=== PATIENT | male | born 1955 | race Caucasian/White ===

== ENCOUNTER 2023-04-10 07:26 | Day surgery (SDC) | payer MEDICARE, MEDICAID, SELFPAY ==
--- NOTE | 2023-04-05 14:19 | HO.ANESPROP2 ---
Documented by User: Bonny Gonzalez NP 04/06/23 10:58 HPI - Anesthesia Eval Consult details Narrative: 67yo M for Colonoscopy Follows cardiology - Dr Verma - CAD Stents 2010, 2013), CHF. Last eval 07/2022 for preop femoral endarterectomy. Nuc Stress done preop without evidence of ischemia. Pt optimized at that time. Follows [facility] - s/p bilateral femoral endartarectomy, bilateral iliac stents 08/2022 - Clopidogrel/ASA PMFSH Past Medical History Medical History CAD (coronary artery disease) CHF (congestive heart failure) GERD (gastroesophageal reflux disease) HLD (hyperlipidemia) HTN (hypertension) Increased BMI MARIANO (obstructive sleep apnea) Osteoarthritis PVD (peripheral vascular disease) Surgical History Surgical History H/O colonoscopy H/O esophagogastroduodenoscopy H/O heart artery stent History of endarterectomy (~2021) S/P insertion of iliac artery stent Social History Social History Patient Tobacco Use Status: Never used Tobacco Meds Allergies Allergy/AdvReac Type Severity Reaction Status Date / Time No Known Allergies Allergy Verified 04/05/23 13:42 Home Medications Medication Instructions Recorded Confirmed Last Taken Type aspirin 81 mg tablet,delayed 81 mg PO DAILY 04/06/23 04/06/23 Unknown History release clopidogrel 75 mg tablet 75 mg PO DAILY 04/06/23 04/06/23 Unknown History diclofenac sodium 75 mg 75 mg PO BID 04/06/23 04/06/23 Unknown History tablet,delayed release docusate sodium 100 mg capsule 100 mg PO BID 04/06/23 04/06/23 Unknown History furosemide 80 mg tablet 80 mg PO DAILY 04/06/23 04/06/23 Unknown History gabapentin 300 mg capsule 600 mg PO TID 04/06/23 04/06/23 Unknown History losartan 100 mg tablet 100 mg PO DAILY 04/06/23 04/06/23 Unknown History metoprolol succinate 50 mg 50 mg PO DAILY 04/06/23 04/06/23 Unknown History tablet,extended release 24 hr pantoprazole 40 mg tablet,delayed 40 mg PO DAILY 04/06/23 04/06/23 Unknown History release potassium chloride 20 mEq 60 meq PO BID 04/06/23 04/06/23 Unknown History tablet,extended release rosuvastatin 20 mg tablet 20 mg PO DAILY 04/06/23 04/06/23 Unknown History semaglutide 1 mg/dose (4 mg/3 mL) 1 mg subcut QWEEK 04/06/23 04/06/23 Unknown History subcutaneous pen injector (Ozempic) Exam Exam Date and Time: April 05, 2023 1419 Narrative Narrative: EKG 07/2022 NSR @ 69 Assessment and Plan Assessment Anesthesia Assessment: Chart Reviewed Documented by User: Keely Hannah MD 04/10/23 08:21 [facility] Active Problems Active Problems: MARIANO. Not using CPAP. Unable to tolerate CAD/PVD. Stopped blood thinners 1 week ago. Denies chest pain Past Medical History Medical History CAD (coronary artery disease) CHF (congestive heart failure) GERD (gastroesophageal reflux disease) HLD (hyperlipidemia) HTN (hypertension) Increased BMI MARIANO (obstructive sleep apnea) Osteoarthritis PVD (peripheral vascular disease) Family History Family history of problems with anesthesia: No Surgical History Surgical History H/O colonoscopy H/O esophagogastroduodenoscopy H/O heart artery stent History of endarterectomy (~2021) S/P insertion of iliac artery stent History of Problems with Anesthesia: No Social History Social History Patient Tobacco Use Status: Never used Tobacco Meds Allergies Allergy/AdvReac Type Severity Reaction Status Date / Time No Known Allergies Allergy Verified 04/05/23 13:42 Home Medications Medication Instructions Recorded Confirmed Last Taken Type aspirin 81 mg tablet,delayed 81 mg PO DAILY 04/06/23 04/06/23 Unknown History release clopidogrel 75 mg tablet 75 mg PO DAILY 04/06/23 04/06/23 Unknown History diclofenac sodium 75 mg 75 mg PO BID 04/06/23 04/06/23 Unknown History tablet,delayed release docusate sodium 100 mg capsule 100 mg PO BID 04/06/23 04/06/23 Unknown History furosemide 80 mg tablet 80 mg PO DAILY 04/06/23 04/06/23 Unknown History gabapentin 300 mg capsule 600 mg PO TID 04/06/23 04/06/23 Unknown History losartan 100 mg tablet 100 mg PO DAILY 04/06/23 04/06/23 Unknown History metoprolol succinate 50 mg 50 mg PO DAILY 04/06/23 04/06/23 Unknown History tablet,extended release 24 hr pantoprazole 40 mg tablet,delayed 40 mg PO DAILY 04/06/23 04/06/23 Unknown History release potassium chloride 20 mEq 60 meq PO BID 04/06/23 04/06/23 Unknown History tablet,extended release rosuvastatin 20 mg tablet 20 mg PO DAILY 04/06/23 04/06/23 Unknown History semaglutide 1 mg/dose (4 mg/3 mL) 1 mg subcut QWEEK 04/06/23 04/06/23 Unknown History subcutaneous pen injector (Ozempic) Exam Height,Weight and Vital Signs: Height 6 ft 1 in Weight 156.489 kg Vital Signs Temp Pulse Resp BP Pulse Ox O2 Del Method 04/10/23 08:10 97.0 F 69 16 148/95 H 96 Room Air Airway Mallampati Class: III TM Dist: >3cm Neck ROM: Full Denture: Upper and Lower Loose/Missing/Broken Teeth: Yes Heart: RRR Lungs: CTAB Assessment and Plan Assessment Anesthesia Assessment: Anesthesia Plan Discussed Final Anesthetic Review Family History of Problems with Anesthesia: No History of Problems with Anesthesia: No NPO: Yes ASA Class: III Final Preanesthetic Review: No Changes in Pt Med Stat, Meds/Allgs Chart Reviewed, Consent Obtained/Reviewed and Anes Risks/Benef Reviewed Patient Risk: Intermediate Procedure Risk: Low Assessment/Block/Sedation in SS: Assess/Block/Sedation-SS Anesthetic Plan Anesthetic Plan: MAC: Disposition: Standard PACU
--- OUTSIDE RECORDS SUMMARY | 2023-04-10 07:29 | XMS_ITS | Continuity of Care Document ---
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 Role Phone Cori Ugalde DO Primary Care Physician [facility]): [facility] - 09/18/21 [facility] [address] [place] [id number]- Attending Physician: Murtaza Raya Admitting Physician: AdmMurtaza sparks Referring Physician: AdmtrMurtaza Allergies, Adverse Reactions, Alerts Substance Reaction Severity Status NKA Active Immunizations Given and Recorded Vaccine Date Status Refusal Reason influenza virus vaccine, inactivated 10/07/19 Give n influenza virus vaccine, inactivated 10/08/14 Colton rded Miscellaneous Vaccine 1 11/21/18 Given zoster vaccine, inactivated 10/26/18 Recorded Zoster Vaccine Live 03/13/17 Recorded Zoster Vaccine Live 2 03/18/12 Recorded tetanus/diphtheria/pertussis, acel(Tdap) 06/21/16 Recorded 1Result Comment: [11/21/2018] pt was given immunization at [address] [facility] VIAL KIT 2Location History: [facility] Medications Meena-Cambria Plus Cold and Cough By Mouth, Every 4 hours, PRN Other, 0 Refills, Maintenance, 11/23/20 8:31:00 EST, Partial fill uponpatient request if the prescription is for a schedule II opioid drug. Start Date: 11/23/20 Status: Ordered aspirin buffered 81 mg oral tablet 1 tablet = 81 mg, By Mouth, Daily, # 30 tablet, 0 Refills, Maintenance, 09/16/14 6:28:58, Tablet Start Date: 09/16/14 Status: Ordered Compression Stockings See Instructions, # 2 pair, Maintenance, surgical, knee length 20-30 mm Hg Dx:I73.9, 07/09/19 16:36:14 EDT, Compound Start Date: 07/09/19 Status: Ordered Depakote ER 500 mg oral tablet, extended release 6 tablet = 3,000 mg, By Mouth, Daily, # 30 tablet, 0 Refills, Maintenance, 07/22/20 17:54:00 EDT, ER Tablet Start Date: 07/22/20 Status: Ordered gabapentin 300 mg oral capsule 600 mg, 2, capsule, By Mouth, 3 times a day, take 1-2 capsules, three times a day, can increase to 2 capsules 3 times a day if tolerable, # 540 capsule, Refills 3, Tot. Refills 3, Maintenance, 07/14/21 13:49:00 EDT, Route to Pharmacy Electronically, [facility]... Start Date: 07/14/21 Stop Date: 07/09/22 Status: Ordered KlonoPIN 0.5 mg oral tablet 1 tablet = 0.5 mg, By Mouth, 3 times a day, 0 Refills, Maintenance, 07/22/20 17:55:00 EDT, Tablet Start Date: 07/22/20 Status: Ordered Klor-Con M20 20 mEq oral tablet, extended release 3 tablets, By Mouth, 2 times a day, Take 3 tablet in am and 3 tablets in pm do not crush or chew, #90 tablet, 5 Refills, Maintenance, 10/01/20 7:33:00 EST, ER Tablet, [facility] #[id number], 185, cm, 07/22/20 22:18:00 EDT, Height, 180, kg, 07/13... Start Date: 10/01/20 Stop Date: 03/30/21 Status: Ordered Lasix 80 mg oral tablet 80 mg, 1, tablet, By Mouth, 2 times a day, # 30 tablet, Refills 0, Maintenance, 12/20/16 17:07:10 Start Date: 12/20/16 Status: Ordered losartan 100 mg oral tablet 1 tablet = 100 mg, By Mouth, Daily, D/C combo HCTZ-Losartan Rx, # 90 tablet, 3 Refills, Maintenance, 12/24/20 10:15:00 EST, Tablet, [facility] #[id number], 185, cm, 12/24/20 9:35:00 EST, Height,183.3, kg, 11/23/20 8:36:00 EST, Dry Weight Start Date: 12/24/20 Stop Date: 12/19/21 Status: Ordered metoprolol 50 mg oral tablet 50 mg, 1, tablet, By Mouth, 2 times a day, Refills 0, Maintenance, 12/20/16 10:41:14 Start Date: 12/20/16 Status: Ordered pantoprazole 40 mg oral delayed release tablet 1 tablet = 40 mg, By Mouth, Daily, # 90 tablet, 4 Refills, Soft Stop, 12/24/20 10:16:00 EST, 185, cm, 12/24/20 9:35:00 EST, Height, 183.3, kg, 11/23/20 8:36:00 EST, Dry Weight Start Date: 12/24/20 Stop Date: 03/19/22 Status: Ordered Plavix 75 mg oral tablet 75 mg, 1, tablet, By Mouth, Daily, # 30 tablet, Refills 0, Maintenance, 05/22/17 10:57:57 Start Date: 05/22/17 Stop Date: 06/21/17 Status: Ordered rosuvastatin 20 mg oral tablet 1 tablet = 20 mg, By Mouth, Daily, Please D/C atorvastatin, # 90 tablet, 3 Refills, Maintenance, 12/24/20 10:16:00 EST, Tablet, [facility] #[id number], Partial fill upon patient request, 185, cm, 12/24/20 9:35:00 EST, Height, 183.3, kg, 11/23/20... Start Date: 12/24/20 Stop Date: 12/19/21 Status: Ordered semaglutide 2 mg/1.5 mL (0.25 mg or 0.5 mg dose) subcutaneous solution = 0.5 mg, Subcutaneous Infusion, Every Sunday, rotate injection sites, # 1 each, 2 Refills, Maintenance, 07/28/21 10:46:00 EDT, Partial fill upon patient request if the prescription is for a schedule II opioid drug., 0.5 mg Subcutaneous Infusion Ever... Start Date: 07/28/21 Stop Date: 10/26/21 Status: Ordered Shower Bench See Instructions, # 1 each, Refills 0, Tot. Refills 0, Maintenance, Dx: Sandi Peters, 12/20/1709:53:07, Compound Start Date: 12/20/16 Status: Ordered Ventolin HFA 108 mcg/inh inhalation aerosol with adapter 1 puffs, Inhalation, 4 times a day, PRN for wheezing, # 1 each, 5 Refills, Maintenance, 01/17/21 9:47:00 EST, Aerosol, [facility] #[id number], 185, cm, 12/24/20 9:35:00 EST, Height, 183.3, kg, 11/23/20 8:36:00 EST, Dry Weight Start Date: 01/17/21 Stop Date: 07/16/21 Status: Ordered Wellbutrin 100 mg oral tablet 2 tablet, By Mouth, Daily, # 60 tablet, 0 Refills, Maintenance, 11/23/20 8:29:00 EST, Tablet, Partial fill upon patient request if the prescription is for a schedule II opioid drug. Start Date: 11/23/20 Status: Ordered Problem List Condition Effective Dates Status Health Status Inform ant Binge eating disorder, mild, in partial remission(Confirmed) Active Chronic back pain(Confirmed) Active CAD (coronary artery disease)(Confirmed) Active GERD (gastroesophageal reflu x disease)(Confirmed) Active COVID-19 vaccine series completed(Confirmed) 1 Active Hypercholesterolemia(Confirmed) Active Hyperlipidemia(Confirmed) Active Hypertension(Confirmed) Active Onychauxis(Confirmed) Active Sleep-related hypoxia(Confirmed) Active Prediabetes(Confirmed) Active Injury of ankle, left(Confirmed) 07/05/21 Active Lateral epicondylitis(Confirmed) Active Nasal vestibulitis(Confirmed) Active MARIANO (obstructive sleep apnea)(Confirmed) Active Fungal infection of nail(Confirmed) Active Osteoarthritis of knee(Confirmed) Active Osteoporosis(Confirmed) 2 Active Paronychia of toe(Confirmed) Active PVD (peripheral vascular disease)(Confirmed) Active Rotator cuff tendonitis(Confirmed) Active Diastolic CHF with preserved left ventricular function, NYHA class 2(Confirmed) Active Treatment-emergent central s leep apnea(Confirmed) Active 1Patient stated he recieved both vaccines at the [facility] on 01/05/21 and 02/02/21 2Dexa 08/2020 Social History Social History Type Response Smoking Status Former smoker; Type: Cigarettes; Tobacco use times per day: 1-2 ppd for 30 years; Number of years: 28; Started at age: 20; Stopped at age: 48; entered on: 05/22/17 Sex Male
--- OUTSIDE RECORDS SUMMARY | 2023-04-10 07:29 | XMS_ITS | Continuity of Care Document ---
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 Name Role Phone Cori Ugalde DO Primary Care Physician [facility]): 10/26/22 - 12/29/22 [facility] [address] [place] [id number]- Attending Physician: Not on Staff, Attending MD Allergies, Adverse Reactions, Alerts No Known Allergies Immunizations Given and Recorded Vaccine Date Status Refusal Reason SARS-CoV-2 (COVID-19) mRNA-1273 vaccine 04/03/22 R ecorded SARS-CoV-2 (COVID-19) mRNA-1273 vaccine 09/24/21 R ecorded SARS-CoV-2 (COVID-19) mRNA-1273 vaccine 02/02/21 R ecorded SARS-CoV-2 (COVID-19) mRNA-1273 vaccine 01/05/21 R ecorded influenza virus vaccine, inactivated 09/24/21 Colton rded influenza virus vaccine, inactivated 10/07/19 Give n influenza virus vaccine, inactivated 10/08/14 Colton rded Influenza Virus Vaccine (oldterm) 1 10/07/19 Recor ded Influenza Virus Vaccine (oldterm) 10/08/14 Recorde d Miscellaneous Vaccine 2 11/21/18 Given Zoster Vaccine Live 10/26/18 Recorded Zoster Vaccine Live 03/13/17 Recorded Zoster Vaccine Live 03/13/17 Recorded Zoster Vaccine Live 03/18/12 Recorded Zoster Vaccine Live 3 03/18/12 Recorded zoster vaccine, inactivated 10/26/18 Recorded tetanus/diphtheria/pertussis, acel(Tdap) 4 06/21/16 Recorded tetanus/diphtheria/pertussis, acel(Tdap) 8/10/16 Recorded 1Result Comment: Unit: Unknown 2Result Comment: [11/21/2018] pt was given immunization at [address] [facility]RIX VIAL KIT 3Location History: [facility] 4Result Comment: Unit: Unknown Medications acetaminophen 325 mg oral tablet Refills 0, Maintenance, 09/26/22 11:34:00 EST, Partial fill upon patient request if the prescription is for a schedule II opioid drug. Start Date: 09/26/22 Status: Ordered aspirin buffered 81 mg oral tablet 1 tablet = 81 mg, By Mouth, Daily, # 30 tablet, 0 Refills, Maintenance, 09/16/14 6:28:58, Tablet Start Date: 09/16/14 Status: Ordered Colace sodium 100 mg oral capsule 100 mg, 1, capsule, By Mouth, 2 times a day, # 60 capsule, Refills 5, Tot. Refills 5, Maintenance, 11/27/22 15:22:00 EST, Route to Pharmacy Electronically, [facility] #[id number], Partial fill upon patient request if the prescription is for a estela... Start Date: 11/27/22 Status: Ordered Compression Stockings See Instructions, # 2 pair, Maintenance, surgical, knee length 20-30 mm Hg Dx:I73.9, 07/09/19 16:36:14 EDT, Compound Start Date: 07/09/19 Status: Ordered CPAP Machine See Instructions, # 1 each, Maintenance, AutoCPAP 13-20 cm H20, use Daily when sleeping, 12/15/22 14:52:00 EST, Supply Start Date: 12/15/22 Status: Ordered Depakote ER 500 mg oral tablet, extended release 6 tablet = 3,000 mg, By Mouth, Daily, # 30 tablet, 0 Refills, Maintenance, 07/22/20 17:54:00 EDT, ER Tablet Start Date: 07/22/20 Status: Ordered diclofenac sodium 75 mg oral delayed release tablet 1 tablet = 75 mg, By Mouth, 2 times a day, with food, # 180 tablet, 0 Refills, Maintenance, 12/04/22 9:17:00 EST, EC Tablet, [facility] #[id number], 185.5, cm, 11/24/22 11:51:00 EST, Height, 154.4, kg, 09/09/22 15:50:00 EDT, Dry Weight Start Date: 12/04/22 Stop Date: 03/04/23 Status: Ordered gabapentin 300 mg oral capsule [...] mg, By Mouth, 3 times a day, PRN Anxiety, 0 Refills, Maintenance, 07/22/20 17:55:00 EDT, Tablet Start Date: 07/22/20 Status: Ordered Klor-Con M20 20 mEq oral tablet, extended release 3 tablets, By Mouth, Daily, Take 3 tablets in am do not crush or chew, # 90 tablet, 3 Refills, Maintenance, 04/03/22 13:28:00 EDT, ER Tablet, [facility] #[id number], 186, cm, 02/02/22 13:39:00 EDT, Height, 160, kg, 01/19/22 12:45:00 EST, Dry We... Start Date: 04/03/22 Stop Date: 08/01/22 Status: Ordered Lasix 80 mg oral tablet 80 mg, 1, tablet, By Mouth, Daily, # 30 tablet, Refills 3, Tot. Refills 3, Maintenance, 04/03/22 13:27:00 EDT, Route to Pharmacy Electronically, [facility] #[id number], Partial fill upon patientrequest if the prescription is for a schedule II op... Start Date: 04/03/22 Status: Ordered losartan 100 mg oral tablet 1 tablet, By Mouth, Daily, DISCONTINUE COMBO HCTZ-LOSARTAN PRESCRIPTION, # 90 tablet, 4 Refills, [facility] #[id number], 186, cm, 02/02/22 13:39:00 EDT, Height, 160, kg, 01/19/22 12:45:00 EST, Dry Weight Start Date: 04/13/22 Status: Ordered metoprolol 50 mg oral tablet 50 mg, 1, tablet, By Mouth, 2 times a day, Refills 0, Maintenance, 12/20/16 10:41:14 Start Date: 12/20/16 Status: Ordered metoprolol 50 mg oral tablet, extended release 50 mg, 1, tablet, By Mouth, Daily, # 30 tablet, Refills 0, Maintenance, 09/28/22 11:18:00 EST, Partial fill upon patient request if the prescription is for a schedule II opioid drug. Start Date: 09/28/22 Status: Ordered nystatin topical [id number] u/gm powder 1 application, Topically, 2 times a day, apply to irritated skin/rash of both groins/pubic areas, #60 Gm, 0 Refills, Maintenance, 10/25/22 11:36:00 EST, Powder, [facility] #[id number], Partial fill upon patient request if the prescription is for... Start Date: 10/25/22 Status: Ordered oxyCODONE 5 mg oral tablet Refills 0, Tot. Refills 0, Maintenance, 09/26/22 11:34:00 EST, Partial fill upon patient request ifthe prescription is for a schedule II opioid drug. Start Date: 09/26/22 Status: Ordered Ozempic (1 mg dose) 4 mg/3 mL subcutaneous solution = 1 mg, Subcutaneous Infusion, Every Sunday, # 3 mL, 2 Refills, Maintenance, 10/14/22 12:35:00 EST, [facility] #[id number], Partial fill upon patient request if the prescription is for a schedule II opioid drug., 185.5, cm, 09/28/22 10:37:00 EST... Start Date: 10/14/22 Status: Ordered pantoprazole 40 mg oral delayed release tablet 1 tablet, By Mouth, Daily, # 90 tablet, 3 Refills, 186, cm, 02/02/22 13:39:00 EDT, Height, 160, kg,01/19/22 12:45:00 EST, Dry Weight Start Date: 05/19/22 Status: Ordered Plavix 75 mg oral tablet 75 mg, 1, tablet, By Mouth, Daily, # 30 tablet, Refills 0, Maintenance, 05/22/17 10:57:57 Start Date: 05/22/17 Stop Date: 06/21/17 Status: Ordered rosuvastatin 20 mg oral tablet 1 tablet = 20 mg, By Mouth, Daily, Please D/C atorvastatin, # 90 tablet, 1 Refills, Maintenance, 07/17/22 10:04:00 EDT, Tablet, [facility] #[id number], Partial fill upon patient request, 186, cm, 05/24/22 15:33:00 EDT, Height, 160, kg, 01/19/22 1... Start Date: 07/17/22 Stop Date: 01/13/23 Status: Ordered Shower Bench See Instructions, # 1 each, Refills 0, Tot. Refills 0, Maintenance, Dx: Sandi Peters, 12/20/1709:53:07, Compound Start Date: 12/20/16 Status: Ordered Ventolin HFA 108 mcg/inh inhalation aerosol with adapter 1 puffs, Inhalation, 4 times a day, PRN for wheezing, # 1 each, 5 Refills, Maintenance, 10/06/22 13:01:00 EST, Aerosol, [facility] #[id number], 185.5, cm, 09/28/22 10:37:00 EST, Height, 154.4, kg, 09/09/22 15:50:00 EDT, Dry Weight Start Date: 10/06/22 Stop Date: 04/04/23 Status: Ordered Vitamin D3 1000 intl units oral tablet 1 tablet = 25 mcg, By Mouth, Daily, # 30 tablet, 0 Refills, Maintenance, 01/17/22 10:07:00 EST, Tablet, Partial fill upon patient request if the prescription is for a schedule II opioid drug. Start Date: 01/17/22 Status: Ordered Wellbutrin 100 mg oral tablet 2 tablet, By Mouth, Daily, # 60 tablet, 0 Refills, Maintenance, 11/23/20 8:29:00 EST, Tablet, Partial fill upon patient request if the prescription is for a schedule II opioid drug. Start Date: 11/23/20 Status: Ordered Problem List Condition Confirmation Course Effective Dates Status Health Status Informant Binge eating disorder, mild, in partial remission Confirmed Active Chronic back pain Confirmed Active CAD (coronary artery disease) Confirmed Active GERD (gastroesophageal reflux disease) Confirmed Active COVID-19 vaccine series completed 1 Confirmed Active Hypercholesterolemia Confirmed Active Hyperlipidemia Confirmed Active Hypertension Confirmed Active Onychauxis Confirmed Active Sleep-related hypoxia Confirmed Active Prediabetes Confirmed Active Injury of ankle, left Confirmed 07/05/21 Active Lateral epicondylitis Confirmed Active Nasal vestibulitis Confirmed Active MARIANO (obstructive sleep apnea) Confirmed Active Fungal infection of nail Confirmed Active Osteoarthritis of knee Confirmed Active Osteoporosis 2 Confirmed Active Paronychia of toe Confirmed Active PVD (peripheral vascular disease) Confirmed Active Severe obesity Confirmed Active Rotator cuff tendonitis Confirmed Active Diastolic CHF with preserved left ventricular function, NYHA class 2 Confirmed Active Treatment-emergent central sleep apnea Confirmed Active 1Patient stated he recieved both vaccines at the [facility] on 01/05/21 and 02/02/21 2Dexa 08/2020 Social History Social History Type Response Smoking Status Former smoker, quit more than 30 days ago entered on: 08/21/22 Sex Patient Care team information Care Team Personnel Name: Pam Killian RN Position: [facility] RN Member Role: Primary Care Nurse Name: Cori Ugalde DO Position: [facility] Primary Care Physician Member Role: PCP Address: Address: [address] [place] [id number] Name: Mila Omer RN Position: [facility] RN Member Role: Primary Care Nurse Care Team Related Persons Name: CANDY PRETTY Name: DEVAN PRETTY Address: home [address] [place] [id number] Name: SHERWIN PRETTY Address: [place] [address] Name: ISRAEL ALEGRIA
--- OUTSIDE RECORDS SUMMARY | 2023-04-10 07:29 | XMS_ITS | Continuity of Care Document ---
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 Role Phone Cori Ugalde DO Primary Care Physician Encounter [facility] Date(s): 03/01/20 - 03/08/20 [facility] [address] [place] [address]- [facility] Attending Physician: Manuel Reyes MD Admitting Physician: Manuel Reyes MD Allergies, Adverse Reactions, Alerts Substance Reaction Severity Status NKA Active Immunizations Given and Recorded Vaccine Date Status Refusal Reason influenza virus vaccine, inactivated 10/07/19 Give n influenza virus vaccine, inactivated 10/08/14 Colton rded Miscellaneous Vaccine 1 11/21/18 Given Zoster Vaccine Live 03/13/17 Recorded Zoster Vaccine Live 2 03/18/12 Recorded tetanus/diphtheria/pertussis, acel(Tdap) 06/21/16 Recorded 1Result Comment: [11/21/2018] pt was given immunization at [address] [facility] 2Location History: [facility] Medications aspirin buffered 81 mg oral tablet 1 tablet = 81 mg, By Mouth, Daily, # 30 tablet, 0 Refills, Maintenance, 09/16/14 6:28:58, Tablet Start Date: 09/16/14 Status: Ordered atorvastatin 40 mg oral tablet 1 tablet = 40 mg, By Mouth, Daily, # 90 tablet, 0 Refills, Maintenance, 01/19/20 9:21:00 EDT, Tablet Start Date: 01/19/20 Stop Date: 02/18/20 Status: Ordered Compression Stockings See Instructions, # 2 pair, Maintenance, surgical, knee length 20-30 mm Hg Dx:I73.9, 07/09/19 16:36:14 EDT, Compound Start Date: 07/09/19 Status: Ordered diclofenac 1% topical gel = 2 Gm, Topically, 4 times a day, # 100 Gm, 5 Refills, Maintenance, 01/06/20 10:56:00 EST, Gel, [facility] #[id number], 186, cm, 10/07/19 9:17:00 EST, Height Start Date: 01/06/20 Stop Date: 07/04/20 Status: Ordered gabapentin 300 mg oral capsule 300 mg, 1, capsule, By Mouth, 3 times a day, # 90 capsule, Refills 5, Tot. Refills 5, Maintenance, 10/07/19 9:24:32 EST, Route to Pharmacy Electronically, NCPDP_ID-[id number], [facility] [address] Start Date: 10/07/19 Stop Date: 04/04/20 Status: Ordered Klor-Con M20 20 mEq oral tablet, extended release 3 tablets, By Mouth, 2 times a day, Take 3 tablet in am and 3 tablets in pm do not crush or chew, #90 tablet, 5 Refills, Maintenance, 01/02/17 9:14:28, ER Tablet Start Date: 01/02/17 Stop Date: 07/01/17 Status: Ordered Lasix 80 mg oral tablet 80 mg, 1, tablet, By Mouth, 2 times a day, # 30 tablet, Refills 0, Maintenance, 12/20/16 17:07:10 Start Date: 12/20/16 Status: Ordered losartan 100 mg oral tablet 1 tablet = 100 mg, By Mouth, Daily, D/C combo HCTZ-Losartan Rx, # 90 tablet, 3 Refills, Maintenance, 01/19/20 9:18:00 EDT, Tablet, [facility] #[id number], 186, cm, 01/19/20 9:14:00 EDT, Height Start Date: 01/19/20 Status: Ordered metoprolol 50 mg oral tablet 50 mg, 1, tablet, By Mouth, 2 times a day, Refills 0, Maintenance, 12/20/16 10:41:14 Start Date: 12/20/16 Status: Ordered Nitrostat 0.4 mg sublingual tablet 1 tablet = 0.4 mg, Sublingual, Every 5 minutes, PRN for chest pain, # 100 tablet, 0 Refills, Maintenance, 09/16/14 6:28:29, Tablet Start Date: 09/16/14 Status: Ordered Plavix 75 mg oral tablet 75 mg, 1, tablet, By Mouth, Daily, # 30 tablet, Refills 0, Maintenance, 05/22/17 10:57:57 Start Date: 05/22/17 Stop Date: 06/21/17 Status: Ordered ProAir HFA 90 mcg/inh inhalation aerosol with adapter INHALE 1 TO 2 PUFFS EVERY 4 TO 6 HOURS NEEDED., 02/03/15 0:00:00 Start Date: 02/03/15 Status: Ordered Shower Bench See Instructions, # 1 each, Refills 0, Tot. Refills 0, Maintenance, Dx: Sandi Peters, 12/20/1709:53:07, Compound Start Date: 12/20/16 Status: Ordered sildenafil 1 mg/mL (compounded) mg, By Mouth, Compound a concentration of 1 mg/mL susp; crush 1 of 100 mg tablets, levigate with 5 mL Purified Water, 50 mL Ora-Plus, 4 mL Irizarry Syrup, Ora-Sweet;QSAD to final volume of 60 mL, # 60 mL, 0 Refills, Maintenance, 07/31/18 9:34:15 EDT Start Date: 07/31/18 Status: Ordered Ventolin HFA 108 mcg/inh inhalation aerosol with adapter 1 puffs, Inhalation, 4 times a day, PRN for wheezing, # 1 each, 5 Refills, Maintenance, 12/25/19 13:42:00 EST, Aerosol, [facility] #[id number], 186, cm, 10/07/19 9:17:00 EST, Height Start Date: 12/25/19 Stop Date: 06/22/20 Status: Ordered Zofran 4 mg oral tablet 1 tablet = 4 mg, By Mouth, Every 8 hours, PRN Nausea & Vomiting, # 10 tablet, 0 Refills, Maintenance, 12/24/17 13:49:51, Tablet Start Date: 12/24/17 Status: Ordered Problem List Condition Effective Dates Status Health Status Inform ant Acute sinusitis(Confirmed) Active Anginal pain(Confirmed) Active CAD (coronary artery disease)(Confirmed) Active Coronary artery disease(Confirmed) Active Right foot pain(Confirmed) Active GERD (gastroesophageal reflu x disease)(Confirmed) Active Hypercholesterolemia(Confirmed) Active Hyperlipidemia(Confirmed) Active Hypertension(Confirmed) Active Onychauxis(Confirmed) Active Cerumen impaction(Confirmed) Active Prediabetes(Confirmed) Active Lateral epicondylitis(Confirmed) Active Nasal vestibulitis(Confirmed) Active MARIANO (obstructive sleep apnea)(Confirmed) Active Fungal infection of nail(Confirmed) Active Osteoarthritis(Confirmed) Active Osteoarthritis of knee(Confirmed) Active Paronychia of toe(Confirmed) Active PVD (peripheral vascular disease)(Confirmed) Active Peripheral artery disease(Confirmed) Active Rotator cuff tendonitis(Confirmed) Active Skin lesion(Confirmed) Active Diastolic CHF with preserved left ventricular function, NYHA class 2(Confirmed) Active Social History Social History Type Response Smoking Status Former smoker; Type: Cigarettes; Tobacco use times per day: 1-2 ppd for 30 years; Number of years: 28; Started at age: 20; Stopped at age: 48; entered on: 05/22/17 Sex Male
--- OUTSIDE RECORDS SUMMARY | 2023-04-10 07:29 | XMS_ITS | Continuity of Care Document ---
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 [facility] VIAL KIT 2Location History: [facility] Medications aspirin buffered 81 mg oral tablet [...] 5 Refills, Maintenance, 01/06/20 10:56:00 EST, Gel, [facility] #[id number], 186, cm, 10/07/19 9:17:00 EST, Height Start Date: 01/06/20 Stop Date: 07/04/20 Status: Ordered diclofenac sodium 75 mg oral delayed release tablet 1 tablet = 75 mg, By Mouth, 2 times a day, with food, # 60 tablet, 3 Refills, Maintenance, 209:21:00 EDT, EC Tablet, [facility] #[id number], 186, cm, 01/19/20 9:14:00 EDT, Height Start Date: 04/06/20 Stop Date: 08/04/20 Status: Ordered gabapentin 300 mg oral capsule 300 mg, 1, capsule, By Mouth, 3 times a day, # 90 capsule, Refills 5, Tot. Refills 5, Maintenance, 10/07/19 9:24:32 EST, Route to Pharmacy Electronically, NCPDP_[id number], [facility] [address] Start Date: 10/07/19 Stop Date: 04/04/20 Status: [...] 3 Refills, Maintenance, 01/19/20 9:18:00 EDT, Tablet, [facility] #[id number], 186, cm, 01/19/20 9:14:00 EDT, Height Start [...] 5 Refills, Maintenance, 12/25/19 13:42:00 EST, Aerosol, [facility] #[id number], 186, cm, 10/07/19 9:17:00 EST, Height Start [...]
--- OUTSIDE RECORDS SUMMARY | 2023-04-10 07:29 | XMS_ITS | Continuity of Care Document ---
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 [facility]X VIAL KIT 2Location History: [facility] Medications Meena-Lynn Plus Cold and Cough By Mouth, Every [...] Refills, Maintenance, 10/01/20 7:33:00 EST, ER Tablet, [facility] #[id number], 185, cm, 07/22/20 22:18:00 EDT, Height, 180, [...] 3 Refills, Maintenance, 12/24/20 10:15:00 EST, Tablet, [facility] #[id number], 185, cm, 12/24/20 9:35:00 EST, Height,183.3, kg, [...] 3 Refills, Maintenance, 12/24/20 10:16:00 EST, Tablet, [facility] #[id number], Partial fill upon patient request, 185, cm, [...] 5 Refills, Maintenance, 01/17/21 9:47:00 EST, Aerosol, [facility] #[id number], 185, cm, 12/24/20 9:35:00 EST, Height, 183.3, [...] stated he recieved both vaccines at [facility] [place] [facility] on 01/05/21 and 02/02/21 2Dexa 08/2020 Social History Social History Type Response Smoking Status Former smoker; Type: Cigarettes; Tobacco use times per day: 1-2 ppd for 30 years; Number of years: 28; Started at age: 20; Stopped at age: 48; entered on: 05/22/17 Sex Male
--- OUTSIDE RECORDS SUMMARY | 2023-04-10 07:29 | XMS_ITS | Continuity of Care Document ---
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 [facility] VIAL KIT 2Location History: [facility] Medications acetaminophen 325 mg oral tablet Refills [...] times a day, # 60 capsule, Refills 1, Tot. Refills 1, Maintenance, 09/28/22 11:07:00 EST, Route to Pharmacy Electronically, [facility] #[id number], Partial fill upon patient request if the prescription is for a estela... Start Date: 09/28/22 Status: Ordered Compression Stockings See Instructions, # 2 pair, Maintenance, surgical, knee length 20-30 mm Hg Dx:I73.9, 07/09/19 16:36:14 EDT, Compound Start Date: 07/09/19 Status: Ordered CPAP Machine See Instructions, # 1 each, Maintenance, AutoCPAP 13-20 cm H20, use Daily when sleeping, 07/21/22 17:58:00 EDT, Supply Start Date: 07/21/22 Status: Ordered Depakote ER 500 mg oral tablet, extended release 6 tablet = 3,000 mg, By Mouth, Daily, # 30 tablet, 0 Refills, Maintenance, 07/22/20 17:54:00 EDT, ER Tablet Start Date: 07/22/20 Status: Ordered diclofenac sodium 75 mg oral delayed release tablet 1 tablet = 75 mg, By Mouth, 2 times a day, with food, # 180 tablet, 1 Refills, Maintenance, 07/17/22 11:58:00 EDT, EC Tablet, [facility] #[id number], 186, cm, 05/24/22 15:33:00 EDT, Height, 160,kg, 01/19/22 12:45:00 EST, Dry Weight Start Date: 07/17/22 Stop Date: 01/13/23 Status: Ordered gabapentin 300 mg oral capsule [...] Refills, Maintenance, 04/03/22 13:28:00 EDT, ER Tablet, [facility] #[id number], 186, cm, 02/02/22 13:39:00 EDT, Height, 160, kg, 01/19/22 12:45:00 EST, Dry We... Start Date: 04/03/22 Stop Date: 08/01/22 Status: Ordered Lasix 80 mg oral tablet 80 mg, 1, tablet, By Mouth, Daily, # 30 tablet, Refills 3, Tot. Refills 3, Maintenance, 04/03/22 13:27:00 EDT, Route to Pharmacy Electronically, [facility] #[id number], Partial fill upon patientrequest if the prescription is for a schedule II op... Start Date: 04/03/22 Status: Ordered losartan 100 mg oral tablet 1 tablet, By Mouth, Daily, DISCONTINUE COMBO HCTZ-LOSARTAN PRESCRIPTION, # 90 tablet, 4 Refills, [facility] #[id number], 186, cm, 02/02/22 13:39:00 EDT, Height, 160, [...] opioid drug. Start Date: 09/28/22 Status: Ordered oxyCODONE 5 mg oral tablet Refills 0, Tot. Refills 0, Maintenance, 09/26/22 11:34:00 EST, Partial fill upon patient request ifthe prescription is for a schedule II opioid drug. Start Date: 09/26/22 Status: Ordered Ozempic (1 mg dose) 4 mg/3 mL subcutaneous solution = 1 mg, Subcutaneous Infusion, Every Sunday, # 3 mL, 3 Refills, Maintenance, 05/25/22 15:50:00 EDT, [facility] #[id number], Partial fill upon patient request if the prescription is for a schedule II opioid drug., 186, cm, 05/24/22 15:33:00 EDT,... Start Date: 05/25/22 Status: Ordered pantoprazole 40 mg oral delayed [...] 1 Refills, Maintenance, 07/17/22 10:04:00 EDT, Tablet, [facility] #[id number], Partial fill upon patient request, 186, cm, [...] 5 Refills, Maintenance, 01/17/21 9:47:00 EST, Aerosol, [facility] #[id number], 185, cm, 12/24/20 9:35:00 EST, Height, 183.3, kg, 11/23/20 8:36:00 EST, Dry Weight Start Date: 01/17/21 Stop Date: 07/16/21 Status: Ordered Vitamin D3 1000 intl units [...] stated he recieved both vaccines at [facility] [place] [facility] on 01/05/21 and 02/02/21 2Dexa 08/2020 Vital Signs Most recent to oldest [Reference Range]: 1 Height 185.5 cm (09/26/22 11:20 AM) Weight 155.45 kg (09/26/22 11:20 AM) Oxygen Saturation [94-100 %] 98 % (09/26/22 11:20 AM) Pulse Rate [55-90 bpm] 80 bpm (09/26/22 11:20 AM) Body Mass Index [18.5-24.99 kg/m2] 45.18 kg/m2 *>HHI* (09/26/22 11:20 AM) Mode of Delivery (Oxygen) Room air (09/26/22 11:20 AM) Blood pressure sites Arm, left (09/26/22 11:20 AM) Weight Obtained Via Patient/family state d (09/26/22 11:20 AM) Social History Social History Type Response Smoking Status Former smoker, quit more than 30 days ago entered on: 08/21/22 Sex Note * Bruce Green: PERFORM, SIGN, VERIFY Event Display: Patient Education/Instruction Authored Date: [id number] [facility] [address] Clinical Summary Name ANDRES PRETTY Age 67 Years 1955 PCP Cori Ugalde DO PCP Visit Date 09/26/2022 11:08:00 Additional Instructions: Scheduled Appointments?? Future Appointments ?*[facility] [address] ?[place],??[place],??[address] ?Phone:??--?Fax:??-- ?Appt. Date:??09/28/2022?10:20 AM ?Scheduled Provider:??Mitzi Kumar MD ?*[facility] ?[address] ?[place],??[place],??[address] ?Phone:??--?Fax:??-- ?Appt. Date:??12/15/2022?1:00 PM ?Scheduled Provider:??Isaac GOTTI, Juanita Alonzo Follow-Up Instructions ?? Diagnosis Medications: Please continue your medications until treatment is completed or stopped by your provider. Discuss any questions related to medications with your provider. Medications to Continue with No Changes These medications were not printed or sent to your pharmacy Acetaminophen (acetaminophen 325 mg oral tablet) Next Dose: Albuterol (Ventolin HFA 108 mcg/inh inhalation aerosol with adapter) 1 puff(s) Inhalation 4 times aday as needed for wheezing for 30 Days. Refills: 5. Next Dose: Aspirin (aspirin buffered 81 mg oral tablet) 1 tab(s) Oral Daily. Next Dose: BuPROpion (Wellbutrin 100 mg oral tablet) 2 tab(s) Oral Daily. Next Dose: Cholecalciferol (Vitamin D3 1000 intl units oral tablet) 1 tab(s) Oral Daily. Next Dose: Clonazepam (KlonoPIN 0.5 mg oral tablet) 1 tab(s) Oral 3 times a day as needed Anxiety. Next Dose: Clopidogrel (Plavix 75 mg oral tablet) 1 tab(s) Oral Daily for 30 Days. Next Dose: Diclofenac (diclofenac sodium 75 mg oral delayed release tablet) 1 tab(s) Oral twice a day for 90 Days. with food. Refills: 1. Next Dose: Divalproex Sodium (Depakote ER 500 mg oral tablet, extended release) 6 tab(s) Oral Daily. Next Dose: Docusate (Colace sodium 100 mg oral capsule) 1 capsule Oral twice a day. Refills: 0. Next Dose: Durable Medical Equipment (Compression Stockings) surgical, knee length 20-30 mm Hg Dx:I73.9. Refills: 0. Next Dose: Durable Medical Equipment (CPAP Machine) AutoCPAP 13-20 cm H20, use Daily when sleeping. Refills: 0. Next Dose: Durable Medical Equipment (Shower Bench) Dx: Weakness Lifelone. Refills: 0. Next Dose: Furosemide (Lasix 80 mg oral tablet) 1 tab(s) Oral Daily. Refills: 3. Next Dose: Gabapentin (gabapentin 300 mg oral capsule) 2 capsule Oral 3 times a day for 90 Days. take 1-2 capsules, three times a day, can increase to 2 capsules 3 times a day if tolerable. Refills: 3. Next Dose: Hydromorphone (HYDROmorphone 2 mg oral tablet) Next Dose: Losartan (losartan 100 mg oral tablet) 1 tab(s) Oral Daily. DISCONTINUE COMBO HCTZ-LOSARTAN PRESCRIPTION. Refills: 4. Next Dose: Metoprolol (metoprolol 50 mg oral tablet) 1 tab(s) Oral twice a day. Next Dose: Oxycodone (oxyCODONE 5 mg oral tablet) Next Dose: Pantoprazole (pantoprazole 40 mg oral delayed release tablet) 1 tab(s) Oral Daily. Refills: 3. Next Dose: Potassium Chloride (Klor-Con M20 20 mEq oral tablet, extended release) 3 tablets Oral Daily for 30 Days. Take 3 tablets in am do not crush or chew. Refills: 3. Next Dose: Rosuvastatin (rosuvastatin 20 mg oral tablet) 1 tab(s) Oral Daily for 90 Days. Please D/C atorvastatin. Refills: 1. Next Dose: semaglutide (Ozempic (1 mg dose) 4 mg/3 mL subcutaneous solution) 1 Milligram Subcutaneous Infusionevery Sunday. Refills: 3. Next Dose: Allergy Info:?? NKA Medications Given This Visit Future Orders ?No future orders Vital Signs Height 185.5 cm Weight 155.45 kg BMI 45.18 kg/m2 Blood Pressure / Temperature Pulse Rate 80 bpm Respiratory Rate 02 Sat Mode of Delivery 98 %/Room air You can now view a summary of your hospital visit from the comfort of your home through a free online portal called [facility]. [facility] is a website that allows you to securely view your medical information including discharge summary, medications and follow-up visits. ??You can alsosend a secure electronic message to your doctor???s office to request appointments, renew medications or just ask a question. You can enroll at [email or web address] or register during your next office visit. Disclaimer:?? The information provided is of a general nature and is intended to be used in conjunction with the recommendations and advice of your health care practitioner. ??Every effort has been made to ensure that the information provided is accurate and complete at the time it is provided to you however, as your needs change, or, as new ??information becomes available, different or additional instructions may be required. If you have questions, please consult with your primary care provider or pharmacist, as appropriate. ??This information is not intended to serve as substitution for assessment and evaluation by a qualified health care provider. If you do not have a primary care provider, you may find a [facility] provider by calling [facility] at [phone]. For information about the plan of care including goals and instructions for your diagnosis, please see the patient education orders section of this document. Patient Education Materials?? The content of this educational material or handout may have been modified, supplemented, or adapted from its original content and format to support your individualized medical care. Patient Care team information Care Team Personnel Name: Pam Killian RN Position: S RN Member Role: Primary Care Nurse Name: Cori Ugalde DO Position: [facility] Primary Care Physician Member Role: PCP Address: Address: [address] [place] [id number] Name: Mila Omer RN Position: S RN Member Role: Primary Care Nurse Care Team Related Persons Name: CANDY PRETTY Name: DEVAN PRETTY Address: home [address] [place] [id number] Name: MARIA DE JESUS SHERWIN Address: [place] [address] Name: ISRAEL ALEGRIA
--- OUTSIDE RECORDS SUMMARY | 2023-04-10 07:30 | XMS_ITS | Continuity of Care Document ---
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 [facility]RIX VIAL KIT 2Location History: [facility] Medications Meena-Del Valle Plus Cold and Cough By Mouth, Every [...] a day, with food, # 180 tablet, 3 Refills, Maintenance, 12/24/20 10:15:00 EST, EC Tablet, [facility] #[id number], 185, cm, 12/24/20 9:35:00 EST, Height, 183.3, kg, 11/23/20 8:36:00 EST, Dry Weight Start Date: 12/24/20 Stop Date: 12/19/21 Status: Ordered gabapentin 300 mg oral capsule 300 mg, 1, capsule, By Mouth, 3 times a day, # 270 capsule, Refills 3, Tot. Refills 3, Maintenance,12/24/20 10:15:00 EST, Route to Pharmacy Electronically, [facility] #[id number], 185, cm, 12/24/20 9:35:00 EST, Height, 183.3, kg, 11/23/20 8:36:0... Start Date: 12/24/20 Stop Date: 12/19/21 Status: Ordered KlonoPIN 0.5 mg oral tablet [...] Refills, Maintenance, 10/01/20 7:33:00 EST, ER Tablet, [facility] #[id number], 185, cm, 07/22/20 22:18:00 EDT, Height, 180, [...] 3 Refills, Maintenance, 12/24/20 10:15:00 EST, Tablet, [facility] #[id number], 185, cm, 12/24/20 9:35:00 EST, Height,183.3, kg, [...] 3 Refills, Maintenance, 12/24/20 10:16:00 EST, Tablet, [facility] #[id number], Partial fill upon patient request, 185, cm, 12/24/20 9:35:00 EST, Height, 183.3, kg, 11/23/20... Start Date: 12/24/20 Stop Date: 12/19/21 Status: Ordered Shower Bench See Instructions, # 1 each, Refills 0, Tot. Refills 0, Maintenance, Dx: Sandi Peters, 12/20/1709:53:07, Compound Start Date: 12/20/16 Status: Ordered Ventolin HFA 108 mcg/inh inhalation aerosol with adapter 1 puffs, Inhalation, 4 times a day, PRN for wheezing, # 1 each, 5 Refills, Maintenance, 01/17/21 9:47:00 EST, Aerosol, [facility] #[id number], 185, cm, 12/24/20 9:35:00 EST, Height, 183.3, [...] Effective Dates Status Health Status Inform ant Chronic back pain(Confirmed) Active CAD (coronary artery disease)(Confirmed) Active GERD (gastroesophageal reflu x disease)(Confirmed) Active COVID-19 vaccine series completed(Confirmed) 1 Active Hypercholesterolemia(Confirmed) Active Hyperlipidemia(Confirmed) Active Hypertension(Confirmed) Active Onychauxis(Confirmed) Active Prediabetes(Confirmed) Active Lateral epicondylitis(Confirmed) Active Nasal vestibulitis(Confirmed) Active MARIANO (obstructive sleep apnea)(Confirmed) Active Fungal infection of nail(Confirmed) Active Osteoarthritis of knee(Confirmed) Active Osteoporosis(Confirmed) 2 Active Paronychia of toe(Confirmed) Active PVD (peripheral vascular disease)(Confirmed) Active Rotator cuff tendonitis(Confirmed) Active Diastolic CHF with preserved left ventricular function, NYHA class 2(Confirmed) Active 1Patient stated he rec[facility] [place] [facility] [place] and 02/02/21 2Dexa 08/2020 Social History Social History Type Response Smoking Status Former smoker; Type: Cigarettes; Tobacco use times per day: 1-2 ppd for 30 years; Number of years: 28; Started at age: 20; Stopped at age: 48; entered on: 05/22/17 Sex Male
--- OUTSIDE RECORDS SUMMARY | 2023-04-10 07:30 | XMS_ITS | Continuity of Care Document ---
Author Name Unknown Organization [facility] Address [address] [place] [address]- Care Team Providers Care Ct Scan Tech Name Role Phone Cori Ugalde DO Primary Care Physician [facility]counter [facility] Date(s): 03/18/21 - 04/17/21 [facility] [address] [place] [phone]- Allergies, Adverse Reactions, Alerts Substance Reaction Severity Status NKA Active Immunizations Given and Recorded Vaccine Date Status Refusal Reason influenza virus vaccine, inactivated 10/07/19 Give n influenza virus vaccine, inactivated 10/08/14 Colton rded Miscellaneous Vaccine 1 11/21/18 Given Zoster Vaccine Live 03/13/17 Recorded Zoster Vaccine Live 2 03/18/12 Recorded tetanus/diphtheria/pertussis, acel(Tdap) 06/21/16 Recorded 1Result Comment: [11/21/2018] pt was given immunization at [address] SHINGRIX VIAL KIT 2Location History: [facility] Medications Meena-[place] Plus Cold and Cough By Mouth, Every [...] Refills, Maintenance, 12/24/20 10:15:00 EST, EC Tablet, [facility] #[id number], 185, cm, 12/24/20 9:35:00 EST, Height, 183.3, kg, 11/23/20 8:36:00 EST, Dry Weight Start Date: 12/24/20 Stop Date: 12/19/21 Status: Ordered gabapentin 300 mg oral capsule 300 mg, 1, capsule, By Mouth, 3 times a day, # 270 capsule, Refills 3, Tot. Refills 3, Maintenance,12/24/20 10:15:00 EST, Route to Pharmacy Electronically, [facility] #[id number], 185, cm, 12/24/20 9:35:00 EST, Height, 183.3, [...] Refills, Maintenance, 10/01/20 7:33:00 EST, ER Tablet, [facility] #[id number], 185, cm, 07/22/20 22:18:00 EDT, Height, 180, [...] 3 Refills, Maintenance, 12/24/20 10:15:00 EST, Tablet, [facility] #[id number], 185, cm, 12/24/20 9:35:00 EST, Height,183.3, kg, [...] 3 Refills, Maintenance, 12/24/20 10:16:00 EST, Tablet, [facility] #[id number], Partial fill upon patient request, 185, cm, [...] 5 Refills, Maintenance, 01/17/21 9:47:00 EST, Aerosol, [facility] #[id number], 185, cm, 12/24/20 9:35:00 EST, Height, 183.3, [...] stated he [facility] and 02/02/21 2Dexa 08/2020 Social History Social History Type Response Smoking Status Former smoker; Type: Cigarettes; Tobacco use times per day: 1-2 ppd for 30 years; Number of years: 28; Started at age: 20; Stopped at age: 48; entered on: 05/22/17 Sex Male
--- OUTSIDE RECORDS SUMMARY | 2023-04-10 07:30 | XMS_ITS | Continuity of Care Document ---
Author Name Unknown Organization [facility] Address [address] [place] [address]- Care Team Providers Care Histology Supervisor Name Role Phone Cori Ugalde DO Primary Care Physician [id number] Date[facility] 03[facility]25/21 - 07/23/21 [facility] [address] [place] [address]- Attending Physician: Irineo GOTTI, Naty Xavier Admitting Physician: Irineo GOTTI, Naty Xavier Referring Physician: Cori Ugalde DO Allergies, Adverse Reactions, Alerts Substance Reaction Severity [...] [11/21/2018] pt was given immunization at [address] SHINGRIX VIAL KIT 2Location History: [facility] Medications Meena-Keller Plus Cold and Cough By Mouth, Every [...] Refills, Maintenance, 10/01/20 7:33:00 EST, ER Tablet, [facility] #[id number], 185, cm, 07/22/20 22:18:00 EDT, Height, 180, [...] 3 Refills, Maintenance, 12/24/20 10:15:00 EST, Tablet, [facility] #[id number], 185, cm, 12/24/20 9:35:00 EST, Height,183.3, kg, [...] 3 Refills, Maintenance, 12/24/20 10:16:00 EST, Tablet, [facility] #[id number], Partial fill upon patient request, 185, cm, 12/24/20 9:35:00 EST, Height, 183.3, kg, 11/23/20... Start Date: 12/24/20 Stop Date: 12/19/21 Status: Ordered semaglutide 2 mg/1.5 mL (0.25 mg or 0.5 mg dose) subcutaneous solution = 0.25 mg, Subcutaneous Infusion, Every Sunday, rotate injection sites, # 1 each, 1 Refills, Maintenance, 06/13/21 11:00:00 EDT, [facility] #[id number], Partial fill upon patient request if theprescription is for a schedule II opioid drug., 0.2... Start Date: 06/13/21 Stop Date: 08/12/21 Status: Ordered Shower Bench See Instructions, # 1 each, Refills 0, Tot. Refills 0, Maintenance, Dx: Sandi Peters, 12/20/1709:53:07, Compound Start Date: 12/20/16 Status: Ordered Ventolin HFA 108 mcg/inh inhalation aerosol with adapter 1 puffs, Inhalation, 4 times a day, PRN for wheezing, # 1 each, 5 Refills, Maintenance, 01/17/21 9:47:00 EST, Aerosol, [facility] #[id number], 185, cm, 12/24/20 9:35:00 EST, Height, 183.3, [...] stated he recieved both vaccines at the [facility] on 01/05/21 and 02/02/21 2Dexa 08/2020 Social History Social History Type Response Smoking Status Former smoker; Type: Cigarettes; Tobacco use times per day: 1-2 ppd for 30 years; Number of years: 28; Started at age: 20; Stopped at age: 48; entered on: 05/22/17 Sex Male
--- OUTSIDE RECORDS SUMMARY | 2023-04-10 07:30 | XMS_ITS | Continuity of Care Document ---
Author Name Unknown Organization [facility] Address [address] [place] [address]- Care Team Providers Care Vegetable Harvest Worker Name Role Phone Cori Ugalde DO Primary Care Physician Encounter [facility] Date(s): 08/15/22 - 09/14/22 [facility] [address] [place] [address]- Allergies, Adverse Reactions, Alerts No Known Allergies [...] Comment: [11/21/2018] pt was given immunization at [address] SHINGRIX VIAL KIT 2Location History: [facility] Medications acetaminophen 325 mg oral tablet 975 mg, 3, tablet, By Mouth, Every 6 hours, for 10 days, # 120 tablet, Refills 0, Tot. Refills 0, Acute 09/16/22 10:24:00 EDT, 09/06/22 10:24:00 EDT, Route to Pharmacy Electronically, [facility] #[id number], Partial fill upon patient request if t... Start Date: 09/06/22 Stop Date: 09/16/22 Status: Ordered aspirin buffered 81 mg oral tablet 1 tablet = 81 mg, By Mouth, Daily, # 30 tablet, 0 Refills, Maintenance, 09/16/14 6:28:58, Tablet Start Date: 09/16/14 Status: Ordered Colace sodium 100 mg oral capsule 100 mg, 1, capsule, By Mouth, 2 times a day, # 20 capsule, Refills 0, Tot. Refills 0, Maintenance, 09/06/22 10:25:00 EDT, Route to Pharmacy Electronically, [facility] #[id number], Partial fill upon patient request if the prescription is for a estela... Start Date: 09/06/22 Status: Ordered Compression Stockings See Instructions, # [...] Refills, Maintenance, 07/17/22 11:58:00 EDT, EC Tablet, [facility] #[id number], 186, cm, 05/24/22 15:33:00 EDT, Height, 160,kg, 01/19/22 12:45:00 EST, Dry Weight Start Date: 07/17/22 Stop Date: 01/13/23 Status: Ordered Dilaudid 2 mg oral tablet 1 tablet = 2 mg, By Mouth, Every Sunday, Sunday and Sunday, PRN Pain , Severe, for 7 days, during wound vacuum change, # 7 tablet, 0 Refills, Acute 09/19/22 11:06:00 EST, 09/12/22 11:06:00 EDT, Tablet, [facility] #[id number], Partial fill upon... Start Date: 09/12/22 Stop Date: 09/19/22 Status: Ordered gabapentin 300 mg oral capsule [...] Refills, Maintenance, 04/03/22 13:28:00 EDT, ER Tablet, [facility] #[id number], 186, cm, 02/02/22 13:39:00 EDT, Height, 160, kg, 01/19/22 12:45:00 EST, Dry We... Start Date: 04/03/22 Stop Date: 08/01/22 Status: Ordered Lasix 80 mg oral tablet 80 mg, 1, tablet, By Mouth, Daily, # 30 tablet, Refills 3, Tot. Refills 3, Maintenance, 04/03/22 13:27:00 EDT, Route to Pharmacy Electronically, [facility] #[id number], Partial fill upon patientrequest if the prescription is for a schedule II op... Start Date: 04/03/22 Status: Ordered linezolid 600 mg oral tablet 1 tablet = 600 mg, By Mouth, Every 12 hours, for 14 days, # 28 tablet, 0 Refills, Acute 09/20/22 10:24:00 EST, 09/06/22 10:24:00 EDT, Tablet, [facility] #[id number], Partial fill upon patient request if the prescription is for a schedule II opioi... Start Date: 09/06/22 Stop Date: 09/20/22 Status: Ordered losartan 100 mg oral tablet 1 tablet, By Mouth, Daily, DISCONTINUE COMBO HCTZ-LOSARTAN PRESCRIPTION, # 90 tablet, 4 Refills, [facility] #[id number], 186, cm, 02/02/22 13:39:00 EDT, Height, 160, kg, 01/19/22 12:45:00 EST, Dry Weight Start Date: 04/13/22 Status: Ordered metoprolol 50 mg oral tablet 50 mg, 1, tablet, By Mouth, 2 times a day, Refills 0, Maintenance, 12/20/16 10:41:14 Start Date: 12/20/16 Status: Ordered oxyCODONE 5 mg oral tablet 5 mg, 1, tablet, By Mouth, Every 6 hours, PRN, for 3 days, # 12 tablet, Refills 0, Tot. Refills 0, Acute 09/18/22 11:05:00 EST, as needed for pain, 09/15/22 11:05:00 EDT, Route to Pharmacy Electronically, [facility] #[id number], Partial fill upon... Start Date: 09/15/22 Stop Date: 09/18/22 Status: Ordered Ozempic (1 mg dose) 4 mg/3 mL subcutaneous solution = 1 mg, Subcutaneous Infusion, Every Sunday, # 3 mL, 3 Refills, Maintenance, 05/25/22 15:50:00 EDT, [facility] #[id number], Partial fill upon patient request if the [...] 1 Refills, Maintenance, 07/17/22 10:04:00 EDT, Tablet, [facility] #[id number], Partial fill upon patient request, 186, cm, 05/24/22 15:33:00 EDT, Height, 160, kg, 01/19/22 1... Start Date: 07/17/22 Stop Date: 01/13/23 Status: Ordered Shower Bench See Instructions, # 1 each, Refills 0, Tot. Refills 0, Maintenance, Dx: Sandi Fran, 12/20/1709:53:07, Compound Start Date: 12/20/16 Status: Ordered Ventolin HFA 108 mcg/inh inhalation aerosol with adapter 1 puffs, Inhalation, 4 times a day, PRN for wheezing, # 1 each, 5 Refills, Maintenance, 01/17/21 9:47:00 EST, Aerosol, [facility] #[id number], 185, cm, 12/24/20 9:35:00 EST, Height, 183.3, [...] stated he recieved both vaccines at the [facility] on 01/05/21 and 02/02/21 2Dexa 08/2020 Social History Social History Type Response Smoking Status Former smoker, quit more than 30 days ago entered on: 08/21/22 Sex Patient Care team information Personnel Name: Cori Ugalde DO Address: Address: [address] [place] [address]
--- OUTSIDE RECORDS SUMMARY | 2023-04-10 07:30 | XMS_ITS | Continuity of Care Document ---
Author Name Unknown Organization [facility] Address [address] [place] [address]- Care Team Providers Care Cruller Maker Machine Name Role Phone Cori Ugalde DO Primary Care Physician [facility] Date[facility]s): 12/13/20 - 01/12/21 [facility] [address] [place] [id number] Allergies, Adverse Reactions, Alerts Substance Reaction Severity Status NKA Active Immunizations Given and Recorded Vaccine Date Status Refusal Reason influenza virus vaccine, inactivated 10/07/19 Give n influenza virus vaccine, inactivated 10/08/14 Colton rded Miscellaneous Vaccine 1 11/21/18 Given Zoster Vaccine Live 03/13/17 Recorded Zoster Vaccine Live 2 03/18/12 Recorded tetanus/diphtheria/pertussis, acel(Tdap) 06/21/16 Recorded 1Result Comment: [11/21/2018] pt was given immunization at [address] SHINGRIX VIAL KIT 2Location History: [facility] Medications Meean-[place] Plus Cold and Cough By Mouth, Every [...] Refills, Maintenance, 12/24/20 10:15:00 EST, EC Tablet, [facility] #[id number], 185, cm, 12/24/20 9:35:00 EST, Height, 183.3, kg, 11/23/20 8:36:00 EST, Dry Weight Start Date: 12/24/20 Stop Date: 12/19/21 Status: Ordered gabapentin 300 mg oral capsule 300 mg, 1, capsule, By Mouth, 3 times a day, # 270 capsule, Refills 3, Tot. Refills 3, Maintenance,12/24/20 10:15:00 EST, Route to Pharmacy Electronically, [facility] #[id number], 185, cm, 12/24/20 9:35:00 EST, Height, 183.3, [...] Refills, Maintenance, 10/01/20 7:33:00 EST, ER Tablet, [facility] #[id number], 185, cm, 07/22/20 22:18:00 EDT, Height, 180, [...] 3 Refills, Maintenance, 12/24/20 10:15:00 EST, Tablet, [facility] #[id number], 185, cm, 12/24/20 9:35:00 EST, Height,183.3, kg, [...] 3 Refills, Maintenance, 12/24/20 10:16:00 EST, Tablet, [facility] #[id number], Partial fill upon patient request, 185, cm, [...] 5 Refills, Maintenance, 12/25/19 13:42:00 EST, Aerosol, [facility] #[id number], 186, cm, 10/07/19 9:17:00 EST, Height Start Date: 12/25/19 Stop Date: 06/22/20 Status: Ordered Wellbutrin 100 mg oral tablet 1 tablet, By Mouth, Daily, # 60 tablet, [...] Active Osteoarthritis(Confirmed) Active Osteoarthritis of knee(Confirmed) Active Osteoporosis(Confirmed) 1 Active Paronychia of toe(Confirmed) Active PVD (peripheral vascular disease)(Confirmed) Active Peripheral artery disease(Confirmed) Active Rotator cuff tendonitis(Confirmed) Active Skin lesion(Confirmed) Active Diastolic CHF with preserved left ventricular function, NYHA class 2(Confirmed) Active 1Dexa 08/2020 Social History Social History Type Response Smoking Status Former smoker; Type: Cigarettes; Tobacco use times per day: 1-2 ppd for 30 years; Number of years: 28; Started at age: 20; Stopped at age: 48; entered on: 05/22/17 Sex Male
--- OUTSIDE RECORDS SUMMARY | 2023-04-10 07:30 | XMS_ITS | Continuity of Care Document ---
Author Name Unknown Organization [facility] Address [address] [place] [address]- Care Team Providers Care Community Service Director Name Role Phone Cori Ugalde DO Primary Care Physician Encounter [facility] Date(s): 01/19/20 - 03/24/20 [facility] [address] [place] [address]- Yeso States Attending Physician: Cori Ugalde DO Admitting Physician: Cori Ugalde DO Allergies, Adverse Reactions, [...] Comment: [11/21/2018] pt was given immunization at [address] SHINGRIX VIAL KIT 2Location History: [facility] Medications aspirin buffered 81 mg oral tablet [...] 5 Refills, Maintenance, 01/06/20 10:56:00 EST, Gel, [facility] #[id number], 186, cm, 10/07/19 9:17:00 EST, Height Start Date: 01/06/20 Stop Date: 07/04/20 Status: Ordered gabapentin 300 mg oral capsule 300 mg, 1, capsule, By Mouth, 3 times a day, # 90 capsule, Refills 5, Tot. Refills 5, Maintenance, 10/07/19 9:24:32 EST, Route to Pharmacy Electronically, [id number] [address] Start Date: 10/07/19 [...] 3 Refills, Maintenance, 01/19/20 9:18:00 EDT, Tablet, [facility] #[id number], 186, cm, 01/19/20 9:14:00 EDT, Height Start [...] 5 Refills, Maintenance, 12/25/19 13:42:00 EST, Aerosol, [facility] #[id number], 186, cm, 10/07/19 9:17:00 EST, Height Start [...]
--- OUTSIDE RECORDS SUMMARY | 2023-04-10 07:30 | XMS_ITS | Continuity of Care Document ---
Author Name Unknown Organization [facility] Address [address] [place] [address]- Care Team Providers Care Clinical Rehab Liaison Name Role Phone Cori Ugalde DO Primary Care Physician [facility] Date(s): 11/27/22 - 12/27/22 [facility] [address] [place] [id number]- Allergies, Adverse Reactions, Alerts No Known Allergies [...] tetanus/diphtheria/pertussis, acel(Tdap) 4 06/21/16 Recorded tetanus/diphtheria/pertussis, acel(Tdap) 06/21/16 Recorded 1Result Comment: Unit: Unknown 2Result Comment: [11/21/2018] pt was given immunization at [address] SHINGRIX VIAL KIT 3Location History: [facility] [...] 11/27/22 15:22:00 EST, Route to Pharmacy Electronically, [facility] #[id number], Partial fill upon patient request if the [...] Refills, Maintenance, 12/04/22 9:17:00 EST, EC Tablet, [facility] #[id number], 185.5, cm, 11/24/22 11:51:00 EST, Height, 154.4, [...] Refills, Maintenance, 04/03/22 13:28:00 EDT, ER Tablet, [facility] #[id number], 186, cm, 02/02/22 13:39:00 EDT, Height, 160, kg, 01/19/22 12:45:00 EST, Dry We... Start Date: 04/03/22 Stop Date: 08/01/22 Status: Ordered Lasix 80 mg oral tablet 80 mg, 1, tablet, By Mouth, Daily, # 30 tablet, Refills 3, Tot. Refills 3, Maintenance, 04/03/22 13:27:00 EDT, Route to Pharmacy Electronically, [facility] #[id number], Partial fill upon patientrequest if the prescription is for a schedule II op... Start Date: 04/03/22 Status: Ordered losartan 100 mg oral tablet 1 tablet, By Mouth, Daily, DISCONTINUE COMBO HCTZ-LOSARTAN PRESCRIPTION, # 90 tablet, 4 Refills, [facility] #[id number], 186, cm, 02/02/22 13:39:00 EDT, Height, 160, [...] Start Date: 09/28/22 Status: Ordered nystatin topical 460152 u/gm powder 1 application, Topically, 2 times a day, apply to irritated skin/rash of both groins/pubic areas, #60 Gm, 0 Refills, Maintenance, 10/25/22 11:36:00 EST, Powder, [facility] #[id number], Partial fill upon patient request if the [...] mL, 2 Refills, Maintenance, 10/14/22 12:35:00 EST, [facility] #[id number], Partial fill upon patient request if the [...] 1 Refills, Maintenance, 07/17/22 10:04:00 EDT, Tablet, [facility] #[id number], Partial fill upon patient request, 186, cm, [...] 5 Refills, Maintenance, 10/06/22 13:01:00 EST, Aerosol, [facility] #[id number], 185.5, cm, 09/28/22 10:37:00 EST, Height, 154.4, [...] stated he recieved both vaccines at [facility] on 01/05/21 and 02/02/21 2Dexa 08/2020 Social History Social History Type Response Smoking Status Former smoker, quit more than 30 days ago entered on: 08/21/22 Sex Patient Care team information Care Team Personnel Name: Pam Killian RN Position: [facility] RN Member Role: Primary Care Nurse Name: Cori Ugalde DO Position: [facility] Primary Care Physician Member Role: PCP Address: Address: [address] [place] [id number] Name: Mila Omer RN Position: [facility] RN Member Role: Primary Care Nurse Care Team Related Persons Name: CANDY PRETTY Name: DEVAN PRETTY Address: [address] [address] Name: SHERWIN PRETTY Address: [place] [address] Name: ISRAEL ALEGRIA
--- OUTSIDE RECORDS SUMMARY | 2023-04-10 07:30 | XMS_ITS | Continuity of Care Document ---
Author Name Unknown Organization [facility] Address [address] [place] [address]- Care Team Providers Care Pharmacy Affairs Assistant Name Role Phone Cori Ugalde DO Primary Care Physician [facility] Date[facility]s): 02/27/23 - 03/29/23 [facility] [address] [place] [address]- Allergies, Adverse Reactions, Alerts No Known Allergies [...] [11/21/2018] pt was given immunization at [address] SHINGRIX VIAL KIT 3Location History: [facility] [...] 11/27/22 15:22:00 EST, Route to Pharmacy Electronically, [facility] #[id number], Partial fill upon patient request if the [...] food, # 180 tablet, 0 Refills, Maintenance, 03/15/23 9:21:00 EDT, EC Tablet, [facility] #[id number], 185.5, cm, 02/22/23 10:34:00 EDT, Height, 154.4, kg, 09/09/22 15:50:00 EDT, Dry Weight Start Date: 03/15/23 Stop Date: 06/13/23 Status: Ordered gabapentin 300 mg oral capsule 600 mg, 2, capsule, By Mouth, 3 times a day, # 540 capsule, Refills 3, Tot. Refills 3, Maintenance,01/10/23 15:46:00 EST, Route to Pharmacy Electronically, [facility] #[id number], 185.5, cm, 11/24/22 11:51:00 EST, Height, 154.4, kg, 09/09/22 15:... Start Date: 01/10/23 Stop Date: 01/05/24 Status: Ordered KlonoPIN 0.5 mg oral tablet [...] Refills, Maintenance, 04/03/22 13:28:00 EDT, ER Tablet, [facility] #[id number], 186, cm, 02/02/22 13:39:00 EDT, Height, 160, kg, 01/19/22 12:45:00 EST, Dry We... Start Date: 04/03/22 Stop Date: 08/01/22 Status: Ordered Lasix 80 mg oral tablet 80 mg, 1, tablet, By Mouth, Daily, # 30 tablet, Refills 3, Tot. Refills 3, Maintenance, 03/14/23 11:25:00 EDT, Route to Pharmacy Electronically, [facility] #[id number], Partial fill upon patientrequest if the prescription is for a schedule II op... Start Date: 03/14/23 Status: Ordered losartan 100 mg oral tablet 1 tablet, By Mouth, Daily, DISCONTINUE COMBO HCTZ-LOSARTAN PRESCRIPTION, # 90 tablet, 4 Refills, [facility] #[id number], 186, cm, 02/02/22 13:39:00 EDT, Height, 160, kg, 01/19/22 12:45:00 EST, Dry Weight Start Date: 04/13/22 Status: Ordered metoprolol 50 mg oral tablet, extended release 50 mg, 1, tablet, By Mouth, Daily, # 30 tablet, Refills 0, Maintenance, 09/28/22 11:18:00 EST, Partial fill upon patient request if the prescription is for a schedule II opioid drug. Start Date: 09/28/22 Status: Ordered nystatin topical 146035 u/gm powder 1 application, Topically, 2 times a day, apply to irritated skin/rash of both groins/pubic areas, #60 Gm, 0 Refills, Maintenance, 10/25/22 11:36:00 EST, Powder, [facility] #[id number], Partial fill upon patient request if the prescription is for... Start Date: 10/25/22 Status: Ordered Ozempic (1 mg dose) 4 mg/3 mL subcutaneous solution = 1 mg, Subcutaneous Infusion, Every Sunday, # 3 mL, 2 Refills, Maintenance, 03/27/23 17:03:00 EDT, [facility] #[id number], Partial fill upon patient request if the prescription is for a schedule II opioid drug., 185.5, cm, 02/22/23 10:34:00 EDT... Start Date: 03/27/23 Status: Ordered pantoprazole 40 mg oral delayed release tablet 1 tablet, By Mouth, Daily, # 90 tablet, 3 Refills, 01/26/23 11:37:00 EDT, 185.5, cm, 11/24/22 11:51:00 EST, Height, 154.4, kg, 09/09/22 15:50:00 EDT, Dry Weight Start Date: 01/26/23 Status: Ordered Plavix 75 mg oral tablet 75 mg, 1, tablet, By Mouth, Daily, # 30 tablet, Refills 0, Maintenance, 05/22/17 10:57:57 Start Date: 05/22/17 Stop Date: 06/21/17 Status: Ordered rosuvastatin 20 mg oral tablet 1 tablet = 20 mg, By Mouth, Daily, # 90 tablet, 1 Refills, Maintenance, 02/27/23 13:17:00 EDT, Tablet, [facility] #[id number], Partial fill upon patient request, 185.5, cm, 02/22/23 10:34:00 EDT, Height, 154.4, kg, 09/09/22 15:50:00 EDT, Dry Weight Start Date: 02/27/23 Stop Date: 08/26/23 Status: Ordered Shower Bench See Instructions, # 1 each, Refills 0, Tot. Refills 0, Maintenance, Dx: Sandi Peters, 12/20/1709:53:07, Compound Start Date: 12/20/16 Status: Ordered Ventolin HFA 108 mcg/inh inhalation aerosol with adapter 1 puffs, Inhalation, 4 times a day, PRN for wheezing, # 1 each, 5 Refills, Maintenance, 10/06/22 13:01:00 EST, [facility][id number], 185.5, cm, 09/28/22 10:37:00 EST, Height, 154.4, [...] stated he recieved both vaccines at the [facility] on 01/05/21 and 02/02/21 2Dexa 08/2020 Social History Social History Type Response Smoking Status Former smoker, quit more than 30 days ago entered on: 08/21/22 Sex Patient Care team information Care Team Personnel Name: Pam Killian RN Position: [facility] RN Member Role: Primary Care Nurse Name: Cori Ugalde DO Position: [facility] Primary Care Physician Member Role: PCP Address: Address: [address] [place] [id number] Name: Mila Omer RN Position: [facility] RN Member Role: Primary Care Nurse Care Team Related Persons Name: CANDY PRETTY Name: DEVAN PRETTY Address: [address] [address] Name: SHERWIN PRETTY Address: [place] [address] Name: ISRAEL ALEGRIA
--- OUTSIDE RECORDS SUMMARY | 2023-04-10 07:30 | XMS_ITS | Continuity of Care Document ---
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 Role Phone Cori Ugalde DO Primary Care Physician Encounter [facility] Date(s): 07/29/20 - 09/05/[address] [address]- [facility] Attending Physician: Keyon GOTTI, Delia Smith Admitting Physician: Keyon GOTTI, Delia Smith Referring Physician: Delia Ta NP Allergies, Adverse Reactions, Alerts Substance Reaction Severity Status NKA Active Immunizations Given and Recorded Vaccine Date Status Refusal Reason influenza virus vaccine, inactivated 10/07/19 Give n influenza virus vaccine, inactivated 10/08/14 Colton rded Miscellaneous Vaccine 1 11/21/18 Given Zoster Vaccine Live 03/13/17 Recorded Zoster Vaccine Live 2 03/18/12 Recorded tetanus/diphtheria/pertussis, acel(Tdap) 06/21/16 Recorded 1Result Comment: [11/21/2018] pt was given immunization at [address] SHINGRIX VIAL KIT 2Location History: [facility] Medications aspirin buffered 81 mg oral tablet [...] ER 500 mg oral tablet, extended release 5 tablet = 2,500 mg, By Mouth, Daily, # 30 tablet, 0 Refills, Maintenance, 07/22/20 17:54:00 EDT, ER Tablet Start Date: 07/22/20 Status: Ordered diclofenac sodium 75 mg oral delayed release tablet 1 tablet = 75 mg, By Mouth, 2 times a day, with food, # 60 tablet, 3 Refills, Maintenance, 208:11:00 EDT, EC Tablet, [facility] #[id number], 185, cm, 07/22/20 22:18:00 EDT, Height, 180, kg, 07/22/20 22:18:00 EDT, Dry Weight Start Date: 08/17/20 Stop Date: 12/15/20 Status: Ordered gabapentin 300 mg oral capsule 300 mg, 1, capsule, By Mouth, 3 times a day, # 90 capsule, Refills 5, Tot. Refills 5, Maintenance, 04/20/20 17:38:00 EDT, Route to Pharmacy Electronically, [facility] #[id number], 186, cm, 01/19/20 9:14:00 EDT, Height Start Date: 04/20/20 Stop Date: 10/17/20 Status: Ordered KlonoPIN 0.5 mg oral tablet 0.5 tablet = 0.25 mg, By Mouth, 3 times a day, 0 Refills, Maintenance, 07/22/20 17:55:00 EDT, Tablet Start Date: 07/22/20 Status: Ordered Klor-Con M20 20 mEq oral tablet, extended release 3 tablets, By Mouth, 2 times a day, Take 3 tablet in am and 3 tablets in pm do not crush or chew, #90 tablet, 5 Refills, Maintenance, 05/31/20 17:51:00 EDT, ER Tablet, [facility] #[id number], 186, cm, 01/19/20 9:14:00 EDT, Height Start Date: 05/31/20 Stop Date: 11/27/20 Status: Ordered Lasix 80 mg oral tablet 80 mg, 1, tablet, By Mouth, 2 times a day, # 30 tablet, Refills 0, Maintenance, 12/20/16 17:07:10 Start Date: 12/20/16 Status: Ordered losartan 100 mg oral tablet 1 tablet = 100 mg, By Mouth, Daily, D/C combo HCTZ-Losartan Rx, # 90 tablet, 3 Refills, Maintenance, 01/19/20 9:18:00 EDT, Tablet, [facility] #[id number], 186, cm, 01/19/20 9:14:00 EDT, Height Start [...] 6:28:29, Tablet Start Date: 09/16/14 Status: Ordered pantoprazole 40 mg oral delayed release tablet 1 tablet = 40 mg, By Mouth, Daily, # 90 tablet, 4 Refills, Soft Stop, 05/27/20 10:09:00 EDT, 186, cm, 01/19/20 9:14:00 EDT, Height Start Date: 05/27/20 Stop Date: 08/20/21 Status: Ordered Plavix 75 mg oral tablet 75 mg, 1, tablet, By Mouth, Daily, # 30 tablet, Refills 0, Maintenance, 05/22/17 10:57:57 Start Date: 05/22/17 Stop Date: 06/21/17 Status: Ordered Shower Bench See Instructions, # 1 each, Refills 0, Tot. Refills 0, Maintenance, Dx: Sandi Peters, 12/20/1709:53:07, Compound Start Date: 12/20/16 Status: Ordered tiZANidine 2 mg oral tablet 2 mg, 1, tablet, By Mouth, Every 8 hours, # 9 tablet, Refills 0, Tot. Refills 0, Maintenance, 07/29/20 12:29:00 EDT, Route to Pharmacy Electronically, [facility] #[id number], 185, cm, 07/22/20 22:18:00 EDT, Height, 180, kg, 07/22/20 22:18:00 EDT,... Start Date: 07/29/20 Stop Date: 08/01/20 Status: Ordered Ventolin HFA 108 mcg/inh inhalation aerosol with adapter 1 puffs, Inhalation, 4 times a day, PRN for wheezing, # 1 each, 5 Refills, Maintenance, 12/25/19 13:42:00 EST, Aerosol, [facility] #[id number], 186, cm, 10/07/19 9:17:00 EST, Height Start Date: 12/25/19 Stop Date: 06/22/20 Status: Ordered Problem List Condition Effective Dates [...]
--- OUTSIDE RECORDS SUMMARY | 2023-04-10 07:30 | XMS_ITS | Continuity of Care Document ---
Author Name Unknown Organization [facility] Address [address] [place] [address]- Care Team Providers Care Strip Winder Name Role Phone Cori Ugalde DO Primary Care Physician [place] [facility] [place] 11/10/21 - 12/23/21 [facility] [address] [place] [address]- Attending Physician: Cori Ugalde DO Admitting Physician: Cori Ugalde DO Allergies, Adverse Reactions, Alerts No Known Allergies Immunizations Given and Recorded Vaccine Date Status Refusal Reason influenza virus vaccine, inactivated 10/07/19 Give n influenza virus vaccine, inactivated 10/08/14 Colton rded Miscellaneous Vaccine 1 11/21/18 Given zoster vaccine, inactivated 10/26/18 Recorded Zoster Vaccine Live 03/13/17 Recorded Zoster Vaccine Live 2 03/18/12 Recorded tetanus/diphtheria/pertussis, acel(Tdap) 06/21/16 Recorded 1Result Comment: [11/21/2018] pt was given immunization at [address] [facility] VIAL KIT 2Location History: [facility] Medications Meena-[place] Plus Cold and Cough By Mouth, Every [...] Refills, Maintenance, 10/01/20 7:33:00 EST, ER Tablet, [facility] #[id number], 185, cm, 07/22/20 22:18:00 EDT, Height, 180, [...] 3 Refills, Maintenance, 12/24/20 10:15:00 EST, Tablet, [facility] #[id number], 185, cm, 12/24/20 9:35:00 EST, Height,183.3, kg, [...] 3 Refills, Maintenance, 12/24/20 10:16:00 EST, Tablet, [facility] #[id number], Partial fill upon patient request, 185, cm, 12/24/20 9:35:00 EST, Height, 183.3, kg, 11/23/20... Start Date: 12/24/20 Stop Date: 12/19/21 Status: Ordered semaglutide 2 mg/1.5 mL (0.25 mg or 0.5 mg dose) subcutaneous solution = 0.5 mg, Subcutaneous Infusion, Every Sunday, rotate injection sites, # 1 each, 5 Refills, Maintenance, 11/10/21 9:24:00 EST, [facility] #[id number], Partial fill upon patient request if the prescription is for a schedule II opioid drug., 0.5 m... Start Date: 11/10/21 Stop Date: 05/09/22 Status: Ordered Shower Bench See Instructions, # 1 each, Refills 0, Tot. Refills 0, Maintenance, Dx: Sandi Peters, 12/20/1709:53:07, Compound Start Date: 12/20/16 Status: Ordered Ventolin HFA 108 mcg/inh inhalation aerosol with adapter 1 puffs, Inhalation, 4 times a day, PRN for wheezing, # 1 each, 5 Refills, Maintenance, 01/17/21 9:47:00 EST, Aerosol, [facility] #[id number], 185, cm, 12/24/20 9:35:00 EST, Height, 183.3, [...] stated he recieved both vaccines at the [facility] on 01/05/21 and 02/02/21 2Dexa 08/2020 Social History Social History Type Response Smoking Status Former smoker; Type: Cigarettes; Tobacco use times per day: 1-2 ppd for 30 years; Number of years: 28; Started at age: 20; Stopped at age: 48; entered on: 05/22/17 Sex Male
--- OUTSIDE RECORDS SUMMARY | 2023-04-10 07:30 | XMS_ITS | Continuity of Care Document ---
Author Name Unknown Organization [facility] Address [address] [place] [address] [address] [place] [address]- Care Team Providers Care Fence Installer Name Role Phone Cori Ugalde DO Primary Care Physician [place] [facility] [place] Date(s): 05/11/21 - 05/18/21 [facility] [address] [place] [address] Attending Physician: Knee RD, Maia Allergies, Adverse Reactions, Alerts Substance Reaction Severity Status NKA Active Immunizations Given and Recorded Vaccine Date Status Refusal Reason influenza virus vaccine, inactivated 10/07/19 Give n influenza virus vaccine, inactivated 10/08/14 Colton rded Miscellaneous Vaccine 1 11/21/18 Given Zoster Vaccine Live 03/13/17 Recorded Zoster Vaccine Live 2 03/18/12 Recorded tetanus/diphtheria/pertussis, acel(Tdap) 06/21/16 Recorded 1Result Comment: [11/21/2018] pt was given immunization at [address] [facility]RI[facility] VIAL KIT 2Location History: [facility] Medications Meena-[place] Plus Cold and Cough By Mouth, Every [...] Refills, Maintenance, 12/24/20 10:15:00 EST, EC Tablet, [facility] #[id number], 185, cm, 12/24/20 9:35:00 EST, Height, 183.3, kg, 11/23/20 8:36:00 EST, Dry Weight Start Date: 12/24/20 Stop Date: 12/19/21 Status: Ordered gabapentin 300 mg oral capsule 300 mg, 1, capsule, By Mouth, 3 times a day, # 270 capsule, Refills 3, Tot. Refills 3, Maintenance,12/24/20 10:15:00 EST, Route to Pharmacy Electronically, [facility] #[id number], 185, cm, 12/24/20 9:35:00 EST, Height, 183.3, [...] Refills, Maintenance, 10/01/20 7:33:00 EST, ER Tablet, [facility] #[id number], 185, cm, 07/22/20 22:18:00 EDT, Height, 180, [...] 3 Refills, Maintenance, 12/24/20 10:15:00 EST, Tablet, [facility] #[id number], 185, cm, 12/24/20 9:35:00 EST, Height,183.3, kg, [...] 3 Refills, Maintenance, 12/24/20 10:16:00 EST, Tablet, [facility] #[id number], Partial fill upon patient request, 185, cm, [...] 5 Refills, Maintenance, 01/17/21 9:47:00 EST, Aerosol, [facility] #[id number], 185, cm, 12/24/20 9:35:00 EST, Height, 183.3, [...] recent to oldest [Reference Range]: 1 Height 186.05 cm (05/11/21 8:13 AM) Weight 173 kg (05/11/21 8:13 AM) Body Mass Index [18.5-24.99] 49.98 *>HHI* (05/11/21 8:13 AM) Social History Social History Type Response Smoking Status Former smoker; Type: Cigarettes; Tobacco use times per day: 1-2 ppd for 30 years; Number of years: 28; Started at age: 20; Stopped at age: 48; entered on: 05/22/17 Sex Male
--- OUTSIDE RECORDS SUMMARY | 2023-04-10 07:30 | XMS_ITS | Continuity of Care Document ---
Author Name Unknown Organization [facility] Address [address] [place] [address]- Care Team Providers Care Change Release Manager Name Role Phone Cori Ugalde DO Primary Care Physician En[place] [facility] [place] Date(s): 03/22/22 - 04/21/[address] [address]- Allergies, Adverse Reactions, Alerts No Known Allergies Immunizations Given and Recorded Vaccine Date Status Refusal Reason influenza virus vaccine, inactivated 10/07/19 Give n influenza virus vaccine, inactivated 10/08/14 Colton rded Miscellaneous Vaccine 1 11/21/18 Given zoster vaccine, inactivated 10/26/18 Recorded Zoster Vaccine Live 03/13/17 Recorded Zoster Vaccine Live 2 03/18/12 Recorded tetanus/diphtheria/pertussis, acel(Tdap) 06/21/16 Recorded 1Result Comment: [11/21/2018] pt was given immunization at [address] [facility]RIX VIAL KIT 2Location History: [facility] Medications Meena-[place] Plus Cold and Cough By Mouth, Every [...] 13-20 cm H20, use Daily when sleeping, 03/28/22 10:03:00 EDT, Supply Start Date: 03/28/22 Status: Ordered Depakote ER 500 mg oral tablet, extended release 6 tablet = 3,000 mg, By Mouth, Daily, # 30 tablet, 0 Refills, Maintenance, 07/22/20 17:54:00 EDT, ER Tablet Start Date: 07/22/20 Status: Ordered diclofenac sodium 75 mg oral delayed release tablet 1 tablet = 75 mg, By Mouth, 2 times a day, with food, # 180 tablet, 1 Refills, Maintenance, 01/05/22 14:08:00 EST, EC Tablet, [facility] #[id number], 185.42, cm, 12/29/21 15:01:00 EST, Height, 166, kg, 07/13/21 0:54:00 EDT, Dry Weight Start Date: 01/05/22 Stop Date: 07/04/22 Status: Ordered gabapentin 300 mg oral capsule [...] Refills, Maintenance, 04/03/22 13:28:00 EDT, ER Tablet, [facility] #[id number], 186, cm, 02/02/22 13:39:00 EDT, Height, 160, kg, 01/19/22 12:45:00 EST, Dry We... Start Date: 04/03/22 Stop Date: 08/01/22 Status: Ordered Lasix 80 mg oral tablet 80 mg, 1, tablet, By Mouth, Daily, # 30 tablet, Refills 3, Tot. Refills 3, Maintenance, 04/03/22 13:27:00 EDT, Route to Pharmacy Electronically, [facility] #[id number], Partial fill upon patientrequest if the prescription is for a schedule II op... Start Date: 04/03/22 Status: Ordered losartan 100 mg oral tablet 1 tablet, By Mouth, Daily, DISCONTINUE COMBO HCTZ-LOSARTAN PRESCRIPTION, # 90 tablet, 4 Refills, [facility] #[id number], 186, cm, 02/02/22 13:39:00 EDT, Height, 160, kg, 01/19/22 12:45:00 EST, Dry Weight Start Date: 04/13/22 Status: Ordered metoprolol 50 mg oral tablet 50 mg, 1, tablet, By Mouth, 2 times a day, Refills 0, Maintenance, 12/20/16 10:41:14 Start Date: 12/20/16 Status: Ordered oxyCODONE 5 mg oral tablet 5 mg, 1, tablet, By Mouth, Every 4 hours, PRN, Refills 0, Tot. Refills 0, Maintenance, as needed for pain, 01/19/22 14:50:00 EST, Partial fill upon patient request if the prescription is for a schedule II opioid drug. Start Date: 01/19/22 Status: Ordered Ozempic (1 mg dose) 4 mg/3 mL subcutaneous solution = 1 mg, Subcutaneous Infusion, Every Sunday, # 3 mL, 2 Refills, Maintenance, 01/19/22 19:25:00 EST, [facility] #[id number], Partial fill upon patient request if the prescription is for a schedule II opioid drug., 186, cm, 01/19/22 18:10:00 EST,... Start Date: 01/19/22 Status: Ordered pantoprazole 40 mg oral delayed release tablet 1 tablet = 40 mg, By Mouth, Daily, # 90 tablet, 0 Refills, Soft Stop, 02/15/22 15:49:00 EDT, 186, cm, 02/02/22 13:39:00 EDT, Height, 160, kg, 01/19/22 12:45:00 EST, Dry Weight Start Date: 02/15/22 Stop Date: 05/16/22 Status: Ordered Plavix 75 mg oral tablet 75 mg, 1, tablet, By Mouth, Daily, # 30 tablet, Refills 0, Maintenance, 05/22/17 10:57:57 Start Date: 05/22/17 Stop Date: 06/21/17 Status: Ordered rosuvastatin 20 mg oral tablet 1 tablet = 20 mg, By Mouth, Daily, Please D/C atorvastatin, # 90 tablet, 1 Refills, Maintenance, 01/05/22 12:30:00 EST, Tablet, [facility] #[id number], Partial fill upon patient request, 185.42,cm, 12/29/21 15:01:00 EST, Height, 166, kg, ... Start Date: 01/05/22 Stop Date: 07/04/22 Status: Ordered Shower Bench See Instructions, # 1 each, Refills 0, Tot. Refills 0, Maintenance, Dx: Sandi Delunalone, 12/20/1709:53:07, Compound Start Date: 12/20/16 Status: Ordered Ventolin HFA 108 mcg/inh inhalation aerosol with adapter 1 puffs, Inhalation, 4 times a day, PRN for wheezing, # 1 each, 5 Refills, Maintenance, 01/17/21 9:47:00 EST, Aerosol, [facility] #[id number], 185, cm, 12/24/20 9:35:00 EST, Height, 183.3, [...] toe(Confirmed) Active PVD (peripheral vascular disease)(Confirmed) Active Severe obesity(Confirmed) Active Rotator cuff tendonitis(Confirmed) Active Diastolic CHF with preserved left ventricular function, NYHA class 2(Confirmed) Active Treatment-emergent central s leep apnea(Confirmed) Active 1Patient stated he recieved both vaccines at the [place] [facility] on 01/05/21 and 02/02/21 2Dexa 08/2020 Social History Social History Type Response Smoking Status Former smoker; Type: Cigarettes; Tobacco use times per day: 1-2 ppd for 30 years; Number of years: 28; Started at age: 20; Stopped at age: 48; entered on: 05/22/17 Sex Male
--- OUTSIDE RECORDS SUMMARY | 2023-04-10 07:30 | XMS_ITS | Continuity of Care Document ---
Author Name Unknown Organization [facility] Address [address] [place] [address] [address] [place] [address]- Care Team Providers Care Warehouse Coordinator Name Role Phone Cori Ugalde DO Primary Care Physician Encounter [facility] [place] Date(s): 02/14/21 - 03/16/21 [facility] [address] [place] [address]- Allergies, Adverse Reactions, Alerts Substance Reaction Severity Status NKA Active Immunizations Given and Recorded Vaccine Date Status Refusal Reason influenza virus vaccine, inactivated 10/07/19 Give n influenza virus vaccine, inactivated 10/08/14 Colton rded Miscellaneous Vaccine 1 11/21/18 Given Zoster Vaccine Live 03/13/17 Recorded Zoster Vaccine Live 2 03/18/12 Recorded tetanus/diphtheria/pertussis, acel(Tdap) 06/21/16 Recorded 1Result Comment: [11/21/2018] pt was given immunization at [address] SHINGRIX VIAL KIT 2Location History: [facility] Medications Meena-[place] Plus Cold and Cough By Mouth, Every [...] Refills, Maintenance, 12/24/20 10:15:00 EST, EC Tablet, [facility] #[id number], 185, cm, 12/24/20 9:35:00 EST, Height, 183.3, kg, 11/23/20 8:36:00 EST, Dry Weight Start Date: 12/24/20 Stop Date: 12/19/21 Status: Ordered gabapentin 300 mg oral capsule 300 mg, 1, capsule, By Mouth, 3 times a day, # 270 capsule, Refills 3, Tot. Refills 3, Maintenance,12/24/20 10:15:00 EST, Route to Pharmacy Electronically, [facility] #[id number], 185, cm, 12/24/20 9:35:00 EST, Height, 183.3, [...] Refills, Maintenance, 10/01/20 7:33:00 EST, ER Tablet, [facility] #[id number], 185, cm, 07/22/20 22:18:00 EDT, Height, 180, [...] 3 Refills, Maintenance, 12/24/20 10:15:00 EST, Tablet, [facility] #[id number], 185, cm, 12/24/20 9:35:00 EST, Height,183.3, kg, [...] 3 Refills, Maintenance, 12/24/20 10:16:00 EST, Tablet, [facility] #[id number], Partial fill upon patient request, 185, cm, [...] 5 Refills, Maintenance, 01/17/21 9:47:00 EST, Aerosol, [facility] #[id number], 185, cm, 12/24/20 9:35:00 EST, Height, 183.3, [...] stated he recieved both vaccines at the [facility] on 01/05/21 and 02/02/21 2Dexa 08/2020 Social History Social History Type Response Smoking Status Former smoker; Type: Cigarettes; Tobacco use times per day: 1-2 ppd for 30 years; Number of years: 28; Started at age: 20; Stopped at age: 48; entered on: 05/22/17 Sex Male
--- OUTSIDE RECORDS SUMMARY | 2023-04-10 07:30 | XMS_ITS | Continuity of Care Document ---
Author Name Unknown Organization [facility] Address [address] [place] [address]- Care Team Providers Care Patient Account Analyst Name Role Phone Cori Ugalde DO Primary Care Physician [place] [facility] [id number] Date(s): 11/17/21 - 12/23/21 [facility] [address] [place] [address]- Attending Physician: Not on Staff, Attending MD [...] Comment: [11/21/2018] pt was given immunization at [address] SHINGRIX VIAL KIT 2Location History: [facility] Meena-[place] Plus Cold and Cough By Mouth, Every [...] Refills, Maintenance, 10/01/20 7:33:00 EST, ER Tablet, [facility] #[id number], 185, cm, 07/22/20 22:18:00 EDT, Height, 180, [...] 3 Refills, Maintenance, 12/24/20 10:15:00 EST, Tablet, [facility] #[id number], 185, cm, 12/24/20 9:35:00 EST, Height,183.3, kg, [...] 3 Refills, Maintenance, 12/24/20 10:16:00 EST, Tablet, [facility] #[id number], Partial fill upon patient request, 185, cm, 12/24/20 9:35:00 EST, Height, 183.3, kg, 11/23/20... Start Date: 12/24/20 Stop Date: 12/19/21 Status: Ordered semaglutide 2 mg/1.5 mL (0.25 mg or 0.5 mg dose) subcutaneous solution = 0.5 mg, Subcutaneous Infusion, Every Sunday, rotate injection sites, # 1 each, 5 Refills, Maintenance, 11/10/21 9:24:00 EST, [facility] #[id number], Partial fill upon patient request if the [...] 5 Refills, Maintenance, 01/17/21 9:47:00 EST, Aerosol, [facility] #[id number], 185, cm, 12/24/20 9:35:00 EST, Height, 183.3, [...] stated he recieved both vaccines at the [place] [facility] on 01/05/21 and 02/02/21 2Dexa 08/2020 Social History Social History Type Response Smoking Status Former smoker; Type: Cigarettes; Tobacco use times per day: 1-2 ppd for 30 years; Number of years: 28; Started at age: 20; Stopped at age: 48; entered on: 05/22/17 Sex Male
--- OUTSIDE RECORDS SUMMARY | 2023-04-10 07:30 | XMS_ITS | Continuity of Care Document ---
Author Name Unknown Organization [facility] Address [address] [place] [address] [address] [place] [address]- Care Team Providers Care Metal Control Worker Name Role Phone Cori Ugalde DO Primary Care Physician [place] [facility] [place] 04/06/[place] - 04/13/[address] [place] [address]- Attending Physician: Maia López RD Referring Physician: Cori Ugalde DO Allergies, Adverse [...] Comment: [11/21/2018] pt was given immunization at [address] SHINGRIX VIAL KIT 2Location History: [facility] Medications Meena-[place] Plus Cold and Cough By Mouth, Every [...] Refills, Maintenance, 12/24/20 10:15:00 EST, EC Tablet, [facility] #[id number], 185, cm, 12/24/20 9:35:00 EST, Height, 183.3, kg, 11/23/20 8:36:00 EST, Dry Weight Start Date: 12/24/20 Stop Date: 12/19/21 Status: Ordered gabapentin 300 mg oral capsule 300 mg, 1, capsule, By Mouth, 3 times a day, # 270 capsule, Refills 3, Tot. Refills 3, Maintenance,12/24/20 10:15:00 EST, Route to Pharmacy Electronically, [facility] #[id number], 185, cm, 12/24/20 9:35:00 EST, Height, 183.3, [...] Refills, Maintenance, 10/01/20 7:33:00 EST, ER Tablet, [facility] #[id number], 185, cm, 07/22/20 22:18:00 EDT, Height, 180, [...] 3 Refills, Maintenance, 12/24/20 10:15:00 EST, Tablet, [facility] #[id number], 185, cm, 12/24/20 9:35:00 EST, Height,183.3, kg, [...] 3 Refills, Maintenance, 12/24/20 10:16:00 EST, Tablet, [facility] #[id number], Partial fill upon patient request, 185, cm, [...] 5 Refills, Maintenance, 01/17/21 9:47:00 EST, Aerosol, [facility] #[id number], 185, cm, 12/24/20 9:35:00 EST, Height, 183.3, [...] stated he recieved both vaccines at the [place] [facility] on 01/05/21 and 02/02/21 2Dexa 08/2020 Vital Signs Most recent to oldest [Reference Range]: 1 Height 186.05 cm (04/06/21 2:01 PM) Weight 181.5 kg (04/06/21 2:01 PM) Body Mass Index [18.5-24.99] 52.43 *>HHI* (04/06/21 2:01 PM) Social History Social History Type Response Smoking Status Former smoker; Type: Cigarettes; Tobacco use times per day: 1-2 ppd for 30 years; Number of years: 28; Started at age: 20; Stopped at age: 48; entered on: 05/22/17 Sex Male
--- OUTSIDE RECORDS SUMMARY | 2023-04-10 07:30 | XMS_ITS | Continuity of Care Document ---
Author Name Unknown Organization [facility] Address [address] [place] [address]- Care Team Providers Care Can Maker Name Role Phone Cori Ugalde DO Primary Care Physician Encounter 09/08/22 - 11/20/22 [facility] [address] [place] [address]- Discharge Disposition: CLIENT NO LONGER REQUIRES SKILLED CARE Allergies, Adverse Reactions, Alerts No Known Allergies [...] Comment: [11/21/2018] pt was given immunization at [address] SHINGRIX VIAL KIT 2Location History: [facility] Medications acetaminophen 325 mg oral tablet Refills [...] 09/28/22 11:07:00 EST, Route to Pharmacy Electronically, [facility] #[id number], Partial fill upon patient request if the [...] Refills, Maintenance, 07/17/22 11:58:00 EDT, EC Tablet, [facility] #[id number], 186, cm, 05/24/22 15:33:00 EDT, Height, 160,kg, [...] Refills, Maintenance, 04/03/22 13:28:00 EDT, ER Tablet, [facility] #[id number], 186, cm, 02/02/22 13:39:00 EDT, Height, 160, kg, 01/19/22 12:45:00 EST, Dry We... Start Date: 04/03/22 Stop Date: 08/01/22 Status: Ordered Lasix 80 mg oral tablet 80 mg, 1, tablet, By Mouth, Daily, # 30 tablet, Refills 3, Tot. Refills 3, Maintenance, 04/03/22 13:27:00 EDT, Route to Pharmacy Electronically, [facility] #[id number], Partial fill upon patientrequest if the prescription is for a schedule II op... Start Date: 04/03/22 Status: Ordered losartan 100 mg oral tablet 1 tablet, By Mouth, Daily, DISCONTINUE COMBO HCTZ-LOSARTAN PRESCRIPTION, # 90 tablet, 4 Refills, [facility] #[id number], 186, cm, 02/02/22 13:39:00 EDT, Height, 160, [...] Start Date: 09/28/22 Status: Ordered nystatin topical 515218 u/gm powder 1 application, Topically, 2 times a day, apply to irritated skin/rash of both groins/pubic areas, #60 Gm, 0 Refills, Maintenance, 10/25/22 11:36:00 EST, Powder, [facility] #[id number], Partial fill upon patient request if the [...] mL, 2 Refills, Maintenance, 10/14/22 12:35:00 EST, [facility] #[id number], Partial fill upon patient request if the [...] 1 Refills, Maintenance, 07/17/22 10:04:00 EDT, Tablet, [facility] #[id number], Partial fill upon patient request, 186, cm, [...] 5 Refills, Maintenance, 10/06/22 13:01:00 EST, Aerosol, [facility] #[id number], 185.5, cm, 09/28/22 10:37:00 EST, Height, 154.4, [...] stated he recieved both vaccines at the [facility] on 01/05/21 and 02/02/21 2Dexa 08/2020 Social History Social History Type Response Smoking Status Former smoker, quit more than 30 days ago entered on: 08/21/22 Sex Patient Care team information Care Team Personnel Name: Pam Killian RN Position: [facility] RN Member Role: Primary Care Nurse Name: Cori Ugalde DO Position: [facility] Primary Care Physician Member Role: PCP Address: Address: [address] [place] [id number] Name: Mila Omer RN Position: [facility] RN Member Role: Primary Care Nurse Care Team Related Persons Name: CANDY PRETTY Name: DEVAN PRETTY Address: [address] [address] Name: SHERWIN PRETTY Address: [place] [address] Name: ISRAEL ALEGRIA
--- OUTSIDE RECORDS SUMMARY | 2023-04-10 07:30 | XMS_ITS | Continuity of Care Document ---
Author Name Unknown Organization [facility] Address [address] [place] [address]- Care Team Providers Care Land Leveler Name Role Phone Cori Ugalde DO Primary Care Physician Encounter [facility] Date(s): 02/02/20 - 02/12/20 [facility] [address] [address]- [facility] Attending Physician: Murtaza Raya Admitting Physician: Murtaza [...] Comment: [11/21/2018] pt was given immunization at [address] SHINGRIX VIAL KIT 2Location History: [facility] Medications aspirin buffered 81 mg oral tablet [...] 5 Refills, Maintenance, 01/06/20 10:56:00 EST, Gel, [facility] #[id number], 186, cm, 10/07/19 9:17:00 EST, Height Start Date: 01/06/20 Stop Date: 07/04/20 Status: Ordered gabapentin 300 mg oral capsule 300 mg, 1, capsule, By Mouth, 3 times a day, # 90 capsule, Refills 5, Tot. Refills 5, Maintenance, 10/07/19 9:24:32 EST, Route to Pharmacy Electronically, NCPDP_[id number], [facility] [id number] Start Date: 10/07/19 Stop Date: 04/04/20 Status: [...] 3 Refills, Maintenance, 01/19/20 9:18:00 EDT, Tablet, [facility] #[id number], 186, cm, 01/19/20 9:14:00 EDT, Height Start [...] 9:34:15 EDT Start Date: 07/31/18 Status: Ordered triamcinolone 0.1% topical cream 1 application, Topically, 2 times a day, for 14 days, apply a thin film to affected area, # 60 Gm, 1 Refills, Acute 02/16/20 9:23:00 EDT, 01/19/20 9:23:00 EDT, Cream, [facility] #[id number], 1 application Topically 2 times a day,x14 days,Instr:a... Start Date: 01/19/20 Stop Date: 02/16/20 Status: Ordered Ventolin HFA 108 mcg/inh inhalation aerosol with adapter 1 puffs, Inhalation, 4 times a day, PRN for wheezing, # 1 each, 5 Refills, Maintenance, 12/25/19 13:42:00 EST, Aerosol, [facility] #[id number], 186, cm, 11/26/19 9:17:00 EST, Height Start Date: 12/25/19 Stop [...]
--- OUTSIDE RECORDS SUMMARY | 2023-04-10 07:30 | XMS_ITS | Continuity of Care Document ---
Author Name Unknown Organization [facility] Address [address] [place] [address]- Care Team Providers Care Salesperson Women'S Dresses Name Role Phone Cori Ugalde DO Primary Care Physician Encounter [facility] Date(s): 02/06/20 - 02/16/20 [facility] [address] [place] [address]- [facility] Attending Physician: AdmMurtaza sparks Admitting Physician: AdmMurtaza sparks Referring Physician: AdmtrMuratza Allergies, Adverse Reactions, Alerts Substance Reaction Severity Status NKA Active Immunizations Given and Recorded Vaccine Date Status Refusal Reason influenza virus vaccine, inactivated 10/07/19 Give n influenza virus vaccine, inactivated 10/08/14 Colton rded Miscellaneous Vaccine 1 11/21/18 Given Zoster Vaccine Live 03/13/17 Recorded Zoster Vaccine Live 2 03/18/12 Recorded tetanus/diphtheria/pertussis, acel(Tdap) 06/21/16 Recorded 1Result Comment: [11/21/2018] pt was given immunization at [address] SHINGRIX VIAL KIT 2Location History: [facility] Medications aspirin buffered 81 mg oral tablet [...] 5 Refills, Maintenance, 01/06/20 10:56:00 EST, Gel, [facility] #[id number], 186, cm, 10/07/19 9:17:00 EST, Height Start Date: 01/06/20 Stop Date: 07/04/20 Status: Ordered gabapentin 300 mg oral capsule 300 mg, 1, capsule, By Mouth, 3 times a day, # 90 capsule, Refills 5, Tot. Refills 5, Maintenance, 10/07/19 9:24:32 EST, Route to Pharmacy Electronically, NCPDP_[id number], [facility] [id number] Start Date: 10/07/19 Stop Date: 04/04/20 Status: [...] 3 Refills, Maintenance, 01/19/20 9:18:00 EDT, Tablet, [facility] #88858, 186, cm, 01/19/20 9:14:00 EDT, Height Start [...] 5 Refills, Maintenance, 12/25/19 13:42:00 EST, Aerosol, [facility] #[id number], 186, cm, 10/07/19 9:17:00 EST, Height Start [...]
--- OUTSIDE RECORDS SUMMARY | 2023-04-10 07:30 | XMS_ITS | Continuity of Care Document ---
Author Name Unknown Organization [facility] Address [address] [place] [address]- Care Team Providers Care Teaching Pastor Name Role Phone Cori Ugalde DO Primary Care Physician Encounter [facility] Date(s): 01/17/21 - 02/16/21 [facility] [address] [place] [address]- Allergies, Adverse Reactions, Alerts Substance Reaction Severity Status NKA Active Immunizations Given and Recorded Vaccine Date Status Refusal Reason influenza virus vaccine, inactivated 10/07/19 Give n influenza virus vaccine, inactivated 10/08/14 Colton rded Miscellaneous Vaccine 1 11/21/18 Given Zoster Vaccine Live 03/13/17 Recorded Zoster Vaccine Live 2 03/18/12 Recorded tetanus/diphtheria/pertussis, acel(Tdap) 06/21/16 Recorded 1Result Comment: [11/21/2018] pt was given immunization at [address] SHINGRIX VIAL KIT 2Location History: [facility] Medications Meena-[place] Plus Cold and Cough By Mouth, Every [...] Refills, Maintenance, 12/24/20 10:15:00 EST, EC Tablet, [facility] #[id number], 185, cm, 12/24/20 9:35:00 EST, Height, 183.3, kg, 11/23/20 8:36:00 EST, Dry Weight Start Date: 12/24/20 Stop Date: 12/19/21 Status: Ordered gabapentin 300 mg oral capsule 300 mg, 1, capsule, By Mouth, 3 times a day, # 270 capsule, Refills 3, Tot. Refills 3, Maintenance,12/24/20 10:15:00 EST, Route to Pharmacy Electronically, [facility] #[id number], 185, cm, 12/24/20 9:35:00 EST, Height, 183.3, [...] Refills, Maintenance, 10/01/20 7:33:00 EST, ER Tablet, [facility] #[id number], 185, cm, 07/22/20 22:18:00 EDT, Height, 180, [...] 3 Refills, Maintenance, 12/24/20 10:15:00 EST, Tablet, [facility] #[id number], 185, cm, 12/24/20 9:35:00 EST, Height,183.3, kg, [...] 3 Refills, Maintenance, 12/24/20 10:16:00 EST, Tablet, [facility] #[id number], Partial fill upon patient request, 185, cm, [...] 5 Refills, Maintenance, 01/17/21 9:47:00 EST, Aerosol, [facility] #69644, 185, cm, 12/24/20 9:35:00 EST, Height, 183.3, [...]
--- OUTSIDE RECORDS SUMMARY | 2023-04-10 07:30 | XMS_ITS | Continuity of Care Document ---
Author Name Unknown Organization [facility] Address [address] [place] [address]- Care Team Providers Care Bilingual Executive Assistant Name Role Phone Cori Ugalde DO Primary Care Physician Encounter [facility] Date(s): 11/24/22 - 12/24/22 [facility] [address] [place] [address]- Attending Physician: Murtaza Raya Admitting Physician: Murtaza Raya Referring Physician: AdmtrMurtaza Allergies, Adverse Reactions, Alerts No Known Allergies [...] vaccine, inactivated 10/26/18 Recorded tetanus/diphtheria/pertussis, acel(Tdap) 4 8/10/16 Recorded tetanus/diphtheria/pertussis, acel(Tdap) 06/21/16 Recorded 1Result Comment: Unit: Unknown 2Result Comment: [11/21/2018] pt was given immunization at [address] SHINGRIX VIAL KIT 3Location History: [facility] [...] 11/27/22 15:22:00 EST, Route to Pharmacy Electronically, [facility] #[id number], Partial fill upon patient request if the [...] Refills, Maintenance, 12/04/22 9:17:00 EST, EC Tablet, [facility] #[id number], 185.5, cm, 11/24/22 11:51:00 EST, Height, 154.4, [...] Refills, Maintenance, 04/03/22 13:28:00 EDT, ER Tablet, [facility] #[id number], 186, cm, 02/02/22 13:39:00 EDT, Height, 160, kg, 01/19/22 12:45:00 EST, Dry We... Start Date: 04/03/22 Stop Date: 08/01/22 Status: Ordered Lasix 80 mg oral tablet 80 mg, 1, tablet, By Mouth, Daily, # 30 tablet, Refills 3, Tot. Refills 3, Maintenance, 04/03/22 13:27:00 EDT, Route to Pharmacy Electronically, [facility] #[id number], Partial fill upon patientrequest if the prescription is for a schedule II op... Start Date: 04/03/22 Status: Ordered losartan 100 mg oral tablet 1 tablet, By Mouth, Daily, DISCONTINUE COMBO HCTZ-LOSARTAN PRESCRIPTION, # 90 tablet, 4 Refills, [facility] #[id number], 186, cm, 02/02/22 13:39:00 EDT, Height, 160, [...] Start Date: 09/28/22 Status: Ordered nystatin topical 189182 u/gm powder 1 application, Topically, 2 times a day, apply to irritated skin/rash of both groins/pubic areas, #60 Gm, 0 Refills, Maintenance, 10/25/22 11:36:00 EST, Powder, [facility] #[id number], Partial fill upon patient request if the [...] mL, 2 Refills, Maintenance, 10/14/22 12:35:00 EST, [facility] #[id number], Partial fill upon patient request if the [...] 1 Refills, Maintenance, 07/17/22 10:04:00 EDT, Tablet, [facility] #[id number], Partial fill upon patient request, 186, cm, [...] 5 Refills, Maintenance, 10/06/22 13:01:00 EST, Aerosol, [facility] #[id number], 185.5, cm, 09/28/22 10:37:00 EST, Height, 154.4, [...] stated he recieved both vaccines at [facility] on 01/05/21 and 02/02/21 2Dexa 08/2020 Social History Social History Type Response Smoking Status Former smoker, quit more than 30 days ago entered on: 08/21/22 Sex Note * Event Display: Laboratory Result Scanned Authored Date: * Event Display: Cardiology Office Note, Non- Authored Date: * Event Display: Cardiology Office Note, Non- Authored Date: * Event Display: Cardiology Office Note, Non- Authored Date: Patient Care team information Care Team Personnel Name: Pam Killian RN Position: [facility] RN Member Role: Primary Care Nurse Name: Cori Ugalde DO Position: [facility] Member Role: PCP Address: Address: [address] [place] [address]- Name: Mila Omer RN Position: [facility] RN Member Role: Primary Care Nurse Care Team Related Persons Name: CANDY PRETTY Name: DEVAN PRETTY Address: home [address] [place] [address] Name: SHERWIN PRETTY Address: [place] [address] Name: ISRAEL ALEGRIA
--- OUTSIDE RECORDS SUMMARY | 2023-04-10 07:31 | XMS_ITS | Continuity of Care Document ---
Author Name Unknown Organization [facility] Address [address] [place] [address] [address] [place] [address]- Care Team Providers Care Grinder Set Up Operator Universal Name Role Phone Cori Ugalde DO Primary Care Physician Encounter [facility] Date(s): 01/28/21 - 02/27/21 [facility] [address] [place] [address]- Allergies, Adverse Reactions, Alerts Substance Reaction Severity Status NKA Active Immunizations Given and Recorded Vaccine Date Status Refusal Reason influenza virus vaccine, inactivated 10/07/19 Give n influenza virus vaccine, inactivated 10/08/14 Colton rded Miscellaneous Vaccine 1 11/21/18 Given Zoster Vaccine Live 03/13/17 Recorded Zoster Vaccine Live 2 03/18/12 Recorded tetanus/diphtheria/pertussis, acel(Tdap) 06/21/16 Recorded 1Result Comment: [11/21/2018] pt was given immunization at [address] SHINGRIX VIAL KIT 2Location History: [facility] Medications Meena-[place] Plus Cold and Cough By Mouth, Every [...] Refills, Maintenance, 12/24/20 10:15:00 EST, EC Tablet, [facility] #[id number], 185, cm, 12/24/20 9:35:00 EST, Height, 183.3, kg, 11/23/20 8:36:00 EST, Dry Weight Start Date: 12/24/20 Stop Date: 12/19/21 Status: Ordered gabapentin 300 mg oral capsule 300 mg, 1, capsule, By Mouth, 3 times a day, # 270 capsule, Refills 3, Tot. Refills 3, Maintenance,12/24/20 10:15:00 EST, Route to Pharmacy Electronically, [facility] #[id number], 185, cm, 12/24/20 9:35:00 EST, Height, 183.3, [...] Refills, Maintenance, 10/01/20 7:33:00 EST, ER Tablet, [facility] #[id number], 185, cm, 07/22/20 22:18:00 EDT, Height, 180, [...] 3 Refills, Maintenance, 12/24/20 10:15:00 EST, Tablet, [facility] #[id number], 185, cm, 12/24/20 9:35:00 EST, Height,183.3, kg, [...] 3 Refills, Maintenance, 12/24/20 10:16:00 EST, Tablet, [facility] #[id number], Partial fill upon patient request, 185, cm, [...] 5 Refills, Maintenance, 01/17/21 9:47:00 EST, Aerosol, [facility] #[id number], 185, cm, 12/24/20 9:35:00 EST, Height, 183.3, [...] Osteoarthritis(Confirmed) Active Osteoarthritis of knee(Confirmed) Active Osteoporosis(Confirmed) 2 Active Paronychia of toe(Confirmed) Active PVD (peripheral vascular disease)(Confirmed) Active Peripheral artery disease(Confirmed) Active Rotator cuff tendonitis(Confirmed) Active Skin lesion(Confirmed) Active Diastolic CHF with preserved left ventricular function, NYHA class 2(Confirmed) Active 1Patient stated he recieved both vaccines at the [facility] on 01/05/21 and 02/02/21 2Dexa 08/2020 Social History Social History Type Response Smoking Status Former smoker; Type: Cigarettes; Tobacco use times per day: 1-2 ppd for 30 years; Number of years: 28; Started at age: 20; Stopped at age: 48; entered on: 05/22/17 Sex Male
--- OUTSIDE RECORDS SUMMARY | 2023-04-10 07:31 | XMS_ITS | Continuity of Care Document ---
Author Name Unknown Organization [facility] Address [address] [address] 2nd Floor [address] [place] [address]- Care Team Providers Care Solar Electric/Photovoltaic Installer Name Role Phone Cori Ugalde DO Primary Care Physician [place] [facility] [place] 12/03[place]20 - 01/12/21 [facility] [address] [address] [place] [address]- Attending Physician: Manuel Reyes MD Admitting Physician: Manuel Reyes MD Referring Physician: Manuel Reyes MD Allergies, Adverse Reactions, [...] [11/21/2018] pt was given immunization at [address] SHINGRIX VIAL KIT 2Location History: [facility] Medications Meena-[place] Plus Cold and Cough By Mouth, Every [...] Refills, Maintenance, 12/24/20 10:15:00 EST, EC Tablet, [facility] #[id number], 185, cm, 12/24/20 9:35:00 EST, Height, 183.3, kg, 11/23/20 8:36:00 EST, Dry Weight Start Date: 12/24/20 Stop Date: 12/19/21 Status: Ordered gabapentin 300 mg oral capsule 300 mg, 1, capsule, By Mouth, 3 times a day, # 270 capsule, Refills 3, Tot. Refills 3, Maintenance,12/24/20 10:15:00 EST, Route to Pharmacy Electronically, [facility] #[id number], 185, cm, 12/24/20 9:35:00 EST, Height, 183.3, [...] Refills, Maintenance, 10/01/20 7:33:00 EST, ER Tablet, [facility] #[id number], 185, cm, 07/22/20 22:18:00 EDT, Height, 180, [...] 3 Refills, Maintenance, 12/24/20 10:15:00 EST, Tablet, [facility] #54807, 185, cm, 12/24/20 9:35:00 EST, Height,183.3, kg, [...] 3 Refills, Maintenance, 12/24/20 10:16:00 EST, Tablet, [facility] #[id number], Partial fill upon patient request, 185, cm, [...] 5 Refills, Maintenance, 12/25/19 13:42:00 EST, Aerosol, [facility] #[id number], 186, cm, 10/07/19 9:17:00 EST, Height Start [...]
--- OUTSIDE RECORDS SUMMARY | 2023-04-10 07:31 | XMS_ITS | Continuity of Care Document ---
Author Name Unknown Organization [facility] Address [address] [place] [address]- Care Team Providers Care Four Slide Machine Setter Name Role Phone Cori Ugalde DO Primary Care Physician Encounter [facility] Date(s): 10/14/22 - 11/13/22 [facility] [address] [place] [address]- Allergies, Adverse Reactions, Alerts No Known Allergies [...] [11/21/2018] pt was given immunization at [address] SHINGRIX VIAL KIT 2Location History: [facility] Medications acetaminophen 325 mg oral tablet Refills [...] 09/28/22 11:07:00 EST, Route to Pharmacy Electronically, [facility] #[id number], Partial fill upon patient request if the [...] Refills, Maintenance, 07/17/22 11:58:00 EDT, EC Tablet, [facility] #[id number], 186, cm, 05/24/22 15:33:00 EDT, Height, 160,kg, [...] Refills, Maintenance, 04/03/22 13:28:00 EDT, ER Tablet, [facility] #[id number], 186, cm, 02/02/22 13:39:00 EDT, Height, 160, kg, 01/19/22 12:45:00 EST, Dry We... Start Date: 04/03/22 Stop Date: 08/01/22 Status: Ordered Lasix 80 mg oral tablet 80 mg, 1, tablet, By Mouth, Daily, # 30 tablet, Refills 3, Tot. Refills 3, Maintenance, 04/03/22 13:27:00 EDT, Route to Pharmacy Electronically, [facility] #[id number], Partial fill upon patientrequest if the prescription is for a schedule II op... Start Date: 04/03/22 Status: Ordered losartan 100 mg oral tablet 1 tablet, By Mouth, Daily, DISCONTINUE COMBO HCTZ-LOSARTAN PRESCRIPTION, # 90 tablet, 4 Refills, [facility] #[id number], 186, cm, 02/02/22 13:39:00 EDT, Height, 160, [...] Start Date: 09/28/22 Status: Ordered nystatin topical 231882 u/gm powder 1 application, Topically, 2 times a day, apply to irritated skin/rash of both groins/pubic areas, #60 Gm, 0 Refills, Maintenance, 10/25/22 11:36:00 EST, Powder, [facility] #[id number], Partial fill upon patient request if the [...] mL, 2 Refills, Maintenance, 10/14/22 12:35:00 EST, [facility] #[id number], Partial fill upon patient request if the [...] 1 Refills, Maintenance, 07/17/22 10:04:00 EDT, Tablet, [facility] #37329, Partial fill upon patient request, 186, cm, [...] 5 Refills, Maintenance, 10/06/22 13:01:00 EST, Aerosol, [facility] #[id number], 185.5, cm, 09/28/22 10:37:00 EST, Height, 154.4, [...] stated [facility] and 02/02/21 2Dexa 08/2020 Social History Social History Type Response Smoking Status Former smoker, quit more than 30 days ago entered on: 08/21/22 Sex Patient Care team information Care Team Personnel Name: Pam Killian RN Position: [facility] RN Member Role: Primary Care Nurse Name: Cori Ugalde DO Position: [facility] Primary Care Physician Member Role: PCP Address: Address: [address] [place] [address] Name: Mila Omer RN Position: [facility] RN Member Role: Primary Care Nurse Care Team Related Persons Name: CANDY PRETTY Name: DEVAN PRETTY Address: home [address] [place] [address] Name: SHERWIN PRETTY Address: [place] [address] Name: ISRAEL ALEGRIA
--- OUTSIDE RECORDS SUMMARY | 2023-04-10 07:31 | XMS_ITS | Continuity of Care Document ---
Author Name Unknown Organization [facility] Address [address] [place] [address]- Care Team Providers Care Club Room Attendant Name Role Phone Cori Ugalde DO Primary Care Physician Encounter [facility] Date(s): 02/04/20 - 02/11/20 [facility] [address] [place] [address]- [facility] Attending Physician: Cori Ugalde DO Allergies, Adverse Reactions, [...] Comment: [11/21/2018] pt was given immunization at [address] SHINGRIX VIAL KIT 2Location History: [facility] Medications aspirin buffered 81 mg oral tablet [...] 5 Refills, Maintenance, 01/06/20 10:56:00 EST, Gel, [facility] #[id number], 186, cm, 10/07/19 9:17:00 EST, Height Start Date: 01/06/20 Stop Date: 07/04/20 Status: Ordered gabapentin 300 mg oral capsule 300 mg, 1, capsule, By Mouth, 3 times a day, # 90 capsule, Refills 5, Tot. Refills 5, Maintenance, 10/07/19 9:24:32 EST, Route to Pharmacy Electronically, [id number], [facility] Start Date: 10/07/19 Stop Date: 04/04/20 Status: [...] 3 Refills, Maintenance, 01/19/20 9:18:00 EDT, Tablet, [facility] #[id number], 186, cm, 01/19/20 9:14:00 EDT, Height Start [...] 02/16/20 9:23:00 EDT, 01/19/20 9:23:00 EDT, Cream, [facility] #[id number], 1 application Topically 2 times a day,x14 days,Instr:a... Start Date: 01/19/20 Stop Date: 02/16/20 Status: Ordered Ventolin HFA 108 mcg/inh inhalation aerosol with adapter 1 puffs, Inhalation, 4 times a day, PRN for wheezing, # 1 each, 5 Refills, Maintenance, 12/25/19 13:42:00 EST, Aerosol, [facility] #[id number], 186, cm, 10/07/19 9:17:00 EST, Height Start [...]
--- OUTSIDE RECORDS SUMMARY | 2023-04-10 07:31 | XMS_ITS | Continuity of Care Document ---
Author Name Unknown Organization [facility] Address [address] [place] [address]- Care Team Providers Care Farm Tractor Operator Name Role Phone Cori Ugalde DO Primary Care Physician Encounter [facility] Date(s): 01/10/21 - 02/09/21 [facility] [address] [place] [address]- Allergies, Adverse Reactions, Alerts Substance Reaction Severity Status NKA Active Immunizations Given and Recorded Vaccine Date Status Refusal Reason influenza virus vaccine, inactivated 10/07/19 Give n influenza virus vaccine, inactivated 10/08/14 Colton rded Miscellaneous Vaccine 1 11/21/18 Given Zoster Vaccine Live 03/13/17 Recorded Zoster Vaccine Live 2 03/18/12 Recorded tetanus/diphtheria/pertussis, acel(Tdap) 06/21/16 Recorded 1Result Comment: [11/21/2018] pt was given immunization at [address] [facility] VIAL KIT 2Location History: [employer] Content [employer] (RCDb)TECH Medications Meena-[place] Plus Cold and Cough By Mouth, Every [...] Refills, Maintenance, 12/24/20 10:15:00 EST, EC Tablet, [facility] #[id number], 185, cm, 12/24/20 9:35:00 EST, Height, 183.3, kg, 11/23/20 8:36:00 EST, Dry Weight Start Date: 12/24/20 Stop Date: 12/19/21 Status: Ordered gabapentin 300 mg oral capsule 300 mg, 1, capsule, By Mouth, 3 times a day, # 270 capsule, Refills 3, Tot. Refills 3, Maintenance,12/24/20 10:15:00 EST, Route to Pharmacy Electronically, [facility] #[id number], 185, cm, 12/24/20 9:35:00 EST, Height, 183.3, [...] Refills, Maintenance, 10/01/20 7:33:00 EST, ER Tablet, [facility] #[id number], 185, cm, 07/22/20 22:18:00 EDT, Height, 180, [...] 3 Refills, Maintenance, 12/24/20 10:15:00 EST, Tablet, [facility] #[id number], 185, cm, 12/24/20 9:35:00 EST, Height,183.3, kg, [...] 3 Refills, Maintenance, 12/24/20 10:16:00 EST, Tablet, [facility] #[id number], Partial fill upon patient request, 185, cm, [...] 5 Refills, Maintenance, 01/17/21 9:47:00 EST, Aerosol, [facility] #[id number], 185, cm, 12/24/20 9:35:00 EST, Height, 183.3, [...]
--- OUTSIDE RECORDS SUMMARY | 2023-04-10 07:31 | XMS_ITS | Continuity of Care Document ---
Author Name Unknown Organization [facility] Address [address] [place] [address]- Care Team Providers Care Scraper Burrer Name Role Phone Cori Ugalde DO Primary Care Physician Encounter [facility] Date(s): 08/17/22 - 10/06/22 [facility] [address] [place] [address]- Attending Physician: Theodora Velasco NP Admitting Physician: Theodora Velasco NP Referring Physician: Cori Ugalde DO Allergies, Adverse [...] Comment: [11/21/2018] pt was given immunization at [address] [facility] VIAL KIT 2Location History: [facility]CH Medications acetaminophen 325 mg oral tablet Refills [...] 09/28/22 11:07:00 EST, Route to Pharmacy Electronically, [facility] #[id number], Partial fill upon patient request if the [...] Refills, Maintenance, 07/17/22 11:58:00 EDT, EC Tablet, [facility] #[id number], 186, cm, 05/24/22 15:33:00 EDT, Height, 160,kg, [...] Refills, Maintenance, 04/03/22 13:28:00 EDT, ER Tablet, [facility] #[id number], 186, cm, 02/02/22 13:39:00 EDT, Height, 160, kg, 01/19/22 12:45:00 EST, Dry We... Start Date: 04/03/22 Stop Date: 08/01/22 Status: Ordered Lasix 80 mg oral tablet 80 mg, 1, tablet, By Mouth, Daily, # 30 tablet, Refills 3, Tot. Refills 3, Maintenance, 04/03/22 13:27:00 EDT, Route to Pharmacy Electronically, [facility] #[id number], Partial fill upon patientrequest if the prescription is for a schedule II op... Start Date: 04/03/22 Status: Ordered losartan 100 mg oral tablet 1 tablet, By Mouth, Daily, DISCONTINUE COMBO HCTZ-LOSARTAN PRESCRIPTION, # 90 tablet, 4 Refills, [facility] #[id number], 186, cm, 02/02/22 13:39:00 EDT, Height, 160, [...] mL, 3 Refills, Maintenance, 05/25/22 15:50:00 EDT, [facility] #[id number], Partial fill upon patient request if the [...] 1 Refills, Maintenance, 07/17/22 10:04:00 EDT, Tablet, [facility] #[id number], Partial fill upon patient request, 186, cm, 05/24/22 15:33:00 EDT, Height, 160, kg, 01/19/22 1... Start Date: 07/17/22 Stop Date: 01/13/23 Status: Ordered Shower Bench See Instructions, # 1 each, Refills 0, Tot. Refills 0, Maintenance, Dx: Weakness Lifelone, 12/20/1709:53:07, Compound Start Date: 12/20/16 Status: Ordered Ventolin HFA 108 mcg/inh inhalation aerosol with adapter 1 puffs, Inhalation, 4 times a day, PRN for wheezing, # 1 each, 5 Refills, Maintenance, 10/06/22 13:01:00 EST, Aerosol, [facility] #[id number], 185.5, cm, 09/28/22 10:37:00 EST, Height, 154.4, [...] stated he recieved both vaccines at the [facility] on 01/05/21 and 02/02/21 2Dexa 08/2020 Social History Social History Type Response Smoking Status Former smoker, quit more than 30 days ago entered on: 08/21/22 Sex Patient Care team information Care Team Personnel Name: Pam Killian RN Position: [facility] RN Member Role: Primary Care Nurse Name: Cori Ugalde DO Position: [facility] Primary Care Physician Member Role: PCP Address: Address: [address] [place] [id number] Name: Mila Omer RN Position: [facility] RN Member Role: Primary Care Nurse Care Team Related Persons Name: CANDY PRETTY Name: DEVAN PRETTY Address: home [address] [place] [id number] Name: SHERWIN PRETTY Address: [place] [address] Name: ISRAEL ALEGRIA
--- OUTSIDE RECORDS SUMMARY | 2023-04-10 07:31 | XMS_ITS | Continuity of Care Document ---
Author Name Unknown Organization [facility] Address [address] [place] [address]- Care Team Providers Care Plumbing Contractor Name Role Phone Cori Ugalde DO Primary Care Physician Encounter [facility] Date(s): 05/19/22 - 06/18/22 [facility] [address] [place], [place] [address] Attending Physician: AdmMurtaza sparks Admitting Physician: AdmtrMurtaza Referring Physician: Admtr, Ar8 Allergies, Adverse Reactions, Alerts No Known Allergies Immunizations Given and Recorded Vaccine Date Status Refusal Reason influenza virus vaccine, inactivated 10/07/19 Give n influenza virus vaccine, inactivated 10/08/14 Colton rded Miscellaneous Vaccine 1 11/21/18 Given zoster vaccine, inactivated 10/26/18 Recorded Zoster Vaccine Live 03/13/17 Recorded Zoster Vaccine Live 2 03/18/12 Recorded tetanus/diphtheria/pertussis, acel(Tdap) 06/21/16 Recorded 1Result Comment: [11/21/2018] pt was given immunization at [address] [facility] VIAL KIT 2Location History: [employer] Medications Meena-[place] Plus Cold and Cough By Mouth, Every [...] Refills, Maintenance, 01/05/22 14:08:00 EST, EC Tablet, [facility] #[id number], 185.42, cm, 12/29/21 15:01:00 EST, Height, 166, [...] Refills, Maintenance, 04/03/22 13:28:00 EDT, ER Tablet, [facility] #[id number], 186, cm, 02/02/22 13:39:00 EDT, Height, 160, kg, 01/19/22 12:45:00 EST, Dry We... Start Date: 04/03/22 Stop Date: 08/01/22 Status: Ordered Lasix 80 mg oral tablet 80 mg, 1, tablet, By Mouth, Daily, # 30 tablet, Refills 3, Tot. Refills 3, Maintenance, 04/03/22 13:27:00 EDT, Route to Pharmacy Electronically, [facility] #[id number], Partial fill upon patientrequest if the prescription is for a schedule II op... Start Date: 04/03/22 Status: Ordered losartan 100 mg oral tablet 1 tablet, By Mouth, Daily, DISCONTINUE COMBO HCTZ-LOSARTAN PRESCRIPTION, # 90 tablet, 4 Refills, [facility] #[id number], 186, cm, 02/02/22 13:39:00 EDT, Height, 160, [...] mL, 3 Refills, Maintenance, 05/25/22 15:50:00 EDT, [facility] #[id number], Partial fill upon patient request if the [...] 1 Refills, Maintenance, 01/05/22 12:30:00 EST, Tablet, [facility] #[id number], Partial fill upon patient request, 185.42,cm, 12/29/21 [...] 5 Refills, Maintenance, 01/17/21 9:47:00 EST, Aerosol, [facility] #[id number], 185, cm, 12/24/20 9:35:00 EST, Height, 183.3, [...] stated he recieved both vaccines at [facility] on 01/05/21 and 02/02/21 2Dexa 08/2020 Social History Social History Type Response Smoking Status Former smoker; Type: Cigarettes; Tobacco use times per day: 1-2 ppd for 30 years; Number of years: 28; Started at age: 20; Stopped at age: 48; entered on: 05/22/17 Sex Male
--- OUTSIDE RECORDS SUMMARY | 2023-04-10 07:31 | XMS_ITS | Continuity of Care Document ---
Author Name Unknown Organization [facility] Address [address] [place] [address]- Care Team Providers Care Rayon Winder Name Role Phone Cori Ugalde DO Primary Care Physician Encounter [facility] Date(s): 10/04/22 - 11/03/22 [facility] [address] [place], [place] [address] Allergies, Adverse Reactions, Alerts No Known Allergies [...] Comment: [11/21/2018] pt was given immunization at [address] [facility] VIAL KIT 2Location History: [employer] Medications acetaminophen 325 mg oral tablet Refills [...] 09/28/22 11:07:00 EST, Route to Pharmacy Electronically, [facility] #[id number], Partial fill upon patient request if the [...] Refills, Maintenance, 07/17/22 11:58:00 EDT, EC Tablet, [facility] #[id number], 186, cm, 05/24/22 15:33:00 EDT, Height, 160,kg, [...] Refills, Maintenance, 04/03/22 13:28:00 EDT, ER Tablet, [facility] #[id number], 186, cm, 02/02/22 13:39:00 EDT, Height, 160, kg, 01/19/22 12:45:00 EST, Dry We... Start Date: 04/03/22 Stop Date: 08/01/22 Status: Ordered Lasix 80 mg oral tablet 80 mg, 1, tablet, By Mouth, Daily, # 30 tablet, Refills 3, Tot. Refills 3, Maintenance, 04/03/22 13:27:00 EDT, Route to Pharmacy Electronically, [facility] #[id number], Partial fill upon patientrequest if the prescription is for a schedule II op... Start Date: 04/03/22 Status: Ordered losartan 100 mg oral tablet 1 tablet, By Mouth, Daily, DISCONTINUE COMBO HCTZ-LOSARTAN PRESCRIPTION, # 90 tablet, 4 Refills, [facility] #[id number], 186, cm, 02/02/22 13:39:00 EDT, Height, 160, [...] Start Date: 09/28/22 Status: Ordered nystatin topical 738096 u/gm powder 1 application, Topically, 2 times a day, apply to irritated skin/rash of both groins/pubic areas, #60 Gm, 0 Refills, Maintenance, 10/25/22 11:36:00 EST, Powder, [facility] #[id number], Partial fill upon patient request if the [...] mL, 2 Refills, Maintenance, 10/14/22 12:35:00 EST, [facility] #[id number], Partial fill upon patient request if the [...] 1 Refills, Maintenance, 07/17/22 10:04:00 EDT, Tablet, [facility] #[id number], Partial fill upon patient request, 186, cm, [...] 5 Refills, Maintenance, 10/06/22 13:01:00 EST, Aerosol, [facility] #[id number], 185.5, cm, 09/28/22 10:37:00 EST, Height, 154.4, [...] stated he recieved both vaccines at the [facility] on 01/05/21 and 02/02/21 2Dexa 08/2020 Social History Social History Type Response Smoking Status Former smoker, quit more than 30 days ago entered on: 08/21/22 Sex Patient Care team information Care Team Personnel Name: Pam Killian RN Position: [facility] RN Member Role: Primary Care Nurse Name: Cori Ugalde DO Position: [facility] Primary Care Physician Member Role: PCP Address: Address: [address] [place] [id number] Name: Mila Omer RN Position: [facility] RN Member Role: Primary Care Nurse Care Team Related Persons Name: CANDY PRETTY Name: DEVAN PRETTY Address: [address] [address] Name: SHERWIN PRETTY Address: [place] [address] Name: ISRAEL ALEGRIA
--- OUTSIDE RECORDS SUMMARY | 2023-04-10 07:31 | XMS_ITS | Continuity of Care Document ---
Author Name Unknown Organization [facility] Address [address] [place] [address]- Care Team Providers Care District Engineer Name Role Phone Cori Ugalde DO Primary Care Physician Encounter [facility] Date(s): 10/04/22 - 11/03/22 [facility] [address] [place], [place] [address] Allergies, Adverse Reactions, Alerts No Known [...] [11/21/2018] pt was given immunization at [address] [facility] VIAL KIT 2Location History: [facility] Medications acetaminophen 325 mg oral tablet [...] 09/28/22 11:07:00 EST, Route to Pharmacy Electronically, [facility] #[id number], Partial fill upon patient request if the [...] Refills, Maintenance, 07/17/22 11:58:00 EDT, EC Tablet, [facility] #[id number], 186, cm, 05/24/22 15:33:00 EDT, Height, 160,kg, [...] Refills, Maintenance, 04/03/22 13:28:00 EDT, ER Tablet, [facility] #[id number], 186, cm, 02/02/22 13:39:00 EDT, Height, 160, kg, 01/19/22 12:45:00 EST, Dry We... Start Date: 04/03/22 Stop Date: 08/01/22 Status: Ordered Lasix 80 mg oral tablet 80 mg, 1, tablet, By Mouth, Daily, # 30 tablet, Refills 3, Tot. Refills 3, Maintenance, 04/03/22 13:27:00 EDT, Route to Pharmacy Electronically, [facility] #[id number], Partial fill upon patientrequest if the prescription is for a schedule II op... Start Date: 04/03/22 Status: Ordered losartan 100 mg oral tablet 1 tablet, By Mouth, Daily, DISCONTINUE COMBO HCTZ-LOSARTAN PRESCRIPTION, # 90 tablet, 4 Refills, [facility] #[id number], 186, cm, 02/02/22 13:39:00 EDT, Height, 160, [...] Start Date: 09/28/22 Status: Ordered nystatin topical [id number] u/gm powder 1 application, Topically, 2 times a day, apply to irritated skin/rash of both groins/pubic areas, #60 Gm, 0 Refills, Maintenance, 10/25/22 11:36:00 EST, Powder, [facility] #[id number], Partial fill upon patient request if the [...] mL, 2 Refills, Maintenance, 10/14/22 12:35:00 EST, [facility] #[id number], Partial fill upon patient request if the [...] 1 Refills, Maintenance, 07/17/22 10:04:00 EDT, Tablet, [facility] #[id number], Partial fill upon patient request, 186, cm, [...] 5 Refills, Maintenance, 10/06/22 13:01:00 EST, Aerosol, [facility] #[id number], 185.5, cm, 09/28/22 10:37:00 EST, Height, 154.4, [...] stated he recieved both vaccines at the [facility] on 01/05/21 and 02/02/21 2Dexa 08/2020 Social History Social History Type Response Smoking Status Former smoker, quit more than 30 days ago entered on: 08/21/22 Sex Patient Care team information Care Team Personnel Name: Pam Killian RN Position: [facility] RN Member Role: Primary Care Nurse Name: Cori Ugalde DO Position: [facility] Primary Care Physician Member Role: PCP Address: Address: [address] [place] [id number] Name: Mila Omer RN Position: [facility] RN Member Role: Primary Care Nurse Care Team Related Persons Name: CANDY PRETTY Name: DEVAN PRETTY Address: [address] [address] Name: SHERWIN PRETTY Address: [place] [address] Name: ISRAEL ALEGRIA
--- OUTSIDE RECORDS SUMMARY | 2023-04-10 07:31 | XMS_ITS | Continuity of Care Document ---
Author Name Unknown Organization [facility] Address [address] [place] [address]- Care Team Providers Care Mathematician Name Role Phone Cori Ugalde DO Primary Care Physician Encounter [facility] Date(s): 03/23/21 - 07/21/21 [facility] [address] [place] [address]- Attending Physician: Manuel Reyes MD Admitting Physician: [...] Comment: [11/21/2018] pt was given immunization at [address] [facility] VIAL KIT 2Location History: [employer] Medications Meena-[place] Plus Cold and Cough By Mouth, Every [...] Refills, Maintenance, 10/01/20 7:33:00 EST, ER Tablet, [facility] #[id number], 185, cm, 07/22/20 22:18:00 EDT, Height, 180, [...] 3 Refills, Maintenance, 12/24/20 10:15:00 EST, Tablet, [facility] #[id number], 185, cm, 12/24/20 9:35:00 EST, Height,183.3, kg, [...] 3 Refills, Maintenance, 12/24/20 10:16:00 EST, Tablet, [facility] #[id number], Partial fill upon patient request, 185, cm, 12/24/20 9:35:00 EST, Height, 183.3, kg, 11/23/20... Start Date: 12/24/20 Stop Date: 12/19/21 Status: Ordered semaglutide 2 mg/1.5 mL (0.25 mg or 0.5 mg dose) subcutaneous solution = 0.25 mg, Subcutaneous Infusion, Every Sunday, rotate injection sites, # 1 each, 1 Refills, Maintenance, 06/13/21 11:00:00 EDT, [facility] #[id number], Partial fill upon patient request if theprescription [...] 5 Refills, Maintenance, 01/17/21 9:47:00 EST, Aerosol, [facility] #[id number], 185, cm, 12/24/20 9:35:00 EST, Height, 183.3, [...]
--- OUTSIDE RECORDS SUMMARY | 2023-04-10 07:31 | XMS_ITS | Continuity of Care Document ---
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 [facility] VIAL KIT 2Location History: [facility] Medications Meena-[place] Plus Cold and Cough By Mouth, Every [...] Refills, Maintenance, 07/17/22 11:58:00 EDT, EC Tablet, [facility] #[id number], 186, cm, 05/24/22 15:33:00 EDT, Height, 160,kg, [...] Refills, Maintenance, 04/03/22 13:28:00 EDT, ER Tablet, [facility] #[id number], 186, cm, 02/02/22 13:39:00 EDT, Height, 160, kg, 01/19/22 12:45:00 EST, Dry We... Start Date: 04/03/22 Stop Date: 08/01/22 Status: Ordered Lasix 80 mg oral tablet 80 mg, 1, tablet, By Mouth, Daily, # 30 tablet, Refills 3, Tot. Refills 3, Maintenance, 04/03/22 13:27:00 EDT, Route to Pharmacy Electronically, [facility] #[id number], Partial fill upon patientrequest if the prescription is for a schedule II op... Start Date: 04/03/22 Status: Ordered losartan 100 mg oral tablet 1 tablet, By Mouth, Daily, DISCONTINUE COMBO HCTZ-LOSARTAN PRESCRIPTION, # 90 tablet, 4 Refills, [facility] #[id number], 186, cm, 02/02/22 13:39:00 EDT, Height, 160, kg, 01/19/22 12:45:00 EST, Dry Weight Start Date: 04/13/22 Status: Ordered metoprolol 50 mg oral tablet 50 mg, 1, tablet, By Mouth, 2 times a day, Refills 0, Maintenance, 12/20/16 10:41:14 Start Date: 12/20/16 Status: Ordered metoprolol 50 mg oral tablet 50 mg, Tablet, By Mouth, 08/24/22 9:00:00 EDT Start Date: 08/24/22 Stop Date: 08/24/22 Status: Completed oxyCODONE 5 mg oral tablet 2.5 mg, 0.5, tablet, By Mouth, Every 6 hours, PRN, for 3 days, # 6 tablet, Refills 0, Tot. Refills 0, Acute 08/27/22 15:15:00 EDT, as needed for pain, 08/24/22 15:15:00 EDT, Print Re[facility], Partial fill upon patient request if the prescription is f... Start Date: 08/24/22 Stop Date: 08/27/22 Status: Ordered oxyCODONE 5 mg oral tablet 2.5 mg, Tablet, By Mouth, Every 6 hours, PRN for Pain , Moderate, Routine, 08/21/22 15:58:00 EDT Start Date: 08/21/22 Stop Date: 08/25/22 Status: Discontinued Ozempic (1 mg dose) 4 mg/3 mL subcutaneous solution = 1 mg, Subcutaneous Infusion, Every Sunday, # 3 mL, 3 Refills, Maintenance, 05/25/22 15:50:00 EDT, [facility] #[id number], Partial fill upon patient request if the [...] 1 Refills, Maintenance, 07/17/22 10:04:00 EDT, Tablet, [facility] #[id number], Partial fill upon patient request, 186, cm, [...] 5 Refills, Maintenance, 01/17/21 9:47:00 EST, Aerosol, [facility] #[id number], 185, cm, 12/24/20 9:35:00 EST, Height, 183.3, [...] stated he recieved both vaccines at the [facility] on 01/05/21 and 02/02/21 2Dexa 08/2020 Procedures Procedure Date Related Diagnosis Body Site Status Bilateral common femoral pro breonna femoris endarterectomy w/bovine patch angioplasty. Aortogram & pelvic arteriogram. Bilateral common iliac stenting. Bilateral external iliac stenting. Balloon angioplasty distal left common iliac artery 08/21/22 Complet ed Vital Signs Most recent to oldest [Reference Range]: 1 2 3 Height 185.4 cm (08/24/22 4:29 PM) 185.4 cm (08/24/22 11:56 AM) 185.4 cm (08/24/22 8:07 AM) Weight 155.4 kg (08/21/22 9:11 PM) 155.4 kg (08/21/22 5:56 PM) 158 kg (08/21/22 7:51 AM) Oxygen Saturation [94-100 %] 92 % *L* (08/24/22 4:29 PM) 93 % *L* (08/24/22 11:56 AM) 96 % (08/24/22 8:07 AM) Pulse Rate [55-90 bpm] 83 bpm (08/24/22 4:29 PM) 72 bpm (08/24/22 11:56 AM) 76 bpm (08/24/22 8:44 AM) Body Mass Index [18.5-24.99 kg/m2] 45.21 kg/m2 *>HHI* (08/21/22 9:11 PM) 45.97 kg/m2 *>HHI* (08/21/22 7:51 AM) Blood Pressure [90-138/55-84 mm Hg] 104/65mm Hg (08/24/22 4:29 PM) 102/61mm Hg (08/24/22 11:56 AM) 107/56mm Hg (08/24/22 8:44 AM) Respiratory Rate [16-30 br/min] 20 br/min (08/24/22 4:29 PM) 18 br/min (08/24/22 12:14 PM) 18 br/min (08/24/22 11:56 AM) Temperature [96.8-100.4 DegF] 98.2 DegF (08/24/22 4:29 PM) 98.4 DegF (08/24/22 11:56 AM) 97.3 DegF (08/24/22 8:07 AM) Liters per Minute 2 L/min (08/24/22 8:07 AM) 2 L/min (08/24/22 4:32 AM) 2 L/min (08/23/22 11:56 PM) Mode of Delivery (Oxygen) Room air (08/24/22 4:29 PM) Room air (08/24/22 11:56 AM) Nasal cannula (08/24/22 8:07 AM) Blood pressure sites Arm, left (08/24/22 4:29 PM) Arm, right (08/24/22 11:56 AM) Arm, left (08/24/22 8:07 AM) Temperature Route Oral (08/24/22 4:29 PM) Oral (08/24/22 11:56 AM) Oral (08/24/22 8:07 AM) Dry Weight 155.4 kg (08/21/22 9:11 PM) 158 kg (08/21/22 7:51 AM) Weight Obtained Via Bed scale (08/21/22 9:11 PM) Bed scale (08/21/22 5:56 PM) Standing scale (08/21/22 7:51 AM) Dry Weight Obtained Via Bed scale (08/21/22 9:11 PM) Standing scale (08/21/22 7:51 AM) Social History Social History Type Response Smoking Status Former smoker, quit more than 30 days ago entered on: 08/21/22 Sex Male Patient Care team information Personnel Name: Cori Ugalde DO Address: Address: [address] [place] [address]
--- OUTSIDE RECORDS SUMMARY | 2023-04-10 07:31 | XMS_ITS | Continuity of Care Document ---
Author Name Unknown Organization [facility] Address [address] [place] [address]- Care Team Providers Care Primary Counselor Name Role Phone Cori Ugalde DO Primary Care Physician [facility] Date[facility]): 02/23/22 - 03/25/22 [facility] [address] [place] [address]- Attending Physician: Murtaza Raya Admitting Physician: Murtaza Raya Referring Physician: Murtaza Raya Allergies, Adverse Reactions, Alerts No Known Allergies Immunizations Given and Recorded Vaccine Date Status Refusal Reason influenza virus vaccine, inactivated 10/07/19 Give n influenza virus vaccine, inactivated 10/08/14 Colton rded Miscellaneous Vaccine 1 11/21/18 Given zoster vaccine, inactivated 10/26/18 Recorded Zoster Vaccine Live 03/13/17 Recorded Zoster Vaccine Live 2 03/18/12 Recorded tetanus/diphtheria/pertussis, acel(Tdap) 06/21/16 Recorded 1Result Comment: [11/21/2018] pt was given immunization at [address] SHINGRIX VIAL KIT 2Location History: [facility] Medications Meena-[place] Plus Cold and Cough By Mouth, Every [...] Refills, Maintenance, 01/05/22 14:08:00 EST, EC Tablet, [facility] #[id number], 185.42, cm, 12/29/21 15:01:00 EST, Height, 166, [...] Refills, Maintenance, 10/01/20 7:33:00 EST, ER Tablet, [facility] #[id number], 185, cm, 07/22/20 22:18:00 EDT, Height, 180, kg, 07/13... Start Date: 10/01/20 Stop Date: 03/30/21 Status: Ordered Lasix 80 mg oral tablet 80 mg, 1, tablet, By Mouth, 2 times a day, # 30 tablet, Refills 0, Maintenance, 12/20/16 17:07:10 Start Date: 12/20/16 Status: Ordered losartan 100 mg oral tablet 1 tablet = 100 mg, By Mouth, Daily, D/C combo HCTZ-Losartan Rx, # 30 tablet, 1 Refills, Maintenance, 02/15/22 15:52:00 EDT, Tablet, [facility] #[id number], 186, cm, 02/02/22 13:39:00 EDT, Height, 160, kg, 01/19/22 12:45:00 EST, Dry Weight Start Date: 02/15/22 Stop Date: 04/16/22 Status: Ordered metoprolol 50 mg oral tablet [...] mL, 2 Refills, Maintenance, 01/19/22 19:25:00 EST, [facility] #[id number], Partial fill upon patient request if the [...] 1 Refills, Maintenance, 01/05/22 12:30:00 EST, Tablet, [facility] #[id number], Partial fill upon patient request, 185.42,cm, 12/29/21 [...] 5 Refills, Maintenance, 01/17/21 9:47:00 EST, Aerosol, [facility] #[id number], 185, cm, 12/24/20 9:35:00 EST, Height, 183.3, [...] stated he recieved both vaccines at the [facility] on 01/05/21 and 02/02/21 2Dexa 08/2020 Social History Social History Type Response Smoking Status Former smoker; Type: Cigarettes; Tobacco use times per day: 1-2 ppd for 30 years; Number of years: 28; Started at age: 20; Stopped at age: 48; entered on: 05/22/17 Sex Male
--- OUTSIDE RECORDS SUMMARY | 2023-04-10 07:31 | XMS_ITS | Continuity of Care Document ---
Author Name Unknown Organization [facility] Address [address] [place] [address]- Care Team Providers Care Compensation Administrator Name Role Phone Cori Ugalde DO Primary Care Physician [facility]s): 09[facility]/22 - 10/01/22 [facility] [address] [place], [place] [address] Allergies, Adverse Reactions, Alerts No Known Allergies [...] Comment: [11/21/2018] pt was given immunization at [address] SHINGRIX VIAL KIT 2Location History: [facility] Medications acetaminophen 325 mg oral tablet [...] 09/28/22 11:07:00 EST, Route to Pharmacy Electronically, [facility] #[id number], Partial fill upon patient request if the [...] Refills, Maintenance, 07/17/22 11:58:00 EDT, EC Tablet, [facility] #[id number], 186, cm, 05/24/22 15:33:00 EDT, Height, 160,kg, [...] Date: 07/14/21 Stop Date: 07/09/22 Status: Ordered HYDROmorphone 2 mg oral tablet 1 tablet = 2 mg, By Mouth, Every 8 hours, PRN Pain , Severe, # 42 tablet, 0 Refills, Acute 10/02/2213:15:00 EST, 09/26/22 11:52:00 EST, Tablet, [facility] #[id number], Partial fill upon patientrequest if the prescription is for a schedule II op... Start Date: 09/26/22 Stop Date: 10/02/22 Status: Ordered KlonoPIN 0.5 mg oral tablet [...] Refills, Maintenance, 04/03/22 13:28:00 EDT, ER Tablet, [facility] #[id number], 186, cm, 02/02/22 13:39:00 EDT, Height, 160, kg, 01/19/22 12:45:00 EST, Dry We... Start Date: 04/03/22 Stop Date: 08/01/22 Status: Ordered Lasix 80 mg oral tablet 80 mg, 1, tablet, By Mouth, Daily, # 30 tablet, Refills 3, Tot. Refills 3, Maintenance, 04/03/22 13:27:00 EDT, Route to Pharmacy Electronically, [facility] #[id number], Partial fill upon patientrequest if the prescription is for a schedule II op... Start Date: 04/03/22 Status: Ordered losartan 100 mg oral tablet 1 tablet, By Mouth, Daily, DISCONTINUE COMBO HCTZ-LOSARTAN PRESCRIPTION, # 90 tablet, 4 Refills, [facility] #[id number], 186, cm, 02/02/22 13:39:00 EDT, Height, 160, [...] mL, 3 Refills, Maintenance, 05/25/22 15:50:00 EDT, [facility] #[id number], Partial fill upon patient request if the [...] 1 Refills, Maintenance, 07/17/22 10:04:00 EDT, Tablet, [facility] #[id number], Partial fill upon patient request, 186, cm, [...] 5 Refills, Maintenance, 01/17/21 9:47:00 EST, Aerosol, [facility] #[id number], 185, cm, 12/24/20 9:35:00 EST, Height, 183.3, [...] stated he recieved both vaccines at the [place] [facility] on 01/05/21 and 02/02/21 2Dexa 08/2020 Social History Social History Type Response Smoking Status Former smoker, quit more than 30 days ago entered on: 08/21/22 Sex Patient Care team information Care Team Personnel Name: Pam Killian RN Position: [facility] RN Member Role: Primary Care Nurse Name: Cori Ugalde DO Position: [facility] Primary Care Physician Member Role: PCP Address: Address: [address] [place] [address]- Name: Mila Omer RN Position: [facility] RN Member Role: Primary Care Nurse Care Team Related Persons Name: CANDY PRETTY Name: DEVAN PRETTY Address: [address] [address] Name: SHERWIN PRETTY Address: [place] [address] Name: ISRAEL ALEGRIA
--- OUTSIDE RECORDS SUMMARY | 2023-04-10 07:31 | XMS_ITS | Continuity of Care Document ---
Author Name Unknown Organization [facility] Address [address] [place] [address]- Care Team Providers Care Personal Care Attendant Name Role Phone Cori Ugalde DO Primary Care Physician [facility] Date[facility]): 07/27/20 - 08/26/20 [facility] [address] [place] [address] [facility] Allergies, Adverse Reactions, Alerts Substance Reaction Severity Status NKA Active Immunizations Given and Recorded Vaccine Date Status Refusal Reason influenza virus vaccine, inactivated 10/07/19 Give n influenza virus vaccine, inactivated 10/08/14 Colton rded Miscellaneous Vaccine 1 11/21/18 Given Zoster Vaccine Live 03/13/17 Recorded Zoster Vaccine Live 2 03/18/12 Recorded tetanus/diphtheria/pertussis, acel(Tdap) 06/21/16 Recorded 1Result Comment: [11/21/2018] pt was given immunization at [address] SHINGRIX VIAL KIT 2Location History: [facility] Medications aspirin buffered 81 mg oral tablet [...] food, # 60 tablet, 3 Refills, Maintenance, :11:00 EDT, EC Tablet, [facility] #[id number], 185, cm, 07/22/20 22:18:00 EDT, Height, 180, kg, 07/22/20 22:18:00 EDT, Dry Weight Start Date: 08/17/20 Stop Date: 12/15/20 Status: Ordered gabapentin 300 mg oral capsule 300 mg, 1, capsule, By Mouth, 3 times a day, # 90 capsule, Refills 5, Tot. Refills 5, Maintenance, 04/20/20 17:38:00 EDT, Route to Pharmacy Electronically, [facility] #[id number], 186, cm, 01/19/20 9:14:00 EDT, Height Start [...] Refills, Maintenance, 05/31/20 17:51:00 EDT, ER Tablet, [facility] #[id number], 186, cm, 01/19/20 9:14:00 EDT, Height Start [...] Maintenance, 01/19/20 9:18:00 EDT, Tablet, [facility] #[id number], 186, cm, 01/19/20 9:14:00 EDT, Height Start [...] 07/29/20 12:29:00 EDT, Route to Pharmacy Electronically, [facility] #[id number], 185, cm, 07/22/20 22:18:00 EDT, Height, 180, kg, 07/22/20 22:18:00 EDT,... Start Date: 07/29/20 Stop Date: 08/01/20 Status: Ordered Ventolin HFA 108 mcg/inh inhalation aerosol with adapter 1 puffs, Inhalation, 4 times a day, PRN for wheezing, # 1 each, 5 Refills, Maintenance, 12/25/19 13:42:00 EST, Aerosol, [facility] #[id number], 186, cm, 10/07/19 9:17:00 EST, Height Start [...]
--- OUTSIDE RECORDS SUMMARY | 2023-04-10 07:31 | XMS_ITS | Continuity of Care Document ---
Author Name Unknown Organization [facility] Address [address] [place] [address]- Care Team Providers Care Forensics Team Director Name Role Phone Cori Ugalde DO Primary Care Physician Encounter [facility] Date(s): 11/22/22 - 11/29/22 [facility] [address] [place], [place] [address] Attending Physician: Estrada Lopez MD Admitting Physician: Estrada Lopez MD Allergies, Adverse Reactions, [...] Comment: [11/21/2018] pt was given immunization at [address] SHINGRIX VIAL KIT 3Location History: [facility] [...] 11/27/22 15:22:00 EST, Route to Pharmacy Electronically, [facility] #[id number], Partial fill upon patient request if the [...] Refills, Maintenance, 07/17/22 11:58:00 EDT, EC Tablet, [facility] #[id number], 186, cm, 07/13/22 15:33:00 EDT, Height, 160,kg, 01/19/22 12:45:00 EST, [...] Refills, Maintenance, 04/03/22 13:28:00 EDT, ER Tablet, [facility] #[id number], 186, cm, 02/02/22 13:39:00 EDT, Height, 160, kg, 01/19/22 12:45:00 EST, Dry We... Start Date: 04/03/22 Stop Date: 08/01/22 Status: Ordered Lasix 80 mg oral tablet 80 mg, 1, tablet, By Mouth, Daily, # 30 tablet, Refills 3, Tot. Refills 3, Maintenance, 04/03/22 13:27:00 EDT, Route to Pharmacy Electronically, [facility] #[id number], Partial fill upon patientrequest if the prescription is for a schedule II op... Start Date: 04/03/22 Status: Ordered losartan 100 mg oral tablet 1 tablet, By Mouth, Daily, DISCONTINUE COMBO HCTZ-LOSARTAN PRESCRIPTION, # 90 tablet, 4 Refills, [facility] #[id number], 186, cm, 02/02/22 13:39:00 EDT, Height, 160, [...] Start Date: 09/28/22 Status: Ordered nystatin topical 110753 u/gm powder 1 application, Topically, 2 times a day, apply to irritated skin/rash of both groins/pubic areas, #60 Gm, 0 Refills, Maintenance, 10/25/22 11:36:00 EST, Powder, [facility] #[id number], Partial fill upon patient request if the [...] mL, 2 Refills, Maintenance, 10/14/22 12:35:00 EST, [facility] #[id number], Partial fill upon patient request if the [...] 1 Refills, Maintenance, 07/17/22 10:04:00 EDT, Tablet, [facility] #65069, Partial fill upon patient request, 186, cm, [...] 5 Refills, Maintenance, 10/06/22 13:01:00 EST, Aerosol, [facility] #56388, 185.5, cm, 09/28/22 10:37:00 EST, Height, 154.4, [...] stated he recieved both vaccines at the [place] [facility] on 01/05/21 and 02/02/21 2Dexa 08/2020 Vital Signs Most recent to oldest [Reference Range]: 1 Height 185.5 cm (11/22/22 8:07 AM) Weight 153.63 kg (11/22/22 8:07 AM) Oxygen Saturation [94-100 %] 95 % (11/22/22 8:07 AM) Pulse Rate [55-90 bpm] 72 bpm (11/22/22 8:07 AM) Body Mass Index [18.5-24.99 kg/m2] 44.65 kg/m2 *>HHI* (11/22/22 8:07 AM) Blood Pressure [90-138/55-84 mm Hg] 160/ 88mm Hg *H* (11/22/22 8:07 AM) Mode of Delivery (Oxygen) Room air (11/22/22 8:07 AM) Blood pressure sites Arm, left (11/22/22 8:07 AM) Weight Obtained Via Patient/family state d (11/22/22 8:07 AM) Social History Social History Type Response Smoking Status Former smoker, quit more than 30 days ago entered on: 08/21/22 Sex Note * Bruce Green: SIGN, VERIFY, PERFORM Event Display: Patient Education/Instruction Authored Date: [id number] [facility] *[facility] [address] Clinical Summary Name ANDRES PRETTY Age 67 Years 1955 PCP Cori Ugalde DO PCP Visit Date 11/22/2022 07:40:00 Additional Instructions: Scheduled Appointments?? Future Appointments ?*[facility] [address] ?[place],??[place],??[address] ?Phone:??--?Fax:??-- ?Appt. Date:??11/29/2022?11:30 AM ?Scheduled Provider:??Saad Palacios ?*[facility] ?[address] ?[place],??[place],??[address] ?Phone:??--?Fax:??-- ?Appt. Date:??12/15/2022?1:00 PM ?Scheduled Provider:??Isaac GOTTI, [...] 1 capsule Oral twice a day. Refills: 1. Next Dose: Durable Medical Equipment (Compression Stockings) surgical, knee length 20-30 mm Hg Dx:I73.9. Refills: 0. Next Dose: Durable Medical Equipment (CPAP Machine) AutoCPAP 13-20 cm H20, use Daily when sleeping. Refills: 0. Next Dose: Durable Medical Equipment (Shower Bench) Dx: Sandi Lifelone. Refills: 0. Next Dose: Furosemide (Lasix 80 mg oral tablet) 1 tab(s) Oral Daily. Refills: 3. Next Dose: Gabapentin (gabapentin 300 mg oral capsule) 2 capsule Oral 3 times a day for 90 Days. take 1-2 capsules, three times a day, can increase to 2 capsules 3 times a day if tolerable. Refills: 3. Next Dose: Losartan (losartan 100 mg oral tablet) 1 tab(s) Oral Daily. DISCONTINUE COMBO HCTZ-LOSARTAN PRESCRIPTION. Refills: 4. Next Dose: Metoprolol (metoprolol 50 mg oral tablet) 1 tab(s) Oral twice a day. Next Dose: Metoprolol (metoprolol 50 mg oral tablet, extended release) 1 tab(s) Oral Daily. Next Dose: Nystatin Topical (nystatin topical 997139 u/gm powder) 1 max Topically twice a day. apply to irritated skin/rash of both groins/pubic areas. Refills: 0. Next Dose: Oxycodone (oxyCODONE 5 mg oral [...] solution) 1 Milligram Subcutaneous Infusionevery Sunday. Refills: 2. Next Dose: Allergy Info:?? NKA Medications Given This Visit Future Orders ?No future orders Vital Signs Height 185.5 cm Weight 153.63 kg BMI 44.65 kg/m2 Blood Pressure 160 mm Hg/88 mm Hg Temperature Pulse Rate 72 bpm Respiratory Rate 02 Sat Mode of Delivery 95 %/Room air You can now view a summary of your hospital visit from the comfort of your home through a free online portal called [employer]. [employer] is a website that allows you to securely view your medical information including discharge summary, medications and follow-up visits. ??You can alsosend a secure electronic message to your doctor???s office to request appointments, renew medications or just ask a question. You can enroll at [email or web address] or register during your next office [...] primary care provider, you may find a [facility] provider by calling [facility] at [phone]. For information about the plan of care [...] Name: Pam Killian RN Position: [facility] RN Member Role: Primary Care Nurse Name: Cori Ugalde DO Position: [facility] Primary Care Physician Member Role: PCP Address: Address: [address] [place] [address] Name: Mila Omer RN Position: [facility] RN Member Role: Primary Care Nurse Care Team Related Persons Name: CANDY PRETTY Name: DEVAN PRETTY Address: [address] [address] Name: SHERWIN PRETTY Address: [place] [address] Name: ISRAEL ALEGRIA
--- OUTSIDE RECORDS SUMMARY | 2023-04-10 07:31 | XMS_ITS | Continuity of Care Document ---
Author Name Unknown Organization [facility] Address [address] [place] [address]- Care Team Providers Care Stripping Shovel Oiler Name Role Phone Cori Ugalde DO Primary Care Physician Encounter [facility] Date(s): 01/04/21 - 02/03/21 [facility] [address] [place] [address]- Allergies, Adverse Reactions, Alerts Substance Reaction Severity Status NKA Active Immunizations Given and Recorded Vaccine Date Status Refusal Reason influenza virus vaccine, inactivated 10/07/19 Give n influenza virus vaccine, inactivated 10/08/14 Colton rded Miscellaneous Vaccine 1 11/21/18 Given Zoster Vaccine Live 03/13/17 Recorded Zoster Vaccine Live 2 03/18/12 Recorded tetanus/diphtheria/pertussis, acel(Tdap) 06/21/16 Recorded 1Result Comment: [11/21/2018] pt was given immunization at [address] SHINGRIX VIAL KIT 2Location History: [facility] Medications Meena-[place] Plus Cold and Cough By Mouth, Every [...] Refills, Maintenance, 12/24/20 10:15:00 EST, EC Tablet, [facility] #[id number], 185, cm, 12/24/20 9:35:00 EST, Height, 183.3, kg, 11/23/20 8:36:00 EST, Dry Weight Start Date: 12/24/20 Stop Date: 12/19/21 Status: Ordered gabapentin 300 mg oral capsule 300 mg, 1, capsule, By Mouth, 3 times a day, # 270 capsule, Refills 3, Tot. Refills 3, Maintenance,12/24/20 10:15:00 EST, Route to Pharmacy Electronically, [facility] #[id number], 185, cm, 12/24/20 9:35:00 EST, Height, 183.3, [...] Refills, Maintenance, 10/01/20 7:33:00 EST, ER Tablet, [facility] #59104, 185, cm, 07/22/20 22:18:00 EDT, Height, 180, [...] 3 Refills, Maintenance, 12/24/20 10:15:00 EST, Tablet, [facility] #[id number], 185, cm, 12/24/20 9:35:00 EST, Height,183.3, kg, [...] 3 Refills, Maintenance, 12/24/20 10:16:00 EST, Tablet, [facility] #[id number], Partial fill upon patient request, 185, cm, [...] 5 Refills, Maintenance, 01/17/21 9:47:00 EST, Aerosol, [facility] #[id number], 185, cm, 12/24/20 9:35:00 EST, Height, 183.3, [...]
--- OUTSIDE RECORDS SUMMARY | 2023-04-10 07:31 | XMS_ITS | Continuity of Care Document ---
Author Name Unknown Organization [facility] Address [address] [place] [address] [address] [place] [address]- Care Team Providers Care Membership Solicitor Name Role Phone Cori Ugalde DO Primary Care Physician [facility] [facility] Date(s): 03/22/21 - 03/29/[address] [place] [address]- Attending Physician: Aristeo Urbina MD Referring Physician: Cori Ugalde DO Allergies, Adverse [...] [11/21/2018] pt was given immunization at [address] SHINGRIX VIAL KIT 2Location History: [facility] Medications Meena-[place] Plus Cold and Cough By Mouth, Every [...] Refills, Maintenance, 12/24/20 10:15:00 EST, EC Tablet, [facility] #[id number], 185, cm, 12/24/20 9:35:00 EST, Height, 183.3, kg, 11/23/20 8:36:00 EST, Dry Weight Start Date: 12/24/20 Stop Date: 12/19/21 Status: Ordered gabapentin 300 mg oral capsule 300 mg, 1, capsule, By Mouth, 3 times a day, # 270 capsule, Refills 3, Tot. Refills 3, Maintenance,12/24/20 10:15:00 EST, Route to Pharmacy Electronically, [facility] #[id number], 185, cm, 12/24/20 9:35:00 EST, Height, 183.3, [...] Refills, Maintenance, 10/01/20 7:33:00 EST, ER Tablet, [facility] #[id number], 185, cm, 07/22/20 22:18:00 EDT, Height, 180, [...] 3 Refills, Maintenance, 12/24/20 10:15:00 EST, Tablet, [facility] #[id number], 185, cm, 12/24/20 9:35:00 EST, Height,183.3, kg, [...] 3 Refills, Maintenance, 12/24/20 10:16:00 EST, Tablet, [facility] #[id number], Partial fill upon patient request, 185, cm, [...] 5 Refills, Maintenance, 01/17/21 9:47:00 EST, Aerosol, [facility] #[id number], 185, cm, 12/24/20 9:35:00 EST, Height, 183.3, [...] stated he recieved both vaccines at the [facility] on 01/05/21 and 02/02/21 2Dexa 08/2020 Vital Signs Most recent to oldest [Reference Range]: 1 Height 186.05 cm (03/22/21 3:08 PM) Weight 182.1 kg (03/22/21 3:08 PM) Pulse Rate [55-90 bpm] 77 bpm (03/22/21 3:08 PM) Body Mass Index [18.5-24.99] 52.61 *>HHI* (03/22/21 3:08 PM) Blood Pressure [90-138/55-84 mm Hg] 152/ 73mm Hg *H* (03/22/21 3:08 PM) Respiratory Rate [16-30 br/min] 16 br/mi n (03/22/21 3:08 PM) Temperature [96.8-100.4 DegF] 96.8 DegF (03/22/21 3:08 PM) Blood pressure sites Arm, right (03/22/21 3:08 PM) Temperature Route Temporal (03/22/21 3:08 PM) Weight Obtained Via Standing scale (03/22/21 3:08 PM) Social History Social History Type Response Smoking Status Former smoker; Type: Cigarettes; Tobacco use times per day: 1-2 ppd for 30 years; Number of years: 28; Started at age: 20; Stopped at age: 48; entered on: 05/22/17 Sex Male
--- OUTSIDE RECORDS SUMMARY | 2023-04-10 07:31 | XMS_ITS | Continuity of Care Document ---
Author Name Unknown Organization [facility] Address [address] [place] [address] [address] [place] [address]- Care Team Providers Care Permit Technician Name Role Phone Cori Ugalde DO Primary Care Physician Encounter [facility] [place] [facility] Date(s): 02/13/23 - 02/20/23 [facility] [address] [place] [address]- Attending Physician: Carlos Myers MD Referring Physician: Cori Ugalde DO Allergies, [...] [11/21/2018] pt was given immunization at [address] SHINGRIX VIAL KIT 3Location History: [facility] [...] 11/27/22 15:22:00 EST, Route to Pharmacy Electronically, [facility] #[id number], Partial fill upon patient request if the [...] Refills, Maintenance, 12/04/22 9:17:00 EST, EC Tablet, [facility] #[id number], 185.5, cm, 11/24/22 11:51:00 EST, Height, 154.4, kg, 09/09/22 15:50:00 EDT, Dry Weight Start Date: 12/04/22 Stop Date: 03/04/23 Status: Ordered gabapentin 300 mg oral capsule 600 mg, 2, capsule, By Mouth, 3 times a day, # 540 capsule, Refills 3, Tot. Refills 3, Maintenance,01/10/23 15:46:00 EST, Route to Pharmacy Electronically, [facility] #[id number], 185.5, cm, 11/24/22 11:51:00 EST, Height, 154.4, [...] Refills, Maintenance, 04/03/22 13:28:00 EDT, ER Tablet, [facility] #[id number], 186, cm, 02/02/22 13:39:00 EDT, Height, 160, kg, 01/19/22 12:45:00 EST, Dry We... Start Date: 04/03/22 Stop Date: 08/01/22 Status: Ordered Lasix 80 mg oral tablet 80 mg, 1, tablet, By Mouth, Daily, # 30 tablet, Refills 3, Tot. Refills 3, Maintenance, 04/03/22 13:27:00 EDT, Route to Pharmacy Electronically, [facility] #[id number], Partial fill upon patientrequest if the prescription is for a schedule II op... Start Date: 04/03/22 Status: Ordered losartan 100 mg oral tablet 1 tablet, By Mouth, Daily, DISCONTINUE COMBO HCTZ-LOSARTAN PRESCRIPTION, # 90 tablet, 4 Refills, [facility] #[id number], 186, cm, 02/02/22 13:39:00 EDT, Height, 160, [...] Start Date: 09/28/22 Status: Ordered nystatin topical 702441 u/gm powder 1 application, Topically, 2 times a day, apply to irritated skin/rash of both groins/pubic areas, #60 Gm, 0 Refills, Maintenance, 10/25/22 11:36:00 EST, Powder, [facility] #[id number], Partial fill upon patient request if the [...] Sunday, # 3 mL, 2 Refills, Maintenance, 01/22/23 16:38:00 EDT, [facility] #[id number], Partial fill upon patient request if the prescription is for a schedule II opioid drug., 185.5, cm, 11/24/22 11:51:00 EST... Start Date: 01/22/23 Status: Ordered pantoprazole 40 mg oral delayed [...] 1 Refills, Maintenance, 07/17/22 10:04:00 EDT, Tablet, [facility] #[id number], Partial fill upon patient request, 186, cm, [...] 5 Refills, Maintenance, 10/06/22 13:01:00 EST, Aerosol, [facility] #[id number], 185.5, cm, 09/28/22 10:37:00 EST, Height, 154.4, [...] oldest [Reference Range]: 1 Height 185.5 cm (02/13/23 11:13 AM) Weight 154 kg (02/13/23 11:13 AM) Body Mass Index [18.5-24.99 kg/m2] 44.75 kg/m2 *>HHI* (02/13/23 11:13 AM) Weight Obtained Via Standing scale (02/13/23 11:13 AM) Social History Social History Type Response Smoking Status Former smoker, quit more than 30 days ago entered on: 08/21/22 Sex Patient Care team information Care Team Personnel Name: Pam Killian RN Position: [facility] RN Member Role: Primary Care Nurse Name: Cori Ugalde DO Position: [facility] Primary Care Physician Member Role: PCP Address: Address: [address] [place] [address]- Name: Mila Omer RN Position: [facility] RN Member Role: Primary Care Nurse Care Team Related Persons Name: CANDY PRETTY Name: DEVAN PRETTY Address: home [address] [place] [id number] Name: SHERWIN PRETTY Address: [place] [address] Name: ISRAEL ALEGRIA
--- OUTSIDE RECORDS SUMMARY | 2023-04-10 07:32 | XMS_ITS | Continuity of Care Document ---
Author Name Unknown Organization [facility] Address [address] [place] [id number]- Care Team Providers Care Bilingual Research Interviewer Name Role Phone Cori Ugalde DO Primary Care Physician Encounter [facility] Date(s): 03/10/21 - 04/09/[address] [address]- Attending Physician: Murtaza Raya Admitting Physician: Murtaza [...] Comment: [11/21/2018] pt was given immunization at [address] SHINGRIX VIAL KIT 2Location History: [facility] Medications Meena-[place] Plus Cold and Cough By Mouth, Every [...] Refills, Maintenance, 12/24/20 10:15:00 EST, EC Tablet, [facility] #[id number], 185, cm, 12/24/20 9:35:00 EST, Height, 183.3, kg, 11/23/20 8:36:00 EST, Dry Weight Start Date: 12/24/20 Stop Date: 12/19/21 Status: Ordered gabapentin 300 mg oral capsule 300 mg, 1, capsule, By Mouth, 3 times a day, # 270 capsule, Refills 3, Tot. Refills 3, Maintenance,12/24/20 10:15:00 EST, Route to Pharmacy Electronically, [facility] #[id number], 185, cm, 12/24/20 9:35:00 EST, Height, 183.3, [...] Refills, Maintenance, 10/01/20 7:33:00 EST, ER Tablet, [facility] #[id number], 185, cm, 07/22/20 22:18:00 EDT, Height, 180, [...] 3 Refills, Maintenance, 12/24/20 10:15:00 EST, Tablet, [facility] #[id number], 185, cm, 12/24/20 9:35:00 EST, Height,183.3, kg, [...] 3 Refills, Maintenance, 12/24/20 10:16:00 EST, Tablet, [facility] #[id number], Partial fill upon patient request, 185, cm, 12/24/20 9:35:00 EST, Height, 183.3, kg, 01/12/21... Start Date: 12/24/20 Stop Date: 12/19/21 Status: Ordered Shower Bench See Instructions, # 1 each, Refills 0, Tot. Refills 0, Maintenance, Dx: Sandi Peters, 12/20/1709:53:07, Compound Start Date: 12/20/16 Status: Ordered Ventolin HFA 108 mcg/inh inhalation aerosol with adapter 1 puffs, Inhalation, 4 times a day, PRN for wheezing, # 1 each, 5 Refills, Maintenance, 01/17/21 9:47:00 EST, Aerosol, [facility] #[id number], 185, cm, 12/24/20 9:35:00 EST, Height, 183.3, [...] stated he recieved both vaccines at the [facility] on 01/05/21 and 02/02/21 2Dexa 08/2020 Social History Social History Type Response Smoking Status Former smoker; Type: Cigarettes; Tobacco use times per day: 1-2 ppd for 30 years; Number of years: 28; Started at age: 20; Stopped at age: 48; entered on: 05/22/17 Sex Male
--- OUTSIDE RECORDS SUMMARY | 2023-04-10 07:32 | XMS_ITS | Continuity of Care Document ---
Author Name Unknown Organization [facility] Address [address] [place] [address]- Care Team Providers Care Rn Field Case Manager Name Role Phone Cori Ugalde DO Primary Care Physician [facility] 01[facility]10[facility]23 - 02/09/23 [facility] [address] [place] [address]- Allergies, Adverse Reactions, Alerts No Known Allergies [...] [11/21/2018] pt was given immunization at [address] SHINGRIX VIAL KIT 3Location History: MEDITECH [...] 11/27/22 15:22:00 EST, Route to Pharmacy Electronically, [facility] #[id number], Partial fill upon patient request if the [...] Refills, Maintenance, 12/04/22 9:17:00 EST, EC Tablet, [facility] #[id number], 185.5, cm, 11/24/22 11:51:00 EST, Height, 154.4, kg, 10/29/22 15:50:00 EDT, Dry Weight Start Date: 12/04/22 Stop Date: 03/04/23 Status: Ordered gabapentin 300 mg oral capsule 600 mg, 2, capsule, By Mouth, 3 times a day, # 540 capsule, Refills 3, Tot. Refills 3, Maintenance,01/10/23 15:46:00 EST, Route to Pharmacy Electronically, [facility] #[id number], 185.5, cm, 11/24/22 11:51:00 EST, Height, 154.4, [...] Refills, Maintenance, 04/03/22 13:28:00 EDT, ER Tablet, [facility] #[id number], 186, cm, 02/02/22 13:39:00 EDT, Height, 160, kg, 01/19/22 12:45:00 EST, Dry We... Start Date: 04/03/22 Stop Date: 08/01/22 Status: Ordered Lasix 80 mg oral tablet 80 mg, 1, tablet, By Mouth, Daily, # 30 tablet, Refills 3, Tot. Refills 3, Maintenance, 04/03/22 13:27:00 EDT, Route to Pharmacy Electronically, [facility] #[id number], Partial fill upon patientrequest if the prescription is for a schedule II op... Start Date: 04/03/22 Status: Ordered losartan 100 mg oral tablet 1 tablet, By Mouth, Daily, DISCONTINUE COMBO HCTZ-LOSARTAN PRESCRIPTION, # 90 tablet, 4 Refills, [facility] #[id number], 186, cm, 02/02/22 13:39:00 EDT, Height, 160, [...] Start Date: 09/28/22 Status: Ordered nystatin topical 617246 u/gm powder 1 application, Topically, 2 times a day, apply to irritated skin/rash of both groins/pubic areas, #60 Gm, 0 Refills, Maintenance, 10/25/22 11:36:00 EST, Powder, [facility] #[id number], Partial fill upon patient request if the [...] mL, 2 Refills, Maintenance, 01/22/23 16:38:00 EDT, [facility] #[id number], Partial fill upon patient request if the [...] 1 Refills, Maintenance, 07/17/22 10:04:00 EDT, Tablet, [facility] #55639, Partial fill upon patient request, 186, cm, [...] 5 Refills, Maintenance, 10/06/22 13:01:00 EST, Aerosol, [facility] #[id number], 185.5, cm, 09/28/22 10:37:00 EST, Height, 154.4, [...] Team Personnel Name: Pam Killian RN Position: [facility] RN Member Role: Primary Care Nurse Name: Cori Ugalde DO Position: [facility] Primary Care Physician Member Role: PCP Address: Address: [address] [place] [address]- Name: Mila Omer RN Position: [facility] RN Member Role: Primary Care Nurse Care Team Related Persons Name: CANDY PRETTY Name: DEVAN PRETTY Address: [address] [address] Name: SHERWIN PRETTY Address: [place] [address] Name: ISRAEL ALEGRIA
--- OUTSIDE RECORDS SUMMARY | 2023-04-10 07:32 | XMS_ITS | Continuity of Care Document ---
Author Name Unknown Organization [facility] Address [address] [place] [address]- Care Team Providers Care Law Instructor Name Role Phone Cori gUalde DO Primary Care Physician [facility]23 - 04/05/23 [facility] [address] [place] [id number]- Allergies, Adverse Reactions, Alerts No Known Allergies [...] Comment: [11/21/2018] pt was given immunization at [address] SHINGRIX VIAL KIT 3Location History: MEDITECH [...] 11/27/22 15:22:00 EST, Route to Pharmacy Electronically, [facility] #[id number], Partial fill upon patient request if the [...] Refills, Maintenance, 03/15/23 9:21:00 EDT, EC Tablet, [facility] #[id number], 185.5, cm, 02/22/23 10:34:00 EDT, Height, 154.4, kg, 09/09/22 15:50:00 EDT, Dry Weight Start Date: 03/15/23 Stop Date: 06/13/23 Status: Ordered gabapentin 300 mg oral capsule 600 mg, 2, capsule, By Mouth, 3 times a day, # 540 capsule, Refills 3, Tot. Refills 3, Maintenance,01/10/23 15:46:00 EST, Route to Pharmacy Electronically, [facility] #[id number], 185.5, cm, 11/24/22 11:51:00 EST, Height, 154.4, [...] Refills, Maintenance, 04/03/22 13:28:00 EDT, ER Tablet, [facility] #[id number], 186, cm, 02/02/22 13:39:00 EDT, Height, 160, kg, 01/19/22 12:45:00 EST, Dry We... Start Date: 04/03/22 Stop Date: 08/01/22 Status: Ordered Lasix 80 mg oral tablet 80 mg, 1, tablet, By Mouth, Daily, # 30 tablet, Refills 3, Tot. Refills 3, Maintenance, 03/14/23 11:25:00 EDT, Route to Pharmacy Electronically, [facility] #[id number], Partial fill upon patientrequest if the prescription is for a schedule II op... Start Date: 03/14/23 Status: Ordered losartan 100 mg oral tablet 1 tablet, By Mouth, Daily, DISCONTINUE COMBO HCTZ-LOSARTAN PRESCRIPTION, # 90 tablet, 4 Refills, [facility] #[id number], 186, cm, 02/02/22 13:39:00 EDT, Height, 160, kg, 01/19/22 12:45:00 EST, Dry Weight Start Date: 04/13/22 Status: Ordered metoprolol 50 mg oral tablet, extended release 50 mg, 1, tablet, By Mouth, Daily, # 30 tablet, Refills 0, Maintenance, 09/28/22 11:18:00 EST, Partial fill upon patient request if the prescription is for a schedule II opioid drug. Start Date: 09/28/22 Status: Ordered nystatin topical 943926 u/gm powder 1 application, Topically, 2 times a day, apply to irritated skin/rash of both groins/pubic areas, #60 Gm, 0 Refills, Maintenance, 10/25/22 11:36:00 EST, Powder, [facility] #[id number], Partial fill upon patient request if the prescription is for... Start Date: 10/25/22 Status: Ordered Ozempic (1 mg dose) 4 mg/3 mL subcutaneous solution = 1 mg, Subcutaneous Infusion, Every Sunday, # 3 mL, 2 Refills, Maintenance, 03/27/23 17:03:00 EDT, [facility] #[id number], Partial fill upon patient request if the [...] 1 Refills, Maintenance, 02/27/23 13:17:00 EDT, Tablet, [facility] #[id number], Partial fill upon patient request, 185.5, cm, [...] 5 Refills, Maintenance, 10/06/22 13:01:00 EST, [facility][id number], 185.5, cm, 09/28/22 10:37:00 EST, Height, 154.4, [...] Care Nurse Name: Cori Ugalde DO Position: S Physician - Primary Care Member Role: PCP Address: Address: [address] [place] [id number] Name: Mila Omer RN Position: [facility] RN Member Role: Primary Care Nurse Care Team Related Persons Name: CANDY PRETTY Name: DEVAN PRETTY Address: [address] [address] Name: SHERWIN PRETTY Address: [place] [address] Name: ISRAEL ALEGRIA
--- OUTSIDE RECORDS SUMMARY | 2023-04-10 07:32 | XMS_ITS | Continuity of Care Document ---
Author Name Unknown Organization [facility] Address [address] [place] [address]- Care Team Providers Care Marketing Communication Manager Name Role Phone Cori Ugalde DO Primary Care Physician [facility]): 11[facility]20 - 12/02/20 [facility] [address] [place] [id number] Allergies, Adverse Reactions, Alerts Substance Reaction Severity Status NKA Active Immunizations Given and Recorded Vaccine Date Status Refusal Reason influenza virus vaccine, inactivated 10/07/19 Give n influenza virus vaccine, inactivated 10/08/14 Colton rded Miscellaneous Vaccine 1 11/21/18 Given Zoster Vaccine Live 03/13/17 Recorded Zoster Vaccine Live 2 03/18/12 Recorded tetanus/diphtheria/pertussis, acel(Tdap) 06/21/16 Recorded 1Result Comment: [11/21/2018] pt was given immunization at [address] SHINGRIX VIAL KIT 2Location History: [facility] Medications Meena-[place] Plus Cold and Cough By Mouth, Every [...] 3 Refills, Maintenance, 208:11:00 EDT, EC Tablet, [facility] #[id number], 185, cm, 07/22/20 22:18:00 EDT, Height, 180, kg, 07/22/20 22:18:00 EDT, Dry Weight Start Date: 08/17/20 Stop Date: 12/15/20 Status: Ordered gabapentin 300 mg oral capsule 300 mg, 1, capsule, By Mouth, 3 times a day, # 90 capsule, Refills 2, Tot. Refills 2, Maintenance, 11/02/20 17:35:00 EST, Route to Pharmacy Electronically, [facility] #[id number], 185, cm, 07/22/20 22:18:00 EDT, Height, 180, kg, 07/22/20 22:18:00... Start Date: 11/02/20 Stop Date: 01/31/21 Status: Ordered KlonoPIN 0.5 mg oral tablet [...] Refills, Maintenance, 10/01/20 7:33:00 EST, ER Tablet, [facility] #[id number], 185, cm, 07/22/20 22:18:00 EDT, Height, 180, [...] 3 Refills, Maintenance, 01/19/20 9:18:00 EDT, Tablet, [facility] #[id number], 186, cm, 01/19/20 9:14:00 EDT, Height Start [...] atorvastatin, # 90 tablet, 3 Refills, Maintenance, 10/04/20 10:57:00 EST, Tablet, [facility] #[id number], Partial fill upon patient request, 185, cm, 07/22/20 22:18:00 EDT, Height, 180, kg, 07/22/20 2... Start Date: 10/04/20 Stop Date: 09/29/21 Status: Ordered Shower Bench See Instructions, # 1 each, Refills 0, Tot. Refills 0, Maintenance, Dx: Sandi Gabyivis, 12/20/1709:53:07, Compound Start Date: 12/20/16 Status: Ordered Ventolin HFA 108 mcg/inh inhalation aerosol with adapter 1 puffs, Inhalation, 4 times a day, PRN for wheezing, # 1 each, 5 Refills, Maintenance, 12/25/19 13:42:00 EST, Aerosol, [facility] #[id number], 186, cm, 10/07/19 9:17:00 EST, Height Start [...]
--- OUTSIDE RECORDS SUMMARY | 2023-04-10 07:32 | XMS_ITS | Continuity of Care Document ---
Author Name Unknown Organization [facility] Address [address] [place] [address]- Care Team Providers Care Aquatic Physiotherapist Name Role Phone Cori Ugalde DO Primary Care Physician [facility]): 07[facility]17[facility]22 - 08/16/22 [facility] [address] [place] [id number] Allergies, Adverse Reactions, Alerts No Known Allergies Immunizations Given and Recorded Vaccine Date Status Refusal Reason influenza virus vaccine, inactivated 10/07/19 Give n influenza virus vaccine, inactivated 10/08/14 Colton rded Miscellaneous Vaccine 1 11/21/18 Given zoster vaccine, inactivated 10/26/18 Recorded Zoster Vaccine Live 03/13/17 Recorded Zoster Vaccine Live 2 03/18/12 Recorded tetanus/diphtheria/pertussis, acel(Tdap) 06/21/16 Recorded 1Result Comment: [11/21/2018] pt was given immunization at [address] SHINGRIX VIAL KIT 2Location History: [facility] Medic[facility] Meena-[place] Plus Cold and Cough By Mouth, Every [...] Refills, Maintenance, 07/17/22 11:58:00 EDT, EC Tablet, [facility] #[id number], 186, cm, 05/24/22 15:33:00 EDT, Height, 160,kg, [...] Refills, Maintenance, 04/03/22 13:28:00 EDT, ER Tablet, [facility] #[id number], 186, cm, 02/02/22 13:39:00 EDT, Height, 160, kg, 01/19/22 12:45:00 EST, Dry We... Start Date: 04/03/22 Stop Date: 08/01/22 Status: Ordered Lasix 80 mg oral tablet 80 mg, 1, tablet, By Mouth, Daily, # 30 tablet, Refills 3, Tot. Refills 3, Maintenance, 04/03/22 13:27:00 EDT, Route to Pharmacy Electronically, [facility] #[id number], Partial fill upon patientrequest if the prescription is for a schedule II op... Start Date: 04/03/22 Status: Ordered losartan 100 mg oral tablet 1 tablet, By Mouth, Daily, DISCONTINUE COMBO HCTZ-LOSARTAN PRESCRIPTION, # 90 tablet, 4 Refills, [facility] #[id number], 186, cm, 02/02/22 13:39:00 EDT, Height, 160, [...] mL, 3 Refills, Maintenance, 05/25/22 15:50:00 EDT, [facility] #[id number], Partial fill upon patient request if the [...] 1 Refills, Maintenance, 07/17/22 10:04:00 EDT, Tablet, [facility] #48011, Partial fill upon patient request, 186, cm, [...] 5 Refills, Maintenance, 01/17/21 9:47:00 EST, Aerosol, [facility] #[id number], 185, cm, 12/24/20 9:35:00 EST, Height, 183.3, [...] stated he recieved both vaccines at the [facility] on 01/05/21 and 02/02/21 2Dexa 08/2020 Social History Social History Type Response Smoking Status Former smoker; Type: Cigarettes; Tobacco use times per day: 1-2 ppd for 30 years; Number of years: 28; Started at age: 20; Stopped at age: 48; entered on: 05/22/17 Sex Male Patient Care team information Personnel Name: Cori Ugalde DO Address: Address: [address] [place] [id number]
--- OUTSIDE RECORDS SUMMARY | 2023-04-10 07:32 | XMS_ITS | Continuity of Care Document ---
Author Name Unknown Organization [facility] Address [address] [place] [address]- Care Team Providers Care Baggage Agent Supervisor Name Role Phone Cori Ugalde DO Primary Care Physician [facility] 01[facility]22 - 02/04/22 [facility] [address] [place] [id number] Allergies, Adverse Reactions, Alerts No Known Allergies [...] [11/21/2018] pt was given immunization at [address] SHINGRIX VIAL KIT 2Location History: [facility] Medications Meena-[place] Plus Cold and Cough By Mouth, Every [...] Refills, Maintenance, 01/05/22 14:08:00 EST, EC Tablet, [facility] #40503, 185.42, cm, 12/29/21 15:01:00 EST, Height, 166, [...] Refills, Maintenance, 10/01/20 7:33:00 EST, ER Tablet, [facility] #85969, 185, cm, 07/22/20 22:18:00 EDT, Height, 180, [...] 3 Refills, Maintenance, 12/24/20 10:15:00 EST, Tablet, [facility] #[id number], 185, cm, 12/24/20 9:35:00 EST, Height,183.3, kg, [...] mL, 2 Refills, Maintenance, 01/19/22 19:25:00 EST, [facility] #[id number], Partial fill upon patient request if the [...] 1 Refills, Maintenance, 01/05/22 12:30:00 EST, Tablet, [facility] #[id number], Partial fill upon patient request, 185.42,cm, 12/29/21 [...] 5 Refills, Maintenance, 01/17/21 9:47:00 EST, Aerosol, [facility] #[id number], 185, cm, 12/24/20 9:35:00 EST, Height, 183.3, [...] stated he recieved both vaccines at [facility] on 01/05/21 and 02/02/21 2Dexa 08/2020 Social History Social History Type Response Smoking Status Former smoker; Type: Cigarettes; Tobacco use times per day: 1-2 ppd for 30 years; Number of years: 28; Started at age: 20; Stopped at age: 48; entered on: 05/22/17 Sex Male
--- OUTSIDE RECORDS SUMMARY | 2023-04-10 07:32 | XMS_ITS | Continuity of Care Document ---
Author Name Unknown Organization [facility] Address [address] [place] [id number]- Care Team Providers Care Endless Steamer Tender Name Role Phone Cori Ugalde DO Primary Care Physician [facility] 12/29[facility]22 - 01/28/23 [facility] [address] [place], [place] [address] Allergies, Adverse Reactions, Alerts No Known [...] Comment: [11/21/2018] pt was given immunization at [address] SHINGRIX VIAL KIT 3Location History: MEDITECH [...] 11/27/22 15:22:00 EST, Route to Pharmacy Electronically, [facility] #[id number], Partial fill upon patient request if the [...] Refills, Maintenance, 12/04/22 9:17:00 EST, EC Tablet, [facility] #[id number], 185.5, cm, 11/24/22 11:51:00 EST, Height, 154.4, kg, 09/09/22 15:50:00 EDT, Dry Weight Start Date: 12/04/22 Stop Date: 03/04/23 Status: Ordered gabapentin 300 mg oral capsule 600 mg, 2, capsule, By Mouth, 3 times a day, # 540 capsule, Refills 3, Tot. Refills 3, Maintenance,01/10/23 15:46:00 EST, Route to Pharmacy Electronically, [facility] #[id number], 185.5, cm, 11/24/22 11:51:00 EST, Height, 154.4, [...] Refills, Maintenance, 04/03/22 13:28:00 EDT, ER Tablet, [facility] #[id number], 186, cm, 02/02/22 13:39:00 EDT, Height, 160, kg, 01/19/22 12:45:00 EST, Dry We... Start Date: 04/03/22 Stop Date: 08/01/22 Status: Ordered Lasix 80 mg oral tablet 80 mg, 1, tablet, By Mouth, Daily, # 30 tablet, Refills 3, Tot. Refills 3, Maintenance, 04/03/22 13:27:00 EDT, Route to Pharmacy Electronically, [facility] #[id number], Partial fill upon patientrequest if the prescription is for a schedule II op... Start Date: 04/03/22 Status: Ordered losartan 100 mg oral tablet 1 tablet, By Mouth, Daily, DISCONTINUE COMBO HCTZ-LOSARTAN PRESCRIPTION, # 90 tablet, 4 Refills, [facility] #[id number], 186, cm, 02/02/22 13:39:00 EDT, Height, 160, [...] Start Date: 09/28/22 Status: Ordered nystatin topical 489657 u/gm powder 1 application, Topically, 2 times a day, apply to irritated skin/rash of both groins/pubic areas, #60 Gm, 0 Refills, Maintenance, 10/25/22 11:36:00 EST, Powder, [facility] #[id number], Partial fill upon patient request if the [...] mL, 2 Refills, Maintenance, 01/22/23 16:38:00 EDT, [facility] #07435, Partial fill upon patient request if the [...] 1 Refills, Maintenance, 07/17/22 10:04:00 EDT, Tablet, [facility] #67301, Partial fill upon patient request, 186, cm, [...] 5 Refills, Maintenance, 10/06/22 13:01:00 EST, Aerosol, [facility] #[id number], 185.5, cm, 09/28/22 10:37:00 EST, Height, 154.4, [...] Team Personnel Name: Pam Killian RN Position: [facility] RN Member Role: Primary Care Nurse Name: Cori Ugalde DO Position: [facility] Primary Care Physician Member Role: PCP Address: Address: [address] [place] [address]- Name: Mila Omer RN Position: [facility] RN Member Role: Primary Care Nurse Care Team Related Persons Name: CANDY PRETTY Name: DEVAN PRETTY Address: [address] [address] Name: SHERWIN PRETTY Address: [place] [address] Name: ISRAEL ALEGRIA
--- OUTSIDE RECORDS SUMMARY | 2023-04-10 07:32 | XMS_ITS | Continuity of Care Document ---
Author Name Unknown Organization [facility] Address [address] [place] [address]- Care Team Providers Care Dynamometer Repairer Name Role Phone Cori Ugalde DO Primary Care Physician [facility] - 11/17/20 [facility] [address] [place] [id number] Allergies, Adverse Reactions, Alerts Substance Reaction Severity Status NKA Active Immunizations Given and Recorded Vaccine Date Status Refusal Reason influenza virus vaccine, inactivated 10/07/19 Give n influenza virus vaccine, inactivated 10/08/14 Colton rded Miscellaneous Vaccine 1 11/21/18 Given Zoster Vaccine Live 03/13/17 Recorded Zoster Vaccine Live 2 03/18/12 Recorded tetanus/diphtheria/pertussis, acel(Tdap) 06/21/16 Recorded 1Result Comment: [11/21/2018] pt was given immunization at [address] SHINGRIX VIAL KIT 2Location History: [facility] aspirin buffered 81 mg oral tablet [...] 3 Refills, Maintenance, :11:00 EDT, EC Tablet, [facility] #[id number], 185, cm, 07/22/20 22:18:00 EDT, Height, 180, kg, 07/22/20 22:18:00 EDT, Dry Weight Start Date: 08/17/20 Stop Date: 12/15/20 Status: Ordered gabapentin 300 mg oral capsule 300 mg, 1, capsule, By Mouth, 3 times a day, # 90 capsule, Refills 2, Tot. Refills 2, Maintenance, 11/02/20 17:35:00 EST, Route to Pharmacy Electronically, [facility] #[id number], 185, cm, 07/22/20 22:18:00 EDT, Height, 180, [...] Refills, Maintenance, 10/01/20 7:33:00 EST, ER Tablet, [facility] #[id number], 185, cm, 07/22/20 22:18:00 EDT, Height, 180, [...] 3 Refills, Maintenance, 01/19/20 9:18:00 EDT, Tablet, [facility] #54725, 186, cm, 01/19/20 9:14:00 EDT, Height Start [...] 3 Refills, Maintenance, 10/04/20 10:57:00 EST, Tablet, [facility] #[id number], Partial fill upon patient request, 185, cm, [...] 07/29/20 12:29:00 EDT, Route to Pharmacy Electronically, [facility] #[id number], 185, cm, 07/22/20 22:18:00 EDT, Height, 180, kg, 07/22/20 22:18:00 EDT,... Start Date: 07/29/20 Stop Date: 08/01/20 Status: Ordered Ventolin HFA 108 mcg/inh inhalation aerosol with adapter 1 puffs, Inhalation, 4 times a day, PRN for wheezing, # 1 each, 5 Refills, Maintenance, 12/25/19 13:42:00 EST, Aerosol, [facility] #[id number], 186, cm, 10/07/19 9:17:00 EST, Height Start [...]
--- OUTSIDE RECORDS SUMMARY | 2023-04-10 07:32 | XMS_ITS | Continuity of Care Document ---
Author Name Unknown Organization [facility] Address [address] [place] [address]- Care Team Providers Care Mold Stamper And Repairer Name Role Phone Cori Ugalde DO Primary Care Physician Encounter [facility] [place] Date(s): 10/13/20 - 10/20/20 [facility] [address] [place] [address]- Attending Physician: Not on Staff, Attending MD Admitting Physician: Amy GOMEZ, Manuel Referring Physician: Poppy Gardiner MD Allergies, Adverse Reactions, Alerts Substance Reaction Severity Status NKA Active Immunizations Given and Recorded Vaccine Date Status Refusal Reason influenza virus vaccine, inactivated 10/07/19 Give n influenza virus vaccine, inactivated 10/08/14 Colton rded Miscellaneous Vaccine 1 11/21/18 Given Zoster Vaccine Live 03/13/17 Recorded Zoster Vaccine Live 2 03/18/12 Recorded tetanus/diphtheria/pertussis, acel(Tdap) 06/21/16 Recorded 1Result Comment: [11/21/2018] pt was given immunization at [address] [facility]X VIAL KIT 2Location History: [facility] Medications aspirin buffered 81 mg oral tablet [...] 3 Refills, Maintenance, :11:00 EDT, EC Tablet, [facility] #[id number], 185, cm, 07/22/20 22:18:00 EDT, Height, 180, kg, 07/22/20 22:18:00 EDT, Dry Weight Start Date: 08/17/20 Stop Date: 12/15/20 Status: Ordered gabapentin 300 mg oral capsule 300 mg, 1, capsule, By Mouth, 3 times a day, # 90 capsule, Refills 5, Tot. Refills 5, Maintenance, 04/20/20 17:38:00 EDT, Route to Pharmacy Electronically, [facility] #[id number], 186, cm, 01/19/20 9:14:00 EDT, Height Start [...] Refills, Maintenance, 10/01/20 7:33:00 EST, ER Tablet, [facility] #[id number], 185, cm, 07/22/20 22:18:00 EDT, Height, 180, [...] 3 Refills, Maintenance, 01/19/20 9:18:00 EDT, Tablet, [facility] #[id number], 186, cm, 01/19/20 9:14:00 EDT, Height Start [...] 3 Refills, Maintenance, 10/04/20 10:57:00 EST, Tablet, [facility] #[id number], Partial fill upon patient request, 185, cm, [...] 07/29/20 12:29:00 EDT, Route to Pharmacy Electronically, [facility] #[id number], 185, cm, 07/22/20 22:18:00 EDT, Height, 180, kg, 07/22/20 22:18:00 EDT,... Start Date: 07/29/20 Stop Date: 08/01/20 Status: Ordered Ventolin HFA 108 mcg/inh inhalation aerosol with adapter 1 puffs, Inhalation, 4 times a day, PRN for wheezing, # 1 each, 5 Refills, Maintenance, 12/25/19 13:42:00 EST, Aerosol, [facility] #[id number], 186, cm, 10/07/19 9:17:00 EST, Height Start [...]
--- OUTSIDE RECORDS SUMMARY | 2023-04-10 07:32 | XMS_ITS | Continuity of Care Document ---
Author Name Unknown Organization [facility] As on [facility] of [facility] Address [address] [place] [address] [address] [place] [address]- Care Team Providers Care Still Operator Brandy Name Role Phone Cori Ugalde DO Primary Care Physician [place] [facility] [place] Date(s): 02/15/21 - 03/17/[address] [place] [address]- Allergies, Adverse Reactions, Alerts Substance Reaction Severity Status NKA Active Immunizations Given and Recorded Vaccine Date Status Refusal Reason influenza virus vaccine, inactivated 10/07/19 Give n influenza virus vaccine, inactivated 10/08/14 Colton rded Miscellaneous Vaccine 1 11/21/18 Given Zoster Vaccine Live 03/13/17 Recorded Zoster Vaccine Live 2 03/18/12 Recorded tetanus/diphtheria/pertussis, acel(Tdap) 06/21/16 Recorded 1Result Comment: [11/21/2018] pt was given immunization at [address] SH[facility]RIX VIAL KIT 2Location History: [facility] Medications Meena-[place] Plus Cold and Cough By Mouth, Every [...] Refills, Maintenance, 12/24/20 10:15:00 EST, EC Tablet, [facility] #[id number], 185, cm, 12/24/20 9:35:00 EST, Height, 183.3, kg, 11/23/20 8:36:00 EST, Dry Weight Start Date: 12/24/20 Stop Date: 12/19/21 Status: Ordered gabapentin 300 mg oral capsule 300 mg, 1, capsule, By Mouth, 3 times a day, # 270 capsule, Refills 3, Tot. Refills 3, Maintenance,12/24/20 10:15:00 EST, Route to Pharmacy Electronically, [facility] #[id number], 185, cm, 12/24/20 9:35:00 EST, Height, 183.3, [...] Refills, Maintenance, 10/01/20 7:33:00 EST, ER Tablet, [facility] #[id number], 185, cm, 07/22/20 22:18:00 EDT, Height, 180, [...] 3 Refills, Maintenance, 12/24/20 10:15:00 EST, Tablet, [facility] #[id number], 185, cm, 12/24/20 9:35:00 EST, Height,183.3, kg, [...] 3 Refills, Maintenance, 12/24/20 10:16:00 EST, Tablet, [facility] #[id number], Partial fill upon patient request, 185, cm, [...] 5 Refills, Maintenance, 01/17/21 9:47:00 EST, Aerosol, [facility] #[id number], 185, cm, 12/24/20 9:35:00 EST, Height, 183.3, [...]
--- OUTSIDE RECORDS SUMMARY | 2023-04-10 07:32 | XMS_ITS | Continuity of Care Document ---
Author Name Unknown Organization [facility] Address [address] [place] [address]- Care Team Providers Care Informatics Nurse Specialist Name Role Phone Cori Ugalde DO Primary Care Physician [place] [facility] [place] - 04/21/22 [facility] [address] [place], [place] [address] Allergies, Adverse Reactions, Alerts No [...] [11/21/2018] pt was given immunization at [address] [facility]RIX VIAL KIT 2Location History: [facility] Medications Meena-[place] Plus Cold and Cough By Mouth, Every [...] Refills, Maintenance, 01/05/22 14:08:00 EST, EC Tablet, [facility] #[id number], 185.42, cm, 12/29/21 15:01:00 EST, Height, 166, [...] Refills, Maintenance, 04/03/22 13:28:00 EDT, ER Tablet, [facility] #[id number], 186, cm, 02/02/22 13:39:00 EDT, Height, 160, kg, 01/19/22 12:45:00 EST, Dry We... Start Date: 04/03/22 Stop Date: 08/01/22 Status: Ordered Lasix 80 mg oral tablet 80 mg, 1, tablet, By Mouth, Daily, # 30 tablet, Refills 3, Tot. Refills 3, Maintenance, 04/03/22 13:27:00 EDT, Route to Pharmacy Electronically, [facility] #[id number], Partial fill upon patientrequest if the prescription is for a schedule II op... Start Date: 04/03/22 Status: Ordered losartan 100 mg oral tablet 1 tablet, By Mouth, Daily, DISCONTINUE COMBO HCTZ-LOSARTAN PRESCRIPTION, # 90 tablet, 4 Refills, [facility] #[id number], 186, cm, 02/02/22 13:39:00 EDT, Height, 160, [...] mL, 2 Refills, Maintenance, 01/19/22 19:25:00 EST, [facility] #[id number], Partial fill upon patient request if the [...] 1 Refills, Maintenance, 01/05/22 12:30:00 EST, Tablet, [facility] #[id number], Partial fill upon patient request, 185.42,cm, 12/29/21 [...] 5 Refills, Maintenance, 01/17/21 9:47:00 EST, Aerosol, [facility] #[id number], 185, cm, 12/24/20 9:35:00 EST, Height, 183.3, [...]
--- OUTSIDE RECORDS SUMMARY | 2023-04-10 07:32 | XMS_ITS | Continuity of Care Document ---
Author Name Unknown Organization [facility] Address [address] [place] [address]- Care Team Providers Care Collections Associate Name Role Phone Cori Ugalde DO Primary Care Physician Encounter [facility] Date(s): 11/22/20 - 12/22/20 [facility] [address] [place], [place] [address] Allergies, Adverse Reactions, Alerts Substance Reaction Severity Status NKA Active Immunizations Given and Recorded Vaccine Date Status Refusal Reason influenza virus vaccine, inactivated 10/07/19 Give n influenza virus vaccine, inactivated 10/08/14 Colton rded Miscellaneous Vaccine 1 11/21/18 Given Zoster Vaccine Live 03/13/17 Recorded Zoster Vaccine Live 2 03/18/12 Recorded tetanus/diphtheria/pertussis, acel(Tdap) 06/21/16 Recorded 1Result Comment: [11/21/2018] pt was given immunization at [address] [facility]RIX VIAL KIT 2Location History: [facility] Medications Meena-[place] Plus Cold and Cough By Mouth, Every [...] a day, with food, # 60 tablet, 0 Refills, Maintenance, 218:11:00 EST, EC Tablet, [facility] #[id number], 185, cm, 11/23/20 8:07:00 EST, Height, 183.3, kg, 11/23/20 8:36:00 EST, Dry Weight Start Date: 12/15/20 Stop Date: 01/14/21 Status: Ordered gabapentin 300 mg oral capsule 300 mg, 1, capsule, By Mouth, 3 times a day, # 90 capsule, Refills 2, Tot. Refills 2, Maintenance, 11/02/20 17:35:00 EST, Route to Pharmacy Electronically, [facility] #[id number], 185, cm, 07/22/20 22:18:00 EDT, Height, 180, [...] Refills, Maintenance, 10/01/20 7:33:00 EST, ER Tablet, [facility] #[id number], 185, cm, 07/22/20 22:18:00 EDT, Height, 180, [...] 3 Refills, Maintenance, 01/19/20 9:18:00 EDT, Tablet, [facility] #[id number], 186, cm, 01/19/20 9:14:00 EDT, Height Start [...] 3 Refills, Maintenance, 10/04/20 10:57:00 EST, Tablet, [facility] #[id number], Partial fill upon patient request, 185, cm, [...] 5 Refills, Maintenance, 12/25/19 13:42:00 EST, Aerosol, [facility][id number], 186, cm, 10/07/19 9:17:00 EST, Height Start [...] Active Lateral epicondylitis(Confirmed) Active Nasal vestibulitis(Confirmed) Active MRAIANO (obstructive sleep apnea)(Confirmed) Active Fungal infection of [...]
--- OUTSIDE RECORDS SUMMARY | 2023-04-10 07:32 | XMS_ITS | Continuity of Care Document ---
Author Name Unknown Organization [facility] Address [address] [place] [address]- Care Team Providers Care Route Sales Delivery Drivers Supervisor Name Role Phone Cori Ugalde DO Primary Care Physician En[place] [facility] [place] Date(s): 10/24/22 - 11/23/[address] [address]- Allergies, Adverse Reactions, Alerts No Known Allergies [...] [11/21/2018] pt was given immunization at [address] [facility]RI[facility] VIAL KIT 2Location History: [facility] Medications acetaminophen 325 mg oral tablet Refills [...] 09/28/22 11:07:00 EST, Route to Pharmacy Electronically, [facility] #[id number], Partial fill upon patient request if the [...] Refills, Maintenance, 07/17/22 11:58:00 EDT, EC Tablet, [facility] #[id number], 186, cm, 05/24/22 15:33:00 EDT, Height, 160,kg, [...] Refills, Maintenance, 04/03/22 13:28:00 EDT, ER Tablet, [facility] #[id number], 186, cm, 02/02/22 13:39:00 EDT, Height, 160, kg, 01/19/22 12:45:00 EST, Dry We... Start Date: 04/03/22 Stop Date: 08/01/22 Status: Ordered Lasix 80 mg oral tablet 80 mg, 1, tablet, By Mouth, Daily, # 30 tablet, Refills 3, Tot. Refills 3, Maintenance, 04/03/22 13:27:00 EDT, Route to Pharmacy Electronically, [facility] #[id number], Partial fill upon patientrequest if the prescription is for a schedule II op... Start Date: 04/03/22 Status: Ordered losartan 100 mg oral tablet 1 tablet, By Mouth, Daily, DISCONTINUE COMBO HCTZ-LOSARTAN PRESCRIPTION, # 90 tablet, 4 Refills, [facility] #[id number], 186, cm, 02/02/22 13:39:00 EDT, Height, 160, [...] Start Date: 09/28/22 Status: Ordered nystatin topical [id number] u/gm powder 1 application, Topically, 2 times a day, apply to irritated skin/rash of both groins/pubic areas, #60 Gm, 0 Refills, Maintenance, 10/25/22 11:36:00 EST, Powder, [facility] #[id number], Partial fill upon patient request if the [...] mL, 2 Refills, Maintenance, 10/14/22 12:35:00 EST, [facility] #[id number], Partial fill upon patient request if the [...] 1 Refills, Maintenance, 07/17/22 10:04:00 EDT, Tablet, [facility] #[id number], Partial fill upon patient request, 186, cm, [...] 5 Refills, Maintenance, 10/06/22 13:01:00 EST, Aerosol, [facility] #[id number], 185.5, cm, 09/28/22 10:37:00 EST, Height, 154.4, [...] Nurse Name: Cori Ugalde DO Position: [facility] Primary Care Physician Member Role: PCP Address: Address: [address] [place] [id number] Name: Mila Omer RN Position: [facility] RN Member Role: Primary Care Nurse Care Team Related Persons Name: CANDY PRETTY Name: DEVAN PRETTY Address: [address] [place] [address] Name: SHERWIN PRETTY Address: [place] [address] Name: ISRAEL ALEGRIA
--- OUTSIDE RECORDS SUMMARY | 2023-04-10 07:32 | XMS_ITS | Continuity of Care Document ---
Author Name Unknown Organization [facility] Address [address] [place] [address]- Care Team Providers Care Blender Snuff Name Role Phone Poppy Gardiner MD Primary Care Physician [phone] [place] [facility] [place]s): 07/08/20 - 07/15/20 [facility] [address] [place] [address]- [facility] Attending Physician: Manuel Reyes MD Admitting Physician: Manuel Reyes MD Referring Physician: Cori Ugalde DO Allergies, [...] Comment: [11/21/2018] pt was given immunization at [address] SHINGRIX VIAL KIT 2Location History: [facility] Medications aspirin buffered 81 mg oral tablet [...] 5 Refills, Maintenance, 01/06/20 10:56:00 EST, Gel, [facility] #[id number], 186, cm, 10/07/19 9:17:00 EST, Height Start Date: 01/06/20 Stop Date: 07/04/20 Status: Ordered diclofenac sodium 75 mg oral delayed release tablet 1 tablet = 75 mg, By Mouth, 2 times a day, with food, # 60 tablet, 3 Refills, Maintenance, 209:21:00 EDT, EC Tablet, [facility] #[id number], 186, cm, 01/19/20 9:14:00 EDT, Height Start Date: 04/06/20 Stop Date: 08/04/20 Status: Ordered gabapentin 300 mg oral capsule 300 mg, 1, capsule, By Mouth, 3 times a day, # 90 capsule, Refills 5, Tot. Refills 5, Maintenance, 04/20/20 17:38:00 EDT, Route to Pharmacy Electronically, [facility] #[id number], 186, cm, 01/19/20 9:14:00 EDT, Height Start Date: 04/20/20 Stop Date: 10/17/20 Status: Ordered Klor-Con M20 20 mEq oral tablet, extended release 3 tablets, By Mouth, 2 times a day, Take 3 tablet in am and 3 tablets in pm do not crush or chew, #90 tablet, 5 Refills, Maintenance, 05/31/20 17:51:00 EDT, ER Tablet, [facility] #[id number], 186, cm, 01/19/20 9:14:00 EDT, Height Start [...] 3 Refills, Maintenance, 01/19/20 9:18:00 EDT, Tablet, [facility] #[id number], 186, cm, 01/19/20 9:14:00 EDT, Height Start [...] 5 Refills, Maintenance, 12/25/19 13:42:00 EST, Aerosol, [facility] #[id number], 186, cm, 10/07/19 9:17:00 EST, Height Start [...]
--- OUTSIDE RECORDS SUMMARY | 2023-04-10 07:32 | XMS_ITS | Continuity of Care Document ---
Author Name Unknown Organization [facility] Address [address] [place] [address] [address] [place] [address]- Care Team Providers Care Solar Field Service Technician Name Role Phone Cori Ugalde DO Primary Care Physician Encounter [facility] [place] Date(s): 02/24/21 - 03/26/21 [facility] [address] [place] [address]- Allergies, Adverse Reactions, Alerts Substance Reaction Severity Status NKA Active Immunizations Given and Recorded Vaccine Date Status Refusal Reason influenza virus vaccine, inactivated 10/07/19 Give n influenza virus vaccine, inactivated 10/08/14 Colton rded Miscellaneous Vaccine 1 11/21/18 Given Zoster Vaccine Live 03/13/17 Recorded Zoster Vaccine Live 2 03/18/12 Recorded tetanus/diphtheria/pertussis, acel(Tdap) 06/21/16 Recorded 1Result Comment: [11/21/2018] pt was given immunization at [address] SH[facility]RIX VIAL KIT 2Location History: [facility] Medications Meena-[place] Plus Cold and Cough By Mouth, Every [...] Refills, Maintenance, 12/24/20 10:15:00 EST, EC Tablet, [facility] #[id number], 185, cm, 12/24/20 9:35:00 EST, Height, 183.3, kg, 11/23/20 8:36:00 EST, Dry Weight Start Date: 12/24/20 Stop Date: 12/19/21 Status: Ordered gabapentin 300 mg oral capsule 300 mg, 1, capsule, By Mouth, 3 times a day, # 270 capsule, Refills 3, Tot. Refills 3, Maintenance,12/24/20 10:15:00 EST, Route to Pharmacy Electronically, [facility] #[id number], 185, cm, 12/24/20 9:35:00 EST, Height, 183.3, [...] Refills, Maintenance, 10/01/20 7:33:00 EST, ER Tablet, [facility] #[id number], 185, cm, 07/22/20 22:18:00 EDT, Height, 180, [...] 3 Refills, Maintenance, 12/24/20 10:15:00 EST, Tablet, [facility] #[id number], 185, cm, 12/24/20 9:35:00 EST, Height,183.3, kg, [...] 3 Refills, Maintenance, 12/24/20 10:16:00 EST, Tablet, [facility] #[id number], Partial fill upon patient request, 185, cm, [...] 5 Refills, Maintenance, 01/17/21 9:47:00 EST, Aerosol, [facility] #[id number], 185, cm, 12/24/20 9:35:00 EST, Height, 183.3, [...]
--- OUTSIDE RECORDS SUMMARY | 2023-04-10 07:32 | XMS_ITS | Continuity of Care Document ---
Author Name Unknown Organization [facility] Address [address] [place] [address]- Care Team Providers Care Lining Repairer Name Role Phone Cori Ugalde DO Primary Care Physician [place] [facility] [place] [facility] [place]21 [facility] [address] [address] Attending Physician: Murtaza Raya Admitting Physician: Murtaza Raya Referring Physician: AdmMurtaza sparks Allergies, Adverse Reactions, Alerts Substance Reaction Severity [...] Comment: [11/21/2018] pt was given immunization at [address] SHINGRIX VIAL KIT 2Location History: [facility] Medications Meena-[place] Plus Cold and Cough By Mouth, Every [...] Refills, Maintenance, 10/01/20 7:33:00 EST, ER Tablet, [facility] #[id number], 185, cm, 07/22/20 22:18:00 EDT, Height, 180, [...] 3 Refills, Maintenance, 12/24/20 10:15:00 EST, Tablet, [facility] #[id number], 185, cm, 12/24/20 9:35:00 EST, Height,183.3, kg, [...] 3 Refills, Maintenance, 12/24/20 10:16:00 EST, Tablet, [facility] #[id number], Partial fill upon patient request, 185, cm, 12/24/20 9:35:00 EST, Height, 183.3, kg, 11/23/20... Start Date: 12/24/20 Stop Date: 12/19/21 Status: Ordered semaglutide 2 mg/1.5 mL (0.25 mg or 0.5 mg dose) subcutaneous solution = 0.25 mg, Subcutaneous Infusion, Every Sunday, rotate injection sites, # 1 each, 1 Refills, Maintenance, 06/13/21 11:00:00 EDT, [facility] #[id number], Partial fill upon patient request if theprescription [...] 5 Refills, Maintenance, 01/17/21 9:47:00 EST, Aerosol, [facility] #[id number], 185, cm, 12/24/20 9:35:00 EST, Height, 183.3, [...] stated he recieved both vaccines at the [facility] on 01/05/21 and 02/02/21 2Dexa 08/2020 Social History Social History Type Response Smoking Status Former smoker; Type: Cigarettes; Tobacco use times per day: 1-2 ppd for 30 years; Number of years: 28; Started at age: 20; Stopped at age: 48; entered on: 05/22/17 Sex Male
--- OUTSIDE RECORDS SUMMARY | 2023-04-10 07:32 | XMS_ITS | Continuity of Care Document ---
Author Name Unknown Organization [facility] Address [address] [place] [address]- Care Team Providers Care Brake Repairer Bus Name Role Phone Cori Ugalde DO Primary Care Physician Encounter [facility] [place] Date(s): 03/28/22 - 04/27/[address] [address]- Attending Physician: Murtaza Raya Admitting Physician: AdmMurtaza [...] Comment: [11/21/2018] pt was given immunization at [address] SHINGRIX VIAL KIT 2Location History: [employer] [facility] Medications Meena-[place] Plus Cold and Cough By Mouth, Every [...] Refills, Maintenance, 01/05/22 14:08:00 EST, EC Tablet, [facility] #[id number], 185.42, cm, 12/29/21 15:01:00 EST, Height, 166, [...] Refills, Maintenance, 04/03/22 13:28:00 EDT, ER Tablet, [facility] #[id number], 186, cm, 02/02/22 13:39:00 EDT, Height, 160, kg, 01/19/22 12:45:00 EST, Dry We... Start Date: 04/03/22 Stop Date: 08/01/22 Status: Ordered Lasix 80 mg oral tablet 80 mg, 1, tablet, By Mouth, Daily, # 30 tablet, Refills 3, Tot. Refills 3, Maintenance, 04/03/22 13:27:00 EDT, Route to Pharmacy Electronically, [facility] #[id number], Partial fill upon patientrequest if the prescription is for a schedule II op... Start Date: 04/03/22 Status: Ordered losartan 100 mg oral tablet 1 tablet, By Mouth, Daily, DISCONTINUE COMBO HCTZ-LOSARTAN PRESCRIPTION, # 90 tablet, 4 Refills, [facility] #[id number], 186, cm, 02/02/22 13:39:00 EDT, Height, 160, [...] mL, 2 Refills, Maintenance, 01/19/22 19:25:00 EST, [facility] #[id number], Partial fill upon patient request if the [...] 1 Refills, Maintenance, 01/05/22 12:30:00 EST, Tablet, [facility] #[id number], Partial fill upon patient request, 185.42,cm, 12/29/21 [...] 5 Refills, Maintenance, 01/17/21 9:47:00 EST, Aerosol, [facility] #[id number], 185, cm, 12/24/20 9:35:00 EST, Height, 183.3, kg, 11/23/20 8:36:00 EST, Dry Weight Start Date: 01/17/21 Stop Date: 07/16/21 Status: Ordered Vitamin D3 1000 intl units oral tablet 1 tablet = 25 mcg, By Mouth, Daily, # 30 tablet, 0 Refills, Maintenance, 01/17/22 10:07:00 EST, Tablet, Partial fill upon patient request if the prescription is for a schedule II opioid drug. Start Date: 3/8/22 Status: Ordered Wellbutrin 100 mg oral tablet [...] stated he recieved both vaccines at [facility] on 01/05/21 and 02/02/21 2Dexa 08/2020 Social History Social History Type Response Smoking Status Former smoker; Type: Cigarettes; Tobacco use times per day: 1-2 ppd for 30 years; Number of years: 28; Started at age: 20; Stopped at age: 48; entered on: 05/22/17 Sex Male
--- OUTSIDE RECORDS SUMMARY | 2023-04-10 07:32 | XMS_ITS | Continuity of Care Document ---
Author Name Unknown Organization [facility] Address [address] [place] [address]- Care Team Providers Care Copier Operator Name Role Phone Cori Ugalde DO Primary Care Physician [facility] Date(s): 12/04/22 - 01/03/[address] [facility] [address] [place] [id number]- Allergies, Adverse Reactions, Alerts No Known Allergies [...] [11/21/2018] pt was given immunization at [address] SHINGRIX VIAL KIT 3Location History: MEDITECH [...] 11/27/22 15:22:00 EST, Route to Pharmacy Electronically, [facility] #[id number], Partial fill upon patient request if the [...] Refills, Maintenance, 12/04/22 9:17:00 EST, EC Tablet, [facility] #[id number], 185.5, cm, 11/24/22 11:51:00 EST, Height, 154.4, [...] Refills, Maintenance, 04/03/22 13:28:00 EDT, ER Tablet, [facility] #[id number], 186, cm, 02/02/22 13:39:00 EDT, Height, 160, kg, 01/19/22 12:45:00 EST, Dry We... Start Date: 04/03/22 Stop Date: 08/01/22 Status: Ordered Lasix 80 mg oral tablet 80 mg, 1, tablet, By Mouth, Daily, # 30 tablet, Refills 3, Tot. Refills 3, Maintenance, 04/03/22 13:27:00 EDT, Route to Pharmacy Electronically, [facility] #[id number], Partial fill upon patientrequest if the prescription is for a schedule II op... Start Date: 04/03/22 Status: Ordered losartan 100 mg oral tablet 1 tablet, By Mouth, Daily, DISCONTINUE COMBO HCTZ-LOSARTAN PRESCRIPTION, # 90 tablet, 4 Refills, [facility] #[id number], 186, cm, 02/02/22 13:39:00 EDT, Height, 160, [...] Start Date: 09/28/22 Status: Ordered nystatin topical 374169 u/gm powder 1 application, Topically, 2 times a day, apply to irritated skin/rash of both groins/pubic areas, #60 Gm, 0 Refills, Maintenance, 10/25/22 11:36:00 EST, Powder, [facility] #[id number], Partial fill upon patient request if the [...] mL, 2 Refills, Maintenance, 10/14/22 12:35:00 EST, [facility] #[id number], Partial fill upon patient request if the [...] 1 Refills, Maintenance, 07/17/22 10:04:00 EDT, Tablet, [facility] #[id number], Partial fill upon patient request, 186, cm, [...] 5 Refills, Maintenance, 10/06/22 13:01:00 EST, Aerosol, [facility] #[id number], 185.5, cm, 09/28/22 10:37:00 EST, Height, 154.4, [...] stated he recieved both vaccines at the [facility] on 01/05/21 and 02/02/21 2Dexa 08/2020 Social History Social History Type Response Smoking Status Former smoker, quit more than 30 days ago entered on: 08/21/22 Sex Patient Care team information Care Team Personnel Name: Pam Killian RN Position: [facility] RN Member Role: Primary Care Nurse Name: Cori Ugalde DO Position: [facility] Primary Care Physician Member Role: PCP Address: Address: [address] [place] [id number] Name: Mila Omer RN Position: [facility] RN Member Role: Primary Care Nurse Care Team Related Persons Name: CANDY PRETTY Name: DEVAN PRETTY Address: [address] [address] Name: SHERWIN PRETTY Address: [place] [address] Name: ISRAEL ALEGRIA
--- OUTSIDE RECORDS SUMMARY | 2023-04-10 07:33 | XMS_ITS | Continuity of Care Document ---
Author Name Unknown Organization [facility] Address [address] [place] [address]- Care Team Providers Care Sifter And Miller Name Role Phone Cori Ugalde DO Primary Care [id number] Date(s): 07/19/22 - 07/26/22 [facility] [address] [place], [place] [address] Attending Physician: Irineo GOTTI, Naty Xavier Admitting [...] [11/21/2018] pt was given immunization at [address] SHINGRIX VIAL KIT 2Location History: [employer] Medications Meena-[place] Plus Cold and Cough By Mouth, Every [...] Refills, Maintenance, 07/17/22 11:58:00 EDT, EC Tablet, [facility] #[id number], 186, cm, 05/24/22 15:33:00 EDT, Height, 160,kg, [...] Refills, Maintenance, 04/03/22 13:28:00 EDT, ER Tablet, [facility] #[id number], 186, cm, 02/02/22 13:39:00 EDT, Height, 160, kg, 01/19/22 12:45:00 EST, Dry We... Start Date: 04/03/22 Stop Date: 08/01/22 Status: Ordered Lasix 80 mg oral tablet 80 mg, 1, tablet, By Mouth, Daily, # 30 tablet, Refills 3, Tot. Refills 3, Maintenance, 04/03/22 13:27:00 EDT, Route to Pharmacy Electronically, [facility] #[id number], Partial fill upon patientrequest if the prescription is for a schedule II op... Start Date: 04/03/22 Status: Ordered losartan 100 mg oral tablet 1 tablet, By Mouth, Daily, DISCONTINUE COMBO HCTZ-LOSARTAN PRESCRIPTION, # 90 tablet, 4 Refills, [facility] #[id number], 186, cm, 02/02/22 13:39:00 EDT, Height, 160, [...] mL, 3 Refills, Maintenance, 05/25/22 15:50:00 EDT, [facility] #[id number], Partial fill upon patient request if the [...] 1 Refills, Maintenance, 07/17/22 10:04:00 EDT, Tablet, [facility] #[id number], Partial fill upon patient request, 186, cm, [...] 5 Refills, Maintenance, 01/17/21 9:47:00 EST, Aerosol, [facility] #[id number], 185, cm, 12/24/20 9:35:00 EST, Height, 183.3, [...] stated he recieved both vaccines at the [facility] on 01/05/21 and 02/02/21 2Dexa 08/2020 Vital Signs Most recent to oldest [Reference Range]: 1 Height 186 cm (07/19/22 10:32 AM) Weight 157.0 kg (07/19/22 10:32 AM) Pulse Rate [55-90 bpm] 76 bpm (07/19/22 10:32 AM) Body Mass Index [18.5-24.99] 45.38 *>HHI* (07/19/22 10:32 AM) Blood Pressure [90-138/55-84 mm Hg] 138/ 80mm Hg (07/19/22 10:32 AM) Blood pressure sites Arm, right (07/19/22 10:32 AM) Weight Obtained Via Patient/family state d (07/19/22 10:32 AM) Social History Social History Type Response Smoking Status Former smoker; Type: Cigarettes; Tobacco use times per day: 1-2 ppd for 30 years; Number of years: 28; Started at age: 20; Stopped at age: 48; entered on: 05/22/17 Sex Male Care Team Personnel Name: Cori Ugalde DO Address: [address] [place] [address]
--- OUTSIDE RECORDS SUMMARY | 2023-04-10 07:33 | XMS_ITS | Continuity of Care Document ---
Author Name Unknown Organization [facility] Address [address] [place] [address]- Care Team Providers Care Strategy Lead Name Role Phone Cori Ugalde DO Primary Care Physician [facility] Date[facility]s): 04/04/22 - 05/04/22 [facility] [address] [place] [id number] Allergies, Adverse [...] [11/21/2018] pt was given immunization at [address] SHINGRIX VIAL KIT 2Location History: [facility] Medications Meena-[place] Plus Cold and Cough By Mouth, Every [...] Refills, Maintenance, 01/05/22 14:08:00 EST, EC Tablet, [facility] #[id number], 185.42, cm, 12/29/21 15:01:00 EST, Height, 166, [...] Refills, Maintenance, 04/03/22 13:28:00 EDT, ER Tablet, [facility] #[id number], 186, cm, 02/02/22 13:39:00 EDT, Height, 160, kg, 01/19/22 12:45:00 EST, Dry We... Start Date: 04/03/22 Stop Date: 08/01/22 Status: Ordered Lasix 80 mg oral tablet 80 mg, 1, tablet, By Mouth, Daily, # 30 tablet, Refills 3, Tot. Refills 3, Maintenance, 04/03/22 13:27:00 EDT, Route to Pharmacy Electronically, [facility] #[id number], Partial fill upon patientrequest if the prescription is for a schedule II op... Start Date: 04/03/22 Status: Ordered losartan 100 mg oral tablet 1 tablet, By Mouth, Daily, DISCONTINUE COMBO HCTZ-LOSARTAN PRESCRIPTION, # 90 tablet, 4 Refills, [facility] #[id number], 186, cm, 02/02/22 13:39:00 EDT, Height, 160, [...] mL, 2 Refills, Maintenance, 01/19/22 19:25:00 EST, [facility] #[id number], Partial fill upon patient request if the [...] 1 Refills, Maintenance, 01/05/22 12:30:00 EST, Tablet, [facility] #[id number], Partial fill upon patient request, 185.42,cm, 12/29/21 [...] 5 Refills, Maintenance, 01/17/21 9:47:00 EST, Aerosol, [facility] #[id number], 185, cm, 12/24/20 9:35:00 EST, Height, 183.3, [...] stated he recieved both vaccines at the [facility] on 01/05/21 and 02/02/21 2Dexa 08/2020 Social History Social History Type Response Smoking Status Former smoker; Type: Cigarettes; Tobacco use times per day: 1-2 ppd for 30 years; Number of years: 28; Started at age: 20; Stopped at age: 48; entered on: 05/22/17 Sex Male
--- OUTSIDE RECORDS SUMMARY | 2023-04-10 07:33 | XMS_ITS | Continuity of Care Document ---
Author Name Unknown Organization [facility] Address [address] [place] [address]- Care Team Providers Care Judge Name Role Phone Cori Ugalde DO Primary Care Physician [facility] Date[facility]s): 03/17/21 - 04/28/21 [facility] [address] [place] [address]- Attending Physician: Cori Ugalde DO Admitting Physician: [...] [11/21/2018] pt was given immunization at [address] SHINGRIX VIAL KIT 2Location History: [employer] Medications Meena-[place] Plus Cold and Cough By Mouth, Every [...] Refills, Maintenance, 12/24/20 10:15:00 EST, EC Tablet, [facility] #[id number], 185, cm, 12/24/20 9:35:00 EST, Height, 183.3, kg, 11/23/20 8:36:00 EST, Dry Weight Start Date: 12/24/20 Stop Date: 12/19/21 Status: Ordered gabapentin 300 mg oral capsule 300 mg, 1, capsule, By Mouth, 3 times a day, # 270 capsule, Refills 3, Tot. Refills 3, Maintenance,12/24/20 10:15:00 EST, Route to Pharmacy Electronically, [facility] #[id number], 185, cm, 12/24/20 9:35:00 EST, Height, 183.3, [...] Refills, Maintenance, 10/01/20 7:33:00 EST, ER Tablet, [facility] #[id number], 185, cm, 07/22/20 22:18:00 EDT, Height, 180, kg, 09/1... Start Date: 10/01/20 Stop Date: 03/30/21 Status: Ordered Lasix 80 mg oral tablet 80 mg, 1, tablet, By Mouth, 2 times a day, # 30 tablet, Refills 0, Maintenance, 12/20/16 17:07:10 Start Date: 12/20/16 Status: Ordered losartan 100 mg oral tablet 1 tablet = 100 mg, By Mouth, Daily, D/C combo HCTZ-Losartan Rx, # 90 tablet, 3 Refills, Maintenance, 12/24/20 10:15:00 EST, Tablet, [facility] #[id number], 185, cm, 12/24/20 9:35:00 EST, Height,183.3, kg, [...] 3 Refills, Maintenance, 12/24/20 10:16:00 EST, Tablet, [facility] #[id number], Partial fill upon patient request, 185, cm, [...] 5 Refills, Maintenance, 01/17/21 9:47:00 EST, Aerosol, [facility] #[id number], 185, cm, 12/24/20 9:35:00 EST, Height, 183.3, [...]
--- OUTSIDE RECORDS SUMMARY | 2023-04-10 07:33 | XMS_ITS | Continuity of Care Document ---
Author Name Unknown Organization [facility] Address [address] [place] [address]- Care Team Providers Care Plating Department Helper Name Role Phone Cori Ugalde DO Primary Care Physician [facility] Date(s): 06/28/21 - 07/28/21 [facility] [address] [place] [address]- Allergies, Adverse Reactions, Alerts Substance Reaction Severity [...] [11/21/2018] pt was given immunization at [address] SHINGRIX VIAL KIT 2Location History: [employer] Medications Meena-[place] Plus Cold and Cough By Mouth, Every [...] Refills, Maintenance, 10/01/20 7:33:00 EST, ER Tablet, [facility] #[id number], 185, cm, 07/22/20 22:18:00 EDT, Height, 180, [...] 3 Refills, Maintenance, 12/24/20 10:15:00 EST, Tablet, [facility] #[id number], 185, cm, 12/24/20 9:35:00 EST, Height,183.3, kg, [...] 3 Refills, Maintenance, 12/24/20 10:16:00 EST, Tablet, [facility] #[id number], Partial fill upon patient request, 185, cm, [...] 5 Refills, Maintenance, 01/17/21 9:47:00 EST, Aerosol, [facility] #[id number], 185, cm, 12/24/20 9:35:00 EST, Height, 183.3, [...]
--- OUTSIDE RECORDS SUMMARY | 2023-04-10 07:33 | XMS_ITS | Continuity of Care Document ---
Author Name Unknown Organization [facility] Address [address] [place] [address]- Care Team Providers Care Histotechnician Name Role Phone Cori Ugalde DO Primary Care Physician [place] [facility] [place] 09/21/21 - 10/21/21 [facility] [address] [place] [phone]- Allergies, Adverse Reactions, Alerts Substance Reaction Severity [...] [11/21/2018] pt was given immunization at [address] SHINGRIX VIAL KIT 2Location History: [employer] Medications Meena-[place] Plus Cold and Cough By Mouth, Every [...] Refills, Maintenance, 10/01/20 7:33:00 EST, ER Tablet, [facility] #[id number], 185, cm, 07/22/20 22:18:00 EDT, Height, 180, [...] 3 Refills, Maintenance, 12/24/20 10:15:00 EST, Tablet, [facility] #[id number], 185, cm, 12/24/20 9:35:00 EST, Height,183.3, kg, [...] 3 Refills, Maintenance, 12/24/20 10:16:00 EST, Tablet, [facility] #[id number], Partial fill upon patient request, 185, cm, [...] 5 Refills, Maintenance, 01/17/21 9:47:00 EST, Aerosol, [facility] #[id number], 185, cm, 12/24/20 9:35:00 EST, Height, 183.3, [...]
--- OUTSIDE RECORDS SUMMARY | 2023-04-10 07:33 | XMS_ITS | Continuity of Care Document ---
Author Name Unknown Organization [facility] Address [address] [place] [address]- Care Team Providers Care Skiver Operator Name Role Phone Cori Ugalde DO Primary Care Physician Encounter [facility] Date(s): 10/11/20 - 11/10/20 [facility] [address] [place], [place] [address] Attending Physician: Murtaza Raya Admitting Physician: AdmMurtaza [...] Comment: [11/21/2018] pt was given immunization at [address] SHINGRIX VIAL KIT 2Location History: [employer] Medications aspirin buffered 81 mg oral tablet [...] 3 Refills, Maintenance, :11:00 EDT, EC Tablet, [facility] #[id number], 185, cm, 07/22/20 22:18:00 EDT, Height, 180, kg, 07/22/20 22:18:00 EDT, Dry Weight Start Date: 08/17/20 Stop Date: 12/15/20 Status: Ordered gabapentin 300 mg oral capsule 300 mg, 1, capsule, By Mouth, 3 times a day, # 90 capsule, Refills 2, Tot. Refills 2, Maintenance, 11/02/20 17:35:00 EST, Route to Pharmacy Electronically, [facility] #[id number], 185, cm, 07/22/20 22:18:00 EDT, Height, 180, [...] Refills, Maintenance, 10/01/20 7:33:00 EST, ER Tablet, [facility] #[id number], 185, cm, 07/22/20 22:18:00 EDT, Height, 180, [...] 3 Refills, Maintenance, 01/19/20 9:18:00 EDT, Tablet, [facility] #[id number], 186, cm, 01/19/20 9:14:00 EDT, Height Start [...] 3 Refills, Maintenance, 10/04/20 10:57:00 EST, Tablet, [facility] #[id number], Partial fill upon patient request, 185, cm, [...] 07/29/20 12:29:00 EDT, Route to Pharmacy Electronically, [facility] #[id number], 185, cm, 07/22/20 22:18:00 EDT, Height, 180, kg, 07/22/20 22:18:00 EDT,... Start Date: 07/29/20 Stop Date: 08/01/20 Status: Ordered Ventolin HFA 108 mcg/inh inhalation aerosol with adapter 1 puffs, Inhalation, 4 times a day, PRN for wheezing, # 1 each, 5 Refills, Maintenance, 12/25/19 13:42:00 EST, Aerosol, [facility] #[id number], 186, cm, 10/07/19 9:17:00 EST, Height Start [...]
--- OUTSIDE RECORDS SUMMARY | 2023-04-10 07:33 | XMS_ITS | Continuity of Care Document ---
Author Name Unknown Organization [facility] Address [address] [place] [address]- Care Team Providers Care Dean Of [employer] Name Role Phone Cori Ugalde DO Primary Care Physician [place] [facility] [place] 02[place]22[place]23 - 03/01/23 [facility] [address] [place], [place] [address] Attending Physician: Estrada Lopez MD Admitting [...] [11/21/2018] pt was given immunization at [address] SHINGRIX VIAL KIT 3Location History: MEDITECH [...] 11/27/22 15:22:00 EST, Route to Pharmacy Electronically, [facility] #[id number], Partial fill upon patient request if the [...] Refills, Maintenance, 12/04/22 9:17:00 EST, EC Tablet, [facility] #[id number], 185.5, cm, 11/24/22 11:51:00 EST, Height, 154.4, kg, 09/09/22 15:50:00 EDT, Dry Weight Start Date: 12/04/22 Stop Date: 03/04/23 Status: Ordered gabapentin 300 mg oral capsule 600 mg, 2, capsule, By Mouth, 3 times a day, # 540 capsule, Refills 3, Tot. Refills 3, Maintenance,01/10/23 15:46:00 EST, Route to Pharmacy Electronically, [facility] #[id number], 185.5, cm, 11/24/22 11:51:00 EST, Height, 154.4, [...] Refills, Maintenance, 04/03/22 13:28:00 EDT, ER Tablet, [facility] #[id number], 186, cm, 02/02/22 13:39:00 EDT, Height, 160, kg, 01/19/22 12:45:00 EST, Dry We... Start Date: 04/03/22 Stop Date: 08/01/22 Status: Ordered Lasix 80 mg oral tablet 80 mg, 1, tablet, By Mouth, Daily, # 30 tablet, Refills 3, Tot. Refills 3, Maintenance, 04/03/22 13:27:00 EDT, Route to Pharmacy Electronically, [facility] #[id number], Partial fill upon patientrequest if the prescription is for a schedule II op... Start Date: 04/03/22 Status: Ordered losartan 100 mg oral tablet 1 tablet, By Mouth, Daily, DISCONTINUE COMBO HCTZ-LOSARTAN PRESCRIPTION, # 90 tablet, 4 Refills, [facility] #[id number], 186, cm, 02/02/22 13:39:00 EDT, Height, 160, kg, 01/19/22 12:45:00 EST, Dry Weight Start Date: 04/13/22 Status: Ordered metoprolol 50 mg oral tablet, extended release 50 mg, 1, tablet, By Mouth, Daily, # 30 tablet, Refills 0, Maintenance, 09/28/22 11:18:00 EST, Partial fill upon patient request if the prescription is for a schedule II opioid drug. Start Date: 09/28/22 Status: Ordered nystatin topical 569179 u/gm powder 1 application, Topically, 2 times a day, apply to irritated skin/rash of both groins/pubic areas, #60 Gm, 0 Refills, Maintenance, 10/25/22 11:36:00 EST, Powder, [facility] #[id number], Partial fill upon patient request if the prescription is for... Start Date: 10/25/22 Status: Ordered Ozempic (1 mg dose) 4 mg/3 mL subcutaneous solution = 1 mg, Subcutaneous Infusion, Every Sunday, # 3 mL, 2 Refills, Maintenance, 01/22/23 16:38:00 EDT, [facility] #[id number], Partial fill upon patient request if the [...] 1 Refills, Maintenance, 02/27/23 13:17:00 EDT, Tablet, [facility] #[id number], Partial fill upon patient request, 185.5, cm, [...] 5 Refills, Maintenance, 10/06/22 13:01:00 EST, Aerosol, [facility] #[id number], 185.5, cm, 09/28/22 10:37:00 EST, Height, 154.4, [...] oldest [Reference Range]: 1 Height 185.5 cm (02/22/23 10:34 AM) Weight 154 kg (02/22/23 10:34 AM) Oxygen Saturation [94-100 %] 97 % (02/22/23 10:34 AM) Pulse Rate [55-90 bpm] 77 bpm (02/22/23 10:34 AM) Body Mass Index [18.5-24.99 kg/m2] 44.75 kg/m2 *>HHI* (02/22/23 10:34 AM) Blood Pressure [90-138/55-84 mm Hg] 132/ 78mm Hg (02/22/23 10:34 AM) Mode of Delivery (Oxygen) Room air (02/22/23 10:34 AM) Blood pressure sites Arm, left (02/22/23 10:34 AM) Weight Obtained Via Patient/family state d (02/22/23 10:34 AM) Social History Social History Type Response Smoking Status Former smoker, quit more than 30 days ago entered on: 08/21/22 Sex Note * Evelyne Ruiz: PERFORM, SIGN, VERIFY Event Display: Patient Education/Instruction Authored Date: [id number] [facility] *[facility] [address] Clinical Summary Name ANDRES PRETTY Age 67 Years 1955 PCP Cori Ugalde DO PCP Visit Date 02/22/2023 10:27:00 Additional Instructions: Scheduled Appointments?? Future Appointments ?No Future Appointments Scheduled Follow-Up Instructions ?? Diagnosis Medications: Please continue [...] day for 90 Days. with food. Refills: 0. Next Dose: Divalproex Sodium (Depakote ER 500 mg oral tablet, extended release) 6 tab(s) Oral Daily. Next Dose: Docusate (Colace sodium 100 mg oral capsule) 1 capsule Oral twice a day. Refills: 5. Next Dose: Durable Medical Equipment (Compression Stockings) [...] 3 times a day for 90 Days. Refills: 3. Next Dose: Losartan (losartan 100 mg oral tablet) 1 tab(s) Oral Daily. DISCONTINUE COMBO HCTZ-LOSARTAN PRESCRIPTION. Refills: 4. Next Dose: Metoprolol (metoprolol 50 mg oral tablet, extended release) 1 tab(s) Oral Daily. Next Dose: Nystatin Topical (nystatin topical 673754 u/gm powder) 1 max Topically twice a day. apply to irritated skin/rash of both groins/pubic areas. Refills: 0. Next Dose: Pantoprazole (pantoprazole 40 mg oral [...] orders Vital Signs Height 185.5 cm Weight 154 kg BMI 44.75 kg/m2 Blood Pressure 132 mm Hg/78 mm Hg Temperature Pulse Rate 77 bpm Respiratory Rate 02 Sat Mode of Delivery 97 %/Room air You can now view a summary of your hospital visit from the comfort of your home through a free online portal called [employer]. Ru[employer]ure is a website that allows you to securely view your medical information including discharge summary, medications and follow-up visits. ??You can alsosend a secure electronic message to your doctor???s office to request appointments, renew medications or just ask a question. You can enroll at [email or web address] or register during your next office visit. [...] primary care provider, you may find a [facility] provider by calling [facility] niiu at [phone]. For information about the plan of care [...] Care Nurse Name: Cori Ugalde DO Position: [facility] Primary Care Physician Member Role: PCP Address: Address: [address] [place] [address] Name: Mila Omer RN Position: [facility] RN Member Role: Primary Care Nurse Care Team Related Persons Name: CANDY PRETTY Name: DEVAN PRETTY Address: [address] [address] Name: SHERWIN PRETTY Address: [place] [address] Name: ISRAEL ALEGRIA
--- OUTSIDE RECORDS SUMMARY | 2023-04-10 07:33 | XMS_ITS | Continuity of Care Document ---
Author Name Unknown Organization [facility] ter Address [address] [place] [phone]- Care Team Providers Care Secondary Education Professor Name Role Phone Cori Ugalde DO Primary Care Physician [place] [facility] [place] - 09/12/[address] [address]- Encounter Diagnosis Wound dehiscence, surgical(Final) - 09/12/22 Discharge Disposition: A-D/C Home Attending Physician: Subhash Frazier MD Admitting Physician: Subhash Frazier MD Referring Physician: Subhash Frazier MD Allergies, Adverse Reactions, Alerts No Known [...] Comment: [11/21/2018] pt was given immunization at [address] SHINGRIX VIAL KIT 2Location History: [facility] Medications acetaminophen 325 mg oral tablet 975 mg, 3, tablet, By Mouth, Every 6 hours, for 10 days, # 120 tablet, Refills 0, Tot. Refills 0, Acute 09/16/22 10:24:00 EDT, 09/06/22 10:24:00 EDT, Route to Pharmacy Electronically, [facility] #[id number], Partial fill upon patient request if t... [...] 09/06/22 10:25:00 EDT, Route to Pharmacy Electronically, [facility] #[id number], Partial fill upon patient request if the [...] Refills, Maintenance, 07/17/22 11:58:00 EDT, EC Tablet, [facility] #[id number], 186, cm, 05/24/22 15:33:00 EDT, Height, 160,kg, 01/19/22 12:45:00 EST, Dry Weight Start Date: 07/17/22 Stop Date: 01/13/23 Status: Ordered Dilaudid 2 mg oral tablet 1 tablet = 2 mg, By Mouth, Every Sunday, Sunday and Sunday, PRN Pain , Severe, for 7 days, during wound vacuum change, # 7 tablet, 0 Refills, Acute 09/19/22 11:06:00 EST, 09/12/22 11:06:00 EDT, Tablet, [facility] #[id number], Partial fill upon... Start Date: 09/12/22 Stop Date: 09/19/22 Status: Ordered gabapentin 300 mg oral capsule 600 mg, Capsule, By Mouth, 09/12/22 15:00:00 EDT Start Date: 09/12/22 Stop Date: 09/12/22 Status: Completed gabapentin 300 mg oral capsule 600 mg, [...] Refills, Maintenance, 04/03/22 13:28:00 EDT, ER Tablet, [facility] #[id number], 186, cm, 02/02/22 13:39:00 EDT, Height, 160, kg, 01/19/22 12:45:00 EST, Dry We... Start Date: 04/03/22 Stop Date: 08/01/22 Status: Ordered Lasix 80 mg oral tablet 80 mg, 1, tablet, By Mouth, Daily, # 30 tablet, Refills 3, Tot. Refills 3, Maintenance, 04/03/22 13:27:00 EDT, Route to Pharmacy Electronically, [facility] #[id number], Partial fill upon patientrequest if the prescription is for a schedule II op... Start Date: 04/03/22 Status: Ordered linezolid 600 mg oral tablet 1 tablet = 600 mg, By Mouth, Every 12 hours, for 14 days, # 28 tablet, 0 Refills, Acute 09/20/22 10:24:00 EST, 09/06/22 10:24:00 EDT, Tablet, [facility] #[id number], Partial fill upon patient request if the prescription is for a schedule II opioi... Start Date: 09/06/22 Stop Date: 09/20/22 Status: Ordered losartan 100 mg oral tablet 1 tablet, By Mouth, Daily, DISCONTINUE COMBO HCTZ-LOSARTAN PRESCRIPTION, # 90 tablet, 4 Refills, [facility] #[id number], 186, cm, 02/02/22 13:39:00 EDT, Height, 160, kg, 01/19/22 12:45:00 EST, Dry Weight Start Date: 04/13/22 Status: Ordered losartan 50 mg oral tablet 100 mg, Tablet, By Mouth, 09/12/22 9:00:00 EDT Start Date: 09/12/22 Stop Date: 09/12/22 Status: Completed metoprolol 50 mg oral tablet 50 mg, Tablet, By Mouth, 09/12/22 9:00:00 EDT Start Date: 09/12/22 Stop Date: 09/12/22 Status: Completed metoprolol 50 mg oral tablet 50 mg, [...] 09/15/22 11:05:00 EDT, Route to Pharmacy Electronically, [facility] #[id number], Partial fill upon... Start Date: 09/15/22 Stop Date: 09/18/22 Status: Ordered oxyCODONE 5 mg oral tablet 5 mg, Tablet, By Mouth, Every 6 hours, PRN for Pain , Moderate, Routine, 09/09/22 15:47:00 EDT Start Date: 09/09/22 Stop Date: 09/16/22 Status: Ordered Ozempic (1 mg dose) 4 mg/3 mL subcutaneous solution = 1 mg, Subcutaneous Infusion, Every Sunday, # 3 mL, 3 Refills, Maintenance, 05/25/22 15:50:00 EDT, [facility] #[id number], Partial fill upon patient request if the [...] 1 Refills, Maintenance, 07/17/22 10:04:00 EDT, Tablet, [facility] #[id number], Partial fill upon patient request, 186, cm, [...] 5 Refills, Maintenance, 01/17/21 9:47:00 EST, Aerosol, [facility] #[id number], 185, cm, 12/24/20 9:35:00 EST, Height, 183.3, [...] oldest [Reference Range]: 1 2 3 Height 184 cm (09/12/22 11:52 AM) 184 cm (09/12/22 8:20 AM) 184 cm (09/12/22 4:52 AM) Weight 153.1 kg (09/11/22 7:35 AM) 154.4 kg (09/10/22 1:16 PM) 154.4 kg (09/09/22 3:50 PM) Oxygen Saturation [94-100 %] 100 % (09/12/22 11:52 AM) 99 % (09/12/22 8:20 AM) 99 % (09/12/22 4:52 AM) Pulse Rate [55-90 bpm] 65 bpm (09/12/22 11:52 AM) 68 bpm (09/12/22 10:25 AM) 68 bpm (09/12/22 8:20 AM) Body Mass Index [18.5-24.99 kg/m2] 45.22 kg/m2 *>HHI* (09/11/22 7:35 AM) 45.6 kg/m2 *>HHI* (09/09/22 3:50 PM) Blood Pressure [90-138/55-84 mm Hg] 133/65mm Hg (09/12/22 11:52 AM) 129/70mm Hg (09/12/22 10:25 AM) 129/70mm Hg (09/12/22 10:25 AM) Respiratory Rate [16-30 br/min] 18 br/min (09/12/22 4:45 PM) 18 br/min (09/12/22 4:45 PM) 18 br/min (09/12/22 11:52 AM) Temperature [96.8-100.4 DegF] 99.0 DegF (09/12/22 11:52 AM) 98.8 DegF (09/12/22 8:20 AM) 98.3 DegF (09/12/22 4:52 AM) Liters per Minute 2 L/min (09/12/22 11:52 AM) 1 L/min (09/11/22 11:34 PM) 1 L/min (09/11/22 8:57 PM) Mode of Delivery (Oxygen) Nasal cannula (09/12/22 11:52 AM) Room air (09/12/22 8:20 AM) Room air (09/12/22 4:52 AM) Blood pressure sites Arm, left (09/12/22 11:52 AM) Arm, left (09/12/22 8:20 AM) Arm, left (09/12/22 4:52 AM) Temperature Route Oral (09/12/22 11:52 AM) Oral (09/12/22 8:20 AM) Oral (09/12/22 4:52 AM) Dry Weight 154.4 kg (09/09/22 3:50 PM) Weight Obtained Via Bed scale (09/11/22 7:35 AM) Social History Social History Type Response Smoking Status Former smoker, quit more than 30 days ago entered on: 08/21/22 Sex Patient Care team information Personnel Name: Cori Ugalde DO Address: Address: [address] [place] [id number]
--- OUTSIDE RECORDS SUMMARY | 2023-04-10 07:33 | XMS_ITS | Continuity of Care Document ---
Author Name Unknown Organization [facility] Address [address] [place] [address]- Care Team Providers Care Jack Winder Name Role Phone Cori Ugalde DO Primary Care Physician [facility]counter [facility] Date(s): 03/16/20 - 03/23/20 [facility] [address] [place] [phone]- [facility] Attending Physician: Cori Ugalde DO Allergies, Adverse [...] [11/21/2018] pt was given immunization at [address] SHINGRIX VIAL KIT 2Location History: [facility] [employer] [facility] Medications aspirin buffered 81 mg oral tablet [...] 5 Refills, Maintenance, 01/06/20 10:56:00 EST, Gel, [facility] #[id number], 186, cm, 10/07/19 9:17:00 EST, Height Start Date: 01/06/20 Stop Date: 07/04/20 Status: Ordered gabapentin 300 mg oral capsule 300 mg, 1, capsule, By Mouth, 3 times a day, # 90 capsule, Refills 5, Tot. Refills 5, Maintenance, 10/07/19 9:24:32 EST, Route to Pharmacy Electronically, [id number], [facility] Start Date: [...] 3 Refills, Maintenance, 01/19/20 9:18:00 EDT, Tablet, [facility] #[id number], 186, cm, 01/19/20 9:14:00 EDT, Height Start [...] 5 Refills, Maintenance, 12/25/19 13:42:00 EST, Aerosol, [facility] #[id number], 186, cm, 10/07/19 9:17:00 EST, Height Start [...]
--- OUTSIDE RECORDS SUMMARY | 2023-04-10 07:33 | XMS_ITS | Continuity of Care Document ---
Author Name Unknown Organization [facility] Address [address] [place] [address]- Care Team Providers Care Transformer Assembler Name Role Phone Cori Ugalde DO Primary Care Physician Encounter [facility] [place] Date(s): 05/23/21 - 06/22/21 [facility] [address] [place] [id number]- Allergies, Adverse Reactions, Alerts Substance Reaction Severity [...] [11/21/2018] pt was given immunization at [address] SHINGRIX VIAL KIT 2Location History: [facility] Medications Meena-Salida Plus Cold and Cough By Mouth, Every [...] Refills, Maintenance, 12/24/20 10:15:00 EST, EC Tablet, [facility] #[id number], 185, cm, 12/24/20 9:35:00 EST, Height, 183.3, kg, 11/23/20 8:36:00 EST, Dry Weight Start Date: 12/24/20 Stop Date: 12/19/21 Status: Ordered gabapentin 300 mg oral capsule 300 mg, 1, capsule, By Mouth, 3 times a day, # 270 capsule, Refills 3, Tot. Refills 3, Maintenance,12/24/20 10:15:00 EST, Route to Pharmacy Electronically, [facility] #[id number], 185, cm, 12/24/20 9:35:00 EST, Height, 183.3, [...] Refills, Maintenance, 10/01/20 7:33:00 EST, ER Tablet, [facility] #[id number], 185, cm, 07/22/20 22:18:00 EDT, Height, 180, [...] 3 Refills, Maintenance, 12/24/20 10:15:00 EST, Tablet, [facility] #[id number], 185, cm, 12/24/20 9:35:00 EST, Height,183.3, kg, [...] 3 Refills, Maintenance, 12/24/20 10:16:00 EST, Tablet, [facility] #[id number], Partial fill upon patient request, 185, cm, 12/24/20 9:35:00 EST, Height, 183.3, kg, 11/23/20... Start Date: 12/24/20 Stop Date: 12/19/21 Status: Ordered semaglutide 2 mg/1.5 mL (0.25 mg or 0.5 mg dose) subcutaneous solution = 0.25 mg, Subcutaneous Infusion, Every Sunday, rotate injection sites, # 1 each, 1 Refills, Maintenance, 06/13/21 11:00:00 EDT, [facility] #[id number], Partial fill upon patient request if theprescription is for a schedule II opioid drug., 0.2... Start Date: 06/13/21 Stop Date: 08/12/21 Status: Ordered Shower Bench See Instructions, # 1 each, Refills 0, Tot. Refills 0, Maintenance, Dx: Weakness Fran, 12/20/1709:53:07, Compound Start Date: 12/20/16 Status: Ordered Ventolin HFA 108 mcg/inh inhalation aerosol with adapter 1 puffs, Inhalation, 4 times a day, PRN for wheezing, # 1 each, 5 Refills, Maintenance, 01/17/21 9:47:00 EST, Aerosol, [facility] #[id number], 185, cm, 12/24/20 9:35:00 EST, Height, 183.3, [...]
--- OUTSIDE RECORDS SUMMARY | 2023-04-10 07:33 | XMS_ITS | Continuity of Care Document ---
Author Name Unknown Organization [facility] Address [address] [place] [address]- Care Team Providers Care Social Media Developer Name Role Phone Cori Ugalde DO Primary Care Physician [facility]counter [facility] Date(s): 01/05/22 - 02/04/22 [facility] [address] [place] [id number] Allergies, Adverse Reactions, Alerts No [...] Comment: [11/21/2018] pt was given immunization at [address] SHINGRIX VIAL KIT 2Location History: [facility] Medications Meena-Adams Plus Cold and Cough By Mouth, Every [...] Refills, Maintenance, 01/05/22 14:08:00 EST, EC Tablet, [facility] #[id number], 185.42, cm, 12/29/21 15:01:00 EST, Height, 166, [...] Refills, Maintenance, 10/01/20 7:33:00 EST, ER Tablet, [facility] #[id number], 185, cm, 07/22/20 22:18:00 EDT, Height, 180, [...] 3 Refills, Maintenance, 12/24/20 10:15:00 EST, Tablet, [facility] #[id number], 185, cm, 12/24/20 9:35:00 EST, Height,183.3, kg, [...] mL, 2 Refills, Maintenance, 01/19/22 19:25:00 EST, [facility] #[id number], Partial fill upon patient request if the [...] 1 Refills, Maintenance, 01/05/22 12:30:00 EST, Tablet, [facility] #[id number], Partial fill upon patient request, 185.42,cm, 12/29/21 [...] 5 Refills, Maintenance, 01/17/21 9:47:00 EST, Aerosol, [facility] #[id number], 185, cm, 12/24/20 9:35:00 EST, Height, 183.3, [...]
--- OUTSIDE RECORDS SUMMARY | 2023-04-10 07:33 | XMS_ITS | Continuity of Care Document ---
Author Name Unknown Organization [facility] Address [address] [place] [phone]- Care Team Providers Care Trauma Surgeon Name Role Phone Cori Ugalde DO Primary Care Physician [place] [facility] [place]20 [facility] [address] [place], [place] [address] Attending Physician: Manuel Reyes MD Admitting Physician: [...] Comment: [11/21/2018] pt was given immunization at [address] SHINGRIX VIAL KIT 2Location History: [facility] Medications Meena-Russell Plus Cold and Cough By Mouth, Every [...] 3 Refills, Maintenance, :11:00 EDT, EC Tablet, [facility] #[id number], 185, cm, 07/22/20 22:18:00 EDT, Height, 180, kg, 07/22/20 22:18:00 EDT, Dry Weight Start Date: 08/17/20 Stop Date: 12/15/20 Status: Ordered gabapentin 300 mg oral capsule 300 mg, 1, capsule, By Mouth, 3 times a day, # 90 capsule, Refills 2, Tot. Refills 2, Maintenance, 11/02/20 17:35:00 EST, Route to Pharmacy Electronically, [facility] #[id number], 185, cm, 07/22/20 22:18:00 EDT, Height, 180, [...] Refills, Maintenance, 10/01/20 7:33:00 EST, ER Tablet, [facility] #[id number], 185, cm, 07/22/20 22:18:00 EDT, Height, 180, [...] 3 Refills, Maintenance, 01/19/20 9:18:00 EDT, Tablet, [facility] #[id number], 186, cm, 01/19/20 9:14:00 EDT, Height Start [...] 3 Refills, Maintenance, 10/04/20 10:57:00 EST, Tablet, [facility] #[id number], Partial fill upon patient request, 185, cm, [...] 5 Refills, Maintenance, 12/25/19 13:42:00 EST, Aerosol, [facility] #[id number], 186, cm, 10/07/19 9:17:00 EST, Height Start [...] function, NYHA class 2(Confirmed) Active 1Dexa 08/2020 Vital Signs Most recent to oldest [Reference Range]: 1 Height 185 cm (11/18/20 1:43 PM) Weight 180 kg (11/18/20 1:43 PM) Oxygen Saturation [94-100 %] 94 % (11/18/20 1:43 PM) Pulse Rate [55-90 bpm] 86 bpm (11/18/20 1:43 PM) Body Mass Index [18.5-24.99] 52.59 *>HHI* (11/18/20 1:43 PM) Blood Pressure [90-138/55-84 mm Hg] 118/ 60mm Hg (11/18/20 1:43 PM) Blood pressure sites Arm, left (11/18/20 1:43 PM) Weight Obtained Via Patient/family state d (11/18/20 1:43 PM) Social History Social History Type Response Smoking Status Former smoker; Type: Cigarettes; Tobacco use times per day: 1-2 ppd for 30 years; Number of years: 28; Started at age: 20; Stopped at age: 48; entered on: 05/22/17 Sex Male
--- OUTSIDE RECORDS SUMMARY | 2023-04-10 07:33 | XMS_ITS | Continuity of Care Document ---
Author Name Unknown Organization [facility] Address [address] [place] [address]- Care Team Providers Care Molecular Biology Director Name Role Phone Cori Ugalde DO Primary Care Physician [place] [facility] [place]21 [facility] [address] [place] [phone]- Allergies, Adverse Reactions, Alerts Substance Reaction Severity Status NKA Active Immunizations Given and Recorded Vaccine Date Status Refusal Reason influenza virus vaccine, inactivated 10/07/19 Give n influenza virus vaccine, inactivated 10/08/14 [place] rded Miscellaneous Vaccine 1 11/21/18 Given Zoster Vaccine Live 03/13/17 Recorded Zoster Vaccine Live 2 03/18/12 Recorded tetanus/diphtheria/pertussis, acel(Tdap) 06/21/16 Recorded 1Result Comment: [11/21/2018] pt was given immunization at [address] SHINGRIX VIAL KIT 2Location History: [facility] Medications Meena-Frank[place] Plus Cold and Cough By Mouth, Every [...] Refills, Maintenance, 12/24/20 10:15:00 EST, EC Tablet, [facility] #[id number], 185, cm, 12/24/20 9:35:00 EST, Height, 183.3, kg, 11/23/20 8:36:00 EST, Dry Weight Start Date: 12/24/20 Stop Date: 12/19/21 Status: Ordered gabapentin 300 mg oral capsule 300 mg, 1, capsule, By Mouth, 3 times a day, # 270 capsule, Refills 3, Tot. Refills 3, Maintenance,12/24/20 10:15:00 EST, Route to Pharmacy Electronically, [facility] #[id number], 185, cm, 12/24/20 9:35:00 EST, Height, 183.3, [...] Refills, Maintenance, 10/01/20 7:33:00 EST, ER Tablet, [facility] #[id number], 185, cm, 07/22/20 22:18:00 EDT, Height, 180, [...] 3 Refills, Maintenance, 12/24/20 10:15:00 EST, Tablet, [facility] #[id number], 185, cm, 12/24/20 9:35:00 EST, Height,183.3, kg, [...] 3 Refills, Maintenance, 12/24/20 10:16:00 EST, Tablet, [facility] #[id number], Partial fill upon patient request, 185, cm, [...] 5 Refills, Maintenance, 01/17/21 9:47:00 EST, Aerosol, [facility] #[id number], 185, cm, 12/24/20 9:35:00 EST, Height, 183.3, [...] ant Acute sinusitis(Confirmed) Active Anginal pain(Confirmed) Active Chronic back pain(Confirmed) Active CAD (coronary [...] stated he recieved both vaccines at the [facility] on 01/05/21 and 02/02/21 2Dexa 08/2020 Social History Social History Type Response Smoking Status Former smoker; Type: Cigarettes; Tobacco use times per day: 1-2 ppd for 30 years; Number of years: 28; Started at age: 20; Stopped at age: 48; entered on: 05/22/17 Sex Male
--- OUTSIDE RECORDS SUMMARY | 2023-04-10 07:33 | XMS_ITS | Continuity of Care Document ---
Author Name Unknown Organization [facility] Address [address] [place] [address]- Care Team Providers Care Inspector Motor Vehicles Name Role Phone Cori Ugalde DO Primary Care Physician [facility] Date[facility]s): 12/24/20 - 01/23/21 [facility] [address] [place] [id number] Attending Physician: Admbridger, Murtaza Admitting Physician: AdmtrMurtaza Referring Physician: Admtr, Ar8 [...] Comment: [11/21/2018] pt was given immunization at [address] SHINGRIX VIAL KIT 2Location History: [facility] Medications Meena-Bedias Plus Cold and Cough By Mouth, Every [...] Refills, Maintenance, 12/24/20 10:15:00 EST, EC Tablet, [facility] #[id number], 185, cm, 12/24/20 9:35:00 EST, Height, 183.3, kg, 11/23/20 8:36:00 EST, Dry Weight Start Date: 12/24/20 Stop Date: 12/19/21 Status: Ordered gabapentin 300 mg oral capsule 300 mg, 1, capsule, By Mouth, 3 times a day, # 270 capsule, Refills 3, Tot. Refills 3, Maintenance,12/24/20 10:15:00 EST, Route to Pharmacy Electronically, [facility] #[id number], 185, cm, 12/24/20 9:35:00 EST, Height, 183.3, [...] Refills, Maintenance, 10/01/20 7:33:00 EST, ER Tablet, [facility] #[id number], 185, cm, 07/22/20 22:18:00 EDT, Height, 180, [...] 3 Refills, Maintenance, 12/24/20 10:15:00 EST, Tablet, [facility] #[id number], 185, cm, 12/24/20 9:35:00 EST, Height,183.3, kg, [...] 3 Refills, Maintenance, 12/24/20 10:16:00 EST, Tablet, [facility] #[id number], Partial fill upon patient request, 185, cm, [...] 5 Refills, Maintenance, 01/17/21 9:47:00 EST, Aerosol, [facility] #[id number], 185, cm, 12/24/20 9:35:00 EST, Height, 183.3, [...]
--- OUTSIDE RECORDS SUMMARY | 2023-04-10 07:33 | XMS_ITS | Continuity of Care Document ---
Author Name Unknown Organization [facility] Address [address] [place] [address]- Care Team Providers Care Fly Frame Tender Name Role Phone Cori Ugalde DO Primary Care Physician Encounter [facility] Date(s): 03/29/21 - 04/28/21 [facility] [address] [place] [phone]- Attending Physician: Murtaza Raya Admitting Physician: Murtaza [...] [11/21/2018] pt was given immunization at [address] SHINGRIX VIAL KIT 2Location History: [facility] Medications Meena-Virgil Plus Cold and Cough By Mouth, Every [...] Refills, Maintenance, 12/24/20 10:15:00 EST, EC Tablet, [facility] #[id number], 185, cm, 12/24/20 9:35:00 EST, Height, 183.3, kg, 11/23/20 8:36:00 EST, Dry Weight Start Date: 12/24/20 Stop Date: 12/19/21 Status: Ordered gabapentin 300 mg oral capsule 300 mg, 1, capsule, By Mouth, 3 times a day, # 270 capsule, Refills 3, Tot. Refills 3, Maintenance,12/24/20 10:15:00 EST, Route to Pharmacy Electronically, [facility] #[id number], 185, cm, 12/24/20 9:35:00 EST, Height, 183.3, [...] Refills, Maintenance, 10/01/20 7:33:00 EST, ER Tablet, [facility] #[id number], 185, cm, 07/22/20 22:18:00 EDT, Height, 180, [...] 3 Refills, Maintenance, 12/24/20 10:15:00 EST, Tablet, [facility] #[id number], 185, cm, 12/24/20 9:35:00 EST, Height,183.3, kg, [...] 3 Refills, Maintenance, 12/24/20 10:16:00 EST, Tablet, [facility] #[id number], Partial fill upon patient request, 185, cm, [...] 5 Refills, Maintenance, 01/17/21 9:47:00 EST, Aerosol, [facility] #[id number], 185, cm, 12/24/20 9:35:00 EST, Height, 183.3, [...] stated he recieved both vaccines at [facility] on 01/05/21 and 02/02/21 2Dexa 08/2020 Social History Social History Type Response Smoking Status Former smoker; Type: Cigarettes; Tobacco use times per day: 1-2 ppd for 30 years; Number of years: 28; Started at age: 20; Stopped at age: 48; entered on: 05/22/17 Sex Male
--- OUTSIDE RECORDS SUMMARY | 2023-04-10 07:33 | XMS_ITS | Continuity of Care Document ---
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 SHINGRIX VIAL KIT 2Location History: [facility] Medications acetaminophen 325 mg oral tablet 975 mg, 3, tablet, By Mouth, Every 6 hours, for 10 days, # 120 tablet, Refills 0, Tot. Refills 0, Acute 09/16/22 10:24:00 EDT, 09/06/22 10:24:00 EDT, Route to Pharmacy Electronically, [facility] #[id number], Partial fill upon patient request if t... [...] 09/06/22 10:25:00 EDT, Route to Pharmacy Electronically, [facility] #[id number], Partial fill upon patient request if the [...] Refills, Maintenance, 07/17/22 11:58:00 EDT, EC Tablet, [facility] #[id number], 186, cm, 05/24/22 15:33:00 EDT, Height, 160,kg, 01/19/22 12:45:00 EST, Dry Weight Start Date: 07/17/22 Stop Date: 01/13/23 Status: Ordered gabapentin 300 mg oral capsule 600 mg, Capsule, By Mouth, 09/07/22 9:00:00 EDT Start Date: 09/07/22 Stop Date: 09/07/22 Status: Completed gabapentin 300 mg oral capsule [...] Refills, Maintenance, 04/03/22 13:28:00 EDT, ER Tablet, [facility] #[id number], 186, cm, 02/02/22 13:39:00 EDT, Height, 160, kg, 01/19/22 12:45:00 EST, Dry We... Start Date: 04/03/22 Stop Date: 08/01/22 Status: Ordered Lasix 80 mg oral tablet 80 mg, 1, tablet, By Mouth, Daily, # 30 tablet, Refills 3, Tot. Refills 3, Maintenance, 04/03/22 13:27:00 EDT, Route to Pharmacy Electronically, [facility] #[id number], Partial fill upon patientrequest if the prescription is for a schedule II op... Start Date: 04/03/22 Status: Ordered linezolid 600 mg oral tablet 1 tablet = 600 mg, By Mouth, Every 12 hours, for 14 days, # 28 tablet, 0 Refills, Acute 09/20/22 10:24:00 EST, 09/06/22 10:24:00 EDT, Tablet, [facility] #[id number], Partial fill upon patient request if the prescription is for a schedule II opioi... Start Date: 09/06/22 Stop Date: 09/20/22 Status: Ordered losartan 100 mg oral tablet 1 tablet, By Mouth, Daily, DISCONTINUE COMBO HCTZ-LOSARTAN PRESCRIPTION, # 90 tablet, 4 Refills, [facility] #[id number], 186, cm, 02/02/22 13:39:00 EDT, Height, 160, kg, 01/19/22 12:45:00 EST, Dry Weight Start Date: 04/13/22 Status: Ordered metoprolol 50 mg oral tablet 50 mg, Tablet, By Mouth, 09/07/22 9:00:00 EDT Start Date: 09/07/22 Stop Date: 09/07/22 Status: Completed metoprolol 50 mg oral tablet 50 mg, 1, tablet, By Mouth, 2 times a day, Refills 0, Maintenance, 12/20/16 10:41:14 Start Date: 12/20/16 Status: Ordered oxyCODONE 5 mg oral tablet 5 mg, Tablet, By Mouth, Every 6 hours, PRN for Pain , Moderate, Routine, 09/02/22 22:24:00 EDT Start Date: 09/02/22 Stop Date: 09/07/22 Status: Discontinued oxyCODONE 5 mg oral tablet 5 mg, 1, tablet, By Mouth, Every 6 hours, PRN, for 7 days, # 28 tablet, Refills 0, Tot. Refills 0, Acute 09/14/22 11:38:00 EDT, as needed for pain, 09/07/22 11:38:00 EDT, Route to Pharmacy Electronically, [facility] #[id number], Partial fill upon... Start Date: 09/07/22 Stop Date: 09/14/22 Status: Ordered Ozempic (1 mg dose) 4 mg/3 mL subcutaneous solution = 1 mg, Subcutaneous Infusion, Every Sunday, # 3 mL, 3 Refills, Maintenance, 05/25/22 15:50:00 EDT, [facility] #[id number], Partial fill upon patient request if the [...] 1 Refills, Maintenance, 07/17/22 10:04:00 EDT, Tablet, [facility] #[id number], Partial fill upon patient request, 186, cm, [...] 5 Refills, Maintenance, 01/17/21 9:47:00 EST, Aerosol, [facility] #[id number], 185, cm, 12/24/20 9:35:00 EST, Height, 183.3, [...] stated he recieved both vaccines at the [facility] on 01/05/21 and 02/02/21 2Dexa 08/2020 Results Orders for Microbiology Reports Name Date Anaerobic Culture (ANAEROBIC CULTURE) Fungal Culture, Nonrespiratory (FUNGAL C ULT,NON-RESPIRATORY) 09/02/22 Wound Deep Culture w/ Gram Smear (DEEP W OUND CULTURE) 09/02/22 Blood Culture 09/01/22 Blood Culture #2 09/01/22 Microbiology Reports TEST:Anaerobic Culture STATUS:Auth (Verified) BODY SITE: SOURCE:SWAB1 COLLECTED DATE/TIME:09/02/22 12:15 PM Anaerobic Culture SPECIMEN DESCRIPTION : SWAB LEFT GROIN SPECIAL REQUESTS : NONE CULTURE : NO ANAEROBES ISOLATED REPORT STATUS : FINAL 09/04/2022 TEST:Deep Wound Culture STATUS:Auth (Verified) BODY SITE: SOURCE:SWAB1 COLLECTED DATE/TIME:09/02/22 12:15 PM Deep Wound Culture SPECIMEN DESCRIPTION : SWAB LEFT GROIN SPECIAL REQUESTS : NONE GRAM STAIN : 1+ POLYMORPHONUCLEAR LEUKOCYTES 1+ GRAM POSITIVE COCCI CULTURE : 3+ STAPHYLOCOCCUS AUREUS, METHICILLIN RESISTANT. METHICILLIN RESISTANT STAPH AUREUS SHOULD BE CONSIDERED CLINICALLY RESISTANT TO ALL BETA-LACTAMS. This isolate was identified using Maldi-TOF system These AST results were performed on the [employer] ID and AST system No other significant microorganisms isolated. Please consult the laboratory ([phone]) within 7 days if more definitive studies are clinically indicated. REPORT STATUS : FINAL 09/04/2022 ORGANISM 3+ STAPHYLOCOCCUS AUREUS, METHICILLIN RESISTANT. METHICILLIN RESISTANT STAPH AUREUS SHOULD BE CONSIDERED CLINICALLY RESISTANT TO ALL BETA-LACTAMS. This isolate was identified using Maldi-TOF system These AST results were performed on the [employer] ID and AST system METHOD MIN. INHIB. CONC. (MCG/ML) CIPROFLOXACIN SUSCEPTIBLE CLINDAMYCIN SUSCEPTIBLE ERYTHROMYCIN RESISTANT INDUCIBLE CLINDAMYCI NEGATIVE LEVOFLOXACIN SUSCEPTIBLE LINEZOLID SUSCEPTIBLE OXACILLIN RESISTANT RIFAMPIN SUSCEPTIBLE RIFAMPIN RIFAMPIN SHOULD NOT BE USED ALONE FOR ANTIMICROBIAL RIFAMPIN THERAPY. TETRACYCLINE SUSCEPTIBLE TRIMETH/SULFAMETHOX SUSCEPTIBLE VANCOMYCIN SUSCEPTIBLE TEST:Fungal Culture, Non-Respiratory STATUS:Unauthenticated BODY SITE: SOURCE:SWAB1 COLLECTED DATE/TIME:09/02/22 12:15 PM Fungal Culture, Non-Respiratory SPECIMEN DESCRIPTION : SWAB LEFT GROIN SPECIAL REQUESTS : NONE DIRECT EXAM : NO FUNGAL ELEMENTS OBSERVED CULTURE : NO FUNGI ISOLATED AFTER 5 DAYS REPORT STATUS : PRELIMINARY REPORT TEST:Blood Culture STATUS:Auth (Verified) BODY SITE: SOURCE:Blood COLLECTED DATE/TIME:09/01/22 5:10 PM Blood Culture SPECIMEN DESCRIPTION : BLOOD NO SITE SPECIAL REQUESTS : NONE CULTURE : NO GROWTH 5 DAYS. REPORT STATUS : FINAL 09/06/2022 TEST:Blood Culture, Second Order STATUS:Auth (Verified) BODY SITE: SOURCE:Blood COLLECTED DATE/TIME:09/01/22 5:10 PM Blood Culture, Second Order SPECIMEN DESCRIPTION : BLOOD NO SITE SPECIAL REQUESTS : NONE CULTURE : NO GROWTH 5 DAYS. REPORT STATUS : FINAL 09/06/2022 Radiology Reports * Exam Date Time Procedure Performing Provider Status 09/02/22 9:51 AM Chest Portable [place]; Au th (Verified) Notes: (Chest Portable) Reason For Exam: Fever RESULT: Chest Portable Chest Portable Reason: Fever; Clinical Question(s): Pneumonia COMPARISON: 03/14/2016 FINDINGS: LINES AND TUBES: None. LUNGS AND PLEURA: Clear lungs. Normal pulmonary vascularity. No pleural effusion. No pneumothorax. HEART, MEDIASTINUM AND DIRK: Heart is normal in size. Normal mediastinal and hilar contour. BONES AND SOFT TISSUES: No acute abnormality. IMPRESSION: No acute abnormality. WSN: [id number] Ordering Physician: Elaina Caldwell Dictated By: Sonny Mccall MD Dictated Date/Time: 09/02/22 11:11 a Reviewed By: Sonny Mccall MD Signed By: Sonny Mccall MD Signed Date/Time: 09/02/22 11:11 am Transcribed By: NEELAM Transcribed Date/Time: 09/02/22 11:10 am Vital Signs Most recent to oldest [Reference Range]: 1 2 3 Height 185 cm (09/07/22 7:34 AM) 185 cm (09/07/22 3:57 AM) 185 cm (09/06/22 11:49 PM) Weight 159.2 kg (09/02/22 10:53 AM) 159.2 kg (09/01/22 4:20 PM) Oxygen Saturation [94-100 %] 98 % (09/07/22 7:34 AM) 96 % (09/07/22 3:57 AM) 98 % (09/06/22 11:49 PM) Pulse Rate [55-90 bpm] 66 bpm (09/07/22 9:43 AM) 66 bpm (09/07/22 7:34 AM) 72 bpm (09/07/22 3:57 AM) Body Mass Index [18.5-24.99 kg/m2] 46.52 kg/m2 *>HHI* (09/02/22 10:53 AM) 46.52 kg/m2 *>HHI* (09/01/22 4:20 PM) Blood Pressure [90-138/55-84 mm Hg] 109/59mm Hg (09/07/22 9:43 AM) 109/59mm Hg (09/07/22 7:34 AM) 110/56mm Hg (09/07/22 3:57 AM) Respiratory Rate [16-30 br/min] 16 br/min (09/07/22 9:43 AM) 16 br/min (09/07/22 9:43 AM) 18 br/min (09/07/22 7:34 AM) Temperature [96.8-100.4 DegF] 97.9 DegF (09/07/22 7:34 AM) 97.9 DegF (09/07/22 3:57 AM) 98.1 DegF (09/06/22 11:49 PM) Liters per Minute 2 L/min (09/07/22 7:34 AM) 2 L/min (09/07/22 3:57 AM) 2 L/min (09/06/22 11:49 PM) Mode of Delivery (Oxygen) Nasal cannula (09/07/22 7:34 AM) Nasal cannula (09/07/22 3:57 AM) Nasal cannula (09/06/22 11:49 PM) Blood pressure sites Arm, left (09/07/22 7:34 AM) Arm, left (09/06/22 11:49 PM) Arm, left (09/06/22 8:11 PM) Temperature Route Oral (09/07/22 7:34 AM) Oral (09/07/22 3:57 AM) Oral (09/06/22 11:49 PM) Dry Weight 157.5 kg (09/01/22 4:20 PM) Weight Obtained Via Standing scale (09/01/22 4:20 PM) Dry Weight Obtained Via Patient/family s tated (09/01/22 4:20 PM) Social History Social History Type Response Smoking Status Former smoker, quit more than 30 days ago entered on: 08/21/22 Sex Portable XR Chest Views * [facility]ers[facility] , CIS S: TRANSCRIBE Sonny Mccall MD: VERIFY Event Display: Result: Authored Date: Chest Portable Reason: Fever; Clinical Question(s): Pneumonia COMPARISON: 03/14/2016 FINDINGS: LINES AND TUBES: None. LUNGS AND PLEURA: Clear lungs. Normal pulmonary vascularity. No pleural effusion. No pneumothorax. HEART, MEDIASTINUM AND DIRK: Heart is normal in size. Normal mediastinal and hilar contour. BONES AND SOFT TISSUES: No acute abnormality. IMPRESSION: No acute abnormality. WSN: [id number] Ordering Physician: Elaina Caldwell Dictated By: Sonny Mccall MD Dictated Date/Time: 09/02/22 11:11 a Reviewed By: Sonny Mccall MD Signed By: Sonny Mccall MD Signed Date/Time: 09/02/22 11:11 am Transcribed By: NEELAM Transcribed Date/Time: 09/02/22 11:10 am Patient Care team information Personnel Name: Cori Ugalde DO Address: Address: [address] [place] [id number]
--- OUTSIDE RECORDS SUMMARY | 2023-04-10 07:33 | XMS_ITS | Continuity of Care Document ---
Author Name Unknown Organization [facility] Address [address] [place] [address]- Care Team Providers Care Carpet Measurer Name Role Phone Cori Ugalde DO Primary Care Physician Encounter [facility] Date(s): 10/27/22 - 11/26/[address] [address]- Allergies, Adverse Reactions, Alerts No Known Allergies [...] [11/21/2018] pt was given immunization at [address] SHINGRIX VIAL KIT 3Location History: [facility] [...] 09/28/22 11:07:00 EST, Route to Pharmacy Electronically, [facility] #[id number], Partial fill upon patient request if the [...] Refills, Maintenance, 07/17/22 11:58:00 EDT, EC Tablet, [facility] #[id number], 186, cm, 05/24/22 15:33:00 EDT, Height, 160,kg, [...] Refills, Maintenance, 04/03/22 13:28:00 EDT, ER Tablet, [facility] #[id number], 186, cm, 02/02/22 13:39:00 EDT, Height, 160, kg, 01/19/22 12:45:00 EST, Dry We... Start Date: 04/03/22 Stop Date: 08/01/22 Status: Ordered Lasix 80 mg oral tablet 80 mg, 1, tablet, By Mouth, Daily, # 30 tablet, Refills 3, Tot. Refills 3, Maintenance, 04/03/22 13:27:00 EDT, Route to Pharmacy Electronically, [facility] #[id number], Partial fill upon patientrequest if the prescription is for a schedule II op... Start Date: 04/03/22 Status: Ordered losartan 100 mg oral tablet 1 tablet, By Mouth, Daily, DISCONTINUE COMBO HCTZ-LOSARTAN PRESCRIPTION, # 90 tablet, 4 Refills, [facility] #[id number], 186, cm, 02/02/22 13:39:00 EDT, Height, 160, [...] Start Date: 09/28/22 Status: Ordered nystatin topical 690860 u/gm powder 1 application, Topically, 2 times a day, apply to irritated skin/rash of both groins/pubic areas, #60 Gm, 0 Refills, Maintenance, 10/25/22 11:36:00 EST, Powder, [facility] #[id number], Partial fill upon patient request if the [...] mL, 2 Refills, Maintenance, 10/14/22 12:35:00 EST, [facility] #[id number], Partial fill upon patient request if the [...] 1 Refills, Maintenance, 07/17/22 10:04:00 EDT, Tablet, [facility] #[id number], Partial fill upon patient request, 186, cm, [...] 5 Refills, Maintenance, 10/06/22 13:01:00 EST, Aerosol, [facility] #[id number], 185.5, cm, 09/28/22 10:37:00 EST, Height, 154.4, [...] Team Personnel Name: Pam Killian RN Position: [facility] RN Member Role: Primary Care Nurse Name: Cori Ugalde DO Position: [facility] Primary Care Physician Member Role: PCP Address: Address: [address] [place] [id number] Name: Mila Omer RN Position: [facility] RN Member Role: Primary Care Nurse Care Team Related Persons Name: CANDY PRETTY Name: DEVAN PRETTY Address: [address] [address] Name: SHERWIN PRETTY Address: [place] [address] Name: ISRAEL ALEGRIA
--- OUTSIDE RECORDS SUMMARY | 2023-04-10 07:34 | XMS_ITS | Continuity of Care Document ---
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 SHINGRIX VIAL KIT 2Location History: [employer] [facility] Medications Meena-Reva Plus Cold and Cough By Mouth, Every [...] 0 Refills, Maintenance, 218:11:00 EST, EC Tablet, [facility] #[id number], 185, cm, 11/23/20 8:07:00 EST, Height, 183.3, kg, 11/23/20 8:36:00 EST, Dry Weight Start Date: 12/15/20 Stop Date: 01/14/21 Status: Ordered gabapentin 300 mg oral capsule 300 mg, 1, capsule, By Mouth, 3 times a day, # 90 capsule, Refills 2, Tot. Refills 2, Maintenance, 11/02/20 17:35:00 EST, Route to Pharmacy Electronically, [facility] #[id number], 185, cm, 07/22/20 22:18:00 EDT, Height, 180, [...] Refills, Maintenance, 10/01/20 7:33:00 EST, ER Tablet, [facility] #98442, 185, cm, 07/22/20 22:18:00 EDT, Height, 180, [...] 3 Refills, Maintenance, 01/19/20 9:18:00 EDT, Tablet, [facility] #[id number], 186, cm, 01/19/20 9:14:00 EDT, Height Start [...] 3 Refills, Maintenance, 10/04/20 10:57:00 EST, Tablet, [facility] #95843, Partial fill upon patient request, 185, cm, [...] 5 Refills, Maintenance, 12/25/19 13:42:00 EST, Aerosol, [facility] #[id number], 186, cm, 10/07/19 9:17:00 EST, Height Start [...]
--- OUTSIDE RECORDS SUMMARY | 2023-04-10 07:34 | XMS_ITS | Continuity of Care Document ---
Author Name Unknown Organization [facility] ter Address [address] [place] [id number]- Care Team Providers Care Physical Medicine Physician Name Role Phone Cori Ugalde DO Primary Care Physician [facility]counter [facility] Date(s): 09/06/22 - 10/06/[address] [address]- Attending Physician: Not on Staff, Attending MD Admitting Physician: Not on Staff, Admitting MD Referring Physician: Not on Staff, Referring MD Allergies, Adverse Reactions, Alerts No Known [...] [11/21/2018] pt was given immunization at [address] SHINGRIX VIAL KIT 2Location History: [facility] Medications acetaminophen 325 mg oral tablet Refills [...] 09/28/22 11:07:00 EST, Route to Pharmacy Electronically, [facility] #[id number], Partial fill upon patient request if the [...] Refills, Maintenance, 07/17/22 11:58:00 EDT, EC Tablet, [facility] #[id number], 186, cm, 05/24/22 15:33:00 EDT, Height, 160,kg, [...] Refills, Maintenance, 04/03/22 13:28:00 EDT, ER Tablet, [facility] #[id number], 186, cm, 02/02/22 13:39:00 EDT, Height, 160, kg, 01/19/22 12:45:00 EST, Dry We... Start Date: 04/03/22 Stop Date: 08/01/22 Status: Ordered Lasix 80 mg oral tablet 80 mg, 1, tablet, By Mouth, Daily, # 30 tablet, Refills 3, Tot. Refills 3, Maintenance, 04/03/22 13:27:00 EDT, Route to Pharmacy Electronically, [facility] #[id number], Partial fill upon patientrequest if the prescription is for a schedule II op... Start Date: 04/03/22 Status: Ordered losartan 100 mg oral tablet 1 tablet, By Mouth, Daily, DISCONTINUE COMBO HCTZ-LOSARTAN PRESCRIPTION, # 90 tablet, 4 Refills, [facility] #[id number], 186, cm, 02/02/22 13:39:00 EDT, Height, 160, [...] mL, 3 Refills, Maintenance, 05/25/22 15:50:00 EDT, [facility] #[id number], Partial fill upon patient request if the [...] 1 Refills, Maintenance, 07/17/22 10:04:00 EDT, Tablet, [facility] #[id number], Partial fill upon patient request, 186, cm, [...] 5 Refills, Maintenance, 10/06/22 13:01:00 EST, Aerosol, [facility] #[id number], 185.5, cm, 09/28/22 10:37:00 EST, Height, 154.4, [...] stated he recieved both vaccines at the [facility] on 01/05/21 and 02/02/21 2Dexa 08/2020 Social History Social History Type Response Smoking Status Former smoker, quit more than 30 days ago entered on: 08/21/22 Sex Patient Care team information Care Team Personnel Name: Pam Killian RN Position: [facility] RN Member Role: Primary Care Nurse Name: Cori Ugalde DO Position: [facility] Primary Care Physician Member Role: PCP Address: Address: [address] [place] [id number] Name: Mila Omer RN Position: [facility] RN Member Role: Primary Care Nurse Care Team Related Persons Name: CANDY PRETTY Name: DEVAN PRETTY Address: home [address] [place] [id number] Name: SHERWIN PRETTY Address: [place] [address] Name: ISRAEL ALEGRIA
--- OUTSIDE RECORDS SUMMARY | 2023-04-10 07:34 | XMS_ITS | Continuity of Care Document ---
Author Name Unknown Organization [facility] Address [address] [place] [address]- Care Team Providers Care Reed Dipper Name Role Phone Cori Ugalde DO Primary Care Physician [facility]counter [facility] Date(s): 05/31/20 - 06/30/20 [facility] [address] [place] [address]- [facility] Allergies, Adverse Reactions, Alerts Substance [...] [11/21/2018] pt was given immunization at [address] SHINGRIX VIAL KIT 2Location History: [facility] Medications aspirin buffered 81 mg oral tablet [...] 5 Refills, Maintenance, 01/06/20 10:56:00 EST, Gel, [facility] #[id number], 186, cm, 10/07/19 9:17:00 EST, Height Start Date: 01/06/20 Stop Date: 07/04/20 Status: Ordered diclofenac sodium 75 mg oral delayed release tablet 1 tablet = 75 mg, By Mouth, 2 times a day, with food, # 60 tablet, 3 Refills, Maintenance, 209:21:00 EDT, EC Tablet, [facility] #[id number], 186, cm, 01/19/20 9:14:00 EDT, Height Start Date: 04/06/20 Stop Date: 08/04/20 Status: Ordered gabapentin 300 mg oral capsule 300 mg, 1, capsule, By Mouth, 3 times a day, # 90 capsule, Refills 5, Tot. Refills 5, Maintenance, 04/20/20 17:38:00 EDT, Route to Pharmacy Electronically, [facility] #[id number], 186, cm, 01/19/20 9:14:00 EDT, Height Start Date: 04/20/20 Stop Date: 10/17/20 Status: Ordered Klor-Con M20 20 mEq oral tablet, extended release 3 tablets, By Mouth, 2 times a day, Take 3 tablet in am and 3 tablets in pm do not crush or chew, #90 tablet, 5 Refills, Maintenance, 05/31/20 17:51:00 EDT, ER Tablet, [facility] #[id number], 186, cm, 01/19/20 9:14:00 EDT, Height Start [...] 3 Refills, Maintenance, 01/19/20 9:18:00 EDT, Tablet, [facility] #[id number], 186, cm, 01/19/20 9:14:00 EDT, Height Start [...] 5 Refills, Maintenance, 12/25/19 13:42:00 EST, Aerosol, [facility] #[id number], 186, cm, 10/07/19 9:17:00 EST, Height Start [...]
--- OUTSIDE RECORDS SUMMARY | 2023-04-10 07:34 | XMS_ITS | Continuity of Care Document ---
Author Name Unknown Organization [facility] Address [address] [place] [address]- Care Team Providers Care Ship Cleaner Name Role Phone Cori Ugalde DO Primary Care Physician [facility] Date[facility]s): 07/05/21 - 08/04/21 [facility] [address] [place] [address]- Allergies, Adverse Reactions, Alerts Substance Reaction Severity [...] Comment: [11/21/2018] pt was given immunization at [address] SHINGRIX VIAL KIT 2Location History: [facility] Medications Meena-Sheridan Plus Cold and Cough By Mouth, Every [...] Refills, Maintenance, 10/01/20 7:33:00 EST, ER Tablet, [facility] #[id number], 185, cm, 07/22/20 22:18:00 EDT, Height, 180, [...] 3 Refills, Maintenance, 12/24/20 10:15:00 EST, Tablet, [facility] #[id number], 185, cm, 12/24/20 9:35:00 EST, Height,183.3, kg, [...] 3 Refills, Maintenance, 12/24/20 10:16:00 EST, Tablet, [facility] #[id number], Partial fill upon patient request, 185, cm, [...] 5 Refills, Maintenance, 01/17/21 9:47:00 EST, Aerosol, [facility] #[id number], 185, cm, 12/24/20 9:35:00 EST, Height, 183.3, [...]
--- OUTSIDE RECORDS SUMMARY | 2023-04-10 07:34 | XMS_ITS | Continuity of Care Document ---
Author Name Unknown Organization [facility] Address [address] [place] [address]- Care Team Providers Care Record Press Tender Name Role Phone Cori Ugalde DO Primary Care Physician [facility]counter [facility] Date(s): 11/16/20 - 12/16/20 [facility] [address], [place] [address] Allergies, Adverse Reactions, Alerts Substance Reaction Severity Status NKA Active Immunizations Given and Recorded Vaccine Date Status Refusal Reason influenza virus vaccine, inactivated 10/07/19 Give n influenza virus vaccine, inactivated 10/08/14 [place] rded Miscellaneous Vaccine 1 11/21/18 Given Zoster Vaccine Live 03/13/17 Recorded Zoster Vaccine Live 2 03/18/12 Recorded tetanus/diphtheria/pertussis, acel(Tdap) 06/21/16 Recorded 1Result Comment: [11/21/2018] pt was given immunization at [address] SHINGRIX VIAL KIT 2Location History: [facility] Medications Meena-Nyssa Plus Cold and Cough By Mouth, Every [...] 0 Refills, Maintenance, 218:11:00 EST, EC Tablet, [facility] #[id number], 185, cm, 11/23/20 8:07:00 EST, Height, 183.3, kg, 11/23/20 8:36:00 EST, Dry Weight Start Date: 12/15/20 Stop Date: 01/14/21 Status: Ordered gabapentin 300 mg oral capsule 300 mg, 1, capsule, By Mouth, 3 times a day, # 90 capsule, Refills 2, Tot. Refills 2, Maintenance, 11/02/20 17:35:00 EST, Route to Pharmacy Electronically, [facility] #[id number], 185, cm, 07/22/20 22:18:00 EDT, Height, 180, [...] Refills, Maintenance, 10/01/20 7:33:00 EST, ER Tablet, [facility] #[id number], 185, cm, 07/22/20 22:18:00 EDT, Height, 180, [...] 3 Refills, Maintenance, 01/19/20 9:18:00 EDT, Tablet, [facility] #[id number], 186, cm, 01/19/20 9:14:00 EDT, Height Start [...] 3 Refills, Maintenance, 10/04/20 10:57:00 EST, Tablet, [facility] #[id number], Partial fill upon patient request, 185, cm, 07/22/20 22:18:00 EDT, Height, 180, kg, 07/22/20 2... Start Date: 10/04/20 Stop Date: 09/29/21 Status: Ordered Shower Bench See Instructions, # 1 each, Refills 0, Tot. Refills 0, Maintenance, Dx: Sandi Mikiereina, 12/20/1709:53:07, Compound Start Date: 12/20/16 Status: Ordered Ventolin HFA 108 mcg/inh inhalation aerosol with adapter 1 puffs, Inhalation, 4 times a day, PRN for wheezing, # 1 each, 5 Refills, Maintenance, 12/25/19 13:42:00 EST, Aerosol, [facility] #[id number], 186, cm, 10/07/19 9:17:00 EST, Height Start [...]
--- OUTSIDE RECORDS SUMMARY | 2023-04-10 07:34 | XMS_ITS | Continuity of Care Document ---
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 Lathe Operator Name Role Phone Cori Ugalde DO Primary Care Physician [facility] Date[facility] 07[facility]22 - 08/13/22 [facility] [address] [place] [address]- Allergies, Adverse Reactions, Alerts No Known Allergies Immunizations Given and Recorded Vaccine Date Status Refusal Reason influenza virus vaccine, inactivated 10/07/19 Give n influenza virus vaccine, inactivated 10/08/14 Colton rded Miscellaneous Vaccine 1 11/21/18 Given zoster vaccine, inactivated 10/26/18 Recorded Zoster Vaccine Live 03/13/17 Recorded Zoster Vaccine Live 2 03/18/12 Recorded tetanus/diphtheria/pertussis, acel(Tdap) 06/21/16 Recorded 1Result Comment: [11/21/2018] pt was given immunization at [address] SHINGRIX VIAL KIT 2Location History: [facility] Medications Meena-[place] Plus Cold and Cough By Mouth, Every [...] Refills, Maintenance, 07/17/22 11:58:00 EDT, EC Tablet, [facility] #[id number], 186, cm, 05/24/22 15:33:00 EDT, Height, 160,kg, [...] Refills, Maintenance, 04/03/22 13:28:00 EDT, ER Tablet, [facility] #[id number], 186, cm, 02/02/22 13:39:00 EDT, Height, 160, kg, 01/19/22 12:45:00 EST, Dry We... Start Date: 04/03/22 Stop Date: 08/01/22 Status: Ordered Lasix 80 mg oral tablet 80 mg, 1, tablet, By Mouth, Daily, # 30 tablet, Refills 3, Tot. Refills 3, Maintenance, 04/03/22 13:27:00 EDT, Route to Pharmacy Electronically, [facility] #[id number], Partial fill upon patientrequest if the prescription is for a schedule II op... Start Date: 04/03/22 Status: Ordered losartan 100 mg oral tablet 1 tablet, By Mouth, Daily, DISCONTINUE COMBO HCTZ-LOSARTAN PRESCRIPTION, # 90 tablet, 4 Refills, [facility] #[id number], 186, cm, 02/02/22 13:39:00 EDT, Height, 160, [...] mL, 3 Refills, Maintenance, 05/25/22 15:50:00 EDT, [facility] #[id number], Partial fill upon patient request if the [...] 1 Refills, Maintenance, 07/17/22 10:04:00 EDT, Tablet, [facility] #[id number], Partial fill upon patient request, 186, cm, [...] 5 Refills, Maintenance, 01/17/21 9:47:00 EST, Aerosol, [facility] #[id number], 185, cm, 12/24/20 9:35:00 EST, Height, 183.3, [...] Personnel Name: Cori Ugalde DO Address: Address: [address] [place] [address]
--- OUTSIDE RECORDS SUMMARY | 2023-04-10 07:34 | XMS_ITS | Continuity of Care Document ---
Author Name Unknown Organization [facility] Address [address] [place] [address]- Care Team Providers Care Senior Reliability Engineer Name Role Phone Cori Ugalde DO Primary Care Physician [facility] 02/15/22 - 03/17/22 [facility] [address] [place] [address]- Allergies, Adverse Reactions, Alerts No Known Allergies Immunizations Given and Recorded Vaccine Date Status Refusal Reason influenza virus vaccine, inactivated 10/07/19 Give n influenza virus vaccine, inactivated 10/08/14 Colton rded Miscellaneous Vaccine 1 11/21/18 Given zoster vaccine, inactivated 10/26/18 Recorded Zoster Vaccine Live 03/13/17 Recorded Zoster Vaccine Live 2 03/18/12 Recorded tetanus/diphtheria/pertussis, acel(Tdap) 06/21/16 Recorded 1Result Comment: [11/21/2018] pt was given immunization at [address] SHINGRIX VIAL KIT 2Location History: [facility] Medications Meena-[place] Plus Cold and Cough By Mouth, Every [...] Refills, Maintenance, 01/05/22 14:08:00 EST, EC Tablet, [facility] #[id number], 185.42, cm, 12/29/21 15:01:00 EST, Height, 166, [...] Refills, Maintenance, 10/01/20 7:33:00 EST, ER Tablet, [facility] #[id number], 185, cm, 07/22/20 22:18:00 EDT, Height, 180, [...] 1 Refills, Maintenance, 02/15/22 15:52:00 EDT, Tablet, [facility] #[id number], 186, cm, 02/02/22 13:39:00 EDT, Height, 160, [...] mL, 2 Refills, Maintenance, 01/19/22 19:25:00 EST, [facility] #[id number], Partial fill upon patient request if the [...] 1 Refills, Maintenance, 01/05/22 12:30:00 EST, Tablet, [facility] #[id number], Partial fill upon patient request, 185.42,cm, 12/29/21 [...] 5 Refills, Maintenance, 01/17/21 9:47:00 EST, Aerosol, [facility] #[id number], 185, cm, 12/24/20 9:35:00 EST, Height, 183.3, [...]
--- OUTSIDE RECORDS SUMMARY | 2023-04-10 07:34 | XMS_ITS | Continuity of Care Document ---
Author Name Unknown Organization [facility] Address [address] [place] [address]- Care Team Providers Care Division Operations Manager Name Role Phone Cori Ugalde DO Primary Care Physician [place] [facility] [place] - 01/14/[address] [address]- Attending Physician: Murtaza Raya Admitting Physician: AdmMurtaza [...] Comment: [11/21/2018] pt was given immunization at [address] SHINGRIX VIAL KIT 3Location History: [facility] [...] 11/27/22 15:22:00 EST, Route to Pharmacy Electronically, [facility] #[id number], Partial fill upon patient request if the [...] Refills, Maintenance, 12/04/22 9:17:00 EST, EC Tablet, [facility] #[id number], 185.5, cm, 11/24/22 11:51:00 EST, Height, 154.4, kg, 09/09/22 15:50:00 EDT, Dry Weight Start Date: 12/04/22 Stop Date: 03/04/23 Status: Ordered gabapentin 300 mg oral capsule 600 mg, 2, capsule, By Mouth, 3 times a day, # 540 capsule, Refills 3, Tot. Refills 3, Maintenance,01/10/23 15:46:00 EST, Route to Pharmacy Electronically, [facility] #[id number], 185.5, cm, 11/24/22 11:51:00 EST, Height, 154.4, [...] Refills, Maintenance, 04/03/22 13:28:00 EDT, ER Tablet, [facility] #[id number], 186, cm, 02/02/22 13:39:00 EDT, Height, 160, kg, 01/19/22 12:45:00 EST, Dry We... Start Date: 04/03/22 Stop Date: 08/01/22 Status: Ordered Lasix 80 mg oral tablet 80 mg, 1, tablet, By Mouth, Daily, # 30 tablet, Refills 3, Tot. Refills 3, Maintenance, 04/03/22 13:27:00 EDT, Route to Pharmacy Electronically, [facility] #[id number], Partial fill upon patientrequest if the prescription is for a schedule II op... Start Date: 04/03/22 Status: Ordered losartan 100 mg oral tablet 1 tablet, By Mouth, Daily, DISCONTINUE COMBO HCTZ-LOSARTAN PRESCRIPTION, # 90 tablet, 4 Refills, [facility] #[id number], 186, cm, 02/02/22 13:39:00 EDT, Height, 160, [...] Start Date: 09/28/22 Status: Ordered nystatin topical 062763 u/gm powder 1 application, Topically, 2 times a day, apply to irritated skin/rash of both groins/pubic areas, #60 Gm, 0 Refills, Maintenance, 10/25/22 11:36:00 EST, Powder, [facility] #[id number], Partial fill upon patient request if the [...] mL, 2 Refills, Maintenance, 10/14/22 12:35:00 EST, [facility] #[id number], Partial fill upon patient request if the [...] 1 Refills, Maintenance, 07/17/22 10:04:00 EDT, Tablet, [facility] #[id number], Partial fill upon patient request, 186, cm, [...] 5 Refills, Maintenance, 10/06/22 13:01:00 EST, Aerosol, [facility] #[id number], 185.5, cm, 09/28/22 10:37:00 EST, Height, 154.4, [...] Team Personnel Name: Pam Killian RN Position: [facility] RN Member Role: Primary Care Nurse Name: Cori Ugalde DO Position: [facility] Primary Care Physician Member Role: PCP Address: Address: [address] [place] [id number]- Name: Mila Omer RN Position: [facility] RN Member Role: Primary Care Nurse Care Team Related Persons Name: CANDY PRETTY Name: DEVAN PRETTY Address: [address] [address] Name: SHERWIN PRETTY Address: [place] [address] Name: ISRAEL ALEGRIA
--- OUTSIDE RECORDS SUMMARY | 2023-04-10 07:34 | XMS_ITS | Continuity of Care Document ---
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 Name Role Phone Cori Ugalde DO Primary Care Physician Encounter [facility] [place] [place] Date(s): 01/04/21 - 02/03/21 [facility] [address] [place] [address]- Allergies, Adverse Reactions, Alerts Substance Reaction Severity Status NKA Active Immunizations Given and Recorded Vaccine Date Status Refusal Reason influenza virus vaccine, inactivated 10/07/19 Give n influenza virus vaccine, inactivated 10/08/14 Colton rded Miscellaneous Vaccine 1 11/21/18 Given Zoster Vaccine Live 03/13/17 Recorded Zoster Vaccine Live 2 03/18/12 Recorded tetanus/diphtheria/pertussis, acel(Tdap) 06/21/16 Recorded 1Result Comment: [11/21/2018] pt was given immunization at [address] SHINGRIX VIAL KIT 2Location History: [facility] Medications Meena-[place] Plus Cold and Cough By Mouth, Every [...] Refills, Maintenance, 12/24/20 10:15:00 EST, EC Tablet, [facility] #[id number], 185, cm, 12/24/20 9:35:00 EST, Height, 183.3, kg, 11/23/20 8:36:00 EST, Dry Weight Start Date: 12/24/20 Stop Date: 12/19/21 Status: Ordered gabapentin 300 mg oral capsule 300 mg, 1, capsule, By Mouth, 3 times a day, # 270 capsule, Refills 3, Tot. Refills 3, Maintenance,12/24/20 10:15:00 EST, Route to Pharmacy Electronically, [facility] #[id number], 185, cm, 12/24/20 9:35:00 EST, Height, 183.3, [...] Refills, Maintenance, 10/01/20 7:33:00 EST, ER Tablet, [facility] #[id number], 185, cm, 07/22/20 22:18:00 EDT, Height, 180, [...] 3 Refills, Maintenance, 12/24/20 10:15:00 EST, Tablet, [facility] #[id number], 185, cm, 12/24/20 9:35:00 EST, Height,183.3, kg, [...] 3 Refills, Maintenance, 12/24/20 10:16:00 EST, Tablet, [facility] #[id number], Partial fill upon patient request, 185, cm, [...] 5 Refills, Maintenance, 01/17/21 9:47:00 EST, Aerosol, [facility] #[id number], 185, cm, 12/24/20 9:35:00 EST, Height, 183.3, [...]
--- OUTSIDE RECORDS SUMMARY | 2023-04-10 07:34 | XMS_ITS | Continuity of Care Document ---
Author Name Unknown Organization [facility] Address [address] [place] [address]- Care Team Providers Care Construction Services Technician Name Role Phone Cori Ugalde DO Primary Care Physician Encounter [facility] [place] Date(s): 05/16/22 - 09/13/22 [facility] [address] [address]- Attending Physician: Davy GOMEZ, Talia Pinon Admitting Physician: Talia Bhatti MD Referring Physician: Cori Ugalde DO Allergies, [...] Comment: [11/21/2018] pt was given immunization at [address] SHINGRIX VIAL KIT 2Location History: [facility] Medications acetaminophen 325 mg oral tablet 975 mg, 3, tablet, By Mouth, Every 6 hours, for 10 days, # 120 tablet, Refills 0, Tot. Refills 0, Acute 09/16/22 10:24:00 EDT, 09/06/22 10:24:00 EDT, Route to Pharmacy Electronically, [facility] #[id number], Partial fill upon patient request if t... [...] 09/06/22 10:25:00 EDT, Route to Pharmacy Electronically, [facility] #[id number], Partial fill upon patient request if the [...] Refills, Maintenance, 07/17/22 11:58:00 EDT, EC Tablet, [facility] #39900, 186, cm, 05/24/22 15:33:00 EDT, Height, 160,kg, 01/19/22 12:45:00 EST, Dry Weight Start Date: 07/17/22 Stop Date: 01/13/23 Status: Ordered Dilaudid 2 mg oral tablet 1 tablet = 2 mg, By Mouth, Every Sunday, Sunday and Sunday, PRN Pain , Severe, for 7 days, during wound vacuum change, # 7 tablet, 0 Refills, Acute 09/19/22 11:06:00 EST, 09/12/22 11:06:00 EDT, Tablet, [facility] #[id number], Partial fill upon... Start Date: 09/12/22 Stop [...] Refills, Maintenance, 04/03/22 13:28:00 EDT, ER Tablet, [facility] #[id number], 186, cm, 02/02/22 13:39:00 EDT, Height, 160, kg, 01/19/22 12:45:00 EST, Dry We... Start Date: 04/03/22 Stop Date: 08/01/22 Status: Ordered Lasix 80 mg oral tablet 80 mg, 1, tablet, By Mouth, Daily, # 30 tablet, Refills 3, Tot. Refills 3, Maintenance, 04/03/22 13:27:00 EDT, Route to Pharmacy Electronically, [facility] #[id number], Partial fill upon patientrequest if the prescription is for a schedule II op... Start Date: 04/03/22 Status: Ordered linezolid 600 mg oral tablet 1 tablet = 600 mg, By Mouth, Every 12 hours, for 14 days, # 28 tablet, 0 Refills, Acute 09/20/22 10:24:00 EST, 09/06/22 10:24:00 EDT, Tablet, [facility] #44779, Partial fill upon patient request if the prescription is for a schedule II opioi... Start Date: 09/06/22 Stop Date: 09/20/22 Status: Ordered losartan 100 mg oral tablet 1 tablet, By Mouth, Daily, DISCONTINUE COMBO HCTZ-LOSARTAN PRESCRIPTION, # 90 tablet, 4 Refills, [facility] #12643, 186, cm, 02/02/22 13:39:00 EDT, Height, 160, [...] 09/15/22 11:05:00 EDT, Route to Pharmacy Electronically, [facility] #[id number], Partial fill upon... Start Date: 09/15/22 Stop Date: 09/18/22 Status: Ordered Ozempic (1 mg dose) 4 mg/3 mL subcutaneous solution = 1 mg, Subcutaneous Infusion, Every Sunday, # 3 mL, 3 Refills, Maintenance, 05/25/22 15:50:00 EDT, [facility] #12259, Partial fill upon patient request if the [...] 1 Refills, Maintenance, 07/17/22 10:04:00 EDT, Tablet, [facility] #[id number], Partial fill upon patient request, 186, cm, [...] 5 Refills, Maintenance, 01/17/21 9:47:00 EST, Aerosol, [facility] #[id number], 185, cm, 12/24/20 9:35:00 EST, Height, 183.3, [...] Personnel Name: Cori Ugalde DO Address: Address: [address] [place] [address]
--- OUTSIDE RECORDS SUMMARY | 2023-04-10 07:34 | XMS_ITS | Continuity of Care Document ---
Author Name Unknown Organization [facility] Address [address] [place] [address]- Care Team Providers Care Assisted Living Home Director Name Role Phone Cori Ugalde DO Primary Care Physician [facility]): 10/10/21 - 11/09/21 [facility] [address] [place], [place] [address] Allergies, Adverse Reactions, Alerts [...] [11/21/2018] pt was given immunization at [address] SHINGRIX VIAL KIT 2Location History: [facility] Medications Meena-[place] Plus Cold and Cough By Mouth, Every [...] Refills, Maintenance, 10/01/20 7:33:00 EST, ER Tablet, [facility] #[id number], 185, cm, 07/22/20 22:18:00 EDT, Height, 180, [...] 3 Refills, Maintenance, 12/24/20 10:15:00 EST, Tablet, [facility] #[id number], 185, cm, 12/24/20 9:35:00 EST, Height,183.3, kg, [...] 3 Refills, Maintenance, 12/24/20 10:16:00 EST, Tablet, [facility] #[id number], Partial fill upon patient request, 185, cm, [...] 5 Refills, Maintenance, 01/17/21 9:47:00 EST, Aerosol, [facility] #[id number], 185, cm, 12/24/20 9:35:00 EST, Height, 183.3, [...]
--- OUTSIDE RECORDS SUMMARY | 2023-04-10 07:34 | XMS_ITS | Continuity of Care Document ---
Author Name Unknown Organization [facility] Address [address] [place] [address]- Care Team Providers Care Drywall Sprayer Name Role Phone Cori Ugalde DO Primary Care Physician [facility] Date[facility]s): 08/19/21 - 09/18/21 [facility] [address] [place] [id number]- Allergies, Adverse Reactions, Alerts Substance Reaction Severity [...] Comment: [11/21/2018] pt was given immunization at [address] SHINGRIX VIAL KIT 2Location History: [employer] [facility] [employer] Medications Meena-[place] Plus Cold and Cough By Mouth, Every [...] Refills, Maintenance, 10/01/20 7:33:00 EST, ER Tablet, [facility] #[id number], 185, cm, 07/22/20 22:18:00 EDT, Height, 180, [...] 3 Refills, Maintenance, 12/24/20 10:15:00 EST, Tablet, [facility] #86113, 185, cm, 12/24/20 9:35:00 EST, Height,183.3, kg, [...] 3 Refills, Maintenance, 12/24/20 10:16:00 EST, Tablet, [facility] #[id number], Partial fill upon patient request, 185, cm, [...] 5 Refills, Maintenance, 01/17/21 9:47:00 EST, Aerosol, [facility] #[id number], 185, cm, 12/24/20 9:35:00 EST, Height, 183.3, [...] stated he recieved both vaccines at the [facility] on 01/05/21 and 02/02/21 2Dexa 08/2020 Social History Social History Type Response Smoking Status Former smoker; Type: Cigarettes; Tobacco use times per day: 1-2 ppd for 30 years; Number of years: 28; Started at age: 20; Stopped at age: 48; entered on: 05/22/17 Sex Male
--- OUTSIDE RECORDS SUMMARY | 2023-04-10 07:34 | XMS_ITS | Continuity of Care Document ---
Author Name Unknown Organization [facility] Address [address] [place] [address]- Care Team Providers Care Dirt Shoveler Name Role Phone Cori Ugalde DO Primary Care Physician [facility] Date[facility]s): 03/21/21 - 04/20/21 [facility] [address] [place] [phone]- Allergies, Adverse Reactions, Alerts Substance Reaction Severity Status NKA Active Immunizations Given and Recorded Vaccine Date Status Refusal Reason influenza virus vaccine, inactivated 10/07/19 Give n influenza virus vaccine, inactivated 10/08/14 Colton rded Miscellaneous Vaccine 1 11/21/18 Given Zoster Vaccine Live 03/13/17 Recorded Zoster Vaccine Live 2 03/18/12 Recorded tetanus/diphtheria/pertussis, acel(Tdap) 06/21/16 Recorded 1Result Comment: [11/21/2018] pt was given immunization at [address] SHINGRIX VIAL KIT 2Location History: [facility] Medications Meena-[place] Plus Cold and Cough By Mouth, Every [...] Refills, Maintenance, 12/24/20 10:15:00 EST, EC Tablet, [facility] #[id number], 185, cm, 12/24/20 9:35:00 EST, Height, 183.3, kg, 11/23/20 8:36:00 EST, Dry Weight Start Date: 12/24/20 Stop Date: 12/19/21 Status: Ordered gabapentin 300 mg oral capsule 300 mg, 1, capsule, By Mouth, 3 times a day, # 270 capsule, Refills 3, Tot. Refills 3, Maintenance,12/24/20 10:15:00 EST, Route to Pharmacy Electronically, [facility] #[id number], 185, cm, 12/24/20 9:35:00 EST, Height, 183.3, [...] Refills, Maintenance, 10/01/20 7:33:00 EST, ER Tablet, [facility] #[id number], 185, cm, 07/22/20 22:18:00 EDT, Height, 180, [...] 3 Refills, Maintenance, 12/24/20 10:15:00 EST, Tablet, [facility] #[id number], 185, cm, 12/24/20 9:35:00 EST, Height,183.3, kg, [...] 3 Refills, Maintenance, 12/24/20 10:16:00 EST, Tablet, [facility] #06346, Partial fill upon patient request, 185, cm, [...] 5 Refills, Maintenance, 01/17/21 9:47:00 EST, Aerosol, [facility] #[id number], 185, cm, 12/24/20 9:35:00 EST, Height, 183.3, [...]
--- OUTSIDE RECORDS SUMMARY | 2023-04-10 07:34 | XMS_ITS | Continuity of Care Document ---
Author Name Unknown Organization [facility] Address [address] [place] [address]- Care Team Providers Care Sanitation Supervisor Name Role Phone Cori Ugalde DO Primary Care Physician Encounter [facility] [place] Date(s): 10/25/22 - 11/01/22 [facility] [address] [place], [place] [address] Attending Physician: Irineo GOTTI, Naty Xavier Admitting Physician: Naty Cabello NP Allergies, Adverse Reactions, Alerts No Known Allergies [...] Comment: [11/21/2018] pt was given immunization at [address] SHINGRIX VIAL KIT 2Location History: [facility] Medications acetaminophen 325 mg oral tablet Refills 0, Maintenance, 11/15/22 11:34:00 EST, Partial fill upon patient request [...] 09/28/22 11:07:00 EST, Route to Pharmacy Electronically, [facility] #[id number], Partial fill upon patient request if the [...] Refills, Maintenance, 07/17/22 11:58:00 EDT, EC Tablet, [facility] #[id number], 186, cm, 05/24/22 15:33:00 EDT, Height, 160,kg, [...] Refills, Maintenance, 04/03/22 13:28:00 EDT, ER Tablet, [facility] #[id number], 186, cm, 02/02/22 13:39:00 EDT, Height, 160, kg, 01/19/22 12:45:00 EST, Dry We... Start Date: 04/03/22 Stop Date: 08/01/22 Status: Ordered Lasix 80 mg oral tablet 80 mg, 1, tablet, By Mouth, Daily, # 30 tablet, Refills 3, Tot. Refills 3, Maintenance, 04/03/22 13:27:00 EDT, Route to Pharmacy Electronically, [facility] #[id number], Partial fill upon patientrequest if the prescription is for a schedule II op... Start Date: 04/03/22 Status: Ordered losartan 100 mg oral tablet 1 tablet, By Mouth, Daily, DISCONTINUE COMBO HCTZ-LOSARTAN PRESCRIPTION, # 90 tablet, 4 Refills, [facility] #[id number], 186, cm, 02/02/22 13:39:00 EDT, Height, 160, [...] Start Date: 09/28/22 Status: Ordered nystatin topical 660944 u/gm powder 1 application, Topically, 2 times a day, apply to irritated skin/rash of both groins/pubic areas, #60 Gm, 0 Refills, Maintenance, 10/25/22 11:36:00 EST, Powder, [facility] #[id number], Partial fill upon patient request if the [...] mL, 2 Refills, Maintenance, 10/14/22 12:35:00 EST, [facility] #[id number], Partial fill upon patient request if the [...] 1 Refills, Maintenance, 07/17/22 10:04:00 EDT, Tablet, [facility] #[id number], Partial fill upon patient request, 186, cm, [...] 5 Refills, Maintenance, 10/06/22 13:01:00 EST, Aerosol, [facility] #[id number], 185.5, cm, 09/28/22 10:37:00 EST, Height, 154.4, [...] oldest [Reference Range]: 1 Height 185.5 cm (10/25/22 10:56 AM) Weight 155.9 kg (10/25/22 10:56 AM) Oxygen Saturation [94-100 %] 99 % (10/25/22 10:56 AM) Pulse Rate [55-90 bpm] 66 bpm (10/25/22 10:56 AM) Body Mass Index [18.5-24.99 kg/m2] 45.31 kg/m2 *>HHI* (10/25/22 10:56 AM) Blood Pressure [90-138/55-84 mm Hg] 150/ 80mm Hg *H* (10/25/22 10:56 AM) Mode of Delivery (Oxygen) Room air (10/25/22 10:56 AM) Weight Obtained Via Patient/family state d (10/25/22 10:56 AM) Social History Social History Type Response Smoking Status Former smoker, quit more than 30 days ago entered on: 08/21/22 Sex Patient Care team information Care Team Personnel Name: Pam Killian RN Position: S RN Member Role: Primary Care Nurse Name: Cori Ugalde DO Position: [facility] Primary Care Physician Member Role: PCP Address: Address: [address] [place] [id number] Name: Mila Omer RN Position: S RN Member Role: Primary Care Nurse Care Team Related Persons Name: CANDY PRETTY Name: DEVAN PRETTY Address: [address] [address] Name: SHERWIN PRETTY Address: [place] [address] Name: ISRAEL ALEGRIA
--- OUTSIDE RECORDS SUMMARY | 2023-04-10 07:34 | XMS_ITS | Continuity of Care Document ---
Author Name Unknown Organization [facility] Address [address] [place] [address]- Care Team Providers Care Spray Booth Operator Name Role Phone Cori Ugalde DO Primary Care Physician Encounter [facility] [place] Date(s): 02/21/22 - 03/23/22 [facility] [address] [address] Attending Physician: Murtaza Raya Admitting Physician: AdmtrMurtaza Referring Physician: AdmtrMurtaza Allergies, Adverse Reactions, Alerts [...] [11/21/2018] pt was given immunization at [address] SHINGRIX VIAL KIT 2Location History: [facility] Medications Meena-[place] Plus Cold and Cough By Mouth, Every [...] Refills, Maintenance, 01/05/22 14:08:00 EST, EC Tablet, [facility] #[id number], 185.42, cm, 12/29/21 15:01:00 EST, Height, 166, [...] Refills, Maintenance, 10/01/20 7:33:00 EST, ER Tablet, [facility] #[id number], 185, cm, 07/22/20 22:18:00 EDT, Height, 180, [...] 1 Refills, Maintenance, 02/15/22 15:52:00 EDT, Tablet, [facility] #[id number], 186, cm, 02/02/22 13:39:00 EDT, Height, 160, [...] mL, 2 Refills, Maintenance, 01/19/22 19:25:00 EST, [facility] #[id number], Partial fill upon patient request if the [...] 1 Refills, Maintenance, 01/05/22 12:30:00 EST, Tablet, [facility] #09643, Partial fill upon patient request, 185.42,cm, 12/29/21 [...] 5 Refills, Maintenance, 01/17/21 9:47:00 EST, Aerosol, [facility] #[id number], 185, cm, 12/24/20 9:35:00 EST, Height, 183.3, [...] stated he recieved both vaccines at [facility] on 01/05/21 and 02/02/21 2Dexa 08/2020 Social History Social History Type Response Smoking Status Former smoker; Type: Cigarettes; Tobacco use times per day: 1-2 ppd for 30 years; Number of years: 28; Started at age: 20; Stopped at age: 48; entered on: 05/22/17 Sex Male
--- OUTSIDE RECORDS SUMMARY | 2023-04-10 07:34 | XMS_ITS | Continuity of Care Document ---
Author Name Unknown Organization [facility] Address [address] [place] [address]- Care Team Providers Care Plant Senior Manager Name Role Phone Cori Ugalde DO Primary Care Physician Encounter [facility] Date(s): 11/27/22 - 12/27/22 [facility] [address] [place] [address]- Allergies, Adverse Reactions, Alerts No Known Allergies [...] Comment: [11/21/2018] pt was given immunization at [address] SHINGRIX VIAL KIT 3Location History: [facility] [...] 11/27/22 15:22:00 EST, Route to Pharmacy Electronically, [facility] #[id number], Partial fill upon patient request if the [...] Refills, Maintenance, 12/04/22 9:17:00 EST, EC Tablet, [facility] #[id number], 185.5, cm, 11/24/22 11:51:00 EST, Height, 154.4, [...] Refills, Maintenance, 04/03/22 13:28:00 EDT, ER Tablet, [facility] #[id number], 186, cm, 02/02/22 13:39:00 EDT, Height, 160, kg, 01/19/22 12:45:00 EST, Dry We... Start Date: 04/03/22 Stop Date: 08/01/22 Status: Ordered Lasix 80 mg oral tablet 80 mg, 1, tablet, By Mouth, Daily, # 30 tablet, Refills 3, Tot. Refills 3, Maintenance, 04/03/22 13:27:00 EDT, Route to Pharmacy Electronically, [facility] #[id number], Partial fill upon patientrequest if the prescription is for a schedule II op... Start Date: 04/03/22 Status: Ordered losartan 100 mg oral tablet 1 tablet, By Mouth, Daily, DISCONTINUE COMBO HCTZ-LOSARTAN PRESCRIPTION, # 90 tablet, 4 Refills, [facility] #[id number], 186, cm, 02/02/22 13:39:00 EDT, Height, 160, [...] Start Date: 09/28/22 Status: Ordered nystatin topical 273298 u/gm powder 1 application, Topically, 2 times a day, apply to irritated skin/rash of both groins/pubic areas, #60 Gm, 0 Refills, Maintenance, 10/25/22 11:36:00 EST, Powder, [facility] #[id number], Partial fill upon patient request if the [...] mL, 2 Refills, Maintenance, 10/14/22 12:35:00 EST, [facility] #[id number], Partial fill upon patient request if the [...] 1 Refills, Maintenance, 07/17/22 10:04:00 EDT, Tablet, [facility] #[id number], Partial fill upon patient request, 186, cm, [...] 5 Refills, Maintenance, 10/06/22 13:01:00 EST, Aerosol, [facility] #[id number], 185.5, cm, 09/28/22 10:37:00 EST, Height, 154.4, [...] Team Personnel Name: Pam Killian RN Position: [facility] RN Member Role: Primary Care Nurse Name: Cori Ugalde DO Position: [facility] Primary Care Physician Member Role: PCP Address: Address: [address] [place] [id number] Name: Mila Omer RN Position: [facility] RN Member Role: Primary Care Nurse Care Team Related Persons Name: CANDY PRETTY Name: DEVAN PRETTY Address: [address] [address] Name: SHERWIN PRETTY Address: [place] [address] Name: ISRAEL ALEGRIA
--- OUTSIDE RECORDS SUMMARY | 2023-04-10 07:34 | XMS_ITS | Continuity of Care Document ---
Author Name Unknown Organization [facility] Address [address] [place] [address]- Care Team Providers Care Agency Legal Counsel Name Role Phone Cori Ugalde DO Primary Care Physician Encounter [facility] Date(s): 08/14/22 - 09/13/22 [facility] [address] [address]- Attending Physician: Murtaza Raay Admitting Physician: AdmMurtaza sparks Referring Physician: AdmtrMurtaza [...] [11/21/2018] pt was given immunization at [address] SHINGRIX VIAL KIT 2Location History: [facility] Medications acetaminophen 325 mg oral tablet 975 mg, 3, tablet, By Mouth, Every 6 hours, for 10 days, # 120 tablet, Refills 0, Tot. Refills 0, Acute 09/16/22 10:24:00 EDT, 09/06/22 10:24:00 EDT, Route to Pharmacy Electronically, [facility] #[id number], Partial fill upon patient request if t... [...] 09/06/22 10:25:00 EDT, Route to Pharmacy Electronically, [facility] #[id number], Partial fill upon patient request if the [...] Refills, Maintenance, 07/17/22 11:58:00 EDT, EC Tablet, [facility] #[id number], 186, cm, 05/24/22 15:33:00 EDT, Height, 160,kg, 01/19/22 12:45:00 EST, Dry Weight Start Date: 07/17/22 Stop Date: 01/13/23 Status: Ordered Dilaudid 2 mg oral tablet 1 tablet = 2 mg, By Mouth, Every Sunday, Sunday and Sunday, PRN Pain , Severe, for 7 days, during wound vacuum change, # 7 tablet, 0 Refills, Acute 09/19/22 11:06:00 EST, 09/12/22 11:06:00 EDT, Tablet, [facility] #[id number], Partial fill upon... Start Date: 09/12/22 Stop [...] Refills, Maintenance, 04/03/22 13:28:00 EDT, ER Tablet, [facility] #[id number], 186, cm, 02/02/22 13:39:00 EDT, Height, 160, kg, 01/19/22 12:45:00 EST, Dry We... Start Date: 04/03/22 Stop Date: 08/01/22 Status: Ordered Lasix 80 mg oral tablet 80 mg, 1, tablet, By Mouth, Daily, # 30 tablet, Refills 3, Tot. Refills 3, Maintenance, 04/03/22 13:27:00 EDT, Route to Pharmacy Electronically, [facility] #[id number], Partial fill upon patientrequest if the prescription is for a schedule II op... Start Date: 04/03/22 Status: Ordered linezolid 600 mg oral tablet 1 tablet = 600 mg, By Mouth, Every 12 hours, for 14 days, # 28 tablet, 0 Refills, Acute 09/20/22 10:24:00 EST, 09/06/22 10:24:00 EDT, Tablet, [facility] #[id number], Partial fill upon patient request if the prescription is for a schedule II opioi... Start Date: 09/06/22 Stop Date: 09/20/22 Status: Ordered losartan 100 mg oral tablet 1 tablet, By Mouth, Daily, DISCONTINUE COMBO HCTZ-LOSARTAN PRESCRIPTION, # 90 tablet, 4 Refills, [facility] #[id number], 186, cm, 02/02/22 13:39:00 EDT, Height, 160, [...] 09/15/22 11:05:00 EDT, Route to Pharmacy Electronically, [facility] #[id number], Partial fill upon... Start Date: 09/15/22 Stop Date: 09/18/22 Status: Ordered Ozempic (1 mg dose) 4 mg/3 mL subcutaneous solution = 1 mg, Subcutaneous Infusion, Every Sunday, # 3 mL, 3 Refills, Maintenance, 05/25/22 15:50:00 EDT, [facility] #[id number], Partial fill upon patient request if the [...] 1 Refills, Maintenance, 07/17/22 10:04:00 EDT, Tablet, [facility] #[id number], Partial fill upon patient request, 186, cm, [...] 5 Refills, Maintenance, 01/17/21 9:47:00 EST, Aerosol, [facility] #[id number], 185, cm, 12/24/20 9:35:00 EST, Height, 183.3, [...] Personnel Name: Cori Ugalde DO Address: Address: [address] [place] [address]
--- OUTSIDE RECORDS SUMMARY | 2023-04-10 07:34 | XMS_ITS | Continuity of Care Document ---
Author Name Unknown Organization [facility] Address [address] [place] [address]- Care Team Providers Care Umbrella Supervisor Name Role Phone Cori Ugalde DO Primary Care Physician Encounter [facility] Date(s): 08/08/21 - 09/07/21 [facility] [address] [place], [place] [address] Attending Physician: Admbridger, Murtaza Admitting Physician: AdmtrMurtaza [...] [11/21/2018] pt was given immunization at [address] SHINGRIX VIAL KIT 2Location History: [facility] Medications Meena-[place] Plus Cold and Cough By Mouth, Every 4 hours, PRN Other, 0 Refills, Maintenance, 11/23/20 8:31:00 EST, Partial fill uponpatient request if the prescription is for a schedule II opioid drug. Start Date: 11/23/20 Status: Ordered aspirin buffered 81 mg oral tablet 1 tablet = 81 mg, By Mouth, Daily, # 30 tablet, 0 Refills, Maintenance, 09/16/14 6:28:58, Tablet Start Date: 11/5/14 Status: Ordered Compression Stockings See Instructions, # [...] Refills, Maintenance, 10/01/20 7:33:00 EST, ER Tablet, [facility] #[id number], 185, cm, 07/22/20 22:18:00 EDT, Height, 180, [...] 3 Refills, Maintenance, 12/24/20 10:15:00 EST, Tablet, [facility] #[id number], 185, cm, 12/24/20 9:35:00 EST, Height,183.3, kg, [...] 3 Refills, Maintenance, 12/24/20 10:16:00 EST, Tablet, [facility] #[id number], Partial fill upon patient request, 185, cm, [...] 5 Refills, Maintenance, 01/17/21 9:47:00 EST, Aerosol, [facility] #[id number], 185, cm, 12/24/20 9:35:00 EST, Height, 183.3, [...]
--- OUTSIDE RECORDS SUMMARY | 2023-04-10 07:35 | XMS_ITS | Continuity of Care Document ---
Author Name Unknown Organization [facility] Address [address] [place] [address]- Care Team Providers Care Assistant Manager Trainee Name Role Phone Cori Ugalde DO Primary Care Physician [place] [facility] [place]/19[place]21 - 02/18/21 [facility] [address] [place] [address]- Allergies, Adverse Reactions, Alerts Substance Reaction Severity Status NKA Active Immunizations Given and Recorded Vaccine Date Status Refusal Reason influenza virus vaccine, inactivated 10/07/19 Give n influenza virus vaccine, inactivated 10/08/14 Colton rded Miscellaneous Vaccine 1 11/21/18 Given Zoster Vaccine Live 03/13/17 Recorded Zoster Vaccine Live 2 03/18/12 Recorded tetanus/diphtheria/pertussis, acel(Tdap) 06/21/16 Recorded 1Result Comment: [11/21/2018] pt was given immunization at [address] SHINGRIX VIAL KIT 2Location History: [facility] Medications Meena-[place] Plus Cold and Cough By Mouth, Every [...] Refills, Maintenance, 12/24/20 10:15:00 EST, EC Tablet, [facility] #[id number], 185, cm, 12/24/20 9:35:00 EST, Height, 183.3, kg, 11/23/20 8:36:00 EST, Dry Weight Start Date: 12/24/20 Stop Date: 12/19/21 Status: Ordered gabapentin 300 mg oral capsule 300 mg, 1, capsule, By Mouth, 3 times a day, # 270 capsule, Refills 3, Tot. Refills 3, Maintenance,12/24/20 10:15:00 EST, Route to Pharmacy Electronically, [facility] #[id number], 185, cm, 12/24/20 9:35:00 EST, Height, 183.3, [...] Refills, Maintenance, 10/01/20 7:33:00 EST, ER Tablet, [facility] #[id number], 185, cm, 07/22/20 22:18:00 EDT, Height, 180, [...] 3 Refills, Maintenance, 12/24/20 10:15:00 EST, Tablet, [facility] #[id number], 185, cm, 12/24/20 9:35:00 EST, Height,183.3, kg, [...] 3 Refills, Maintenance, 12/24/20 10:16:00 EST, Tablet, [facility] #[id number], Partial fill upon patient request, 185, cm, [...] 5 Refills, Maintenance, 01/17/21 9:47:00 EST, Aerosol, [facility] #[id number], 185, cm, 12/24/20 9:35:00 EST, Height, 183.3, [...]
--- OUTSIDE RECORDS SUMMARY | 2023-04-10 07:35 | XMS_ITS | Continuity of Care Document ---
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 Name Role Phone Cori Ugalde DO Primary Care Physician Encounter [facility] Date(s): 05/20/20 - 06/19/20 [facility] [address] [place] [address]- [facility] Allergies, Adverse Reactions, Alerts Substance Reaction Severity Status NKA Active Immunizations Given and Recorded Vaccine Date Status Refusal Reason influenza virus vaccine, inactivated 10/07/19 Give n influenza virus vaccine, inactivated 10/08/14 Colton rded Miscellaneous Vaccine 1 11/21/18 Given Zoster Vaccine Live 03/13/17 Recorded Zoster Vaccine Live 2 03/18/12 Recorded tetanus/diphtheria/pertussis, acel(Tdap) 06/21/16 Recorded 1Result Comment: [11/21/2018] pt was given immunization at [address] SHINGRIX VIAL KIT 2Location History: [facility] Medications aspirin buffered 81 mg oral tablet [...] 5 Refills, Maintenance, 01/06/20 10:56:00 EST, Gel, [facility] #[id number], 186, cm, 10/07/19 9:17:00 EST, Height Start Date: 01/06/20 Stop Date: 07/04/20 Status: Ordered diclofenac sodium 75 mg oral delayed release tablet 1 tablet = 75 mg, By Mouth, 2 times a day, with food, # 60 tablet, 3 Refills, Maintenance, 209:21:00 EDT, EC Tablet, [facility] #[id number], 186, cm, 01/19/20 9:14:00 EDT, Height Start Date: 04/06/20 Stop Date: 08/04/20 Status: Ordered gabapentin 300 mg oral capsule 300 mg, 1, capsule, By Mouth, 3 times a day, # 90 capsule, Refills 5, Tot. Refills 5, Maintenance, 04/20/20 17:38:00 EDT, Route to Pharmacy Electronically, [facility] #[id number], 186, cm, 01/19/20 9:14:00 EDT, Height Start Date: 04/20/20 Stop Date: 10/17/20 Status: Ordered Klor-Con M20 20 mEq oral tablet, extended release 3 tablets, By Mouth, 2 times a day, Take 3 tablet in am and 3 tablets in pm do not crush or chew, #90 tablet, 5 Refills, Maintenance, 05/31/20 17:51:00 EDT, ER Tablet, [facility] #[id number], 186, cm, 01/19/20 9:14:00 EDT, Height Start [...] 3 Refills, Maintenance, 01/19/20 9:18:00 EDT, Tablet, [facility] #[id number], 186, cm, 01/19/20 9:14:00 EDT, Height Start [...] 5 Refills, Maintenance, 12/25/19 13:42:00 EST, Aerosol, [facility] #[id number], 186, cm, 10/07/19 9:17:00 EST, Height Start [...]
--- OUTSIDE RECORDS SUMMARY | 2023-04-10 07:35 | XMS_ITS | Continuity of Care Document ---
Author Name Unknown Organization [facility] Address [address] [place] [address]- Care Team Providers Care Interior Specialist Name Role Phone Cori Ugalde DO Primary Care Physician Encounter [facility] [place] Date(s): 06/23/21 - 07/23/21 [facility] [address] [place] [address]- Attending Physician: Murtaza Raya Admitting Physician: Murtaza Raya Referring Physician: Murtaza Raya Allergies, Adverse Reactions, Alerts Substance Reaction Severity [...] Comment: [11/21/2018] pt was given immunization at [address] SHINGRIX VIAL KIT 2Location History: [facility] Medications Meena-[place] Plus Cold and Cough By Mouth, Every [...] Refills, Maintenance, 10/01/20 7:33:00 EST, ER Tablet, [facility] #[id number], 185, cm, 07/22/20 22:18:00 EDT, Height, 180, [...] 3 Refills, Maintenance, 12/24/20 10:15:00 EST, Tablet, [facility] #[id number], 185, cm, 12/24/20 9:35:00 EST, Height,183.3, kg, [...] 3 Refills, Maintenance, 12/24/20 10:16:00 EST, Tablet, [facility] #[id number], Partial fill upon patient request, 185, cm, 12/24/20 9:35:00 EST, Height, 183.3, kg, 11/23/20... Start Date: 12/24/20 Stop Date: 12/19/21 Status: Ordered semaglutide 2 mg/1.5 mL (0.25 mg or 0.5 mg dose) subcutaneous solution = 0.25 mg, Subcutaneous Infusion, Every Sunday, rotate injection sites, # 1 each, 1 Refills, Maintenance, 06/13/21 11:00:00 EDT, [facility] #[id number], Partial fill upon patient request if theprescription [...] 5 Refills, Maintenance, 01/17/21 9:47:00 EST, Aerosol, [facility] #[id number], 185, cm, 12/24/20 9:35:00 EST, Height, 183.3, [...]
--- OUTSIDE RECORDS SUMMARY | 2023-04-10 07:35 | XMS_ITS | Continuity of Care Document ---
Author Name Unknown Organization [facility] Address Unknown Care Team Providers Care Wastewater Manager Name Role Phone Cori Ugalde DO Primary Care Physician [place] [facility] [place](s): 06/17/21 - 08/14/21 [facility] Attending Physician: Maia López RD Referring Physician: [...] Comment: [11/21/2018] pt was given immunization at [address] SHINGRIX VIAL KIT 2Location History: [facility] Medications Meena-[place] Plus Cold and Cough By Mouth, Every [...] Refills, Maintenance, 10/01/20 7:33:00 EST, ER Tablet, [facility] #[id number], 185, cm, 07/22/20 22:18:00 EDT, Height, 180, [...] 3 Refills, Maintenance, 12/24/20 10:15:00 EST, Tablet, [facility] #[id number], 185, cm, 12/24/20 9:35:00 EST, Height,183.3, kg, [...] 3 Refills, Maintenance, 12/24/20 10:16:00 EST, Tablet, [facility] #[id number], Partial fill upon patient request, 185, cm, [...] 5 Refills, Maintenance, 01/17/21 9:47:00 EST, Aerosol, [facility] #[id number], 185, cm, 12/24/20 9:35:00 EST, Height, 183.3, [...]
--- OUTSIDE RECORDS SUMMARY | 2023-04-10 07:35 | XMS_ITS | Continuity of Care Document ---
Author Name Unknown Organization [facility] Address [address] [place] [address]- Care Team Providers Care Aluminum Fabrication Supervisor Name Role Phone Cori Ugalde DO Primary Care Phys[id number] Date[facility]s): 06/27/21 - 07/04/21 [facility] [address] [address]- Attending Physician: Juanita Gray NP Admitting Physician: Juanita Gray NP Referring Physician: Sonny Ortiz Allergies, Adverse Reactions, Alerts Substance Reaction Severity [...] [11/21/2018] pt was given immunization at [address] SHINGRIX VIAL KIT 2Location History: [facility] Medications Meena-[place] Plus Cold and Cough By Mouth, Every [...] Refills, Maintenance, 12/24/20 10:15:00 EST, EC Tablet, [facility] #[id number], 185, cm, 12/24/20 9:35:00 EST, Height, 183.3, kg, 11/23/20 8:36:00 EST, Dry Weight Start Date: 12/24/20 Stop Date: 12/19/21 Status: Ordered gabapentin 300 mg oral capsule 300 mg, 1, capsule, By Mouth, 3 times a day, # 270 capsule, Refills 3, Tot. Refills 3, Maintenance,12/24/20 10:15:00 EST, Route to Pharmacy Electronically, [facility] #[id number], 185, cm, 12/24/20 9:35:00 EST, Height, 183.3, [...] Refills, Maintenance, 10/01/20 7:33:00 EST, ER Tablet, [facility] #[id number], 185, cm, 07/22/20 22:18:00 EDT, Height, 180, [...] 3 Refills, Maintenance, 12/24/20 10:15:00 EST, Tablet, [facility] #[id number], 185, cm, 12/24/20 9:35:00 EST, Height,183.3, kg, [...] 3 Refills, Maintenance, 12/24/20 10:16:00 EST, Tablet, [facility] #[id number], Partial fill upon patient request, 185, cm, 12/24/20 9:35:00 EST, Height, 183.3, kg, 11/23/20... Start Date: 12/24/20 Stop Date: 12/19/21 Status: Ordered semaglutide 2 mg/1.5 mL (0.25 mg or 0.5 mg dose) subcutaneous solution = 0.25 mg, Subcutaneous Infusion, Every Sunday, rotate injection sites, # 1 each, 1 Refills, Maintenance, 06/13/21 11:00:00 EDT, [facility] #[id number], Partial fill upon patient request if theprescription [...] 5 Refills, Maintenance, 01/17/21 9:47:00 EST, Aerosol, [facility] #[id number], 185, cm, 12/24/20 9:35:00 EST, Height, 183.3, [...] Onychauxis(Confirmed) Active Sleep-related hypoxia(Confirmed) Active Prediabetes(Confirmed) Active Lateral epicondylitis(Confirmed) Active Nasal [...]
--- OUTSIDE RECORDS SUMMARY | 2023-04-10 07:35 | XMS_ITS | Continuity of Care Document ---
Author Name Unknown Organization [facility] Address [address] [place] [address]- Care Team Providers Care Revenue Field Auditor Name Role Phone Cori Ugalde DO Primary Care Physician Encounter [facility] [place] Date(s): 11/23/20 - 11/23/[address] [address]- Discharge Disposition: A-D/C Home Attending Physician: Manuel Reyes MD Admitting Physician: [...] [11/21/2018] pt was given immunization at [address] SHINGRIX VIAL KIT 2Location History: [facility] Medications Meena-[place] Plus Cold and Cough By Mouth, Every [...] 3 Refills, Maintenance, :11:00 EDT, EC Tablet, [facility] #76073, 185, cm, 07/22/20 22:18:00 EDT, Height, 180, kg, 07/22/20 22:18:00 EDT, Dry Weight Start Date: 08/17/20 Stop Date: 12/15/20 Status: Ordered gabapentin 300 mg oral capsule 300 mg, 1, capsule, By Mouth, 3 times a day, # 90 capsule, Refills 2, Tot. Refills 2, Maintenance, 11/02/20 17:35:00 EST, Route to Pharmacy Electronically, [facility] #[id number], 185, cm, 07/22/20 22:18:00 EDT, Height, 180, [...] Refills, Maintenance, 10/01/20 7:33:00 EST, ER Tablet, [facility] #[id number], 185, cm, 07/22/20 22:18:00 EDT, Height, 180, [...] 3 Refills, Maintenance, 01/19/20 9:18:00 EDT, Tablet, [facility] #[id number], 186, cm, 01/19/20 9:14:00 EDT, Height Start [...] 3 Refills, Maintenance, 10/04/20 10:57:00 EST, Tablet, [facility] #[id number], Partial fill upon patient request, 185, cm, 07/22/20 22:18:00 EDT, Height, 180, kg, 07/22/20 2... Start Date: 10/04/20 Stop Date: 09/29/21 Status: Ordered Shower Bench See Instructions, # 1 each, Refills 0, Tot. Refills 0, Maintenance, Dx: Sandi Peters, 12/20/1709:53:07, Compound Start Date: 12/20/16 Status: Ordered Tylenol 325 mg oral tablet 975 mg, Tablet, By Mouth, Every 6 hours, PRN for Pain , Moderate, Routine, 11/23/20 15:50:00 EST Start Date: 11/23/20 Stop Date: 12/23/20 Status: Ordered Ventolin HFA 108 mcg/inh inhalation aerosol with adapter 1 puffs, Inhalation, 4 times a day, PRN for wheezing, # 1 each, 5 Refills, Maintenance, 12/25/19 13:42:00 EST, Aerosol, [facility] #[id number], 186, cm, 10/07/19 9:17:00 EST, Height Start [...] Range]: 1 2 3 Height 185 cm (11/23/20 8:07 AM) 185 cm (11/23/20 8:00 AM) Weight 183.3 kg (11/23/20 8:07 AM) 183.3 kg (11/23/20 8:00 AM) Oxygen Saturation [94-100 %] 100 % (11/23/20 7:00 PM) 100 % (11/23/20 6:00 PM) 100 % (11/23/20 5:00 PM) Pulse Rate [55-90 bpm] 61 bpm (11/23/20 8:00 AM) Body Mass Index [18.5-24.99] 53.56 *>HHI* (11/23/20 8:00 AM) Blood Pressure [90-138/55-84 mm Hg] 136/63mm Hg (11/23/20 7:00 PM) 112/76mm Hg (11/23/20 6:00 PM) 139/59mm Hg *H* (11/23/20 5:00 PM) Respiratory Rate [16-30 br/min] 18 br/min (11/23/20 7:00 PM) 17 br/min (11/23/20 6:00 PM) 13 br/min *L* (11/23/20 5:05 PM) Temperature [96.8-100.4 DegF] 97.8 DegF (11/23/20 3:00 PM) 97.3 DegF (11/23/20 2:45 PM) 98.1 DegF (11/23/20 2:00 PM) Mode of Delivery (Oxygen) Room air (11/23/20 6:00 PM) Room air (11/23/20 5:00 PM) Room air (11/23/20 4:00 PM) Blood pressure sites Arm, left (11/23/20 8:00 AM) Temperature Route Temporal (11/23/20 3:00 PM) Temporal (11/23/20 2:00 PM) Temporal (11/23/20 8:00 AM) Dry Weight 183.3 kg (11/23/20 8:00 AM) Social History Social History Type Response Smoking Status Former smoker; Type: Cigarettes; Tobacco use times per day: 1-2 ppd for 30 years; Number of years: 28; Started at age: 20; Stopped at age: 48; entered on: 05/22/17 Sex Male
--- OUTSIDE RECORDS SUMMARY | 2023-04-10 07:35 | XMS_ITS | Continuity of Care Document ---
Author Name Unknown Organization [facility] Address [address] [place] [address]- Care Team Providers Care Moshgiach Name Role Phone Poppy Gardiner MD Primary Care Physician Encounter [facility] [place] Date(s): 11/14/19 - 07/03/20 [facility] [address] [place] [address]- [facility] Attending Physician: Manuel Reyes MD Admitting [...] Comment: [11/21/2018] pt was given immunization at [address] SHINGRIX VIAL KIT 2Location History: [facility] Medications aspirin buffered 81 mg oral tablet [...] 5 Refills, Maintenance, 01/06/20 10:56:00 EST, Gel, [facility] #[id number], 186, cm, 10/07/19 9:17:00 EST, Height Start Date: 01/06/20 Stop Date: 07/04/20 Status: Ordered diclofenac sodium 75 mg oral delayed release tablet 1 tablet = 75 mg, By Mouth, 2 times a day, with food, # 60 tablet, 3 Refills, Maintenance, :21:00 EDT, EC Tablet, [facility] #[id number], 186, cm, 01/19/20 9:14:00 EDT, Height Start Date: 04/06/20 Stop Date: 08/04/20 Status: Ordered gabapentin 300 mg oral capsule 300 mg, 1, capsule, By Mouth, 3 times a day, # 90 capsule, Refills 5, Tot. Refills 5, Maintenance, 04/20/20 17:38:00 EDT, Route to Pharmacy Electronically, [facility] #[id number], 186, cm, 01/19/20 9:14:00 EDT, Height Start Date: 04/20/20 Stop Date: 10/17/20 Status: Ordered Klor-Con M20 20 mEq oral tablet, extended release 3 tablets, By Mouth, 2 times a day, Take 3 tablet in am and 3 tablets in pm do not crush or chew, #90 tablet, 5 Refills, Maintenance, 05/31/20 17:51:00 EDT, ER Tablet, [facility] #[id number], 186, cm, 01/19/20 9:14:00 EDT, Height Start [...] 3 Refills, Maintenance, 01/19/20 9:18:00 EDT, Tablet, [facility] #[id number], 186, cm, 01/19/20 9:14:00 EDT, Height Start [...] 5 Refills, Maintenance, 12/25/19 13:42:00 EST, Aerosol, [facility] #[id number], 186, cm, 10/07/19 9:17:00 EST, Height Start [...]
--- OUTSIDE RECORDS SUMMARY | 2023-04-10 07:35 | XMS_ITS | Continuity of Care Document ---
Author Name Unknown Organization [facility] Address [address] [place] [address]- Care Team Providers Care Turbine Mechanic Name Role Phone Cori Ugalde DO Primary Care Physician Encounter [facility] Date(s): 01/20/20 - 03/03/20 [facility] [address] [place] [address]- [facility] Attending Physician: Ander Reyes MD Referring Physician: Cori Ugalde DO [...] [11/21/2018] pt was given immunization at [address] SHINGRIX VIAL KIT 2Location History: [facility] Medications aspirin buffered 81 mg oral tablet [...] surgical, knee length 20-30 mm Hg Dx:I73.9, 08/28/19 16:36:14 EDT, Compound Start Date: 07/09/19 Status: Ordered diclofenac 1% topical gel = 2 Gm, Topically, 4 times a day, # 100 Gm, 5 Refills, Maintenance, 01/06/20 10:56:00 EST, Gel, [facility] #[id number], 186, cm, 10/07/19 9:17:00 EST, Height Start Date: 01/06/20 Stop Date: 07/04/20 Status: Ordered gabapentin 300 mg oral capsule 300 mg, 1, capsule, By Mouth, 3 times a day, # 90 capsule, Refills 5, Tot. Refills 5, Maintenance, 10/07/19 9:24:32 EST, Route to Pharmacy Electronically, [id number], [facility] [address] Start Date: [...] 3 Refills, Maintenance, 01/19/20 9:18:00 EDT, Tablet, [facility] #[id number], 186, cm, 01/19/20 9:14:00 EDT, Height Start [...] 5 Refills, Maintenance, 12/25/19 13:42:00 EST, Aerosol, [facility] #[id number], 186, cm, 10/07/19 9:17:00 EST, Height Start [...]
--- OUTSIDE RECORDS SUMMARY | 2023-04-10 07:35 | XMS_ITS | Continuity of Care Document ---
Author Name Unknown Organization [facility] Address [address] [place] [address]- Care Team Providers Care Aerophysics Engineer Name Role Phone Cori Ugalde DO Primary Care Physician [place] [facility] [place] 07/21/21 [facility] [address] [place], [place] [address] Attending Physician: Murtaza Raya Admitting Physician: AdmtrMurtaza Referring Physician: Admtr ArApril Allergies, Adverse Reactions, Alerts Substance Reaction Severity [...] [11/21/2018] pt was given immunization at [address] SHINGRIX VIAL KIT 2Location History: [facility] Medications Meena-[place] Plus Cold and Cough By Mouth, Every [...] Refills, Maintenance, 10/01/20 7:33:00 EST, ER Tablet, [email or web address] #[id number], 185, cm, 07/22/20 22:18:00 EDT, Height, 180, [...] 3 Refills, Maintenance, 12/24/20 10:15:00 EST, Tablet, [email or web address] #66546, 185, cm, 12/24/20 9:35:00 EST, Height,183.3, kg, [...] 3 Refills, Maintenance, 12/24/20 10:16:00 EST, Tablet, [facility] #[id number], Partial fill upon patient request, 185, cm, 12/24/20 9:35:00 EST, Height, 183.3, kg, 11/23/20... Start Date: 12/24/20 Stop Date: 12/19/21 Status: Ordered semaglutide 2 mg/1.5 mL (0.25 mg or 0.5 mg dose) subcutaneous solution = 0.25 mg, Subcutaneous Infusion, Every Sunday, rotate injection sites, # 1 each, 1 Refills, Maintenance, 06/13/21 11:00:00 EDT, [facility] #[id number], Partial fill upon patient request if theprescription [...] 5 Refills, Maintenance, 01/17/21 9:47:00 EST, Aerosol, [facility] #[id number], 185, cm, 12/24/20 9:35:00 EST, Height, 183.3, [...]
--- OUTSIDE RECORDS SUMMARY | 2023-04-10 07:35 | XMS_ITS | Continuity of Care Document ---
Author Name Unknown Organization [facility] Address [address] [place] [address]- Care Team Providers Care Tube Buffer Name Role Phone Cori Ugalde DO Primary Care Physician Encounter [facility] Date(s): 01/23/23 - 02/22/23 [facility] [address] [place] [address]- Allergies, Adverse Reactions, Alerts No Known Allergies [...] Comment: [11/21/2018] pt was given immunization at [address] SHINGRIX VIAL KIT 3Location History: [facility] [...] 11/27/22 15:22:00 EST, Route to Pharmacy Electronically, [facility] #[id number], Partial fill upon patient request if the [...] Refills, Maintenance, 12/04/22 9:17:00 EST, EC Tablet, [facility] #[id number], 185.5, cm, 11/24/22 11:51:00 EST, Height, 154.4, kg, 09/09/22 15:50:00 EDT, Dry Weight Start Date: 12/04/22 Stop Date: 03/04/23 Status: Ordered gabapentin 300 mg oral capsule 600 mg, 2, capsule, By Mouth, 3 times a day, # 540 capsule, Refills 3, Tot. Refills 3, Maintenance,01/10/23 15:46:00 EST, Route to Pharmacy Electronically, [facility] #[id number], 185.5, cm, 11/24/22 11:51:00 EST, Height, 154.4, [...] Refills, Maintenance, 04/03/22 13:28:00 EDT, ER Tablet, [facility] #[id number], 186, cm, 02/02/22 13:39:00 EDT, Height, 160, kg, 01/19/22 12:45:00 EST, Dry We... Start Date: 04/03/22 Stop Date: 08/01/22 Status: Ordered Lasix 80 mg oral tablet 80 mg, 1, tablet, By Mouth, Daily, # 30 tablet, Refills 3, Tot. Refills 3, Maintenance, 04/03/22 13:27:00 EDT, Route to Pharmacy Electronically, [facility] #[id number], Partial fill upon patientrequest if the prescription is for a schedule II op... Start Date: 04/03/22 Status: Ordered losartan 100 mg oral tablet 1 tablet, By Mouth, Daily, DISCONTINUE COMBO HCTZ-LOSARTAN PRESCRIPTION, # 90 tablet, 4 Refills, [facility] #[id number], 186, cm, 02/02/22 13:39:00 EDT, Height, 160, kg, 01/19/22 12:45:00 EST, Dry Weight Start Date: 04/13/22 Status: Ordered metoprolol 50 mg oral tablet, extended release 50 mg, 1, tablet, By Mouth, Daily, # 30 tablet, Refills 0, Maintenance, 09/28/22 11:18:00 EST, Partial fill upon patient request if the prescription is for a schedule II opioid drug. Start Date: 09/28/22 Status: Ordered nystatin topical [id number] u/gm powder 1 application, Topically, 2 times a day, apply to irritated skin/rash of both groins/pubic areas, #60 Gm, 0 Refills, Maintenance, 10/25/22 11:36:00 EST, Powder, [facility] #[id number], Partial fill upon patient request if the prescription is for... Start Date: 10/25/22 Status: Ordered Ozempic (1 mg dose) 4 mg/3 mL subcutaneous solution = 1 mg, Subcutaneous Infusion, Every Sunday, # 3 mL, 2 Refills, Maintenance, 01/22/23 16:38:00 EDT, [facility] #[id number], Partial fill upon patient request if the [...] 1 Refills, Maintenance, 07/17/22 10:04:00 EDT, Tablet, [facility] #[id number], Partial fill upon patient request, 186, cm, [...] 5 Refills, Maintenance, 10/06/22 13:01:00 EST, Aerosol, [facility] #[id number], 185.5, cm, 09/28/22 10:37:00 EST, Height, 154.4, [...] Physician Member Role: PCP Address: Address: [address] [place] [id number] Name: Mila Omer RN Position: [facility] RN Member Role: Primary Care Nurse Care Team Related Persons Name: CANDY PRETTY Name: DEVAN PRETTY Address: [address] [address] Name: SHERWIN PRETTY Address: [place] [address] Name: ISRAEL ALEGRIA
--- OUTSIDE RECORDS SUMMARY | 2023-04-10 07:35 | XMS_ITS | Continuity of Care Document ---
Author Name Unknown Organization [facility] Address [address] [place] [address]- Care Team Providers Care Electrophysiology Nurse Practitioner Name Role Phone Cori Ugalde DO Primary Care Physician Encounter [facility] Date(s): 08/06/20 - 09/05/20 [facility] [address] [place] [address]- [facility] Allergies, Adverse Reactions, Alerts Substance [...] [11/21/2018] pt was given immunization at [address] SHINGRIX VIAL KIT 2Location History: [employer] Medications aspirin buffered 81 mg oral tablet [...] 3 Refills, Maintenance, :11:00 EDT, EC Tablet, [facility] #[id number], 185, cm, 07/22/20 22:18:00 EDT, Height, 180, kg, 07/22/20 22:18:00 EDT, Dry Weight Start Date: 08/17/20 Stop Date: 12/15/20 Status: Ordered gabapentin 300 mg oral capsule 300 mg, 1, capsule, By Mouth, 3 times a day, # 90 capsule, Refills 5, Tot. Refills 5, Maintenance, 04/20/20 17:38:00 EDT, Route to Pharmacy Electronically, [facility] #[id number], 186, cm, 01/19/20 9:14:00 EDT, Height Start [...] Refills, Maintenance, 05/31/20 17:51:00 EDT, ER Tablet, [facility] #[id number], 186, cm, 01/19/20 9:14:00 EDT, Height Start [...] 3 Refills, Maintenance, 01/19/20 9:18:00 EDT, Tablet, [facility] #[id number], 186, cm, 01/19/20 9:14:00 EDT, Height Start [...] 07/29/20 12:29:00 EDT, Route to Pharmacy Electronically, [facility] #[id number], 185, cm, 07/22/20 22:18:00 EDT, Height, 180, kg, 07/22/20 22:18:00 EDT,... Start Date: 07/29/20 Stop Date: 08/01/20 Status: Ordered Ventolin HFA 108 mcg/inh inhalation aerosol with adapter 1 puffs, Inhalation, 4 times a day, PRN for wheezing, # 1 each, 5 Refills, Maintenance, 12/25/19 13:42:00 EST, Aerosol, [facility] #[id number], 186, cm, 10/07/19 9:17:00 EST, Height Start [...]
--- OUTSIDE RECORDS SUMMARY | 2023-04-10 07:35 | XMS_ITS | Continuity of Care Document ---
Author Name Unknown Organization [facility] Address [address] [place] [address]- Care Team Providers Care Associate Dentist Name Role Phone Cori Ugalde DO Primary Care Physician [place] [facility] [place]20 - 06/26/20 [facility] [address] [place] [address]- [facility] Allergies, Adverse Reactions, Alerts Substance Reaction Severity Status NKA Active Immunizations Given and Recorded Vaccine Date Status Refusal Reason influenza virus vaccine, inactivated 10/07/19 Give n influenza virus vaccine, inactivated 10/08/14 Colton rded Miscellaneous Vaccine 1 11/21/18 Given Zoster Vaccine Live 03/13/17 Recorded Zoster Vaccine Live 2 03/18/12 Recorded tetanus/diphtheria/pertussis, acel(Tdap) 06/21/16 Recorded 1Result Comment: [11/21/2018] pt was given immunization at [address] SHINGRIX VIAL KIT 2Location History: [email or web address] Medications aspirin buffered 81 mg oral tablet [...] 5 Refills, Maintenance, 01/06/20 10:56:00 EST, Gel, [facility] #[id number], 186, cm, 10/07/19 9:17:00 EST, Height Start Date: 01/06/20 Stop Date: 07/04/20 Status: Ordered diclofenac sodium 75 mg oral delayed release tablet 1 tablet = 75 mg, By Mouth, 2 times a day, with food, # 60 tablet, 3 Refills, Maintenance, 209:21:00 EDT, EC Tablet, [facility] #89300, 186, cm, 01/19/20 9:14:00 EDT, Height Start Date: 04/06/20 Stop Date: 08/04/20 Status: Ordered gabapentin 300 mg oral capsule 300 mg, 1, capsule, By Mouth, 3 times a day, # 90 capsule, Refills 5, Tot. Refills 5, Maintenance, 04/20/20 17:38:00 EDT, Route to Pharmacy Electronically, [facility] #[id number], 186, cm, 01/19/20 9:14:00 EDT, Height Start Date: 04/20/20 Stop Date: 10/17/20 Status: Ordered Klor-Con M20 20 mEq oral tablet, extended release 3 tablets, By Mouth, 2 times a day, Take 3 tablet in am and 3 tablets in pm do not crush or chew, #90 tablet, 5 Refills, Maintenance, 05/31/20 17:51:00 EDT, ER Tablet, [facility] #[id number], 186, cm, 01/19/20 9:14:00 EDT, Height Start [...] 3 Refills, Maintenance, 01/19/20 9:18:00 EDT, Tablet, [facility] #[id number], 186, cm, 01/19/20 9:14:00 EDT, Height Start [...] 5 Refills, Maintenance, 12/25/19 13:42:00 EST, Aerosol, [facility] #[id number], 186, cm, 10/07/19 9:17:00 EST, Height Start [...]
--- OUTSIDE RECORDS SUMMARY | 2023-04-10 07:35 | XMS_ITS | Continuity of Care Document ---
Author Name Unknown Organization [facility] Address [address] [place] [address]- Care Team Providers Care Equipment Or Machinery Cleaner Name Role Phone Cori Ugalde DO Primary Care Physician Encounter [facility] [place] Date(s): 09/01/22 - 09/08/22 [facility] [address] [place] [address]- Attending Physician: Iam Patel MD Admitting Physician: Iam Patel MD Allergies, Adverse Reactions, [...] Comment: [11/21/2018] pt was given immunization at [address] SHINGRIX VIAL KIT 2Location History: [facility] Medications acetaminophen 325 mg oral tablet 975 mg, 3, tablet, By Mouth, Every 6 hours, for 10 days, # 120 tablet, Refills 0, Tot. Refills 0, Acute 09/16/22 10:24:00 EDT, 09/06/22 10:24:00 EDT, Route to Pharmacy Electronically, [facility] #[id number], Partial fill upon patient request if t... [...] 09/06/22 10:25:00 EDT, Route to Pharmacy Electronically, [facility] #[id number], Partial fill upon patient request if the [...] Refills, Maintenance, 07/17/22 11:58:00 EDT, EC Tablet, [facility] #[id number], 186, cm, 05/24/22 15:33:00 EDT, Height, 160,kg, [...] Refills, Maintenance, 04/03/22 13:28:00 EDT, ER Tablet, [facility] #[id number], 186, cm, 02/02/22 13:39:00 EDT, Height, 160, kg, 01/19/22 12:45:00 EST, Dry We... Start Date: 04/03/22 Stop Date: 08/01/22 Status: Ordered Lasix 80 mg oral tablet 80 mg, 1, tablet, By Mouth, Daily, # 30 tablet, Refills 3, Tot. Refills 3, Maintenance, 04/03/22 13:27:00 EDT, Route to Pharmacy Electronically, [facility] #[id number], Partial fill upon patientrequest if the prescription is for a schedule II op... Start Date: 04/03/22 Status: Ordered linezolid 600 mg oral tablet 1 tablet = 600 mg, By Mouth, Every 12 hours, for 14 days, # 28 tablet, 0 Refills, Acute 09/20/22 10:24:00 EST, 09/06/22 10:24:00 EDT, Tablet, [facility] #[id number], Partial fill upon patient request if the prescription is for a schedule II opioi... Start Date: 09/06/22 Stop Date: 09/20/22 Status: Ordered losartan 100 mg oral tablet 1 tablet, By Mouth, Daily, DISCONTINUE COMBO HCTZ-LOSARTAN PRESCRIPTION, # 90 tablet, 4 Refills, [facility] #[id number], 186, cm, 02/02/22 13:39:00 EDT, Height, 160, [...] 09/07/22 11:38:00 EDT, Route to Pharmacy Electronically, [facility] #[id number], Partial fill upon... Start Date: 09/07/22 Stop Date: 09/14/22 Status: Ordered Ozempic (1 mg dose) 4 mg/3 mL subcutaneous solution = 1 mg, Subcutaneous Infusion, Every Sunday, # 3 mL, 3 Refills, Maintenance, 05/25/22 15:50:00 EDT, [facility] #[id number], Partial fill upon patient request if the [...] 1 Refills, Maintenance, 07/17/22 10:04:00 EDT, Tablet, [facility] #[id number], Partial fill upon patient request, 186, cm, [...] 5 Refills, Maintenance, 01/17/21 9:47:00 EST, Aerosol, [facility] #55714, 185, cm, 12/24/20 9:35:00 EST, Height, 183.3, [...] Personnel Name: Cori Ugalde DO Address: Address: [address] [place] [id number]
--- OUTSIDE RECORDS SUMMARY | 2023-04-10 07:35 | XMS_ITS | Continuity of Care Document ---
Author Name Unknown Organization [facility] Address [address] [place] [address]- Care Team Providers Care Auto Brake Technician Name Role Phone Cori Ugalde DO Primary Care Physician Encounter [facility] Date(s): 10/04/20 - 11/03/20 [facility] [address] [place] [id number] Attending Physician: Admbridger, Murtaza Admitting Physician: [...] [11/21/2018] pt was given immunization at [address] SHINGRIX VIAL KIT 2Location History: [employer] Medications aspirin buffered 81 mg oral tablet [...] 3 Refills, Maintenance, :11:00 EDT, EC Tablet, [facility] #[id number], 185, cm, 07/22/20 22:18:00 EDT, Height, 180, kg, 07/22/20 22:18:00 EDT, Dry Weight Start Date: 08/17/20 Stop Date: 12/15/20 Status: Ordered gabapentin 300 mg oral capsule 300 mg, 1, capsule, By Mouth, 3 times a day, # 90 capsule, Refills 2, Tot. Refills 2, Maintenance, 11/02/20 17:35:00 EST, Route to Pharmacy Electronically, [facility] #[id number], 185, cm, 07/22/20 22:18:00 EDT, Height, 180, [...] Refills, Maintenance, 10/01/20 7:33:00 EST, ER Tablet, [facility] #[id number], 185, cm, 07/22/20 22:18:00 EDT, Height, 180, [...] 3 Refills, Maintenance, 01/19/20 9:18:00 EDT, Tablet, [facility] #[id number], 186, cm, 01/19/20 9:14:00 EDT, Height Start [...] 3 Refills, Maintenance, 10/04/20 10:57:00 EST, Tablet, [facility] #[id number], Partial fill upon patient request, 185, cm, [...] 07/29/20 12:29:00 EDT, Route to Pharmacy Electronically, [facility] #[id number], 185, cm, 07/22/20 22:18:00 EDT, Height, 180, kg, 07/22/20 22:18:00 EDT,... Start Date: 07/29/20 Stop Date: 08/01/20 Status: Ordered Ventolin HFA 108 mcg/inh inhalation aerosol with adapter 1 puffs, Inhalation, 4 times a day, PRN for wheezing, # 1 each, 5 Refills, Maintenance, 12/25/19 13:42:00 EST, Aerosol, [facility] #63372, 186, cm, 10/07/19 9:17:00 EST, Height Start [...]
--- OUTSIDE RECORDS SUMMARY | 2023-04-10 07:35 | XMS_ITS | Continuity of Care Document ---
Author Name Unknown Organization [facility] Address [address] [place] [address] [address] [place] [address]- Care Team Providers Care Aerospace Project Engineer Name Role Phone Cori Ugalde DO Primary Care Physician Encounter [place] Date(s): 03/02/21 - 03/09/[address] [place] [address]- Encounter Diagnosis Morbid obesity with BMI of 50.0-59.9, adult(Discharge Diagnosis) - 03/02/21 Attending Physician: Sonny Ortiz Referring Physician: Cori Ugalde DO Allergies, Adverse [...] [11/21/2018] pt was given immunization at [address] SHINGRIX VIAL KIT 2Location History: [facility] Medications Meena-[place] Plus Cold and Cough By Mouth, Every [...] Refills, Maintenance, 12/24/20 10:15:00 EST, EC Tablet, [facility] #[id number], 185, cm, 12/24/20 9:35:00 EST, Height, 183.3, kg, 11/23/20 8:36:00 EST, Dry Weight Start Date: 12/24/20 Stop Date: 12/19/21 Status: Ordered gabapentin 300 mg oral capsule 300 mg, 1, capsule, By Mouth, 3 times a day, # 270 capsule, Refills 3, Tot. Refills 3, Maintenance,12/24/20 10:15:00 EST, Route to Pharmacy Electronically, [facility] #[id number], 185, cm, 12/24/20 9:35:00 EST, Height, 183.3, [...] Refills, Maintenance, 10/01/20 7:33:00 EST, ER Tablet, [facility] #[id number], 185, cm, 07/22/20 22:18:00 EDT, Height, 180, [...] 3 Refills, Maintenance, 12/24/20 10:15:00 EST, Tablet, [facility] #[id number], 185, cm, 12/24/20 9:35:00 EST, Height,183.3, kg, [...] 3 Refills, Maintenance, 12/24/20 10:16:00 EST, Tablet, [facility] #[id number], Partial fill upon patient request, 185, cm, [...] 5 Refills, Maintenance, 01/17/21 9:47:00 EST, Aerosol, [facility] #[id number], 185, cm, 12/24/20 9:35:00 EST, Height, 183.3, [...] stated he recieved both vaccines at [facility] on 01/05/21 and 02/02/21 2Dexa 08/2020 Diagnosis Diagnosis Type Effective Dates Health Status Cl inical Service Informant Morbid obesity with BMI of 50.0-59.9, adult Discharge Diagnosis 03/02/21 Procedures Procedure Date Related Diagnosis Body Site Status Placement of stent in cardiac conduit Completed Vital Signs Most recent to oldest [Reference Range]: 1 Height 186.05 cm (03/02/21 9:36 AM) Weight 181.6 kg (03/02/21 9:36 AM) Pulse Rate [55-90 bpm] 62 bpm (03/02/21 9:36 AM) Body Mass Index [18.5-24.99] 52.46 *>HHI* (03/02/21 9:36 AM) Blood Pressure [90-138/55-84 mm Hg] 149/ 82mm Hg *H* (03/02/21 9:36 AM) Respiratory Rate [16-30 br/min] 22 br/mi n (03/02/21 9:36 AM) Temperature [96.8-100.4 DegF] 97.8 DegF (03/02/21 9:36 AM) Blood pressure sites Arm, right (03/02/21 9:36 AM) Temperature Route Temporal (03/02/21 9:36 AM) Social History Social History Type Response Smoking Status Former smoker; Type: Cigarettes; Tobacco use times per day: 1-2 ppd for 30 years; Number of years: 28; Started at age: 20; Stopped at age: 48; entered on: 05/22/17 Sex Male
--- OUTSIDE RECORDS SUMMARY | 2023-04-10 07:35 | XMS_ITS | Continuity of Care Document ---
Author Name Unknown Organization [facility] Address [address] [place] [address]- Care Team Providers Care Early Education Teacher Name Role Phone Cori Ugalde DO Primary Care Physician Encounter [facility] Date(s): 01/13/20 - 01/23/20 [facility] [address] [place] [address] [facility] Attending Physician: Admbridger, Murtaza Admitting Physician: AdmtrMurtaza Referring Physician: Admtr Ar8 Allergies, Adverse Reactions, Alerts Substance Reaction Severity Status NKA Active Immunizations Given and Recorded Vaccine Date Status Refusal Reason influenza virus vaccine, inactivated 10/07/19 Give n influenza virus vaccine, inactivated 10/08/14 Colton rded Miscellaneous Vaccine 1 11/21/18 Given Zoster Vaccine Live 03/13/17 Recorded Zoster Vaccine Live 2 03/18/12 Recorded tetanus/diphtheria/pertussis, acel(Tdap) 06/21/16 Recorded 1Result Comment: [11/21/2018] pt was given immunization at [address] SHINGRIX VIAL KIT 2Location History: [employer] [facility] Medications aspirin buffered 81 mg oral tablet [...] 5 Refills, Maintenance, 01/06/20 10:56:00 EST, Gel, [email or web address] #[id number], 186, cm, 10/07/19 9:17:00 EST, Height Start Date: 01/06/20 Stop Date: 07/04/20 Status: Ordered gabapentin 300 mg oral capsule 300 mg, 1, capsule, By Mouth, 3 times a day, # 90 capsule, Refills 5, Tot. Refills 5, Maintenance, 10/07/19 9:24:32 EST, Route to Pharmacy Electronically, [facility]-[id number], [facility] [address] Start Date: 10/07/19 [...] 3 Refills, Maintenance, 01/19/20 9:18:00 EDT, Tablet, [facility] #[id number], 186, cm, 01/19/20 9:14:00 EDT, Height Start [...] pantoprazole 40 mg oral delayed release tablet See Instructions, # 90 tablet, Refills 1 Tot. Refills 1, take 1 tablet by mouth once daily, [facility] Start Date: 08/01/19 Status: Ordered Plavix 75 mg oral tablet [...] 02/16/20 9:23:00 EDT, 01/19/20 9:23:00 EDT, Cream, [facility][id number], 1 application Topically 2 times a day,x14 days,Instr[employer]a... Start Date: 01/19/20 Stop Date: 02/16/20 Status: Ordered Ventolin HFA 108 mcg/inh inhalation aerosol with adapter 1 puffs, Inhalation, 4 times a day, PRN for wheezing, # 1 each, 5 Refills, Maintenance, 12/25/19 13:42:00 EST, Aerosol, [facility] #[id number], 186, cm, 10/07/19 9:17:00 EST, Height Start [...]
--- OUTSIDE RECORDS SUMMARY | 2023-04-10 07:35 | XMS_ITS | Continuity of Care Document ---
Author Name Unknown Organization [facility] Address Unknown Care Team Providers Care Soybean Specialties Cook Name Role Phone Cori Ugalde DO Primary Care Physician Encounter [facility] [place] Date(s): 05/11/21 - 07/22/21 [facility] Attending Physician: Knee RD, Maia Allergies, Adverse [...] [11/21/2018] pt was given immunization at [address] SHINGRIX VIAL KIT 2Location History: [employer] Medications Meena-[place] Plus Cold and Cough By Mouth, Every [...] Refills, Maintenance, 10/01/20 7:33:00 EST, ER Tablet, [facility] #[id number], 185, cm, 07/22/20 22:18:00 EDT, Height, 180, [...] 3 Refills, Maintenance, 12/24/20 10:15:00 EST, Tablet, [facility] #[id number], 185, cm, 12/24/20 9:35:00 EST, Height,183.3, kg, [...] 3 Refills, Maintenance, 12/24/20 10:16:00 EST, Tablet, [facility] #[id number], Partial fill upon patient request, 185, cm, 12/24/20 9:35:00 EST, Height, 183.3, kg, 11/23/20... Start Date: 12/24/20 Stop Date: 12/19/21 Status: Ordered semaglutide 2 mg/1.5 mL (0.25 mg or 0.5 mg dose) subcutaneous solution = 0.25 mg, Subcutaneous Infusion, Every Sunday, rotate injection sites, # 1 each, 1 Refills, Maintenance, 06/13/21 11:00:00 EDT, [facility] #[id number], Partial fill upon patient request if theprescription [...] 5 Refills, Maintenance, 01/17/21 9:47:00 EST, Aerosol, [facility] #[id number], 185, cm, 12/24/20 9:35:00 EST, Height, 183.3, [...]
--- OUTSIDE RECORDS SUMMARY | 2023-04-10 07:35 | XMS_ITS | Continuity of Care Document ---
Author Name Unknown Organization [facility] Address [address] 2nd [address] [place] [address]- Care Team Providers Care Dispatcher Chief Coal Slurry Name Role Phone Cori Ugalde DO Primary Care Physician Encounter [facility] Date(s): 12/13/20 - 01/12/21 [facility] [place] [address] [place] [address]- Attending Physician: Murtaza Raya Admitting Physician: AdmtrMurtaza Referring Physician: Admtr, ArApril Allergies, Adverse Reactions, Alerts Substance Reaction Severity Status NKA Active Immunizations Given and Recorded Vaccine Date Status Refusal Reason influenza virus vaccine, inactivated 10/07/19 Give n influenza virus vaccine, inactivated 10/08/14 Colton rded Miscellaneous Vaccine 1 11/21/18 Given Zoster Vaccine Live 03/13/17 Recorded Zoster Vaccine Live 2 03/18/12 Recorded tetanus/diphtheria/pertussis, acel(Tdap) 06/21/16 Recorded 1Result Comment: [11/21/2018] pt was given immunization at [address] [facility] VIAL KIT [facility] Meena-Caroleen Plus Cold and Cough By Mouth, Every [...] Refills, Maintenance, 12/24/20 10:15:00 EST, EC Tablet, [facility] #[id number], 185, cm, 12/24/20 9:35:00 EST, Height, 183.3, kg, 11/23/20 8:36:00 EST, Dry Weight Start Date: 12/24/20 Stop Date: 12/19/21 Status: Ordered gabapentin 300 mg oral capsule 300 mg, 1, capsule, By Mouth, 3 times a day, # 270 capsule, Refills 3, Tot. Refills 3, Maintenance,12/24/20 10:15:00 EST, Route to Pharmacy Electronically, [facility] #[id number], 185, cm, 12/24/20 9:35:00 EST, Height, 183.3, [...] Refills, Maintenance, 10/01/20 7:33:00 EST, ER Tablet, [facility] #[id number], 185, cm, 07/22/20 22:18:00 EDT, Height, 180, [...] 3 Refills, Maintenance, 12/24/20 10:15:00 EST, Tablet, [facility] #[id number], 185, cm, 12/24/20 9:35:00 EST, Height,183.3, kg, [...] 3 Refills, Maintenance, 12/24/20 10:16:00 EST, Tablet, [facility] #[id number], Partial fill upon patient request, 185, cm, [...] 5 Refills, Maintenance, 12/25/19 13:42:00 EST, Aerosol, [facility] #[id number], 186, cm, 10/07/19 9:17:00 EST, Height Start [...]
--- OUTSIDE RECORDS SUMMARY | 2023-04-10 07:35 | XMS_ITS | Continuity of Care Document ---
Author Name Unknown Organization [facility] Address [address] [place] [address]- Care Team Providers Care Yarn Wrapper Name Role Phone Cori Ugalde DO Primary Care Physician Encounter [facility] Date(s): 11/22/21 - 12/30/21 [facility] [address] [place] [id number]- Attending Physician: Not on Staff, Attending MD [...] Comment: [11/21/2018] pt was given immunization at [address] SHINGRIX VIAL KIT 2Location History: [facility] Medications Meena-[place] Plus Cold and Cough By Mouth, Every [...] Refills, Maintenance, 10/01/20 7:33:00 EST, ER Tablet, [facility] #[id number], 185, cm, 07/22/20 22:18:00 EDT, Height, 180, [...] 3 Refills, Maintenance, 12/24/20 10:15:00 EST, Tablet, [facility] #[id number], 185, cm, 12/24/20 9:35:00 EST, Height,183.3, kg, [...] 3 Refills, Maintenance, 12/24/20 10:16:00 EST, Tablet, [facility] #[id number], Partial fill upon patient request, 185, cm, 12/24/20 9:35:00 EST, Height, 183.3, kg, 11/23/20... Start Date: 12/24/20 Stop Date: 12/19/21 Status: Ordered semaglutide 2 mg/1.5 mL (0.25 mg or 0.5 mg dose) subcutaneous solution = 0.5 mg, Subcutaneous Infusion, Every Sunday, rotate injection sites, # 1 each, 5 Refills, Maintenance, 11/10/21 9:24:00 EST, [facility] #[id number], Partial fill upon patient request if the [...] 5 Refills, Maintenance, 01/17/21 9:47:00 EST, Aerosol, [facility] #[id number], 185, cm, 12/24/20 9:35:00 EST, Height, 183.3, [...] stated he recieved both vaccines at the [facility] on 01/05/21 and 02/02/21 2Dexa 08/2020 Social History Social History Type Response Smoking Status Former smoker; Type: Cigarettes; Tobacco use times per day: 1-2 ppd for 30 years; Number of years: 28; Started at age: 20; Stopped at age: 48; entered on: 05/22/17 Sex Male
--- OUTSIDE RECORDS SUMMARY | 2023-04-10 07:35 | XMS_ITS | Continuity of Care Document ---
Author Name Unknown Organization [facility] Address [address] [place] [address]- Care Team Providers Care Wound Care Nurse Name Role Phone Cori Ugalde DO Primary Care Physician Encounter [facility] Date(s): 10/24/22 - 11/23/[address] [address]- Allergies, Adverse Reactions, Alerts No Known Allergies [...] Comment: [11/21/2018] pt was given immunization at [address] SHINGRIX VIAL KIT 2Location History: [facility] acetaminophen 325 mg oral tablet Refills [...] 09/28/22 11:07:00 EST, Route to Pharmacy Electronically, [facility] #[id number], Partial fill upon patient request if the [...] Refills, Maintenance, 07/17/22 11:58:00 EDT, EC Tablet, [facility] #[id number], 186, cm, 05/24/22 15:33:00 EDT, Height, 160,kg, [...] Refills, Maintenance, 04/03/22 13:28:00 EDT, ER Tablet, [facility] #[id number], 186, cm, 02/02/22 13:39:00 EDT, Height, 160, kg, 01/19/22 12:45:00 EST, Dry We... Start Date: 04/03/22 Stop Date: 08/01/22 Status: Ordered Lasix 80 mg oral tablet 80 mg, 1, tablet, By Mouth, Daily, # 30 tablet, Refills 3, Tot. Refills 3, Maintenance, 04/03/22 13:27:00 EDT, Route to Pharmacy Electronically, [facility] #[id number], Partial fill upon patientrequest if the prescription is for a schedule II op... Start Date: 04/03/22 Status: Ordered losartan 100 mg oral tablet 1 tablet, By Mouth, Daily, DISCONTINUE COMBO HCTZ-LOSARTAN PRESCRIPTION, # 90 tablet, 4 Refills, [facility] #[id number], 186, cm, 02/02/22 13:39:00 EDT, Height, 160, [...] Start Date: 09/28/22 Status: Ordered nystatin topical 021234 u/gm powder 1 application, Topically, 2 times a day, apply to irritated skin/rash of both groins/pubic areas, #60 Gm, 0 Refills, Maintenance, 10/25/22 11:36:00 EST, Powder, [facility] #[id number], Partial fill upon patient request if the [...] mL, 2 Refills, Maintenance, 10/14/22 12:35:00 EST, [facility] #[id number], Partial fill upon patient request if the [...] 1 Refills, Maintenance, 07/17/22 10:04:00 EDT, Tablet, [facility] #28575, Partial fill upon patient request, 186, cm, [...] 5 Refills, Maintenance, 10/06/22 13:01:00 EST, Aerosol, [facility] #[id number], 185.5, cm, 09/28/22 10:37:00 EST, Height, 154.4, [...] oldest [Reference Range]: 1 Height 185.5 cm (10/27/22 8:50 AM) Weight 155.9 kg (10/27/22 8:50 AM) Social History Social History Type Response Smoking Status Former smoker, quit more than 30 days ago entered on: 08/21/22 Sex Patient Care team information Care Team Personnel Name: Pam Killian RN Position: [facility] RN Member Role: Primary Care Nurse Name: Cori Ugalde DO Position: [facility] Primary Care Physician Member Role: PCP Address: Address: [address] [place] [id number] Name: Mila Omer RN Position: [facility] RN Member Role: Primary Care Nurse Care Team Related Persons Name: CANDY PRETTY Name: DEVAN PRETTY Address: home [address] [place] [id number] Name: SHERWIN PRETTY Address: [place] [address] Name: ISRAEL ALEGRIA
--- OUTSIDE RECORDS SUMMARY | 2023-04-10 07:35 | XMS_ITS | Continuity of Care Document ---
Author Name Unknown Organization [facility] Address [address] [place] [address]- Care Team Providers Care Supervisor Intermediates Name Role Phone Cori Ugalde DO Primary Care Physician Encounter [facility] Date(s): 02/23/20 - 03/04/20 [facility] [address] [place] [phone] [facility] Attending Physician: Murtaza Raya Admitting Physician: [...] [11/21/2018] pt was given immunization at [address] SHINGRIX VIAL KIT 2Location History: [facility] Medications aspirin buffered 81 mg oral tablet [...] 5 Refills, Maintenance, 01/06/20 10:56:00 EST, Gel, [facility] #[id number], 186, cm, 10/07/19 9:17:00 EST, Height Start Date: 01/06/20 Stop Date: 07/04/20 Status: Ordered gabapentin 300 mg oral capsule 300 mg, 1, capsule, By Mouth, 3 times a day, # 90 capsule, Refills 5, Tot. Refills 5, Maintenance, 10/07/19 9:24:32 EST, Route to Pharmacy Electronically, [facility]-[id number], [facility] [address] Start Date: 10/07/19 Stop Date: 04/04/20 Status: [...] 3 Refills, Maintenance, 01/19/20 9:18:00 EDT, Tablet, [facility] #[id number], 186, cm, 01/19/20 9:14:00 EDT, Height Start [...] 5 Refills, Maintenance, 12/25/19 13:42:00 EST, Aerosol, [facility] #[id number], 186, cm, 10/07/19 9:17:00 EST, Height Start [...]
--- OUTSIDE RECORDS SUMMARY | 2023-04-10 07:35 | XMS_ITS | Continuity of Care Document ---
Author Name Unknown Organization [facility] Address [address] [place] [address]- Care Team Providers Care Spice Room Worker Name Role Phone Cori Ugalde DO Primary Care Physician Encounter [facility] Date(s): 11/16/20 - 12/16/20 [facility] [address] [place] [id number] Allergies, Adverse Reactions, Alerts Substance [...] [11/21/2018] pt was given immunization at [address] SHINGRIX VIAL KIT 2Location History: [facility] Medications Meena-[place]le[place] Plus Cold and Cough By Mouth, Every [...] 0 Refills, Maintenance, 218:11:00 EST, EC Tablet, [facility] #[id number], 185, cm, 11/23/20 8:07:00 EST, Height, 183.3, kg, 11/23/20 8:36:00 EST, Dry Weight Start Date: 12/15/20 Stop Date: 01/14/21 Status: Ordered gabapentin 300 mg oral capsule 300 mg, 1, capsule, By Mouth, 3 times a day, # 90 capsule, Refills 2, Tot. Refills 2, Maintenance, 11/02/20 17:35:00 EST, Route to Pharmacy Electronically, [facility] #[id number], 185, cm, 07/22/20 22:18:00 EDT, Height, 180, [...] Refills, Maintenance, 10/01/20 7:33:00 EST, ER Tablet, [facility] #[id number], 185, cm, 07/22/20 22:18:00 EDT, Height, 180, [...] 3 Refills, Maintenance, 01/19/20 9:18:00 EDT, Tablet, [facility] #[id number], 186, cm, 01/19/20 9:14:00 EDT, Height Start [...] 3 Refills, Maintenance, 10/04/20 10:57:00 EST, Tablet, [facility] #60125, Partial fill upon patient request, 185, cm, [...] 5 Refills, Maintenance, 12/25/19 13:42:00 EST, Aerosol, [facility] #[id number], 186, cm, 10/07/19 9:17:00 EST, Height Start [...]
--- OUTSIDE RECORDS SUMMARY | 2023-04-10 07:35 | XMS_ITS | Continuity of Care Document ---
Author Name Unknown Organization [facility] Address [address] [place] [address]- Care Team Providers Care Educational Manager Name Role Phone Cori Ugalde DO Primary Care Physician Encounter [facility] Date(s): 07/21/22 - 08/20/22 [facility] [address] [place], [place] [address] Allergies, Adverse Reactions, Alerts No Known Allergies Immunizations Given and Recorded Vaccine Date Status Refusal Reason influenza virus vaccine, inactivated 10/07/19 Give n influenza virus vaccine, inactivated 10/08/14 Colton rded Miscellaneous Vaccine 1 11/21/18 Given zoster vaccine, inactivated 10/26/18 Recorded Zoster Vaccine Live 03/13/17 Recorded Zoster Vaccine Live 2 03/18/12 Recorded tetanus/diphtheria/pertussis, acel(Tdap) 06/21/16 Recorded 1Result Comment: [11/21/2018] pt was given immunization at [address] SHINGRIX VIAL KIT 2[facility] Meena-[place] Plus Cold and Cough By Mouth, Every [...] Refills, Maintenance, 07/17/22 11:58:00 EDT, EC Tablet, [facility] #[id number], 186, cm, 05/24/22 15:33:00 EDT, Height, 160,kg, [...] Refills, Maintenance, 04/03/22 13:28:00 EDT, ER Tablet, [facility] #[id number], 186, cm, 02/02/22 13:39:00 EDT, Height, 160, kg, 01/19/22 12:45:00 EST, Dry We... Start Date: 04/03/22 Stop Date: 08/01/22 Status: Ordered Lasix 80 mg oral tablet 80 mg, 1, tablet, By Mouth, Daily, # 30 tablet, Refills 3, Tot. Refills 3, Maintenance, 04/03/22 13:27:00 EDT, Route to Pharmacy Electronically, [facility] #[id number], Partial fill upon patientrequest if the prescription is for a schedule II op... Start Date: 04/03/22 Status: Ordered losartan 100 mg oral tablet 1 tablet, By Mouth, Daily, DISCONTINUE COMBO HCTZ-LOSARTAN PRESCRIPTION, # 90 tablet, 4 Refills, [facility] #[id number], 186, cm, 02/02/22 13:39:00 EDT, Height, 160, kg, 01/19/22 12:45:00 EST, Dry Weight Start Date: 04/13/22 Status: Ordered metoprolol 50 mg oral tablet 50 mg, 1, tablet, By Mouth, 2 times a day, Refills 0, Maintenance, 12/20/16 10:41:14 Start Date: 12/20/16 Status: Ordered Ozempic (1 mg dose) 4 mg/3 mL subcutaneous solution = 1 mg, Subcutaneous Infusion, Every Sunday, # 3 mL, 3 Refills, Maintenance, 05/25/22 15:50:00 EDT, [facility] #[id number], Partial fill upon patient request if the [...] 1 Refills, Maintenance, 07/17/22 10:04:00 EDT, Tablet, [facility] #[id number], Partial fill upon patient request, 186, cm, [...] 5 Refills, Maintenance, 01/17/21 9:47:00 EST, Aerosol, [facility] #[id number], 185, cm, 12/24/20 9:35:00 EST, Height, 183.3, [...] Personnel Name: Cori Ugalde DO Address: Address: [address] [place] [address]
--- OUTSIDE RECORDS SUMMARY | 2023-04-10 07:35 | XMS_ITS | Continuity of Care Document ---
Author Name Unknown Organization [facility] Address [address] [place] [address]- Care Team Providers Care Can Feeder Name Role Phone Cori Ugalde DO Primary Care Physician Encounter [facility] [id number] Date(s): 07/12/21 - 07/13/21 [place] [address] [place] [address]- Discharge Disposition: A-D/C Home Attending Physician: Jovanni Noyola MD Admitting Physician: Jovanni Noyola MD Referring Physician: Not on Staff, Referring MD Allergies, Adverse Reactions, Alerts Substance Reaction [...] [11/21/2018] pt was given immunization at [address] SHINGRIX VIAL KIT 2Location [facility] Meena-[place] Plus Cold and Cough By Mouth, Every [...] 6:28:58, Tablet Start Date: 09/16/14 Status: Ordered cefadroxil 500 mg oral capsule 2 capsule = 1,000 mg, By Mouth, Every 12 hours, for 7 days, # 28 capsule, 0 Refills, Acute 211:12:00 EDT, 07/13/21 1:12:00 EDT, Capsule, [facility] #[id number], Partial fill upon patient request if the prescription is for a schedule II opi... Start Date: 07/13/21 Stop Date: 07/20/21 Status: Ordered Compression Stockings See Instructions, # [...] Refills, Maintenance, 12/24/20 10:15:00 EST, EC Tablet, [facility] #[id number], 185, cm, 12/24/20 9:35:00 EST, Height, 183.3, kg, 11/23/20 8:36:00 EST, Dry Weight Start Date: 12/24/20 Stop Date: 12/19/21 Status: Ordered gabapentin 300 mg oral capsule 300 mg, 1, capsule, By Mouth, 3 times a day, # 270 capsule, Refills 3, Tot. Refills 3, Maintenance,12/24/20 10:15:00 EST, Route to Pharmacy Electronically, [facility] #[id number], 185, cm, 12/24/20 9:35:00 EST, Height, 183.3, [...] Refills, Maintenance, 10/01/20 7:33:00 EST, ER Tablet, [facility] #[id number], 185, cm, 07/22/20 22:18:00 EDT, Height, 180, [...] 3 Refills, Maintenance, 12/24/20 10:15:00 EST, Tablet, [facility] #[id number], 185, cm, 12/24/20 9:35:00 EST, Height,183.3, kg, [...] 3 Refills, Maintenance, 12/24/20 10:16:00 EST, Tablet, [facility] #63927, Partial fill upon patient request, 185, cm, 12/24/20 9:35:00 EST, Height, 183.3, kg, 11/23/20... Start Date: 12/24/20 Stop Date: 12/19/21 Status: Ordered semaglutide 2 mg/1.5 mL (0.25 mg or 0.5 mg dose) subcutaneous solution = 0.25 mg, Subcutaneous Infusion, Every Sunday, rotate injection sites, # 1 each, 1 Refills, Maintenance, 06/13/21 11:00:00 EDT, [facility] #[id number], Partial fill upon patient request if theprescription [...] 5 Refills, Maintenance, 01/17/21 9:47:00 EST, Aerosol, [facility] #73015, 185, cm, 12/24/20 9:35:00 EST, Height, 183.3, [...] recent to oldest [Reference Range]: 1 Height 185.42 cm (07/13/21 12:54 AM) Weight 166 kg (07/13/21 12:54 AM) Oxygen Saturation [94-100 %] 98 % (07/13/21 12:54 AM) Pulse Rate [55-90 bpm] 67 bpm (07/13/21 12:54 AM) Blood Pressure [90-138/55-84 mm Hg] 164/ 93mm Hg *H* (07/13/21 12:54 AM) Respiratory Rate [16-30 br/min] 20 br/mi n (07/13/21 12:54 AM) Temperature [96.8-100.4 DegF] 97.6 DegF (07/13/21 12:54 AM) Mode of Delivery (Oxygen) Room air (07/13/21 12:54 AM) Blood pressure sites Arm, left (07/13/21 12:54 AM) Temperature Route Temporal (07/13/21 12:54 AM) Dry Weight 166 kg (07/13/21 12:54 AM) Weight Obtained Via Patient/family state d (07/13/21 12:54 AM) Dry Weight Obtained Via Patient/family s tated (07/13/21 12:54 AM) Social History Social History Type Response Smoking Status Former smoker; Type: Cigarettes; Tobacco use times per day: 1-2 ppd for 30 years; Number of years: 28; Started at age: 20; Stopped at age: 48; entered on: 05/22/17 Sex Male
--- OUTSIDE RECORDS SUMMARY | 2023-04-10 07:36 | XMS_ITS | Continuity of Care Document ---
Author Name Unknown Organization [facility] Address [address] [place] [address]- Care Team Providers Care Tar And Ammonia Pump Operator Name Role Phone Cori Ugalde DO Primary Care Physician Encounter [facility] Date(s): 07/06/21 - 07/06/21 [place] [address] [place] [address]- Discharge Disposition: A-D/C Home Attending Physician: Jovanni [...] [11/21/2018] pt was given immunization at [address] SHINGRIX VIAL KIT 2Location History: [facility] Medications Meena-[place] Plus Cold and Cough By Mouth, Every [...] Refills, Maintenance, 12/24/20 10:15:00 EST, EC Tablet, [facility] #[id number], 185, cm, 12/24/20 9:35:00 EST, Height, 183.3, kg, 11/23/20 8:36:00 EST, Dry Weight Start Date: 12/24/20 Stop Date: 12/19/21 Status: Ordered gabapentin 300 mg oral capsule 300 mg, 1, capsule, By Mouth, 3 times a day, # 270 capsule, Refills 3, Tot. Refills 3, Maintenance,12/24/20 10:15:00 EST, Route to Pharmacy Electronically, [facility] #[id number], 185, cm, 12/24/20 9:35:00 EST, Height, 183.3, [...] Refills, Maintenance, 10/01/20 7:33:00 EST, ER Tablet, [facility] #[id number], 185, cm, 07/22/20 22:18:00 EDT, Height, 180, [...] 3 Refills, Maintenance, 12/24/20 10:15:00 EST, Tablet, [facility] #[id number], 185, cm, 12/24/20 9:35:00 EST, Height,183.3, kg, [...] 3 Refills, Maintenance, 12/24/20 10:16:00 EST, Tablet, [facility] #13992, Partial fill upon patient request, 185, cm, 12/24/20 9:35:00 EST, Height, 183.3, kg, 11/23/20... Start Date: 12/24/20 Stop Date: 12/19/21 Status: Ordered semaglutide 2 mg/1.5 mL (0.25 mg or 0.5 mg dose) subcutaneous solution = 0.25 mg, Subcutaneous Infusion, Every Sunday, rotate injection sites, # 1 each, 1 Refills, Maintenance, 06/13/21 11:00:00 EDT, [facility] #[id number], Partial fill upon patient request if theprescription is for a schedule II opioid drug., 0.2... Start Date: 06/13/21 Stop Date: 08/12/21 Status: Ordered Shower Bench See Instructions, # 1 each, Refills 0, Tot. Refills 0, Maintenance, Dx: Sandi Peters, 12/20/1709:53:07, Compound Start Date: 12/20/16 Status: Ordered Tylenol 325 mg oral tablet 650 mg, Tablet, By Mouth, Once, PRN for Pain , Moderate, Routine, 07/06/21 17:13:00 EDT Start Date: 07/06/21 Stop Date: 07/06/21 Status: Completed Ventolin HFA 108 mcg/inh inhalation aerosol with adapter 1 puffs, Inhalation, 4 times a day, PRN for wheezing, # 1 each, 5 Refills, Maintenance, 01/17/21 9:47:00 EST, Aerosol, [facility] #[id number], 185, cm, 12/24/20 9:35:00 EST, Height, 183.3, [...] stated he recieved both vaccines at the [facility] on 01/05/21 and 02/02/21 2Dexa 08/2020 Results Radiology Reports * Exam Date Time Procedure Performing Provider Status 07/06/21 1:23 PM Foot Min 3 Views Left Stephanie Yang; Auth (Verified) Notes: (Foot Min 3 Views Left) Reason For Exam: Trauma RESULT: Foot Min 3 Views Left Examination: Left foot performed on 07/06/2021. History: Hx of Present Illness: Pt fell 2 nights ago and injured left foot; Reason: Trauma; Clinical Question(s): Fracture Findings: Frontal, oblique, and lateral views of the left foot are submitted. There is a slightly comminuted, nondisplaced fracture of the midshaft of the fourth metatarsal. There may be cortical irregularity of the distal aspect of the fourth proximal phalanx. A transverse fracture at the base of the fifth metatarsal is present with extension to the articular surface. No additional fractures are noted. There is a plantar calcaneal spur. IMPRESSION: Fractures of the fourth and fifth metatarsals as described. Possible fourth proximal phalangeal fracture. An [place] message has been communicated via the [employer] system on 07/06/2021 1:45 PM, Message ID [id number]. WSN: [id number] Ordering Physician: Jovanni Noyola Dictated By: Sushila Hastings MD Dictated Date/Time: 07/06/21 1:45 pm Reviewed By: Sushila Hastings MD Signed By: Sushila Hastings MD Signed Date/Time: 07/06/21 1:45 pm Transcribed By: NEELAM Transcribed Date/Time: 07/06/21 1:44 pm Vital Signs Most recent to oldest [Reference Range]: 1 2 3 Height 183 cm (07/06/21 12:58 PM) Weight 163.9 kg (07/06/21 12:58 PM) Oxygen Saturation [94-100 %] 97 % (07/06/21 5:00 PM) 96 % (07/06/21 12:58 PM) Pulse Rate [55-90 bpm] 68 bpm (07/06/21 5:00 PM) 85 bpm (07/06/21 12:58 PM) Blood Pressure [90-138/55-84 mm Hg] 134/74mm Hg (07/06/21 5:00 PM) 122/69mm Hg (07/06/21 12:58 PM) Respiratory Rate [16-30 br/min] 16 br/min (07/06/21 5:30 PM) 18 br/min (07/06/21 5:00 PM) 16 br/min (07/06/21 12:58 PM) Temperature [96.8-100.4 DegF] 98.9 DegF (07/06/21 12:58 PM) Mode of Delivery (Oxygen) Room air (07/06/21 5:00 PM) Room air (07/06/21 12:58 PM) Temperature Route Oral (07/06/21 12:58 PM) Dry Weight 163.9 kg (07/06/21 12:58 PM) Weight Obtained Via Standing scale (07/06/21 12:58 PM) Dry Weight Obtained Via Standing scale (07/06/21 12:58 PM) Social History Social History Type Response Smoking Status Former smoker; Type: Cigarettes; Tobacco use times per day: 1-2 ppd for 30 years; Number of years: 28; Started at age: 20; Stopped at age: 48; entered on: 05/22/17 Sex Male
--- OUTSIDE RECORDS SUMMARY | 2023-04-10 07:36 | XMS_ITS | Continuity of Care Document ---
Author Name Unknown Organization [facility] Address [address] [place] [id number]- Care Team Providers Care County Demonstrator Name Role Phone Cori Ugalde DO Primary Care Physician [place] [facility] [place]22 [facility] [address] [place], [place] [address] Allergies, Adverse Reactions, Alerts No Known [...] [11/21/2018] pt was given immunization at [address] SHINGRIX VIAL KIT 2Location History: [facility] Medications Meena-[place] Plus Cold and Cough By Mouth, Every [...] Refills, Maintenance, 01/05/22 14:08:00 EST, EC Tablet, [facility] #[id number], 185.42, cm, 12/29/21 15:01:00 EST, Height, 166, [...] Refills, Maintenance, 04/03/22 13:28:00 EDT, ER Tablet, [facility] #[id number], 186, cm, 02/02/22 13:39:00 EDT, Height, 160, kg, 01/19/22 12:45:00 EST, Dry We... Start Date: 04/03/22 Stop Date: 08/01/22 Status: Ordered Lasix 80 mg oral tablet 80 mg, 1, tablet, By Mouth, Daily, # 30 tablet, Refills 3, Tot. Refills 3, Maintenance, 04/03/22 13:27:00 EDT, Route to Pharmacy Electronically, [facility] #[id number], Partial fill upon patientrequest if the prescription is for a schedule II op... Start Date: 04/03/22 Status: Ordered losartan 100 mg oral tablet 1 tablet, By Mouth, Daily, DISCONTINUE COMBO HCTZ-LOSARTAN PRESCRIPTION, # 90 tablet, 4 Refills, [facility] #[id number], 186, cm, 02/02/22 13:39:00 EDT, Height, 160, [...] mL, 2 Refills, Maintenance, 01/19/22 19:25:00 EST, [facility] #[id number], Partial fill upon patient request if the [...] 1 Refills, Maintenance, 01/05/22 12:30:00 EST, Tablet, [facility] #[id number], Partial fill upon patient request, 185.42,cm, 12/29/21 [...] 5 Refills, Maintenance, 01/17/21 9:47:00 EST, Aerosol, [facility] #[id number], 185, cm, 12/24/20 9:35:00 EST, Height, 183.3, [...]
--- OUTSIDE RECORDS SUMMARY | 2023-04-10 07:36 | XMS_ITS | Continuity of Care Document ---
Author Name Unknown Organization [facility] Address [address] [place] [address] [address] [place] [address]- Care Team Providers Care Iuss Master Analyst Name Role Phone Cori Ugalde DO Primary Care Physician Encounter [facility] Date(s): 11/24/22 - 12/24/[address] [place] [address]- Allergies, Adverse Reactions, Alerts No Known Allergies [...] [11/21/2018] pt was given immunization at [address] SHINGRIX VIAL KIT 3Location History: [facility] [...] 11/27/22 15:22:00 EST, Route to Pharmacy Electronically, [facility] #[id number], Partial fill upon patient request if the [...] Refills, Maintenance, 12/04/22 9:17:00 EST, EC Tablet, [facility] #[id number], 185.5, cm, 11/24/22 11:51:00 EST, Height, 154.4, [...] Refills, Maintenance, 04/03/22 13:28:00 EDT, ER Tablet, [facility] #[id number], 186, cm, 02/02/22 13:39:00 EDT, Height, 160, kg, 01/19/22 12:45:00 EST, Dry We... Start Date: 04/03/22 Stop Date: 08/01/22 Status: Ordered Lasix 80 mg oral tablet 80 mg, 1, tablet, By Mouth, Daily, # 30 tablet, Refills 3, Tot. Refills 3, Maintenance, 04/03/22 13:27:00 EDT, Route to Pharmacy Electronically, [facility] #[id number], Partial fill upon patientrequest if the prescription is for a schedule II op... Start Date: 04/03/22 Status: Ordered losartan 100 mg oral tablet 1 tablet, By Mouth, Daily, DISCONTINUE COMBO HCTZ-LOSARTAN PRESCRIPTION, # 90 tablet, 4 Refills, [facility] #[id number], 186, cm, 02/02/22 13:39:00 EDT, Height, 160, [...] Start Date: 09/28/22 Status: Ordered nystatin topical [id number] u/gm powder 1 application, Topically, 2 times a day, apply to irritated skin/rash of both groins/pubic areas, #60 Gm, 0 Refills, Maintenance, 10/25/22 11:36:00 EST, Powder, [facility] #[id number], Partial fill upon patient request if the [...] mL, 2 Refills, Maintenance, 10/14/22 12:35:00 EST, [facility] #[id number], Partial fill upon patient request if the [...] 1 Refills, Maintenance, 07/17/22 10:04:00 EDT, Tablet, [facility] #[id number], Partial fill upon patient request, 186, cm, [...] 5 Refills, Maintenance, 10/06/22 13:01:00 EST, Aerosol, [facility] #[id number], 185.5, cm, 09/28/22 10:37:00 EST, Height, 154.4, [...] Ugalde DO Position: [facility] Hospital Medicine Member Role: PCP Address: Address: [address] [place] [id number] Name: Mila Omer RN Position: [facility] RN Member Role: Primary Care Nurse Care Team Related Persons Name: CANDY PRETTY Name: DEVAN PRETTY Address: [address] [address] Name: SHERWIN PRETTY Address: [place] [address] Name: ISRAEL ALEGRIA
--- OUTSIDE RECORDS SUMMARY | 2023-04-10 07:36 | XMS_ITS | Continuity of Care Document ---
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 SHINGRIX VIAL KIT 2Location History: [employer] Medications Meena-[place] Plus Cold and Cough By Mouth, Every [...] Refills, Maintenance, 01/05/22 14:08:00 EST, EC Tablet, [facility] #[id number], 185.42, cm, 12/29/21 15:01:00 EST, Height, 166, [...] Refills, Maintenance, 04/03/22 13:28:00 EDT, ER Tablet, [facility] #[id number], 186, cm, 02/02/22 13:39:00 EDT, Height, 160, kg, 01/19/22 12:45:00 EST, Dry We... Start Date: 04/03/22 Stop Date: 08/01/22 Status: Ordered Lasix 80 mg oral tablet 80 mg, 1, tablet, By Mouth, Daily, # 30 tablet, Refills 3, Tot. Refills 3, Maintenance, 04/03/22 13:27:00 EDT, Route to Pharmacy Electronically, [facility] #[id number], Partial fill upon patientrequest if the prescription is for a schedule II op... Start Date: 04/03/22 Status: Ordered losartan 100 mg oral tablet 1 tablet, By Mouth, Daily, DISCONTINUE COMBO HCTZ-LOSARTAN PRESCRIPTION, # 90 tablet, 4 Refills, [facility] #[id number], 186, cm, 02/02/22 13:39:00 EDT, Height, 160, [...] mL, 3 Refills, Maintenance, 05/25/22 15:50:00 EDT, [facility] #[id number], Partial fill upon patient request if the [...] 1 Refills, Maintenance, 01/05/22 12:30:00 EST, Tablet, [facility] #[id number], Partial fill upon patient request, 185.42,cm, 12/29/21 [...] 5 Refills, Maintenance, 01/17/21 9:47:00 EST, Aerosol, [facility] #[id number], 185, cm, 12/24/20 9:35:00 EST, Height, 183.3, [...] Team Personnel Name: Cori Ugalde DO Address: [address] [place] [address]
--- OUTSIDE RECORDS SUMMARY | 2023-04-10 07:36 | XMS_ITS | Continuity of Care Document ---
Author Name Unknown Organization [facility] Address [address] [place] [address]- Care Team Providers Care Econometrician Name Role Phone Cori Ugalde DO Primary Care Physician Encounter [facility] [place] Date(s): 05/24/22 - 05/31/22 [facility] [address] [place] [address]- Attending Physician: Irineo GOTTI, Naty Xavier Admitting [...] [11/21/2018] pt was given immunization at [address] SHINGRIX VIAL KIT 2Location History: [facility] Medications Meena-[place] Plus Cold and Cough By Mouth, Every [...] Refills, Maintenance, 01/05/22 14:08:00 EST, EC Tablet, [facility] #[id number], 185.42, cm, 12/29/21 15:01:00 EST, Height, 166, [...] Refills, Maintenance, 04/03/22 13:28:00 EDT, ER Tablet, [facility] #[id number], 186, cm, 02/02/22 13:39:00 EDT, Height, 160, kg, 01/19/22 12:45:00 EST, Dry We... Start Date: 04/03/22 Stop Date: 08/01/22 Status: Ordered Lasix 80 mg oral tablet 80 mg, 1, tablet, By Mouth, Daily, # 30 tablet, Refills 3, Tot. Refills 3, Maintenance, 04/03/22 13:27:00 EDT, Route to Pharmacy Electronically, [facility] #[id number], Partial fill upon patientrequest if the prescription is for a schedule II op... Start Date: 04/03/22 Status: Ordered losartan 100 mg oral tablet 1 tablet, By Mouth, Daily, DISCONTINUE COMBO HCTZ-LOSARTAN PRESCRIPTION, # 90 tablet, 4 Refills, [facility] #[id number], 186, cm, 02/02/22 13:39:00 EDT, Height, 160, [...] mL, 3 Refills, Maintenance, 05/25/22 15:50:00 EDT, [facility] #[id number], Partial fill upon patient request if the [...] 1 Refills, Maintenance, 01/05/22 12:30:00 EST, Tablet, [facility] #[id number], Partial fill upon patient request, 185.42,cm, 12/29/21 [...] 5 Refills, Maintenance, 01/17/21 9:47:00 EST, Aerosol, [facility] #[id number], 185, cm, 12/24/20 9:35:00 EST, Height, 183.3, [...] oldest [Reference Range]: 1 Height 186 cm (05/24/22 3:33 PM) Weight 158.3 kg (05/24/22 3:33 PM) Oxygen Saturation [94-100 %] 95 % (05/24/22 3:33 PM) Pulse Rate [55-90 bpm] 84 bpm (05/24/22 3:33 PM) Body Mass Index [18.5-24.99] 45.76 *>HHI* (05/24/22 3:33 PM) Blood Pressure [90-138/55-84 mm Hg] 138/ 86mm Hg (05/24/22 3:33 PM) Blood pressure sites Arm, right (05/24/22 3:33 PM) Social History Social History Type Response Smoking Status Former smoker; Type: Cigarettes; Tobacco use times per day: 1-2 ppd for 30 years; Number of years: 28; Started at age: 20; Stopped at age: 48; entered on: 05/22/17 Sex Male
--- OUTSIDE RECORDS SUMMARY | 2023-04-10 07:36 | XMS_ITS | Continuity of Care Document ---
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 SHINGRIX VIAL KIT 2Location History: [facility] Medications aspirin buffered 81 mg oral tablet [...] 3 Refills, Maintenance, :11:00 EDT, EC Tablet, [facility] #[id number], 185, cm, 07/22/20 22:18:00 EDT, Height, 180, kg, 07/22/20 22:18:00 EDT, Dry Weight Start Date: 08/17/20 Stop Date: 12/15/20 Status: Ordered gabapentin 300 mg oral capsule 300 mg, 1, capsule, By Mouth, 3 times a day, # 90 capsule, Refills 5, Tot. Refills 5, Maintenance, 04/20/20 17:38:00 EDT, Route to Pharmacy Electronically, [facility] #[id number], 186, cm, 01/19/20 9:14:00 EDT, Height Start [...] Refills, Maintenance, 10/01/20 7:33:00 EST, ER Tablet, [facility] #[id number], 185, cm, 07/22/20 22:18:00 EDT, Height, 180, [...] 3 Refills, Maintenance, 01/19/20 9:18:00 EDT, Tablet, [facility] #[id number], 186, cm, 01/19/20 9:14:00 EDT, Height Start [...] 3 Refills, Maintenance, 10/04/20 10:57:00 EST, Tablet, [facility] #[id number], Partial fill upon patient request, 185, cm, [...] 07/29/20 12:29:00 EDT, Route to Pharmacy Electronically, [facility] #[id number], 185, cm, 07/22/20 22:18:00 EDT, Height, 180, kg, 07/22/20 22:18:00 EDT,... Start Date: 07/29/20 Stop Date: 08/01/20 Status: Ordered Ventolin HFA 108 mcg/inh inhalation aerosol with adapter 1 puffs, Inhalation, 4 times a day, PRN for wheezing, # 1 each, 5 Refills, Maintenance, 12/25/19 13:42:00 EST, Aerosol, [facility] #[id number], 186, cm, 10/07/19 9:17:00 EST, Height Start [...]
--- OUTSIDE RECORDS SUMMARY | 2023-04-10 07:36 | XMS_ITS | Continuity of Care Document ---
Author Name Unknown Organization [facility] Address [address] [place] [address]- Care Team Providers Care Cad Developer Name Role Phone Cori Ugalde DO Primary Care Physician Encounter [facility] Date(s): 02/15/22 - 03/17/22 [facility] [address] [place] [address]- Allergies, Adverse Reactions, Alerts No Known Allergies Immunizations Given and Recorded Vaccine Date Status Refusal Reason influenza virus vaccine, inactivated 10/07/19 Give n influenza virus vaccine, inactivated 10/08/14 Colton rded Miscellaneous Vaccine 1 11/21/18 Given zoster vaccine, inactivated 10/26/18 Recorded Zoster Vaccine Live 03/13/17 Recorded Zoster Vaccine Live 2 03/18/12 Recorded tetanus/diphtheria/pertussis, acel(Tdap) 06/21/16 Recorded 1Result Comment: [11/21/2018] pt was given immunization at [address] SHINGRIX VIAL KIT 2Location History: [facility] Medications Meena-[place] Plus Cold and Cough By Mouth, Every [...] Refills, Maintenance, 01/05/22 14:08:00 EST, EC Tablet, [facility] #[id number], 185.42, cm, 12/29/21 15:01:00 EST, Height, 166, [...] Refills, Maintenance, 10/01/20 7:33:00 EST, ER Tablet, [facility] #[id number], 185, cm, 07/22/20 22:18:00 EDT, Height, 180, [...] 1 Refills, Maintenance, 02/15/22 15:52:00 EDT, Tablet, [facility] #[id number], 186, cm, 02/02/22 13:39:00 EDT, Height, 160, [...] mL, 2 Refills, Maintenance, 01/19/22 19:25:00 EST, [facility] #[id number], Partial fill upon patient request if the [...] 1 Refills, Maintenance, 01/05/22 12:30:00 EST, Tablet, [facility] #[id number], Partial fill upon patient request, 185.42,cm, 12/29/21 [...] 5 Refills, Maintenance, 01/17/21 9:47:00 EST, Aerosol, [facility] #[id number], 185, cm, 12/24/20 9:35:00 EST, Height, 183.3, [...]
[2023-04-10 08:10] VITALS: BP 148/95; PULSE 69; RESP 16; TEMP 36.1; O2SAT 96; BMI 45.5
--- NOTE | 2023-04-10 09:07 | MHC.SHP ---
Pre-Procedural Eval Section A Date of Service: 04/10/23 Section B Chief Complaint: screening Details of Present Illness: see H&P no changes Relevant Family History (Specify if Yes): No Relevant Social History: None Present Medications: see Short Stay Collaborative assessment Medical History: No relevant PMH History of Previous Operations: No relevant previous surgery Allergies: Allergies Allergy/AdvReac Type Severity Reaction Status Date / Time No Known Allergies Allergy Verified 04/05/23 13:42 Review of Systems Sugical H&P ROS: Negative: Constitution, Cardiovascular, Respiratory, Neurological, Psychiatric, Hem-Onc, Allergic/Immunologic, Gastrointestinal, Genitourinary, Musculoskeletal, Integumentary, Endocrine and Eyes/Ears/Nose/Throat Exam Surgical H&P Exam: Normal: HEENT, Normal: Heart, Normal: Lungs, Normal: Extremities, Normal: Abdomen, Normal: Skin and Normal: Neurological Plan Diagnosis/Plan: Unchanged I have reviewed the history and physical and performed a pertinent physical examination on my patient. No changes have occurred unless specified. Time Spent With Patient Time: Total time managing care of this patient today ____ minutes.
--- NOTE | 2023-04-10 09:36 | PM.OP ---
Brief Operative Note Date of Service: 04/10/23 Pre-op diagnosis: screening Post-op diagnosis: same Procedure: colonoscopy Surgeon: Justin Drew Anesthesia: MAC Was an Small Battery Plate Assembler used for this Procedure?: No Estimated blood loss (mL): 0 Pathology: none sent Condition: stable Disposition: PACU
[2023-04-10 09:41] VITALS: BP 128/60; PULSE 68; RESP 18; TEMP 35.8; O2SAT 96
[2023-04-10 09:46] VITALS: BP 123/67; PULSE 65; RESP 18; O2SAT 95
[2023-04-10 09:51] VITALS: BP 124/68; PULSE 69; RESP 18; O2SAT 96
[2023-04-10 09:56] VITALS: BP 138/59; PULSE 64; RESP 18; TEMP 36.6; O2SAT 96
--- NOTE | 2023-04-10 10:00 | OP_ITS ---
DATE OF SERVICE: 04/10/2023 SURGEON: Justin Drew MD INDICATIONS: Colon cancer screening. PREOPERATIVE DIAGNOSIS: POSTOPERATIVE DIAGNOSIS: PROCEDURE PERFORMED: Colonoscopy to the cecum. ESTIMATED BLOOD LOSS: COMPLICATIONS: ANESTHESIA: Monitored anesthesia care. ASSISTANTS: SPECIMENS: DESCRIPTION OF PROCEDURE: A history and physical were performed. The risks and benefits of the procedure were explained to the patient. Informed consent was obtained. The patient was placed in the left lateral decubitus position. A digital rectal exam was performed and was found to be normal. The Olympus pediatric video colonoscope was introduced into the rectum and advanced to the cecum without difficulty. The cecum was identified by transillumination, palpation, and identification of ileocecal valve. Examination was performed, and the scope was removed. He tolerated the procedure well and was returned to the recovery area in stable condition. FINDINGS: The terminal ileum was not examined. The visualized colonic mucosa was within normal limits, without evidence of masses or ulcers. No polyps were identified. There was a moderate amount of liquid stool and some formed stool left, which limited the sensitivity examination for detection of small polyps. This was washed and suctioned as best possible. No polyps were identified. There was moderate sigmoid diverticulosis. Retroflexed examination was normal. IMPRESSION: Normal colonoscopy. RECOMMENDATIONS: 1. Follow up as needed. 2. Repeat colonoscopy is recommended in 10 years for average risk individuals. MD LAURYN Tapia/NIKOLE / [id number]
== END 2023-04-10 10:47 | disposition home or self-care (01) ==
PROVIDERS: PCP Internal Medicine; Visit Provider Internal Medicine Gastroenterology
PROC: 0DJD8ZZ Inspection of Lower Intestinal Tract, Via Natural or Artificial Opening Endoscopic (ICD-10-PCS; CPT 45378; principal; 2023-04-10 09:00)
DX: Z12.11 Encounter for screening for malignant neoplasm of colon (principal); Z86.010 Personal history of colon polyps; K57.30 Diverticulosis of large intestine without perforation or abscess without bleeding; K21.9 Gastro-esophageal reflux disease without esophagitis; I11.0 Hypertensive heart disease with heart failure; I50.30 Unspecified diastolic (congestive) heart failure; I25.10 Atherosclerotic heart disease of native coronary artery without angina pectoris; Z95.5 Presence of coronary angioplasty implant and graft; E78.5 Hyperlipidemia, unspecified; I73.9 Peripheral vascular disease, unspecified; G47.33 Obstructive sleep apnea (adult) (pediatric); Z79.82 Long term (current) use of aspirin; Z79.899 Other long term (current) drug therapy; Z98.890 Other specified postprocedural states; Z87.891 Personal history of nicotine dependence
CPT/HCPCS: G0105